=== PATIENT | male | born 1975 | race Caucasian/White ===

== ENCOUNTER 2020-11-07 18:52 | Emergency (ER) | payer OTHER, SELFPAY ==
--- NOTE | ~2020-11-07 | CT_ITS ---
EXAMINATION: CT HEAD WITHOUT CONTRAST CT FACIAL BONES WITHOUT CONTRAST CT CERVICAL SPINE WITHOUT CONTRAST CLINICAL INFORMATION: Fall COMPARISON: None. TECHNIQUE: Multidetector CT imaging of the head, face and cervical spine was performed without the use of intravenous contrast. Multiplanar reformats are reviewed. This CT examination was performed using dose optimization techniques as appropriate, variously including the following: *Automated exposure control *Adjustment of mA and/or kV according to patient size (this includes techniques or standardized protocols for targeted exams where dose is matched to indication/reason for exam; i.e. extremities or head) *Use of iterative reconstruction technique DLP: 1603 mGy-cm. FINDINGS: There is no evidence of acute intracranial hemorrhage or territorial infarction. No abnormal mass-effect or midline shift is seen. Suero to white matter differentiation is well preserved. There is no abnormal attenuation within the brain parenchyma.. No extra-axial fluid collections are identified. The ventricles are normal in size. There is no abnormal attenuation within the brain parenchyma. No acute facial bone fractures. Orbits and globes unremarkable. There is complete opacification of the left maxillary sinus with hyperdense secretions. Partial opacification of the left ethmoid air cells. Complete opacification left frontal sinus. Remainder of the paranasal sinuses are clear. Rightward projecting osseous nasal septal spur. Mandible and temporomandibular joints are intact. Atlantooccipital alignment is maintained. The vertebral bodies and posterior elements align normally. No acute fracture or subluxation. Vertebral body heights are maintained. Small endplate osteophytes present from C4 through C7.. The paraspinal soft tissues are otherwise unremarkable. The imaged lung apices are clear CT/CT cervical spine wo con IMPRESSION: No acute intracranial pathology. Normal CT imaging appearance of the brain. No facial bone fracture. Chronic left maxillary and frontal sinusitis. No cervical spine fracture or subluxation.
--- NOTE | 2020-11-07 19:09 | ECG_ITS ---
Test Reason : SUBSTANCE ABUSE Blood Pressure : / mmHG Vent. Rate : 067 BPM Atrial Rate : 067 BPM P-R Int : 132 ms QRS Dur : 090 ms QT Int : 424 ms P-R-T Axes : 081 060 050 degrees QTc Int : 448 ms Normal sinus rhythm Possible Left atrial enlargement Borderline ECG When compared with ECG of 06-MAR-2020 04:15, No significant change was found Referred By: Oscar Tirado Electronically Signed By:Kurt De Leon
--- NOTE | 2020-11-07 19:09 | ED.PSYCH ---
HPI - Psych General Chief Complaint: Psychiatric Symptoms Stated Complaint: crisis Time Seen by Provider: 11/07/20 19:08 Source: EMS Mode of arrival: EMS Limitations: no limitations History of Present Illness HPI Narrative: Presents via EMS after he walks and police station requesting help with substance abuse states he has been using heroin on cocaine which he snorts last used couple hours prior to arrival states he has never used IV drugs always snores occasionally uses marijuana but no other illicit drugs. States he has also had visual and auditory hallucinations with history of depression and anxiety as well as PTSD he is supposed to be on multiple psych medications but he has not been taking it for several weeks. He reports he does feel suicidal but denies homicidal ideation. Offers no medical complaints at this time. States he is looking for help with his illicit substance and wants to get back on his medications. No specific plan expressed. MD complaint: suicidal ideation and feels depressed Onset (ago): day(s) Duration: constant History of same: Yes Relieving factors: none Exacerbating factors: alcohol Context: recent drug abuse Associated psychiatric symptoms: depression and suicidal ideation Associated symptoms: denies other symptoms Treatments prior to arrival: none If self harm: admits thoughts of self harm Related Data Allergies Allergy/AdvReac Type Severity Reaction Status Date / Time No Known Allergies Allergy Unverified 04/22/20 16:31 [No Known Allergies*] Review of Systems Review of Systems: Constitutional: No Weight loss, No Fever, No Chills, No Night Sweats, No Fatigue, No Malaise ENT/Mouth: No Hearing loss, No Ear Pain, No Nasal Congestion, No Sinus Pain, No Hoarseness, No sore throat, No Rhinorrhea, No Swallowing Difficulty Eyes: No Eye Pain, No Swelling, No Redness, No Foreign Body, No Discharge, No Vision Changes Cardiovascular: No Chest Pain, No SOB, No Dyspnea on Exertion, No Orthopnea, No Edema, No Palpitations Respiratory: No Cough, No Sputum, No Wheezing, No Dyspnea Gastrointestinal: No Nausea, No Vomiting, No Diarrhea, No Constipation, No abdominal Pain, No Hematochezia, No Melena Genitourinary: no irregular bleeding, No Dysuria, No Urinary Frequency, No Hematuria, No Urinary Incontinence, No Urgency, No Flank Pain, No Urinary Flow Changes, No Hesitancy Musculoskeletal: No joint pain, No Myalgias, No Joint Swelling Skin: No Skin Lesions, No rash Neuro: No Weakness, No Numbness, No Paresthesias, No Loss of Consciousness, No Dizziness, No Headache Psych: , as noted per HPI Heme/Lymph: No Bruising, No Bleeding,No Lymphadenopathy Endocrine: No Polyuria, No Polydipsia, No Temperature Intolerance Yes all other systems are reviewed and are negative [facility] Past Medical History Medical History Anxiety Depression Mental health problem Substance abuse Social History Social History Advance Directives: No Physical Exam Vital Signs: Vital Signs: Last Vital Signs Pulse 74 11/07/20 19:22 Resp 16 11/07/20 19:22 BP 144/91 H 11/07/20 19:22 Pulse Ox 97 11/07/20 19:22 Body Mass Index 26.6 Reviewed Const: General: cooperative, healthy appearing and anxious; No acute distress or intoxicated appearing Nutritional Appearance: average body habitus Orientation/consciousness: patient oriented x3 HENMT: Head: Yes normal to inspection Ears: hearing grossly normal bilaterally Eyes: General: appearance normal, both eyes and all related structures Visual Vences: normal visual vences by confrontation Neck: Neck: Yes normal visual inspection, No positive Brudzinski's sign, No positive Kernig's sign and No tender Thyroid: Thyroid normal Chest: Chest palpation & inspection: normal inspection of the chest Resp: Effort & Inspection: normal respiratory effort Auscultation: clear to auscultation bilaterally Cardio: Jugular venous distension: no JVD Rhythm: regular rhythm Heart sounds: S1 normal heart sound present and S2 normal heart sound present GI: Inspection: Yes normal to inspection Percussion: Yes normal to percussion Auscultation: normal bowel sounds : General: Yes no CVA tenderness Back/Spine/Pelvis: Back: no CVA tenderness Skin: General skin exam: no rashes or lesions noted Neuro: General: patient oriented x3 Extrem: General: Yes normal to inspection Course Reevaluation(s) Reevaluation #1: 1944 Admits to snorting heroin and cocaine last used heroin couple hours prior to arrival. He is anxious but denies any pain or discomfort. States he is looking for help no recent SI attempt. No specific plan expressed. Will get medical screening labs and obtain crisis evaluation. Plan reviewed and agreeable. Reevaluation #2: 2049 At this time patient has been calm cooperative resting comfortably in no acute distress. He has been medically cleared for psychiatric evaluation At this time patient has been placed on physician observation as he requires more time to be evaluated by the crisis team. Denies any medical complaints, PWD, lungs CTA. MDM - Psych Lab Data Result diagrams: 11/07/20 19:48 11/07/20 19:48 Labs: Lab Results 11/07/20 11/07/20 11/07/20 Range/Units 19:48 19:48 19:48 WBC 6.9 (4.8-10.8) X10*3/uL RBC 3.94 L (4.60-5.80) X10*6/uL Hgb 12.1 L (14.0-18.0) g/dl Hct 36.8 L (42-52) % MCV 93.4 (80-98) fL MCH 30.7 (27.0-33.0) pg MCHC 32.9 (31.0-36.0) g/dl RDW 13.4 (11.0-16.0) % Plt Count 279 (160-400) X10*3/uL MPV 8.9 L (9.4-12.4) fL Immature Gran % (Auto) 0.1 (0.0-0.4) % Neut % (Auto) 68.8 (45-73) % Lymph % (Auto) 21.8 (20-40) % [place] % (Auto) 8.9 (2-11) % Eos % (Auto) 0.3 (0-4) % Baso % (Auto) 0.1 (0-2) % Lymph # (Auto) 1.5 (1.2-4.9) X10*3/uL [place] # (Auto) 0.6 (0.1-1.2) X10*3/uL Eos # (Auto) 0.0 (0.0-0.4) X10*3/uL Baso # (Auto) 0.0 (0.0-0.2) X10*3/uL Abs Immat Gran (auto) 0.01 (0.00-0.03) X10*3/uL Absolute Neuts (auto) 4.8 (2.0-8.3) X10*3/uL Absolute Nucleated RBC 0.000 (0.0-0.012) X10*3/uL Nucleated RBC % (auto) 0.0 (0.0-0.2) /100WBC Sodium 142 (135-145) mmol/L Potassium 3.6 (3.3-5.1) mmol/L Chloride 100 (96-108) mmol/L Carbon Dioxide 33 H (22-29) mmol/L Anion Gap 13 (12-20) BUN 15 (9-16) mg/dL Creatinine 1.20 (0.5-1.4) mg/dL Estim Creat Clear Calc 74.2 Estimated GFR > 60 Random Glucose 104 (60-115) mg/dL Calcium 9.2 (8.4-10.2) mg/dL Total Bilirubin 0.3 (0.0-1.0) mg/dL AST 43 H (5-37) U/L ALT 21 (0-40) U/L Alkaline Phosphatase 93 (39-117) U/L Total Protein 7.7 (6.5-8.0) g/dL Albumin 4.4 (3.5-5.0) g/dL Urine Opiates Screen (Not Detect) Ur Barbiturates Screen (Not Detect) Ur Phencyclidine Scrn (Not Detect) Ur Amphetamines Screen (Not Detect) U Benzodiazepines Scrn (Not Detect) Urine Cocaine Screen (Not Detect) U Marijuana (THC) Screen (Not Detect) Ethyl Alcohol mg/dL COVID-19 (ROHIT) Negative (Negative) COVID-19 Clin Com See Note 11/07/20 11/07/20 Range/Units 19:48 19:48 WBC (4.8-10.8) X10*3/uL RBC (4.60-5.80) X10*6/uL Hgb (14.0-18.0) g/dl Hct (42-52) % MCV (80-98) fL MCH (27.0-33.0) pg MCHC (31.0-36.0) g/dl RDW (11.0-16.0) % Plt Count (160-400) X10*3/uL MPV (9.4-12.4) fL Immature Gran % (Auto) (0.0-0.4) % Neut % (Auto) (45-73) % Lymph % (Auto) (20-40) % [place] % (Auto) (2-11) % Eos % (Auto) (0-4) % Baso % (Auto) (0-2) % Lymph # (Auto) (1.2-4.9) X10*3/uL [place] # (Auto) (0.1-1.2) X10*3/uL Eos # (Auto) (0.0-0.4) X10*3/uL Baso # (Auto) (0.0-0.2) X10*3/uL Abs Immat Gran (auto) (0.00-0.03) X10*3/uL Absolute Neuts (auto) (2.0-8.3) X10*3/uL Absolute Nucleated RBC (0.0-0.012) X10*3/uL Nucleated RBC % (auto) (0.0-0.2) /100WBC Sodium (135-145) mmol/L Potassium (3.3-5.1) mmol/L Chloride (96-108) mmol/L Carbon Dioxide (22-29) mmol/L Anion Gap (12-20) BUN (9-16) mg/dL Creatinine (0.5-1.4) mg/dL Estim Creat Clear Calc Estimated GFR Random Glucose (60-115) mg/dL Calcium (8.4-10.2) mg/dL Total Bilirubin (0.0-1.0) mg/dL AST (5-37) U/L ALT (0-40) U/L Alkaline Phosphatase (39-117) U/L Total Protein (6.5-8.0) g/dL Albumin (3.5-5.0) g/dL Urine Opiates Screen POSITIVE H (Not Detect) Ur Barbiturates Screen Not Detected (Not Detect) Ur Phencyclidine Scrn Not Detected (Not Detect) Ur Amphetamines Screen Not Detected (Not Detect) U Benzodiazepines Scrn Not Detected (Not Detect) Urine Cocaine Screen POSITIVE H (Not Detect) U Marijuana (THC) Screen Not Detected (Not Detect) Ethyl Alcohol < 10 mg/dL COVID-19 (ROHIT) (Negative) COVID-19 Clin Com Discharge Plan Discharge Clinical Impression: Depression, Polysubstance abuse
[2020-11-07 19:22] VITALS: BP 132/84; BP 144/91; PULSE 74; PULSE 80; RESP 16; O2SAT 97; BMI 26.6
--- NOTE | 2020-11-07 19:26 | PC.NURSE ---
Security at bedside for changeover. UA obtained.
--- NOTE | 2020-11-07 19:46 | PC.NURSE ---
scale technician at bedside for EKG, UA, Covid and labs.
[2020-11-07 19:58] LABS: MANUAL DIFF FLAG NO
[2020-11-07 19:59] LABS: Basophils Percent Auto 0.1 % (0-2); Eosinophils Percent Auto 0.3 % (0-4); Hematocrit 36.8 % (42-52); Hemoglobin 12.1 g/dl (14.0-18.0); Imm Gran Abs Auto 0.01 X10*3/uL (0.00-0.03); Imm Gran Pct Auto 0.1 % (0.0-0.4); Lymphocytes Absolute Auto 1.5 X10*3/uL (1.2-4.9); Lymphocytes Percent Auto 21.8 % (20-40); Mean Corpuscular HGB Conc 32.9 g/dl (31.0-36.0); Mean Corpuscular Hemoglobin 30.7 pg (27.0-33.0); Mean Corpuscular Volume 93.4 fL (80-98); Mean Platelet Volume 8.9 fL (9.4-12.4); Monocytes Absolute Auto 0.6 X10*3/uL (0.1-1.2); Monocytes Percent Auto 8.9 % (2-11); Neutrophils Absolute Auto 4.8 X10*3/uL (2.0-8.3); Neutrophils Percent Auto 68.8 % (45-73); Platelet Count 279 X10*3/uL (160-400); Red Blood Count 3.94 X10*6/uL (4.60-5.80); Red Cell Distribution Width 13.4 % (11.0-16.0); White Blood Count 6.9 X10*3/uL (4.8-10.8)
[2020-11-07 20:15] LABS: COVID-19 Test Negative (Negative)
[2020-11-07 20:26] LABS: Ethanol < 10 mg/dL
[2020-11-07 20:30] LABS: Alanine Aminotransferase 21 U/L (0-40); Albumin Level 4.4 g/dL (3.5-5.0); Alkaline Phosphatase 93 U/L (39-117); Anion Gap 13 (12-20); Aspartate Amino Transferase 43 U/L (5-37); Bilirubin Total 0.3 mg/dL (0.0-1.0); Blood Urea Nitrogen 15 mg/dL (9-16); Calcium 9.2 mg/dL (8.4-10.2); Carbon Dioxide 33 mmol/L (22-29); Chloride 100 mmol/L (96-108); Creatinine Clr Calc Pharmacy 74.2; Estimated Glomerular Filt Rate > 60; Glucose Random 104 mg/dL (60-115); Potassium 3.6 mmol/L (3.3-5.1); Sodium 142 mmol/L (135-145); Total Protein 7.7 g/dL (6.5-8.0)
[2020-11-07 20:40] LABS: Amphetamine Screen Urine Not Detected (Not Detect); Barbiturates, Urine Not Detected (Not Detect); Benzodiazepines Screen Urine Not Detected (Not Detect); Cannabinoid Screen Urine Not Detected (Not Detect); Cocaine Screen Urine POSITIVE (Not Detect); Opiate Screen Urine POSITIVE (Not Detect); Phencyclidine Screen Urine Not Detected (Not Detect)
[2020-11-08 06:00] VITALS: BP 104/61; PULSE 55; RESP 18; O2SAT 100
--- NOTE | 2020-11-08 06:27 | PC.NURSE ---
Pt becoming agitated that he remains in a chair. Pt states I need to lay down so I can get some rest!! This RN offering to recline chair, pt refusing, states I've been here 12 hours, I want a bed!! Pt assisted into bed, into POC. VSS. Awaiting breakfast, continue to monitor.
--- NOTE | 2020-11-08 09:20 | PC.NURSE ---
Suboxone dose verified,faxed to pharmacy
[2020-11-08 10:13] VITALS: BP 126/70; PULSE 59; RESP 16; TEMP 37.1; O2SAT 99
[2020-11-08] MEDS: Buprenorphine/Naloxone 8/2 mg FILM 1 FILM SUBLINGUAL ×2 (10:20→21:09)
[2020-11-08 13:53] VITALS: BP 124/63; PULSE 78; RESP 16; O2SAT 98
[2020-11-08] MEDS: buPROPion HCl XL 300 MG TAB.ER.24H PO (15:37)
[2020-11-08] MEDS: QUEtiapine Fumarate 100 MG TABLET PO (15:37)
--- NOTE | 2020-11-08 16:05 | PC.NURSE ---
[facility] at bedside
--- NOTE | 2020-11-08 18:43 | PC.NURSE ---
Plan for detox, if no bed pt to be discharged
--- NOTE | 2020-11-08 19:10 | PC.NURSE ---
PT SLEEPING AT THIS TIME.
--- NOTE | 2020-11-08 20:54 | MHC.CARE ---
CARE team followed up with [facility] re: plan of care for detox placement. No placement found, pt is cleared for discharge on their end. Pt will be moved to pod for the night and discharged in the morning with resources for detox placement.
--- NOTE | 2020-11-08 21:04 | MHC.RECOVSUP ---
Reason for consult Psychiatric and LISA o Current location: [facility] o Identified substance use concern: Opioid <del>-</del> <del>Overdose</del> - Withdrawal - Seeking ATS (detox) - Support ? Intervention: <del>o</del> <del>ATS</del> <del>bed</del> <del>search</del> <del>started/completed/in</del> <del>process</del> o MAT started or to be started o Community resources provided o Harm reduction discussion ? Plan: <del>o</del> <del>Referral</del> <del>to</del> <del>[facility]</del> <del>o</del> <del>Bed</del> <del>search</del> <del>in</del> <del>progress</del> <del>to</del> o Follow up tomorrow <del>o</del> <del>Patient</del> <del>awaiting</del> <del>crisis</del> <del>evaluation</del> o Patient to follow up with [facility] after discharge ? Additional information: pt was placed in the pods. pt was also started on MAT in the ED. I tried more than once to engage with pt and tried waking him but pt state that he was already provided with resources
[2020-11-08 21:09] VITALS: BP 101/64; PULSE 57
[2020-11-08] MEDS: Prazosin HCL 1 MG CAPSULE 2 MG PO (21:09)
[2020-11-08] MEDS: QUEtiapine Fumarate 300 MG TABLET 600 MG PO (21:10)
[2020-11-08] MEDS: Mirtazapine 15 MG TABLET 45 MG PO (21:10)
[2020-11-08] MEDS: OXcarbazepine 150 MG TABLET PO (21:10)
[2020-11-08 21:14] VITALS: BP 101/64; PULSE 57
--- NOTE | 2020-11-08 21:19 | PC.NURSE ---
Patient just got transferred from main ED, calm and quiet, compliant with HS PO medication, Held prazosin 5mg for BP 101/64, HR 57, patient disposition is detox bed search, will continue to monitor.
--- NOTE | 2020-11-09 00:02 | PC.NURSE ---
Patient at 2315 had a questionable fall, per staffing report patient lowered himself to the floor right in front of the staff, patient reported feeling dizzy, neurological assessment done no deficit noted, patient was alert and oriented x 4. No distress noted. No injury noted except nose bleed. provider saw the patient and ordered CT head/face/cervical, patient was quickly sent out for CT.
[2020-11-09] MEDS: Buprenorphine/Naloxone 8/2 mg FILM 1 FILM SUBLINGUAL (07:58)
[2020-11-09 07:59] VITALS: BP 114/72; PULSE 93
[2020-11-09] MEDS: OXcarbazepine 150 MG TABLET PO (07:59)
[2020-11-09] MEDS: Prazosin HCL 1 MG CAPSULE 2 MG PO (07:59)
[2020-11-09] MEDS: buPROPion HCl XL 300 MG TAB.ER.24H PO (07:59)
== END 2020-11-09 08:18 | disposition home or self-care (01) ==
PROVIDERS: Nurse Practitioner Primary Care; Emergency Provider Internal Medicine
DX: R42 Dizziness and giddiness (principal); F11.23 Opioid dependence with withdrawal; R44.1 Visual hallucinations; R44.0 Auditory hallucinations; F14.10 Cocaine abuse, uncomplicated; Z20.822 Contact with and (suspected) exposure to COVID-19; Z79.899 Other long term (current) drug therapy
CPT/HCPCS: 36415; 70450; 70486; 72125; 80053; 80307; 80320; 85025; 87635; 93005; 99284

== ENCOUNTER 2021-07-16 18:41 | Emergency (ER) | payer OTHER, SELFPAY ==
[2021-07-16 18:44] VITALS: BP 138/75; PULSE 100; RESP 16; TEMP 36.5; BMI 26.6
--- NOTE | 2021-07-16 19:04 | ED_ITS ---
HPI - Psych General Chief Complaint: Psychiatric Symptoms Stated Complaint: crisis Time Seen by Provider: 07/16/21 19:04 Source: patient Mode of arrival: EMS Limitations: no limitations History of Present Illness HPI Narrative: Patient's history of substance abuse use heroin and cocaine history of depression anxiety comes here for increased depression with vague suicidal ideation with no plan no medication for last 3 days endorses suicidal or auditory hallucinations Related Data Home Medications Medication Instructions Recorded Confirmed bupropion HCl 300 mg 24 hr tablet, 300 mg PO DAILY 11/08/20 07/16/21 extended release mirtazapine 45 mg tablet 45 mg PO BEDTIME 11/08/20 07/16/21 prazosin 2 mg capsule 2 mg PO BID 11/08/20 07/16/21 prazosin 5 mg capsule 5 mg PO BEDTIME 11/08/20 07/16/21 quetiapine 100 mg tablet (Seroquel) 100 mg PO TID PRN 11/08/20 07/16/21 oxcarbazepine 600 mg tablet 1 tab PO BID 07/16/21 07/16/21 quetiapine 400 mg tablet 1 tab PO BEDTIME 07/16/21 07/16/21 Allergies Allergy/AdvReac Type Severity Reaction Status Date / Time No Known Allergies Allergy Verified 07/16/21 23:01 [No Known Allergies*] Review of Systems Review of Systems: Constitutional : No Fever, No Chills ENT/Mouth : No Ear Pain, No Nasal Congestion, No sore throat Eyes: No Eye Pain, No Swelling, No Redness Cardiovascular : No Chest Pain, No SOB Respiratory : No Cough, No Sputum, No Dyspnea Gastrointestinal : No Nausea, No Vomiting, No Diarrhea, No Hematochezia, No Melena Genitourinary : No Dysuria, No Urinary Frequency, No Hematuria Musculoskeletal : No Myalgias Skin : No Skin Lesions, No rash Neuro : No Weakness, No Numbness, No Paresthesias, No Dizziness, No Headache Psych : positive Anxiety, positive Depression, positive SI/HI Heme/Lymph: No Lymphadenopathy Endocrine : No Polyuria, No Polydipsia PMFSH Past Medical History Medical History Anxiety Depression Mental health problem Substance abuse Social History Social History Alcohol intake: current Advance Directives: No Physical Exam Vital Signs: Vital Signs: Last Vital Signs Temp 97.7 F 07/16/21 18:44 Pulse 70 07/16/21 23:44 Resp 16 07/16/21 23:19 BP 125/76 07/16/21 23:44 Pulse Ox 97 07/16/21 23:19 BMI result Body Mass Index 26.6 Appearance: Alert. Oriented X3. No acute distress. Eyes: PERRLA, No Nystagmus ENT: Pharynx normal. Oral Mucosa moist Neck: Normal inspection. Neck supple. CVS: Normal heart rate and rhythm. Pulses normal. Respiratory: No respiratory distress. Equal air entry bilateral, no wheezing/rales/rhonchi Abdomen: Soft and nontender. Bowel sounds are present, no mass palpable, no CVA tenderness Skin: Skin warm and dry. Normal skin color. Normal skin turgor. Extremities: No lower extremity edema. No calf tenderness psych: Depressed mood auditory hallucinations+ no current suicidal ideation Neuro: Oriented X 3. No motor deficit. No sensory deficit.No cerebellar signs , cranial nerves II-XII intact MDM - Psych MDM Narrative Medical decision making narrative: Patient seen by therapist denies any suicidal ideation symptoms from bipolar disorder substance abuse for discharge patient home Lab Data Attestation: I reviewed the patient's lab results. Result diagrams: 07/16/21 20:46 07/16/21 20:46 Labs: Lab Results 07/16/21 07/16/21 07/16/21 Range/Units 19:16 19:16 19:16 WBC (4.8-10.8) X10*3/uL RBC (4.60-5.80) X10*6/uL Hgb (14.0-18.0) g/dl Hct (42.0-52.0) % MCV (80.0-98.0) fL MCH (27.0-33.0) pg MCHC (31.0-36.0) g/dl RDW (11.0-16.0) % Plt Count (160-400) X10*3/uL MPV (9.4-12.4) fL Immature Gran % (Auto) (0.0-0.4) % Neut % (Auto) (45-73) % Lymph % (Auto) (20-40) % [place] % (Auto) (2-11) % Eos % (Auto) (0-4) % Baso % (Auto) (0-2) % Lymph # (Auto) (1.2-4.9) X10*3/uL [place] # (Auto) (0.1-1.2) X10*3/uL Eos # (Auto) (0.0-0.4) X10*3/uL Baso # (Auto) (0.0-0.2) X10*3/uL Abs Immat Gran (auto) (0.00-0.03) X10*3/uL Absolute Neuts (auto) (2.0-8.3) x10*3/uL Absolute Nucleated RBC (0.0-0.012) X10*3/uL Nucleated RBC % (auto) (0.0-0.2) /100WBC Sodium (135-145) mmol/L Potassium (3.3-5.1) mmol/L Chloride (96-108) mmol/L Carbon Dioxide (22-29) mmol/L Anion Gap (12-20) BUN (9-16) mg/dL Creatinine (0.5-1.4) mg/dL Estim Creat Clear Calc Estimated GFR Random Glucose (60-115) mg/dL Calcium (8.4-10.2) mg/dL Total Bilirubin (0.0-1.0) mg/dL Direct Bilirubin (0.0-0.5) mg/dL AST (5-37) U/L ALT (0-40) U/L Alkaline Phosphatase (39-117) U/L Total Protein (6.5-8.0) g/dL Albumin (3.5-5.0) g/dL Urine Color YELLOW Urine Appearance HAZY Urine pH 6.0 (5.0-8.0) Ur Specific [place] >= 1.030 H (1.005-1.025) Urine Protein 1+ H (NEG-TRACE) MG/DL Urine Glucose (UA) NEG (NEG) MG/DL Urine Ketones 40 (NEG) MG/DL Urine Blood NEG (NEG) Urine Nitrite NEG (NEG) Ur Leukocyte Esterase NEG (NEG) Urine RBC 0-2 (0) /HPF Urine WBC 0 (0-4) /HPF Ur Squamous Epith Cells TRACE /LPF Urine Bacteria NONE /LPF Granular Casts 1-4 /LPF Urine Mucus 1+ /LPF Urine Opiates Screen POSITIVE H (Not Detect) Urine Fentanyl Screen POSITIVE H (Not Detect) Ur Barbiturates Screen Not Detected (Not Detect) Ur Phencyclidine Scrn Not Detected (Not Detect) Ur Amphetamines Screen Not Detected (Not Detect) U Benzodiazepines Scrn Not Detected (Not Detect) Urine Cocaine Screen POSITIVE H (Not Detect) U Marijuana (THC) Screen Not Detected (Not Detect) Ethyl Alcohol mg/dL COVID-19 (ROHIT) Negative (Negative) COVID-19 Clin Com See Note 07/16/21 07/16/21 07/16/21 Range/Units 20:46 20:46 20:46 WBC 13.3 H (4.8-10.8) X10*3/uL RBC 4.52 L (4.60-5.80) X10*6/uL Hgb 13.9 L (14.0-18.0) g/dl Hct 42.0 (42.0-52.0) % MCV 92.9 (80.0-98.0) fL MCH 30.8 (27.0-33.0) pg MCHC 33.1 (31.0-36.0) g/dl RDW 13.2 (11.0-16.0) % Plt Count 308 (160-400) X10*3/uL MPV 9.0 L (9.4-12.4) fL Immature Gran % (Auto) 0.3 (0.0-0.4) % Neut % (Auto) 67.3 (45-73) % Lymph % (Auto) 21.6 (20-40) % [place] % (Auto) 10.3 (2-11) % Eos % (Auto) 0.3 (0-4) % Baso % (Auto) 0.2 (0-2) % Lymph # (Auto) 2.9 (1.2-4.9) X10*3/uL [place] # (Auto) 1.4 H (0.1-1.2) X10*3/uL Eos # (Auto) 0.0 (0.0-0.4) X10*3/uL Baso # (Auto) 0.0 (0.0-0.2) X10*3/uL Abs Immat Gran (auto) 0.04 H (0.00-0.03) X10*3/uL Absolute Neuts (auto) 8.9 H (2.0-8.3) x10*3/uL Absolute Nucleated RBC 0.000 (0.0-0.012) X10*3/uL Nucleated RBC % (auto) 0.0 (0.0-0.2) /100WBC Sodium 142 (135-145) mmol/L Potassium 3.9 (3.3-5.1) mmol/L Chloride 99 (96-108) mmol/L Carbon Dioxide 31 H (22-29) mmol/L Anion Gap 16 (12-20) BUN 27 H (9-16) mg/dL Creatinine 1.33 (0.5-1.4) mg/dL Estim Creat Clear Calc 62.2 Estimated GFR 59 Random Glucose 88 (60-115) mg/dL Calcium 10.3 H D (8.4-10.2) mg/dL Total Bilirubin 0.7 (0.0-1.0) mg/dL Direct Bilirubin 0.3 (0.0-0.5) mg/dL AST 155 H (5-37) U/L ALT 62 H (0-40) U/L Alkaline Phosphatase 119 H D (39-117) U/L Total Protein 9.2 H (6.5-8.0) g/dL Albumin 5.1 H (3.5-5.0) g/dL Urine Color Urine Appearance Urine pH (5.0-8.0) Ur Specific [place] (1.005-1.025) Urine Protein (NEG-TRACE) MG/DL Urine Glucose (UA) (NEG) MG/DL Urine Ketones (NEG) MG/DL Urine Blood (NEG) Urine Nitrite (NEG) Ur Leukocyte Esterase (NEG) Urine RBC (0) /HPF Urine WBC (0-4) /HPF Ur Squamous Epith Cells /LPF Urine Bacteria /LPF Granular Casts /LPF Urine Mucus /LPF Urine Opiates Screen (Not Detect) Urine Fentanyl Screen (Not Detect) Ur Barbiturates Screen (Not Detect) Ur Phencyclidine Scrn (Not Detect) Ur Amphetamines Screen (Not Detect) U Benzodiazepines Scrn (Not Detect) Urine Cocaine Screen (Not Detect) U Marijuana (THC) Screen (Not Detect) Ethyl Alcohol < 10 mg/dL COVID-19 (ROHIT) (Negative) COVID-19 Clin Com Discharge Plan Discharge Clinical Impression: Active substance abuse Bipolar disorder Qualifiers: Active/Remission status: currently active Current bipolar episode type: mixed Current episode severity: moderate Qualified Code(s): F31.62 - Bipolar disorder, current episode mixed, moderate Patient Disposition: Home, Self-Care Instructions: Bipolar Disorder (ED), Polysubstance Abuse (ED) Additional Instructions: Take your medications follow with your therapist Stop taking cocaine and other drugs Prescriptions: No Action quetiapine [Seroquel] 100 mg Tablet 100 mg PO TID PRN (Reason: Anxiety) RF: 0 prazosin 5 mg Capsule 5 mg PO BEDTIME RF: 0 prazosin 2 mg Capsule 2 mg PO BID RF: 0 mirtazapine 45 mg Tablet 45 mg PO BEDTIME RF: 0 bupropion HCl 300 mg Tablet Extended Release 24 Hr 300 mg PO DAILY RF: 0 oxcarbazepine 600 mg tablet 1 tab PO BID RF: 0 quetiapine 400 mg tablet 1 tab PO BEDTIME RF: 0
[2021-07-16 19:26] LABS: Appearance Urine HAZY; Color Urine YELLOW; Glucose Urine UA NEG (NEG); Leukocyte Esterase Urine NEG (NEG); Nitrite Urine NEG (NEG); Specific Gravity - Urine >= 1.030 (1.005-1.025); UACC Culture Trigger NO; Urine Blood NEG (NEG); Urine Ketones 40 MG/DL (NEG); Urine Protein 1+ MG/DL (NEG-TRACE)
[2021-07-16 19:34] LABS: Mucus Urine 1+ /LPF; RBC Urine 0-2 /HPF (0); Squamous Epithelial Cell Urine TRACE /LPF; WBC Urine 0 /HPF (0-4)
[2021-07-16 19:48] LABS: COVID-19 Test Negative (Negative)
--- NOTE | 2021-07-16 20:48 | PC.NURSE ---
PT is calm and cooperative, requesting supplies to take a shower. Labs drawn, PT needs referral and crisis consult.
[2021-07-16 20:51] LABS: MANUAL DIFF FLAG NO
[2021-07-16 20:53] LABS: Basophils Percent Auto 0.2 % (0-2); Eosinophils Percent Auto 0.3 % (0-4); Hemoglobin 13.9 g/dl (14.0-18.0); Imm Gran Abs Auto 0.04 X10*3/uL (0.00-0.03); Imm Gran Pct Auto 0.3 % (0.0-0.4); Lymphocytes Absolute Auto 2.9 X10*3/uL (1.2-4.9); Lymphocytes Percent Auto 21.6 % (20-40); Mean Corpuscular HGB Conc 33.1 g/dl (31.0-36.0); Mean Corpuscular Hemoglobin 30.8 pg (27.0-33.0); Mean Corpuscular Volume 92.9 fL (80.0-98.0); Monocytes Absolute Auto 1.4 X10*3/uL (0.1-1.2); Monocytes Percent Auto 10.3 % (2-11); Neutrophils Absolute Auto 8.9 x10*3/uL (2.0-8.3); Neutrophils Percent Auto 67.3 % (45-73); Platelet Count 308 X10*3/uL (160-400); Red Blood Count 4.52 X10*6/uL (4.60-5.80); Red Cell Distribution Width 13.2 % (11.0-16.0); White Blood Count 13.3 X10*3/uL (4.8-10.8)
[2021-07-16 21:11] LABS: Ethanol < 10 mg/dL
[2021-07-16 21:17] LABS: Alanine Aminotransferase 62 U/L (0-40); Albumin Level 5.1 g/dL (3.5-5.0); Alkaline Phosphatase 119 U/L (39-117); Anion Gap 16 (12-20); Aspartate Amino Transferase 155 U/L (5-37); Bilirubin Direct 0.3 mg/dL (0.0-0.5); Bilirubin Total 0.7 mg/dL (0.0-1.0); Blood Urea Nitrogen 27 mg/dL (9-16); Calcium 10.3 mg/dL (8.4-10.2); Carbon Dioxide 31 mmol/L (22-29); Chloride 99 mmol/L (96-108); Creatinine Clr Calc Pharmacy 62.2; Estimated Glomerular Filt Rate 59; Glucose Random 88 mg/dL (60-115); Potassium 3.9 mmol/L (3.3-5.1); Sodium 142 mmol/L (135-145); Total Protein 9.2 g/dL (6.5-8.0)
[2021-07-16 22:34] LABS: Amphetamine Screen Urine Not Detected (Not Detect); Barbiturates, Urine Not Detected (Not Detect); Benzodiazepines Screen Urine Not Detected (Not Detect); Cannabinoid Screen Urine Not Detected (Not Detect); Cocaine Screen Urine POSITIVE (Not Detect); Fentanyl, urine POSITIVE (Not Detect); Opiate Screen Urine POSITIVE (Not Detect); Phencyclidine Screen Urine Not Detected (Not Detect)
--- NOTE | 2021-07-16 22:59 | PC.NURSE ---
Med rec completed using PT medical record, with PT confirming meds and dosages.
[2021-07-16 23:19] VITALS: BP 125/76; PULSE 70; RESP 16; O2SAT 97
[2021-07-16 23:43] VITALS: BP 125/76; PULSE 70
[2021-07-16] MEDS: Prazosin HCL 1 MG CAPSULE 2 MG PO (23:43)
[2021-07-16] MEDS: QUEtiapine Fumarate 400 MG TABLET PO (23:43)
[2021-07-16 23:44] VITALS: BP 125/76; PULSE 70
[2021-07-16] MEDS: Prazosin HCL 5 MG CAPSULE PO (23:44)
[2021-07-16] MEDS: Mirtazapine 15 MG TABLET 45 MG PO (23:45)
[2021-07-16] MEDS: OXcarbazepine 300 MG TABLET 600 MG PO (23:45)
[2021-07-17] VITALS (8 sets, daily range): BP systolic 114–129; BP diastolic 65–81; PULSE 79–94; RESP 16–20; TEMP 36.9–37.6; O2SAT 96–98
--- NOTE | 2021-07-17 06:35 | PC.NURSE ---
This RN and Dr. Garnica discussed concerns for PT discharge at this time. PT cleared for crisis by Julia earlier in the shift. PT received medications around midnight which heavily sedated him. PT is still difficult to arouse and unable to provide appropriate responses to questions. Plan is to hold PT until he wakes up and is able to advocate for himself.
--- NOTE | 2021-07-17 09:39 | PC.NURSE ---
MD Garnica made aware that pt still sleeping. Upon awakening, states he would like to be made aware so pt can be reassessed and possibly D/C. RN will continue to monitor.
--- NOTE | 2021-07-17 10:58 | PC.NURSE ---
Pt woken up from sleep. Pt remains very sleepy and unsteady on his feet. MD Garnica made aware and received MD orders of holding pt's wellbutrin, trileptal. MD also made aware of pt's morning vitals with BP within 115's systolic and received MD orders to hold pt's minipress as well. RN will continue to monitor.
--- NOTE | 2021-07-17 11:01 | PC.NURSE ---
Pt given breakfast tray, and pt redirected that he should sit up and eat. However pt remains too tired and sleepy to eat. RN will continue to monitor.
--- NOTE | 2021-07-17 12:32 | PC.NURSE ---
Update given to [facility] regarding pt status. Pt remains sleeping and unable to maintain a stead conversation or ambulation. RN will continue to monitor
--- NOTE | 2021-07-17 15:13 | PC.NURSE ---
Upon reevaluation by MD Garnica, pt noted to have state SI statements via drug use and overdose similar to a prior visit in March. As per , pt to be reevaluated by [facility]. RN will continue to monitor.
--- NOTE | 2021-07-17 15:38 | PC.NURSE ---
Pt up to nursing station requesting for certain medications by name. MD Garnica made aware and stated that pt must be evaluated by crisis again until he can have his medications, especially due to pt's morning sleepy affect and stating SI statements. Rn will continue to monitor.
--- NOTE | 2021-07-17 17:07 | PC.NURSE ---
Addendum entered by Soo Reeder RN 07/17/21 17:08: Screener Marquis Original Note: FAITHN screener at bedside for crisis revaluation at this time
--- NOTE | 2021-07-17 17:20 | PC.NURSE ---
Pt evaluated by [facility] rebel Cho whom stated pt is showcasing behavioral SI by using his fingernails to scratch his arms. Pt is also homeless. As per screener pt is okay to be D/C. Marquis will continue to discuss case with MD Garnica. KRISTIN will continue to monitor.
--- NOTE | 2021-07-17 17:31 | PC.NURSE ---
Pt case further discussed with MD Vick. aware as per [facility] rebel [facility] that pt is not to be D/C and will be reevaluated some time tomorrow. MD also made aware that pt is requesting medications for his anxiety. MD states to have pt eat his dinner first and then pt will be reassessed afterwards. No new orders received at this time. RN will continue to monitor.
--- NOTE | 2021-07-17 18:47 | PC.NURSE ---
Pt received dinner tray at this time
[2021-07-17] MEDS: Prazosin HCL 5 MG CAPSULE PO (20:59)
[2021-07-17] MEDS: Mirtazapine 15 MG TABLET 45 MG PO (21:00)
[2021-07-17] MEDS: OXcarbazepine 300 MG TABLET 600 MG PO (21:01)
[2021-07-17] MEDS: Prazosin HCL 1 MG CAPSULE 2 MG PO (21:01)
--- NOTE | 2021-07-17 21:05 | PC.NURSE ---
pharmacy called for seroquil 400mg dose. out in [facility]
[2021-07-17] MEDS: QUEtiapine Fumarate 400 MG TABLET PO (21:15)
--- NOTE | 2021-07-17 22:36 | PC.NURSE ---
pt states he has all over body pain from withdrawls of drugs. pt states he is on methadone.
[2021-07-17] MEDS: methADONE HCl 20 MG/2 ML ORAL.CONC 55 MG PO (22:58)
[2021-07-18 02:11] VITALS: BP 119/83; PULSE 98; RESP 16; TEMP 36.5; O2SAT 95
--- NOTE | 2021-07-18 06:34 | SUR.OPER ---
Patient slept through the night, no distress observed/reported, out of room x 3 for refreshment, behavior calm, quiet, and appropriate, medication compliant, Methadone dose verified/pharmacy faxed/med rec updated/pending providers approval, patient was assessed by [facility] cleared, after patient made suicidal statement, disposition was changed to Gianna follow up by [facility] in the morning, will continue to monitor.
[2021-07-18] MEDS: Prazosin HCL 1 MG CAPSULE 2 MG PO (09:39)
[2021-07-18] MEDS: OXcarbazepine 300 MG TABLET 600 MG PO (09:39)
[2021-07-18] MEDS: buPROPion HCl XL 300 MG TAB.ER.24H PO (09:40)
[2021-07-18] MEDS: methADONE HCl 20 MG/2 ML ORAL.CONC 55 MG PO (09:50)
[2021-07-18 09:58] VITALS: BP 135/90; PULSE 80; RESP 16; TEMP 37.2; O2SAT 98
== END 2021-07-18 11:49 | disposition home or self-care (01) ==
PROVIDERS: Emergency Provider Internal Medicine
DX: F31.62 Bipolar disorder, current episode mixed, moderate (principal); R44.0 Auditory hallucinations; R45.851 Suicidal ideations; F41.9 Anxiety disorder, unspecified; F14.10 Cocaine abuse, uncomplicated; F19.10 Other psychoactive substance abuse, uncomplicated; Z20.822 Contact with and (suspected) exposure to COVID-19
CPT/HCPCS: 36415; 80053; 80307; 81001; 82077; 82248; 85025; 87635; 99285

== ENCOUNTER 2023-02-25 10:03 | Emergency (ER) | payer OTHER, SELFPAY ==
[2023-02-25 10:07] VITALS: BP 129/88; BP 160/94; PULSE 111; PULSE 115; RESP 16; TEMP 36.6; O2SAT 95; O2SAT 96; BMI 31.8
--- NOTE | 2023-02-25 10:19 | PC.NURSE ---
pt reports taking seroquel this AM
--- NOTE | 2023-02-25 12:17 | ED.GENADULT ---
HPI - General Adult General Chief complaint: ETOH/Substance Use Stated complaint: Abd pain x 2 days per EMS Time Seen by Provider: 02/25/23 10:15 History of Present Illness HPI narrative: Patient is 47 years old positive EtOH. Presented today with possible abdominal pain. At the current time patient denies. He admits to drinking alcohol. He has no complaints. He is not suicidal and not homicidal Related Data Home Medications Medication Instructions Recorded Confirmed bupropion HCl 300 mg 24 hr tablet, 300 mg PO DAILY 11/08/20 07/16/21 extended release mirtazapine 45 mg tablet 45 mg PO BEDTIME 11/08/20 07/16/21 prazosin 2 mg capsule 2 mg PO BID 11/08/20 07/16/21 prazosin 5 mg capsule 5 mg PO BEDTIME 11/08/20 07/16/21 quetiapine 100 mg tablet (Seroquel) 100 mg PO TID PRN Anxiety 11/08/20 07/16/21 oxcarbazepine 600 mg tablet 1 tab PO BID 07/16/21 07/16/21 quetiapine 400 mg tablet 1 tab PO BEDTIME 07/16/21 07/16/21 methadone 5 mg tablet 55 mg PO DAILY 07/18/21 07/18/21 Allergies Allergy/AdvReac Type Severity Reaction Status Date / Time No Known Allergies Allergy Verified 07/16/21 23:01 [No Known Allergies*] Review of Systems Review of Systems: Unable to answer review system. Patient appears grossly intoxicated [facility] Past Medical History Attestation statement: The following information was validated with the patient. Medical History Anxiety Depression Mental health problem Substance abuse Social History Social History Alcohol intake: never Smoked in Last 30 Days: Yes Use of substances other than those prescribed or required for medical reasons: Yes Substance Use Type: Crack/Cocaine and Heroin Advance Directives: No Advance Directives Information Provided: Yes Physical Exam ED Vital Signs: Vital Signs - 24 hr 02/25/23 10:07 02/25/23 14:40 Temperature 97.8 F 97.9 F Pulse Rate 111 H 89 Respiratory Rate 16 16 Blood Pressure 129/88 117/68 Pulse Oximetry 95 98 Oxygen Delivery Method Room Air Room Air BMI result Body Mass Index 31.8 Appearance: Alert. Oriented X3. No acute distress. Eyes: Pupils equal, round and reactive to light. ENT: Pharynx normal. Neck: Normal inspection. Neck supple. No lymph nodes noted. No crepitus CVS: Normal heart rate and rhythm. Pulses normal. Normal S1 and S2 Respiratory: No respiratory distress. Breath sounds normal. No Wheezing. No rales Abdomen: Soft and nontender. No rigidity. No distention. good BS x4 Skin: Skin warm and dry. Normal skin color. Normal skin turgor. Extremities: No lower extremity edema. Neurovascular intact to all extremities. No Lacerations. No Rash Neuro: Oriented X 3. No motor deficit. No sensory deficit. Moving all extermities. No slurred speech Medical Decision Making Medical Decision Making MDM Narrative: Interestingly patient's alcohol came back negative. However patient's fentanyl and cocaine came back positive. On further questioning patient was using fentanyl and cocaine repetitively last night and this morning. After monitoring for a few hours patient is now awake alert. Wants to go home. 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 Patient did not want any additional detox at this time. Is awake alert oriented ambulatory will discharge home. Differential Diagnosis Differential Diagnoses: The differential diagnosis associated with the presentation includes Polysubstance abuse, electrolyte disturbance, hypoglycemia Lab Data [facility] Lab Attestation statement: I reviewed the patient's lab results. 02/25/23 12:58 02/25/23 12:58 Labs: Lab Results 02/25/23 02/25/23 02/25/23 Range/Units 12:58 12:58 14:48 WBC 12.2 H (4.8-10.8) X10*3/uL RBC 3.91 L (4.60-5.80) X10*6/uL Hgb 11.8 L (14.0-18.0) g/dl Hct 35.9 L (42.0-52.0) % MCV 91.8 (80.0-98.0) fL MCH 30.2 (27.0-33.0) pg MCHC 32.9 (31.0-36.0) g/dl RDW 13.6 (11.0-16.0) % Plt Count 245 (160-400) X10*3/uL MPV 9.4 (9.4-12.4) fL Immature Gran % (Auto) 0.3 (0.0-0.4) % Neut % (Auto) 78.2 H (45-73) % Lymph % (Auto) 12.3 L (20-40) % [place] % (Auto) 8.9 (2-11) % Eos % (Auto) 0.1 (0-4) % Baso % (Auto) 0.2 (0-2) % Lymph # (Auto) 1.5 (1.2-4.9) X10*3/uL [place] # (Auto) 1.1 (0.1-1.2) X10*3/uL Eos # (Auto) 0.0 (0.0-0.4) X10*3/uL Baso # (Auto) 0.0 (0.0-0.2) X10*3/uL Abs Immat Gran (auto) 0.04 H (0.00-0.03) X10*3/uL Absolute Neuts (auto) 9.5 H (2.0-8.3) x10*3/uL Absolute Nucleated RBC 0.000 (0.0-0.012) X10*3/uL Nucleated RBC % (auto) 0.0 (0.0-0.2) /100WBC Sodium 140 (135-145) mmol/L Potassium 4.3 (3.3-5.1) mmol/L Chloride 103 (96-108) mmol/L Carbon Dioxide 28 (22-29) mmol/L Anion Gap 13 (12-20) BUN 18 H (9-16) mg/dL Creatinine 0.91 (0.5-1.4) mg/dL Estim Creat Clear Calc 114.6 Estimated GFR > 60 Random Glucose 94 (60-115) mg/dL Calcium 9.5 D (8.4-10.2) mg/dL Total Bilirubin 0.4 (0.0-1.0) mg/dL Direct Bilirubin 0.1 (0.0-0.5) mg/dL AST 49 H (5-37) U/L ALT 38 (0-40) U/L Alkaline Phosphatase 132 H (39-117) U/L Total Protein 8.2 H (6.5-8.0) g/dL Albumin 4.3 (3.5-5.0) g/dL Lipase 15 (8-78) U/L Urine Color Urine Appearance Urine pH (5.0-9.0) Ur Specific [place] (1.005-1.025) Urine Protein (Neg-Trace) mg/dL Urine Glucose (UA) (Negative) mg/dL Urine Ketones (Negative) mg/dL Urine Blood (Negative) Urine Nitrite (Negative) Ur Leukocyte Esterase (Negative) Urine Opiates Screen Not Detected (Not Detect) Urine Fentanyl Screen POSITIVE H (Not Detect) Ur Barbiturates Screen Not Detected (Not Detect) Ur Phencyclidine Scrn Not Detected (Not Detect) Ur Amphetamines Screen Not Detected (Not Detect) U Benzodiazepines Scrn Not Detected (Not Detect) Urine Cocaine Screen POSITIVE H (Not Detect) U Marijuana (THC) Screen Not Detected (Not Detect) Ethyl Alcohol < 10 mg/dL 02/25/23 Range/Units 14:48 WBC (4.8-10.8) X10*3/uL RBC (4.60-5.80) X10*6/uL Hgb (14.0-18.0) g/dl Hct (42.0-52.0) % MCV (80.0-98.0) fL MCH (27.0-33.0) pg MCHC (31.0-36.0) g/dl RDW (11.0-16.0) % Plt Count (160-400) X10*3/uL MPV (9.4-12.4) fL Immature Gran % (Auto) (0.0-0.4) % Neut % (Auto) (45-73) % Lymph % (Auto) (20-40) % [place] % (Auto) (2-11) % Eos % (Auto) (0-4) % Baso % (Auto) (0-2) % Lymph # (Auto) (1.2-4.9) X10*3/uL [place] # (Auto) (0.1-1.2) X10*3/uL Eos # (Auto) (0.0-0.4) X10*3/uL Baso # (Auto) (0.0-0.2) X10*3/uL Abs Immat Gran (auto) (0.00-0.03) X10*3/uL Absolute Neuts (auto) (2.0-8.3) x10*3/uL Absolute Nucleated RBC (0.0-0.012) X10*3/uL Nucleated RBC % (auto) (0.0-0.2) /100WBC Sodium (135-145) mmol/L Potassium (3.3-5.1) mmol/L Chloride (96-108) mmol/L Carbon Dioxide (22-29) mmol/L Anion Gap (12-20) BUN (9-16) mg/dL Creatinine (0.5-1.4) mg/dL Estim Creat Clear Calc Estimated GFR Random Glucose (60-115) mg/dL Calcium (8.4-10.2) mg/dL Total Bilirubin (0.0-1.0) mg/dL Direct Bilirubin (0.0-0.5) mg/dL AST (5-37) U/L ALT (0-40) U/L Alkaline Phosphatase (39-117) U/L Total Protein (6.5-8.0) g/dL Albumin (3.5-5.0) g/dL Lipase (8-78) U/L Urine Color Yellow Urine Appearance Clear Urine pH 5.5 (5.0-9.0) Ur Specific [place] 1.020 (1.005-1.025) Urine Protein Negative (Neg-Trace) mg/dL Urine Glucose (UA) Negative (Negative) mg/dL Urine Ketones Negative (Negative) mg/dL Urine Blood Negative (Negative) Urine Nitrite Negative (Negative) Ur Leukocyte Esterase Negative (Negative) Urine Opiates Screen (Not Detect) Urine Fentanyl Screen (Not Detect) Ur Barbiturates Screen (Not Detect) Ur Phencyclidine Scrn (Not Detect) Ur Amphetamines Screen (Not Detect) U Benzodiazepines Scrn (Not Detect) Urine Cocaine Screen (Not Detect) U Marijuana (THC) Screen (Not Detect) Ethyl Alcohol mg/dL Independent Historian Clinical information obtained from an independent historian. History obtained from or confirmed by: EMS Discharge Plan Discharge Clinical Impression: Cocaine abuse, Heroin abuse Patient Disposition: Home, Self-Care Instructions: Narcotic Use Disorder (ED), Cocaine Abuse (ED) Prescriptions: No Action quetiapine [Seroquel] 100 mg Tablet 100 mg PO TID PRN (Reason: Anxiety) prazosin 5 mg Capsule 5 mg PO BEDTIME prazosin 2 mg Capsule 2 mg PO BID mirtazapine 45 mg Tablet 45 mg PO BEDTIME bupropion HCl 300 mg Tablet Extended Release 24 Hr 300 mg PO DAILY oxcarbazepine 600 mg tablet 1 tab PO BID quetiapine 400 mg tablet 1 tab PO BEDTIME methadone 5 mg Tablet 55 mg PO DAILY Referrals: Physician,Unknown J [Primary Care Provider] - (Please stop using recreational drugs and go to detox.)
[2023-02-25 13:02] LABS: MANUAL DIFF FLAG NO
[2023-02-25 13:03] LABS: Basophils Percent Auto 0.2 % (0-2); Eosinophils Percent Auto 0.1 % (0-4); Hematocrit 35.9 % (42.0-52.0); Hemoglobin 11.8 g/dl (14.0-18.0); Imm Gran Abs Auto 0.04 X10*3/uL (0.00-0.03); Imm Gran Pct Auto 0.3 % (0.0-0.4); Lymphocytes Absolute Auto 1.5 X10*3/uL (1.2-4.9); Lymphocytes Percent Auto 12.3 % (20-40); Mean Corpuscular HGB Conc 32.9 g/dl (31.0-36.0); Mean Corpuscular Hemoglobin 30.2 pg (27.0-33.0); Mean Corpuscular Volume 91.8 fL (80.0-98.0); Mean Platelet Volume 9.4 fL (9.4-12.4); Monocytes Absolute Auto 1.1 X10*3/uL (0.1-1.2); Monocytes Percent Auto 8.9 % (2-11); Neutrophils Absolute Auto 9.5 x10*3/uL (2.0-8.3); Neutrophils Percent Auto 78.2 % (45-73); Platelet Count 245 X10*3/uL (160-400); Red Blood Count 3.91 X10*6/uL (4.60-5.80); Red Cell Distribution Width 13.6 % (11.0-16.0); White Blood Count 12.2 X10*3/uL (4.8-10.8)
[2023-02-25 13:41] LABS: Alanine Aminotransferase 38 U/L (0-40); Albumin Level 4.3 g/dL (3.5-5.0); Alkaline Phosphatase 132 U/L (39-117); Anion Gap 13 (12-20); Aspartate Amino Transferase 49 U/L (5-37); Bilirubin Direct 0.1 mg/dL (0.0-0.5); Bilirubin Total 0.4 mg/dL (0.0-1.0); Blood Urea Nitrogen 18 mg/dL (9-16); Calcium 9.5 mg/dL (8.4-10.2); Carbon Dioxide 28 mmol/L (22-29); Chloride 103 mmol/L (96-108); Creatinine Clr Calc Pharmacy 114.6; Estimated Glomerular Filt Rate > 60; Ethanol < 10 mg/dL; Glucose Random 94 mg/dL (60-115); Lipase 15 U/L (8-78); Potassium 4.3 mmol/L (3.3-5.1); Sodium 140 mmol/L (135-145); Total Protein 8.2 g/dL (6.5-8.0)
--- NOTE | 2023-02-25 14:35 | MHC.RECOVRN ---
Pt somnolent, unable to engage in conversation at this time with t/w.
[2023-02-25 14:40] VITALS: BP 117/68; PULSE 89; RESP 16; TEMP 36.6; O2SAT 98
[2023-02-25 14:55] LABS: Appearance Urine Clear; Color Urine Yellow; Glucose Urine UA Negative (Negative); Leukocyte Esterase Urine Negative (Negative); Nitrite Urine Negative (Negative); PH 5.5 (5.0-9.0); Urine Blood Negative (Negative); Urine Ketones Negative (Negative); Urine Protein Negative (Neg-Trace)
[2023-02-25 15:10] LABS: Amphetamine Screen Urine Not Detected (Not Detect); Barbiturates, Urine Not Detected (Not Detect); Benzodiazepines Screen Urine Not Detected (Not Detect); Cannabinoid Screen Urine Not Detected (Not Detect); Cocaine Screen Urine POSITIVE (Not Detect); Fentanyl, urine POSITIVE (Not Detect); Opiate Screen Urine Not Detected (Not Detect); Phencyclidine Screen Urine Not Detected (Not Detect)
[2023-02-25 16:19] VITALS: BP 106/63; PULSE 89; RESP 16; TEMP 36.3; O2SAT 100
== END 2023-02-25 16:37 | disposition home or self-care (01) ==
PROVIDERS: Emergency Provider Emergency Medicine Emergency Medical Services
DX: F14.10 Cocaine abuse, uncomplicated (principal); F11.10 Opioid abuse, uncomplicated; F41.8 Other specified anxiety disorders; Z79.899 Other long term (current) drug therapy
CPT/HCPCS: 36415; 80048; 80076; 80307; 81003; 83690; 85025; 99285

== ENCOUNTER 2023-06-03 07:02 | Inpatient (IN) | payer OTHER, SELFPAY ==
--- NOTE | ~2023-06-03 | XR_ITS ---
EXAMINATION: XR CHEST CLINICAL INFORMATION: Cough. COMPARISON: Chest radiograph dated 09/15/2019. TECHNIQUE: Frontal view of the chest was obtained. FINDINGS: The lungs are clear. The cardiomediastinal silhouette is normal in size. There is no pleural effusion or pneumothorax. No acute osseous abnormality. XR/XR chest 1V IMPRESSION: No acute cardiopulmonary findings.
[2023-06-03 07:14] VITALS: BP 131/88; BP 160/100; PULSE 104; PULSE 88; RESP 18; O2SAT 97; BMI 30.4
[2023-06-03 07:40] LABS: Appearance Urine Clear; Color Urine Yellow; Glucose Urine UA Negative (Negative); Leukocyte Esterase Urine Negative (Negative); Nitrite Urine Negative (Negative); PH 5.5 (5.0-9.0); Specific Gravity - Urine 1.015 (1.005-1.025); UMIC TRIGGER UACC YES; Urine Blood Moderate (2+) (Negative); Urine Ketones Negative (Negative); Urine Protein 30 (1+) mg/dL (Neg-Trace)
[2023-06-03 07:49] LABS: Amphetamine Screen Urine Not Detected (Not Detect); Barbiturates, Urine Not Detected (Not Detect); Benzodiazepines Screen Urine Not Detected (Not Detect); Cannabinoid Screen Urine Not Detected (Not Detect); Cocaine Screen Urine POSITIVE (Not Detect); Fentanyl, urine POSITIVE (Not Detect); Opiate Screen Urine POSITIVE (Not Detect); Phencyclidine Screen Urine Not Detected (Not Detect)
[2023-06-03 07:55] LABS: Bacteria Urine None Seen (None Seen); Epith (RTE) Cast Present; RBC Urine 0-2 /HPF (0-2); Squamous Epithelial Cell Urine 0-2 /HPF (0-2); WBC Urine 0-5 /HPF (0-5)
--- NOTE | 2023-06-03 07:57 | HE.PHANOTE ---
RE METHADONE VERIFICATION LAST DOSE 05/30/23 80 MG @[facility] [phone]
--- NOTE | 2023-06-03 08:52 | ED_ITS ---
HPI - Psych General Chief Complaint: Psychiatric Symptoms Stated Complaint: SI FROM POLICE STATION PER EMS Time Seen by Provider: 06/03/23 07:10 Source: patient Mode of arrival: EMS History of Present Illness HPI Narrative: 47-year-old male who left a methadone program on Sunday and states that he did not have enough money to return and is feeling sad and depressed because he is homeless and woke up cold this morning. Patient endorse suicidal ideation for police who then called EMS and brought him in. Related Data Home Medications Medication Instructions Recorded Confirmed bupropion HCl 300 mg 24 hr tablet, 300 mg PO DAILY 11/08/20 06/03/23 extended release mirtazapine 45 mg tablet 45 mg PO BEDTIME 11/08/20 06/03/23 quetiapine 100 mg tablet (Seroquel) 100 mg PO TID PRN Anxiety 11/08/20 06/03/23 hydroxyzine HCl 50 mg tablet 50 mg PO BID PRN anxiety 06/03/23 06/03/23 ibuprofen 800 mg tablet 800 mg PO BID PRN Pain, Mild 06/03/23 06/03/23 methadone 10 mg/5 mL oral solution 80 mg PO DAILY 06/03/23 06/03/23 prazosin 1 mg capsule 1 mg PO TID PRN Anxiety 06/03/23 06/03/23 quetiapine 300 mg tablet 600 mg PO BEDTIME 06/03/23 06/03/23 Allergies Allergy/AdvReac Type Severity Reaction Status Date / Time No Known Allergies Allergy Verified 07/16/21 23:01 [No Known Allergies*] Review of Systems 2 Review of Systems: Pertinent positives and negatives as stated in HPI PMFSH Past Medical History Source: nursing notes reviewed Medical History Depression Anxiety Mental health problem Substance abuse Social History Social History Alcohol intake: never Smoked in Last 30 Days: Yes Substance Use Type: Crack/Cocaine and Opiates Advance Directives: No Advance Directives Information Provided: No Physical Exam 2 Vital Signs: Vital Signs: Last Vital Signs Temp 97.8 F 06/03/23 12:53 Pulse 76 06/03/23 14:27 Resp 13 06/03/23 14:27 BP 134/77 06/03/23 14:27 Pulse Ox 94 06/03/23 14:27 O2 Del Method Room Air 06/03/23 14:27 BMI result Body Mass Index 30.4 VITAL SIGNS: Reviewed. GENERAL: Well developed, well nourished, in no acute distress. HEAD: Normocephalic/atraumatic EYES: PERRLA, EOMI EARS: Ext canals without abnormality NOSE: Nares patent bilateral OROPHARYNX: no oral lesions noted, posterior pharynx clear NECK: Supple, no adenopathy LUNGS: Normal breath sounds. No adventitious sounds or accessory muscle use. SpO2<97> CARDIOVASCULAR: Regular rate and rhythm without noted murmurs ABDOMEN: Soft, non-tender, non-distended with bowel sounds. MUSCULOSKELETAL: No tenderness, deformities, or effusions noted on gross inspection. EXTREMITIES: No cyanosis, clubbing or edema. SKIN: Inspection of the skin reveals no rashes NEUROLOGIC: Alert and oriented x 4. Strength and sensation to light touch were grossly intact x 4, cranial nerves 2-12 are grossly intact. Medications Administered Generic Name Dose Route Start Last Admin Trade Name Freq PRN Reason Stop Dose Admin Bupropion HCl 300 mg 06/03/23 09:00 06/03/23 10:21 Bupropion Hcl Xl 300 Mg Tab.Er.24h PO 300 mg DAILY ZARIA Administration Discontinued Medications Generic Name Dose Route Start Last Admin Trade Name Freq PRN Reason Stop Dose Admin Diphenhydramine HCl 50 mg 06/03/23 08:59 06/03/23 10:21 Diphenhydramine Hcl 25 Mg Capsule PO 06/03/23 09:00 50 mg ONCE ONE Administration Sodium Chloride 1,000 mls @ 999 mls/hr 06/03/23 09:45 06/03/23 12:41 Ns IV 06/03/23 10:45 Infused .Q1H1M ZARIA Infusion Methadone HCl 50 mg 06/03/23 09:04 06/03/23 10:21 Methadone Hcl 20 Mg/2 Ml Oral.Conc PO 06/03/23 09:05 50 mg ONCE ONE Administration Medical Decision Making Medical Decision Making [facility] Narrative: 47-year-old male with history and clinical presentation of leaving his methadone program on Sunday and reporting that he did not have enough money to return and appears to have been off of his methadone since that time frame. He has recently used illicit drugs. Will obtain basic medical workup and get patient evaluated by the care team, but I do feel that patient is likely stable to return to the methadone program. 0914: I do not suspect infection extra and the stated feel that patient is likely hemoconcentrated secondary to acute PARI and possible dehydration. Patient given 1 L of IV fluids and transferred into the main emergency room. I reviewed all investigations and as mentioned above there is a leukocytosis with a left shift but suspect this may be secondary to hemoconcentration as opposed to infectious etiology as patient is otherwise afebrile and does not report any sore throat/cough or abdominal symptoms. Chemistry indices are significant for a new PARI with hot electrolyte derangements and patient's liver enzymes are consistent with his known use of heroin. Chest x-ray negative for infiltrate and otherwise my interpretation is in agreement with radiology's impression. Urinalysis negative for UTI. Patient brought into the main emergency room and hydrated with 1 L of IV fluids after placement of peripheral line. On repeat lab work there has been improvement of leukocytosis and patient remains afebrile. Although the PARI has somewhat improved decision was made to check for alternate etiologies of persistent PARI and so CPK was obtained. An additional 1 L of lactated Ringer's has been administered. 1433: CPK demonstrates rhabdo my lysis and is likely the cause of patient's PARI. 1429: I discussed case with inpatient hospitalist who accepts admission. Differential Diagnosis Differential Diagnoses: The differential diagnosis associated with the presentation includes Please see the discussion above Admission/Observation Consideration of admission/observation: Escalation of care including admission/observation considered Please see the discussion above Consult Healthcare Provider Management of the patient was discussed with: Hospitalist Please see the discussion above Lab Data MDM Lab Attestation statement: I reviewed the patient's lab results. Please see the discussion above 06/03/23 12:58 06/03/23 12:58 Labs: Lab Results 06/03/23 06/03/23 06/03/23 Range/Units 07:30 09:14 10:31 WBC 16.8 H (4.8-10.8) X10*3/uL RBC 4.83 D (4.60-5.80) X10*6/uL Hgb 14.7 D (14.0-18.0) g/dl Hct 42.2 (42.0-52.0) % MCV 87.4 (80.0-98.0) fL MCH 30.4 (27.0-33.0) pg MCHC 34.8 (31.0-36.0) g/dl RDW 12.4 (11.0-16.0) % Plt Count 339 D (160-400) X10*3/uL MPV 9.7 (9.4-12.4) fL Immature Gran % (Auto) 0.2 (0.0-0.4) % Neut % (Auto) 82.7 H (45-73) % Lymph % (Auto) 8.7 L (20-40) % [place] % (Auto) 7.7 (2-11) % Eos % (Auto) 0.5 (0-4) % Baso % (Auto) 0.2 (0-2) % Lymph # (Auto) 1.5 (1.2-4.9) X10*3/uL [place] # (Auto) 1.3 H (0.1-1.2) X10*3/uL Eos # (Auto) 0.1 (0.0-0.4) X10*3/uL Baso # (Auto) 0.0 (0.0-0.2) X10*3/uL Abs Immat Gran (auto) 0.04 H (0.00-0.03) X10*3/uL Absolute Neuts (auto) 13.9 H (2.0-8.3) x10*3/uL Absolute Nucleated RBC 0.000 (0.0-0.012) X10*3/uL Nucleated RBC % (auto) 0.0 (0.0-0.2) /100WBC Smear Tech's Comments Sodium 135 (135-145) mmol/L Potassium 3.5 (3.3-5.1) mmol/L Chloride 95 L (96-108) mmol/L Carbon Dioxide 24 (22-29) mmol/L Anion Gap 20 (12-20) BUN 66 H (9-16) mg/dL Creatinine 3.96 H (0.5-1.4) mg/dL Estim Creat Clear Calc 25.7 Estimated GFR 17 Random Glucose 119 H (60-115) mg/dL Lactic Acid 0.9 (0.5-2.0) mmol/L Calcium 11.3 H D (8.4-10.2) mg/dL Total Bilirubin 0.4 (0.0-1.0) mg/dL AST 134 H (5-37) U/L ALT 54 H (0-40) U/L Alkaline Phosphatase 140 H (39-117) U/L Total Creatine Kinase (38-174) U/L Total Protein 10.0 H (6.5-8.0) g/dL Albumin 5.2 H (3.5-5.0) g/dL Urine Color Yellow Urine Appearance Clear Urine pH 5.5 (5.0-9.0) Ur Specific [place] 1.015 (1.005-1.025) Urine Protein 30 (1+) H (Neg-Trace) mg/dL Urine Glucose (UA) Negative (Negative) mg/dL Urine Ketones Negative (Negative) mg/dL Urine Blood Moderate (2+) H (Negative) Urine Nitrite Negative (Negative) Ur Leukocyte Esterase Negative (Negative) Urine RBC 0-2 (0-2) /HPF Urine WBC 0-5 (0-5) /HPF Ur Squamous Epith Cells 0-2 (0-2) /HPF Urine Bacteria None Seen (None Seen) Epithelial Casts Present Hyaline Casts 3-5 (0-2) /LPF Salicylates < 5.0 L (15-30) mg/dL Urine Opiates Screen POSITIVE H (Not Detect) Urine Fentanyl Screen POSITIVE H (Not Detect) Acetaminophen < 17 (<30) mcg/mL Ur Barbiturates Screen Not Detected (Not Detect) Ur Phencyclidine Scrn Not Detected (Not Detect) Ur Amphetamines Screen Not Detected (Not Detect) U Benzodiazepines Scrn Not Detected (Not Detect) Urine Cocaine Screen POSITIVE H (Not Detect) U Marijuana (THC) Screen Not Detected (Not Detect) Ethyl Alcohol < 10 mg/dL 06/03/23 Range/Units 12:58 WBC 12.9 H (4.8-10.8) X10*3/uL RBC 4.23 L (4.60-5.80) X10*6/uL Hgb 13.0 L (14.0-18.0) g/dl Hct 37.2 L (42.0-52.0) % MCV 87.9 (80.0-98.0) fL MCH 30.7 (27.0-33.0) pg MCHC 34.9 (31.0-36.0) g/dl RDW 12.5 (11.0-16.0) % Plt Count 289 (160-400) X10*3/uL MPV 9.7 (9.4-12.4) fL Immature Gran % (Auto) 0.2 (0.0-0.4) % Neut % (Auto) 71.4 (45-73) % Lymph % (Auto) 15.3 L (20-40) % [place] % (Auto) 12.1 H (2-11) % Eos % (Auto) 0.8 (0-4) % Baso % (Auto) 0.2 (0-2) % Lymph # (Auto) 2.0 (1.2-4.9) X10*3/uL [place] # (Auto) 1.6 H (0.1-1.2) X10*3/uL Eos # (Auto) 0.1 (0.0-0.4) X10*3/uL Baso # (Auto) 0.0 (0.0-0.2) X10*3/uL Abs Immat Gran (auto) 0.03 (0.00-0.03) X10*3/uL Absolute Neuts (auto) 9.2 H (2.0-8.3) x10*3/uL Absolute Nucleated RBC 0.000 (0.0-0.012) X10*3/uL Nucleated RBC % (auto) 0.0 (0.0-0.2) /100WBC Smear Tech's Comments VERIFIED Sodium 136 (135-145) mmol/L Potassium 3.4 (3.3-5.1) mmol/L Chloride 101 (96-108) mmol/L Carbon Dioxide 21 L (22-29) mmol/L Anion Gap 17 (12-20) BUN 61 H (9-16) mg/dL Creatinine 3.05 H (0.5-1.4) mg/dL Estim Creat Clear Calc 33.4 Estimated GFR 22 Random Glucose 131 H (60-115) mg/dL Lactic Acid (0.5-2.0) mmol/L Calcium 9.8 D (8.4-10.2) mg/dL Total Bilirubin 0.2 (0.0-1.0) mg/dL AST 104 H (5-37) U/L ALT 43 H (0-40) U/L Alkaline Phosphatase 112 (39-117) U/L Total Creatine Kinase 2175 H (38-174) U/L Total Protein 8.2 H (6.5-8.0) g/dL Albumin 4.3 (3.5-5.0) g/dL Urine Color Urine Appearance Urine pH (5.0-9.0) Ur Specific [place] (1.005-1.025) Urine Protein (Neg-Trace) mg/dL Urine Glucose (UA) (Negative) mg/dL Urine Ketones (Negative) mg/dL Urine Blood (Negative) Urine Nitrite (Negative) Ur Leukocyte Esterase (Negative) Urine RBC (0-2) /HPF Urine WBC (0-5) /HPF Ur Squamous Epith Cells (0-2) /HPF Urine Bacteria (None Seen) Epithelial Casts Hyaline Casts (0-2) /LPF Salicylates (15-30) mg/dL Urine Opiates Screen (Not Detect) Urine Fentanyl Screen (Not Detect) Acetaminophen (<30) mcg/mL Ur Barbiturates Screen (Not Detect) Ur Phencyclidine Scrn (Not Detect) Ur Amphetamines Screen (Not Detect) U Benzodiazepines Scrn (Not Detect) Urine Cocaine Screen (Not Detect) U Marijuana (THC) Screen (Not Detect) Ethyl Alcohol mg/dL Independent Interpretation I performed an independent interpretation of an: EKG Interpretation: Normal sinus rhythm, HR-78, no STEMI, AK/QRS/QTc is wnl Radiology Impression Discussion of test interpretation with radiology: I have reviewed the radiologist's reading. Radiologist Impression: Please see the discussion above External Record Review External record reviewed: Outpatient record, Prior outpatient labs and Prior outpatient radiology Chronic Conditions Patient?s care impacted by: Other Polysubstance use, depression Critical Care Time Critical Care Time Critical Care Time: Yes Total Critical Care Time: 60 Attestation: I personally attest to this time spent taking care of the patient. Discharge Plan Discharge Clinical Impression: Suicidal ideation, Polysubstance use disorder, PARI (acute kidney injury), Rhabdomyolysis Patient Disposition: Admitted As Inpatient Interventions: [place]-Suicide Risk Severity Scale Last Done: 06/03/23 09:53
--- NOTE | 2023-06-03 09:05 | ECG_ITS ---
Test Reason : MEDICATIONS Blood Pressure : / mmHG Vent. Rate : 078 BPM Atrial Rate : 078 BPM P-R Int : 154 ms QRS Dur : 084 ms QT Int : 400 ms P-R-T Axes : 065 029 035 degrees QTc Int : 456 ms Poor data quality Normal sinus rhythm Nonspecific ST abnormality Abnormal ECG When compared with ECG of 07-NOV-2020 19:40, No significant change was found Referred By: Heavenly Melgar Electronically Signed By:LUANN YAN MD
[2023-06-03 09:19] LABS: MANUAL DIFF FLAG NO
[2023-06-03 09:20] LABS: Basophils Percent Auto 0.2 % (0-2); Eosinophils Absolute Auto 0.1 X10*3/uL (0.0-0.4); Eosinophils Percent Auto 0.5 % (0-4); Hematocrit 42.2 % (42.0-52.0); Hemoglobin 14.7 g/dl (14.0-18.0); Imm Gran Abs Auto 0.04 X10*3/uL (0.00-0.03); Imm Gran Pct Auto 0.2 % (0.0-0.4); Lymphocytes Absolute Auto 1.5 X10*3/uL (1.2-4.9); Lymphocytes Percent Auto 8.7 % (20-40); Mean Corpuscular HGB Conc 34.8 g/dl (31.0-36.0); Mean Corpuscular Hemoglobin 30.4 pg (27.0-33.0); Mean Corpuscular Volume 87.4 fL (80.0-98.0); Mean Platelet Volume 9.7 fL (9.4-12.4); Monocytes Absolute Auto 1.3 X10*3/uL (0.1-1.2); Monocytes Percent Auto 7.7 % (2-11); Neutrophils Absolute Auto 13.9 x10*3/uL (2.0-8.3); Neutrophils Percent Auto 82.7 % (45-73); Platelet Count 339 X10*3/uL (160-400); Red Blood Count 4.83 X10*6/uL (4.60-5.80); Red Cell Distribution Width 12.4 % (11.0-16.0); White Blood Count 16.8 X10*3/uL (4.8-10.8)
--- NOTE | 2023-06-03 09:22 | PHA.MEDREC ---
Pharmacy Consult ? Medication Reconciliation Pharmacy has completed the medication reconciliation. pharmacy has reviewed med rec done by nursing
[2023-06-03 09:34] LABS: Acetaminophen LAB < 17 mcg/mL (<30); Alanine Aminotransferase 54 U/L (0-40); Albumin Level 5.2 g/dL (3.5-5.0); Alkaline Phosphatase 140 U/L (39-117); Anion Gap 20 (12-20); Aspartate Amino Transferase 134 U/L (5-37); Bilirubin Total 0.4 mg/dL (0.0-1.0); Blood Urea Nitrogen 66 mg/dL (9-16); Calcium 11.3 mg/dL (8.4-10.2); Carbon Dioxide 24 mmol/L (22-29); Chloride 95 mmol/L (96-108); Creatinine Clr Calc Pharmacy 25.7; Estimated Glomerular Filt Rate 17; Ethanol < 10 mg/dL; Glucose Random 119 mg/dL (60-115); Potassium 3.5 mmol/L (3.3-5.1); Salicylate < 5.0 mg/dL (15-30); Sodium 135 mmol/L (135-145)
[2023-06-03 09:53] VITALS: BP 131/88; PULSE 88; RESP 18; O2SAT 97
--- NOTE | 2023-06-03 09:57 | PC.NURSE ---
Ignacio was BIBA after presenting at the police dept reporting SI x 48hours. On arrival Ignacio verbalized being homeless and feeling at the end . He is frustrated and would like help with another program. Methadone dose verified at 80mg but he has not been in the clinic to receive his dose since 05/30/23. Labs drawn and Ignacio changed over without incident.
[2023-06-03] MEDS: buPROPion HCl XL 300 MG TAB.ER.24H PO (10:21)
[2023-06-03] MEDS: methADONE HCl 20 MG/2 ML ORAL.CONC 50 MG PO (10:21)
[2023-06-03] MEDS: diphenhydrAMINE HCL 25 MG CAPSULE 50 MG PO (10:21)
--- NOTE | 2023-06-03 10:34 | PC.NURSE ---
patient brought to bed 11, medicated per the MAR. IV established, labs drawn and sent.
[2023-06-03] MEDS: 0.9 % Sodium Chloride 1,000 ML 999 ML IV (10:38)
[2023-06-03 10:46] LABS: Lactic Acid 0.9 mmol/L (0.5-2.0)
[2023-06-03 12:53] VITALS: BP 129/73; PULSE 74; RESP 16; TEMP 36.6; O2SAT 98
[2023-06-03 13:03] LABS: Basophils Percent Auto 0.2 % (0-2); Eosinophils Absolute Auto 0.1 X10*3/uL (0.0-0.4); Eosinophils Percent Auto 0.8 % (0-4); Hematocrit 37.2 % (42.0-52.0); Imm Gran Abs Auto 0.03 X10*3/uL (0.00-0.03); Imm Gran Pct Auto 0.2 % (0.0-0.4); Lymphocytes Percent Auto 15.3 % (20-40); MANUAL DIFF FLAG SCAN; Mean Corpuscular HGB Conc 34.9 g/dl (31.0-36.0); Mean Corpuscular Hemoglobin 30.7 pg (27.0-33.0); Mean Corpuscular Volume 87.9 fL (80.0-98.0); Mean Platelet Volume 9.7 fL (9.4-12.4); Monocytes Absolute Auto 1.6 X10*3/uL (0.1-1.2); Monocytes Percent Auto 12.1 % (2-11); Neutrophils Absolute Auto 9.2 x10*3/uL (2.0-8.3); Neutrophils Percent Auto 71.4 % (45-73); Platelet Count 289 X10*3/uL (160-400); Red Blood Count 4.23 X10*6/uL (4.60-5.80); Red Cell Distribution Width 12.5 % (11.0-16.0); SCAN SMEAR FLAG 1; White Blood Count 12.9 X10*3/uL (4.8-10.8)
[2023-06-03 13:18] LABS: Alanine Aminotransferase 43 U/L (0-40); Albumin Level 4.3 g/dL (3.5-5.0); Alkaline Phosphatase 112 U/L (39-117); Anion Gap 17 (12-20); Aspartate Amino Transferase 104 U/L (5-37); Bilirubin Total 0.2 mg/dL (0.0-1.0); Blood Urea Nitrogen 61 mg/dL (9-16); Calcium 9.8 mg/dL (8.4-10.2); Carbon Dioxide 21 mmol/L (22-29); Chloride 101 mmol/L (96-108); Creatinine Clr Calc Pharmacy 33.4; Estimated Glomerular Filt Rate 22; Glucose Random 131 mg/dL (60-115); Potassium 3.4 mmol/L (3.3-5.1); Sodium 136 mmol/L (135-145); Total Protein 8.2 g/dL (6.5-8.0)
[2023-06-03 13:23] LABS: SLIDE REVIEW VERIFIED
[2023-06-03 14:27] VITALS: BP 134/77; PULSE 76; RESP 13; O2SAT 94
[2023-06-03] MEDS: Lactated Ringers 1,000 ML 999 ML IV (14:51)
--- NOTE | 2023-06-03 14:58 | PC.NURSE ---
patient alert and oriented, resting quietly in room. patient observer remains at bedside, call valdez within reach.
--- NOTE | 2023-06-03 15:05 | P.HPHOSP_ITS ---
History of Present Illness Date of Service: 06/03/23 <VARUN Goyal - Last Filed: 06/03/23 15:21> Attending physician on admission: Ethan Negro <VARUN Goyal - Last Filed: 06/03/23 15:21> Chief Complaint: si <VARUN Goyal - Last Filed: 06/03/23 15:21> 47-year-old male with history of polysubstance abuse, opioid dependence on methadone, and unspecified mood disorder presented to the ED early this morning for evaluation of sadness, hopelessness, and SI. The patient is homeless and woke up this morning cold with suicidal ideation and called police/EMS who brought him to the hospital. Apparently, the patient was part of the methadone clinic through [facility] on [facility] which not have enough money to return. He has not had any methadone in 4 days. He has been using inhaled heroin and cocaine, denies IV drug abuse. He denies any alcohol use but does endorse smoking about 5-6 cigarettes on a daily basis. On arrival, vital stable. On admission, leukocytosis 12.9 mild normocytic anemia with H/H 13.0, 37.2%. Initially creatinine 3.96, improved to 3.05 with IVF. BUN 61. Electrolyte levels normal on admission. AST 104, ALT 43. Total CK 2175. Urinalysis unremarkable. Urine tox screen positive for opiates, fentanyl, cocaine. Chest x-ray negative for any acute cardiopulmonary abnormality. EKG shows NSR, rate 78, no ST/T-wave abnormality. In the ED, as receive 1 L IV NS, 1 L IV LR, 50 mg Benadryl, 50 mg methadone, and 300 mg Wellbutrin. <VARUN Goyal - Last Filed: 06/03/23 15:21> Review of Systems 2 Review of Systems: General: No fevers, malaise, unintentional weight loss HEENT: No blurred vision, diplopia. No sore throat, nasal congestion, rhinorrhea, sinus pain, ear pain Cardiovascular: No chest pain, palpitations, or leg edema Respiratory: No shortness of breath, wheezing, cough GI: No abdominal pain, nausea, vomiting, diarrhea, constipation, melena, hematochezia : No dysuria, hematuria, increased urinary frequency, decreased urinary output MSK: +myalgia. no back pain Neuro: No headaches, weakness, paresthesias. +tremors Skin: No rashes or lesions <VARUN Goyal - Last Filed: 06/03/23 15:21> [facility] Medical History: Medical History Depression Anxiety Mental health problem Substance abuse <VARUN Goyal - Last Filed: 06/03/23 15:21> Social History: Social History Household Members: None Housing: Homeless Do you presently have visiting nurse or other home services: No Alcohol intake: never Patient Tobacco Use Status: Current everyday Tobacco user Tobacco use type: Smokeless Tobacco Smoked in Last 30 Days: Yes Use of substances other than those prescribed or required for medical reasons: Yes Substance Use Type: Crack/Cocaine and Heroin Substance Use Frequency: Occasionally Last Used Substance: Days (ago) Currently Displaying Signs/Symptoms of Drug Intoxication Withdrawal: No Advance Directives: No Advance Directives Information Provided: No Do you have thoughts of harming others: None Do you have a plan to hurt others: No Plan Recently lost weight without trying: Yes How much weight loss: 14-23 pounds Eating poorly because of decreased appetite: No Nutrition screen score: 4 Nutrition Risks: No Nutritional Risk Poor oral hygiene: No <VARUN Goyal - Last Filed: 06/03/23 15:21> Meds Allergies/Adverse reactions: Allergies Allergy/AdvReac Type Severity Reaction Status Date / Time No Known Allergies Allergy Verified 07/16/21 23:01 [No Known Allergies*] <VARUN Goyal - Last Filed: 06/03/23 15:21> Active Medications: Current Medications Acetaminophen (Acetaminophen 325 Mg Tablet) 650 mg PO Q6H PRN PRN Reason: Pain, Mild (Pain Scale 1-3) Bupropion HCl (Bupropion Hcl Xl 300 Mg Tab.Er.24h) 300 mg PO DAILY ZARIA Last Admin: 06/03/23 10:21 Dose: 300 mg Docusate Sodium (Docusate Sodium 100 Mg Capsule) 100 mg PO DAILY PRN PRN Reason: Constipation Heparin Sodium (Porcine) (Heparin Sodium,Porcine 5,000 Unit/Ml Vial) 5,000 unit SUBCUT Q12H ZARIA Hydroxyzine HCl (Hydroxyzine Hcl 50 Mg Tablet) 50 mg PO BID PRN PRN Reason: anxiety Lactated Ringer's (Lr) 1,000 mls @ 999 mls/hr IV .Q1H1M ZARIA Stop: 06/03/23 15:30 Last Admin: 06/03/23 14:51 Dose: 999 mls/hr Sodium Chloride (Ns) 1,000 mls @ 100 mls/hr IVCONT .Q10H [facility] Ibuprofen (Ibuprofen 800 Mg Tablet) 800 mg PO BID PRN PRN Reason: Pain, Mild Mirtazapine (Mirtazapine 15 Mg Tablet) 45 mg PO BEDTIME ZARIA Ondansetron HCl (Ondansetron Hcl 4 Mg/2 Ml Vial) 4 mg IVPUSH Q8H PRN PRN Reason: Nausea and Vomiting Prazosin HCl (Prazosin Hcl 1 Mg Capsule) 1 mg PO TID PRN; Protocol PRN Reason: Anxiety Quetiapine Fumarate (Quetiapine Fumarate 300 Mg Tablet) 600 mg PO BEDTIME ZARIA Quetiapine Fumarate (Quetiapine Fumarate 100 Mg Tablet) 100 mg PO TID PRN PRN Reason: Anxiety Sodium Chloride (0.9 % Sodium Chloride Flush 3 Ml Syringe) 3 ml IVFLUSH QSHIFT [facility] <VARUN Goyal - Last Filed: 06/03/23 15:21> Home medications: Home Medications Medication Instructions Recorded Confirmed Last Taken Type bupropion HCl 300 mg 24 hr tablet, 300 mg PO DAILY 11/08/20 06/03/23 07/12/21 09:00 History extended release mirtazapine 45 mg tablet 45 mg PO BEDTIME 11/08/20 06/03/23 07/12/21 21:00 History quetiapine 100 mg tablet (Seroquel) 100 mg PO TID PRN Anxiety 11/08/20 06/03/23 07/12/21 12:00 History hydroxyzine HCl 50 mg tablet 50 mg PO BID PRN anxiety 06/03/23 06/03/23 Unknown History ibuprofen 800 mg tablet 800 mg PO BID PRN Pain, Mild 06/03/23 06/03/23 Unknown History methadone 10 mg/5 mL oral solution 80 mg PO DAILY 10/29/23 10/29/23 10/25/23 History 80mg's prazosin 1 mg capsule 1 mg PO TID PRN Anxiety 06/03/23 06/03/23 Unknown History quetiapine 300 mg tablet 600 mg PO BEDTIME 06/03/23 06/03/23 Unknown History <VARUN Goyal - Last Filed: 06/03/23 15:21> Physical Exam 2 Vital Signs and Narrative: Vital Signs: Last Vital Signs Temp 97.8 F 06/03/23 12:53 Pulse 76 06/03/23 14:27 Resp 13 06/03/23 14:27 BP 134/77 06/03/23 14:27 Pulse Ox 94 06/03/23 14:27 O2 Del Method Room Air 06/03/23 14:27 BMI result Body Mass Index 30.4 <VARUN Goyal - Last Filed: 06/03/23 15:21> Constitutional - Awake and Alert, No apparent distress Eyes - PERRLA, EOMI Cardiovascular - S1S2, RRR, No edema Respiratory - Normal lung expansion, Normal respiratory effort, No respiratory distress, CTA bilaterally Gastrointestinal - NT / ND; +BS; No rebound or guarding Extremities - no calf tenderness bilaterally, no swelling Musculoskeletal - Normal inspection, normal ROM. ttp BLE and BUE Skin - Warm/Dry Neurological - Alert & oriented x3, CN II-XII in tact, 4/5 strength BUE and BLE Psychological - Appropriate affect <VARUN Goyal - Last Filed: 06/03/23 15:21> Results Labs CBC and Chem 7: 06/03/23 12:58 06/03/23 12:58 <VARUN Goyal - Last Filed: 06/03/23 15:21> Labs: Laboratory Results - last 24 hr 06/03/23 06/03/23 06/03/23 07:30 09:14 10:31 MCV 87.4 MCH 30.4 MCHC 34.8 RDW 12.4 Plt Count 339 D MPV 9.7 Immature Gran % (Auto) 0.2 Neut % (Auto) 82.7 H Lymph % (Auto) 8.7 L [place] % (Auto) 7.7 Eos % (Auto) 0.5 Baso % (Auto) 0.2 Lymph # (Auto) 1.5 [place] # (Auto) 1.3 H Eos # (Auto) 0.1 Baso # (Auto) 0.0 Abs Immat Gran (auto) 0.04 H Absolute Neuts (auto) 13.9 H Absolute Nucleated RBC 0.000 Nucleated RBC % (auto) 0.0 Smear Tech's Comments Anion Gap 20 Estim Creat Clear Calc 25.7 Estimated GFR 17 Random Glucose 119 H Lactic Acid 0.9 Calcium 11.3 H D Total Bilirubin 0.4 AST 134 H ALT 54 H Alkaline Phosphatase 140 H Total Creatine Kinase Total Protein 10.0 H Albumin 5.2 H Urine Color Yellow Urine Appearance Clear Urine pH 5.5 Ur Specific [place] 1.015 Urine Protein 30 (1+) H Urine Glucose (UA) Negative Urine Ketones Negative Urine Blood Moderate (2+) H Urine Nitrite Negative Ur Leukocyte Esterase Negative Urine RBC 0-2 Urine WBC 0-5 Ur Squamous Epith Cells 0-2 Urine Bacteria None Seen Epithelial Casts Present Hyaline Casts 3-5 Salicylates < 5.0 L Urine Opiates Screen POSITIVE H Urine Fentanyl Screen POSITIVE H Acetaminophen < 17 Ur Barbiturates Screen Not Detected Ur Phencyclidine Scrn Not Detected Ur Amphetamines Screen Not Detected U Benzodiazepines Scrn Not Detected Urine Cocaine Screen POSITIVE H U Marijuana (THC) Screen Not Detected Ethyl Alcohol < 10 06/03/23 12:58 MCV 87.9 MCH 30.7 MCHC 34.9 RDW 12.5 Plt Count 289 MPV 9.7 Immature Gran % (Auto) 0.2 Neut % (Auto) 71.4 Lymph % (Auto) 15.3 L [place] % (Auto) 12.1 H Eos % (Auto) 0.8 Baso % (Auto) 0.2 Lymph # (Auto) 2.0 [place] # (Auto) 1.6 H Eos # (Auto) 0.1 Baso # (Auto) 0.0 Abs Immat Gran (auto) 0.03 Absolute Neuts (auto) 9.2 H Absolute Nucleated RBC 0.000 Nucleated RBC % (auto) 0.0 Smear Tech's Comments VERIFIED Anion Gap 17 Estim Creat Clear Calc 33.4 Estimated GFR 22 Random Glucose 131 H Lactic Acid Calcium 9.8 D Total Bilirubin 0.2 AST 104 H ALT 43 H Alkaline Phosphatase 112 Total Creatine Kinase 2175 H Total Protein 8.2 H Albumin 4.3 Urine Color Urine Appearance Urine pH Ur Specific [place] Urine Protein Urine Glucose (UA) Urine Ketones Urine Blood Urine Nitrite Ur Leukocyte Esterase Urine RBC Urine WBC Ur Squamous Epith Cells Urine Bacteria Epithelial Casts Hyaline Casts Salicylates Urine Opiates Screen Urine Fentanyl Screen Acetaminophen Ur Barbiturates Screen Ur Phencyclidine Scrn Ur Amphetamines Screen U Benzodiazepines Scrn Urine Cocaine Screen U Marijuana (THC) Screen Ethyl Alcohol <VARUN Goyal - Last Filed: 06/03/23 15:21> Imaging Radiologist's Impressions: Impressions Chest X-Ray 06/03/23 10:37 IMPRESSION: No acute cardiopulmonary findings. <VARUN Goyal - Last Filed: 06/03/23 15:21> Assessment and Plan (1) Rhabdomyolysis: Status: Acute <VARUN Goyal - Last Filed: 06/03/23 15:21> (2) PARI (acute kidney injury): Status: Acute <VARUN Goyal - Last Filed: 06/03/23 15:21> (3) Suicidal ideation: Status: Acute <VARUN Goyal - Last Filed: 06/03/23 15:21> (4) Polysubstance use disorder: Status: Acute <VARUN Goyal - Last Filed: 06/03/23 15:21> 47-year-old male with history of polysubstance abuse, opioid dependence on methadone, and unspecified mood disorder admitted for PARI and rhabdomyolysis. #Acute rhabdomyolysis - r/t drug use -Aggressive IVF -Total CK 2100 -Follow renal function, CK #Acute kidney injury -due to above -initial creat 3.96 --> 3.0. Baseline 0.91 -Aggressive IVF -avoid nephrotoxins -I&O -follow BMP # mood disorder with SI -sitter consult -will require care team consult prior to discharge for probable psych placement # polysubstance abuse with opioid dependence -addiction med consult -positive for opiates, fentanyl, cocaine -resume methadone # transaminitis -in patient with history of drug abuse -check hepatitis B, C antibody, HIV DVT prophylaxis heparin Full code Patient requires inpatient stay at least 2 midnights for management of acute rhabdomyolysis with PARI requiring aggressive IV fluid resuscitation and close monitoring of renal function and electrolyte levels as well as close monitoring due to SI with probable placement to Psychiatry <VARUN Goyal - Last Filed: 06/03/23 15:21> #Acute rhabdomyolysis - r/t drug use -Aggressive IVF -Total CK 2100 -Follow renal function, CK #Acute kidney injury -due to above -initial creat 3.96 --> 3.0. Baseline 0.91 -Aggressive IVF -avoid nephrotoxins -I&O -follow BMP # mood disorder with SI -sitter consult -will require care team consult prior to discharge for probable psych placement # polysubstance abuse with opioid dependence -addiction med consult -positive for opiates, fentanyl, cocaine -resume methadone # transaminitis -in patient with history of drug abuse -check hepatitis B, C antibody, HIV DVT prophylaxis heparin Full code Patient requires inpatient stay at least 2 midnights for management of acute rhabdomyolysis with PARI requiring aggressive IV fluid resuscitation and close monitoring of renal function and electrolyte levels as well as close monitoring due to SI with probable placement to Psychiatry Addendum to history and physical by the advanced practice provider, VARUN Streeter I interviewed and examined the patient. I discussed their presentation and management with the HERMAN. I reviewed the history and physical and agree with the documentation, with the following additions and corrections: 47yo M with polysubstance abuse + mood disorder presenting with SI and found to have PARI + acute rhabdomyolysis Will admit for IV fluid hydration + creatinine monitoring. Place sitter and will need psych admission once medically cleared Addiction Medicine consult for opioid + cocaine abuse, and will screen for HBV/HCV/HIV <Ethan Negro MD - Last Filed: 06/03/23 18:33> Time Spent With Patient Time: Total time managing care of this patient today ____ minutes. <VARUN Goyal - Last Filed: 06/03/23 15:21> Quality Stroke Does the patient have a stroke diagnosis?: No <VARUN Goyal - Last Filed: 06/03/23 15:21> VTE Prior VTE?: No <VARUN Goyal - Last Filed: 06/03/23 15:21> VTE Risk Level:: Medical - moderate - high <VARUN Goyal - Last Filed: 06/03/23 15:21> VTE Device Contraindication: Treatment Not Indicated <VARUN Goyal - Last Filed: 06/03/23 15:21> VTE Drug Contraindication: N/A - Med Ordered <VARUN Goyal - Last Filed: 06/03/23 15:21>
[2023-06-03] MEDS: 0.9 % Sodium Chloride 1,000 ML 125 ML IVCONT (15:46)
[2023-06-03] MEDS: Heparin Sodium,Porcine 5,000 UNIT/ML VIAL 5000 UNIT SUBCUT (15:47)
[2023-06-03 16:00] VITALS: BP 134/82; PULSE 74; RESP 15; TEMP 36.7; O2SAT 98
[2023-06-03] MEDS: Acetaminophen 325 MG TABLET 650 MG PO (16:47)
[2023-06-03 20:00] VITALS: BP 132/71; PULSE 83; RESP 14; TEMP 36.4; O2SAT 94
[2023-06-03] MEDS: QUEtiapine Fumarate 300 MG TABLET 600 MG PO (20:27)
[2023-06-03] MEDS: Mirtazapine 15 MG TABLET 45 MG PO (20:27)
[2023-06-03] MEDS: Ibuprofen 800 MG TABLET PO (20:27)
[2023-06-03 22:56] VITALS: BMI 31.5
[2023-06-04] MEDS: 0.9 % Sodium Chloride 1,000 ML 125 ML IVCONT ×2 (00:07→08:32)
[2023-06-04 03:00] VITALS: BP 134/84; PULSE 73; RESP 14; TEMP 36.4; O2SAT 98
[2023-06-04] MEDS: Heparin Sodium,Porcine 5,000 UNIT/ML VIAL 5000 UNIT SUBCUT ×2 (03:58→16:01)
[2023-06-04 05:44] LABS: MANUAL DIFF FLAG NO
[2023-06-04 05:59] LABS: Basophils Percent Auto 0.4 % (0-2); Eosinophils Absolute Auto 0.1 X10*3/uL (0.0-0.4); Eosinophils Percent Auto 1.3 % (0-4); Hematocrit 34.5 % (42.0-52.0); Hemoglobin 11.5 g/dl (14.0-18.0); Imm Gran Abs Auto 0.02 X10*3/uL (0.00-0.03); Imm Gran Pct Auto 0.3 % (0.0-0.4); Lymphocytes Absolute Auto 2.3 X10*3/uL (1.2-4.9); Lymphocytes Percent Auto 28.5 % (20-40); Mean Corpuscular HGB Conc 33.3 g/dl (31.0-36.0); Mean Corpuscular Hemoglobin 30.1 pg (27.0-33.0); Mean Corpuscular Volume 90.3 fL (80.0-98.0); Mean Platelet Volume 10.4 fL (9.4-12.4); Monocytes Absolute Auto 0.8 X10*3/uL (0.1-1.2); Monocytes Percent Auto 9.8 % (2-11); Neutrophils Absolute Auto 4.8 x10*3/uL (2.0-8.3); Neutrophils Percent Auto 59.7 % (45-73); Platelet Count 263 X10*3/uL (160-400); Red Blood Count 3.82 X10*6/uL (4.60-5.80); Red Cell Distribution Width 12.8 % (11.0-16.0)
[2023-06-04 06:15] LABS: Anion Gap 14 (12-20); Blood Urea Nitrogen 38 mg/dL (9-16); Calcium 8.9 mg/dL (8.4-10.2); Carbon Dioxide 23 mmol/L (22-29); Chloride 107 mmol/L (96-108); Creatinine Clr Calc Pharmacy 81.1; Estimated Glomerular Filt Rate > 60; Glucose Random 113 mg/dL (60-115); Potassium 3.4 mmol/L (3.3-5.1); Sodium 141 mmol/L (135-145)
[2023-06-04 07:02] VITALS: BP 108/52; PULSE 54; RESP 16; TEMP 36.8; O2SAT 94
[2023-06-04 07:37] VITALS: BP 120/72; PULSE 87; RESP 16; TEMP 37; O2SAT 98
[2023-06-04] MEDS: buPROPion HCl XL 300 MG TAB.ER.24H PO (09:40)
[2023-06-04] MEDS: methADONE HCl 20 MG/2 ML ORAL.CONC 80 MG PO (09:56)
[2023-06-04 11:52] LABS: HBS Num1 7.83 mIU/mL (0-7.99); HBc Num1 0.11 S/CO (0.00-0.79); HBsAGNum1 0.31 S/CO (0.00-0.99); HIV AB/AG Nonreactive (Nonreactive); HIV Num 1 0.05 S/CO (0.00-0.99); Hepatitis B Core Antibody Nonreactive (Nonreactive); Hepatitis B Surface Antigen Negative (Negative); ~HepC Num1 0.12 S/CO (0.00-0.79); ~Hepatitis B Surface Antibody NONREACTIVE (Nonreactive); ~Hepatitis C Antibody Nonreactive (Nonreactive)
--- NOTE | 2023-06-04 11:59 | P.PNIM_ITS ---
Subjective Subjective Date of Service: 06/04/23 Interval History: Feels tired and sleepy, denies nausea vomiting, no abdominal pain no diarrhea, slept well last night, no complaint of pain, no lightheadedness or dizziness no other acute issues overnight. Review of Systems All other system reviewed and negative. Physical Exam 2 Vital Signs: Vital Signs: Last Vital Signs Temp 98.6 F 06/04/23 07:37 Pulse 87 06/04/23 07:37 Resp 16 06/04/23 07:37 BP 120/72 06/04/23 07:37 Pulse Ox 98 06/04/23 07:37 O2 Del Method Room Air 06/04/23 07:37 BMI result Body Mass Index 31.5 Const: Other: General awake,alert x3, resting comfortably in no acute distress. Neck supple no JVD. CVS regular rate rhythm, Respiratory lungs clear to auscultation, no respiratory distress, no wheeze, no rhonchi. Gastrointestinal abdomen soft, non tender, bowel sounds audible, no guarding , no rigidity. Extremities no edema. Neuro nonfocal Skin no rash Psych appropriate affect Objective Data Active Medications Acetaminophen (Acetaminophen 325 Mg Tablet) 650 mg PO Q6H PRN PRN Reason: Pain, Mild (Pain Scale 1-3) Last Admin: 06/03/23 16:47 Dose: 650 mg Documented By: ZAIDA Bupropion HCl (Bupropion Hcl Xl 300 Mg Tab.Er.24h) 300 mg PO DAILY [facility] Last Admin: 06/04/23 09:40 Dose: 300 mg Documented By: MAHSA Docusate Sodium (Docusate Sodium 100 Mg Capsule) 100 mg PO DAILY PRN PRN Reason: Constipation Heparin Sodium (Porcine) (Heparin Sodium,Porcine 5,000 Unit/Ml Vial) 5,000 unit SUBCUT Q12H [facility] Last Admin: 06/04/23 03:58 Dose: 5,000 unit Documented By: STERLING Hydroxyzine HCl (Hydroxyzine Hcl 50 Mg Tablet) 50 mg PO BID PRN PRN Reason: anxiety Sodium Chloride (Ns) 1,000 mls @ 125 mls/hr IVCONT .Q8H [facility] Last Admin: 06/04/23 08:32 Dose: 125 mls/hr Documented By: MAHSA Ibuprofen (Ibuprofen 800 Mg Tablet) 800 mg PO BID PRN PRN Reason: Pain, Mild Last Admin: 06/03/23 20:27 Dose: 800 mg Documented By: STERLING Methadone HCl (Methadone Hcl 20 Mg/2 Ml Oral.Conc) 80 mg PO DAILY [facility] Last Admin: 06/04/23 09:56 Dose: 80 mg Documented By: MAHSA Mirtazapine (Mirtazapine 15 Mg Tablet) 45 mg PO BEDTIME [facility] Last Admin: 06/03/23 20:27 Dose: 45 mg Documented By: STERLING Nicotine Polacrilex (Nicotine Polacrilex 2 Mg Gum) 2 mg BUCCAL Q2H PRN PRN Reason: Nicotine Cravings Ondansetron HCl (Ondansetron Hcl 4 Mg/2 Ml Vial) 4 mg IVPUSH Q8H PRN PRN Reason: Nausea and Vomiting Prazosin HCl (Prazosin Hcl 1 Mg Capsule) 1 mg PO TID PRN; Protocol PRN Reason: Anxiety Quetiapine Fumarate (Quetiapine Fumarate 300 Mg Tablet) 600 mg PO BEDTIME [facility] Last Admin: 06/03/23 20:27 Dose: 600 mg Documented By: STERLING Quetiapine Fumarate (Quetiapine Fumarate 100 Mg Tablet) 100 mg PO TID PRN PRN Reason: Anxiety Sodium Chloride (0.9 % Sodium Chloride Flush 3 Ml Syringe) 3 ml IVFLUSH QSHIFT [facility] Last Admin: 06/04/23 08:33 Dose: Not Given Documented By: MAHSA Non-Admin Reason: IV Running Labs 06/04/23 05:26 06/04/23 05:26 Labs: Laboratory Results - last 24 hr 06/03/23 06/04/23 12:58 05:26 MCV 87.9 90.3 MCH 30.7 30.1 MCHC 34.9 33.3 RDW 12.5 12.8 Plt Count 289 263 MPV 9.7 10.4 Immature Gran % (Auto) 0.2 0.3 Neut % (Auto) 71.4 59.7 Lymph % (Auto) 15.3 L 28.5 [place] % (Auto) 12.1 H 9.8 Eos % (Auto) 0.8 1.3 Baso % (Auto) 0.2 0.4 Lymph # (Auto) 2.0 2.3 [place] # (Auto) 1.6 H 0.8 Eos # (Auto) 0.1 0.1 Baso # (Auto) 0.0 0.0 Abs Immat Gran (auto) 0.03 0.02 Absolute Neuts (auto) 9.2 H 4.8 Absolute Nucleated RBC 0.000 0.000 Nucleated RBC % (auto) 0.0 0.0 Smear Tech's Comments VERIFIED Anion Gap 17 14 Estim Creat Clear Calc 33.4 81.1 Estimated GFR 22 > 60 Random Glucose 131 H 113 Calcium 9.8 D 8.9 D Total Bilirubin 0.2 AST 104 H ALT 43 H Alkaline Phosphatase 112 Total Creatine Kinase 2175 H 860 H Total Protein 8.2 H Albumin 4.3 Assessment and Plan (1) Rhabdomyolysis: Status: Acute (2) PARI (acute kidney injury): Status: Acute (3) Polysubstance use disorder: Status: Acute (4) Suicidal ideation: Status: Acute Plan 47-year-old male with history of polysubstance abuse, opioid dependence on methadone, and unspecified mood disorder admitted for PARI and rhabdomyolysis. #Acute rhabdomyolysis - r/t drug use , on IV fluid ,cpk improved to 860, Pari resolved, follow BMP and CK closely #Acute kidney injury -due to above, creatinine normalized, continue IV fluids BUN remains elevated , missed breakfast -avoid nephrotoxins # acute leukocytosis likely reactive resolved # mood disorder with SI -sitter consult -care team consult for probable psych placement, continue home medications Remeron, Seroquel and Wellbutrin # polysubstance abuse with opioid dependence -addiction med consult -drug toxicology positive for opiates, fentanyl, cocaine -continue methadone # transaminitis -in patient with history of drug abuse, LFTs trending down normal total bili -hepatitis B, C antibody, HIV report pending DVT prophylaxis heparin Full code Patient requires continued inpatient stay for management of acute rhabdomyolysis with PARI requiring IV fluid resuscitation and close monitoring of renal function and electrolyte levels as well as close monitoring due to SI with probable placement to Psychiatry. Time Spent With Patient Time: Total time managing care of this patient today ____ minutes. Quality Stroke Does the patient have a stroke diagnosis?: No VTE Prior VTE?: No VTE Risk Level:: Medical - moderate - high VTE Device Contraindication: Treatment Not Indicated VTE Drug Contraindication: N/A - Med Ordered
--- NOTE | 2023-06-04 14:37 | MHC.RECOVRN ---
Met with pt in 386 after consult placed to Addiction Medicine for substance use. Pt had presented to the ED with SI. Upon evaluation, pt admitted medically for rhabdomyolysis: (2) PARI (acute kidney injury): Status: Acute (3) Polysubstance use disorder: Status: Acute (4) Suicidal ideation: Status: Acute
--- NOTE | 2023-06-04 14:40 | MHC.RECOVRN ---
Met with pt in 386 after consult placed to Addiction Medicine for substance use. Pt had presented to the ED with SI. Upon evaluation, pt medically admitted for rhabdomyolysis and PARI. Pt sitting in bed, awake, alert, withdrawn, difficult to engage in conversation. When asked about substance use, pt states not much. Pt reports heroin/fentanyl, IN, 4-5 bags daily as well as cocaine, IN, $20-$30 daily. Pt reports amount used depends on funds and recently has not had money to purchase substances. Pt is currently on 80 mg methadone through [facility], reports it is going well and has been on and off methadone for 2 years. Pt does have a health and wellness coach through [facility]. Discussed other recovery supports, pt declines at this time. Pt reports he is interested in assistance with housing or a program after inpatient psychiatric admission. Pt denies questions or concerns for t/w. Discussed with Chantal Doty APRN.
[2023-06-04 15:19] VITALS: BP 134/71; PULSE 93; RESP 18; TEMP 36.7; O2SAT 96
[2023-06-04] MEDS: 0.9 % Sodium Chloride 1,000 ML 100 ML IVCONT (16:01)
--- NOTE | 2023-06-04 16:22 | MHC.CM.PN ---
PT REPORTS HE IS HOMELESS HE SAYS HE WOULD BE WILLING TO GO TO A MOTEL CARE HOME BUT NOT A REGULAR CARE HOME CM PROVIDED THE [employer] [facility] HANDOUT AND INFO ON HOW TO CONNECT WITH HOUSING ASSISTANCE PT DENIES BEING CONNECTED TO ANY COMMUNITY SERVICES OR USING DME HE HAS NO PCP OR HCP DCP TBD PT SAYS HE WILL LIKELY RETURN TO [place] BUS PASSES WILL BE PROVIDED
[2023-06-04 19:38] VITALS: BP 130/66; PULSE 87; RESP 16; TEMP 36.6; O2SAT 96
[2023-06-04] MEDS: 0.9 % Sodium Chloride Flush 3 ML SYRINGE IVFLUSH (20:43)
[2023-06-04] MEDS: QUEtiapine Fumarate 300 MG TABLET 600 MG PO (20:43)
[2023-06-04] MEDS: Mirtazapine 15 MG TABLET 45 MG PO (20:43)
[2023-06-04] MEDS: Ibuprofen 800 MG TABLET PO (20:48)
[2023-06-04] MEDS: hydrOXYzine HCL 50 MG TABLET PO (22:38)
[2023-06-04] MEDS: QUEtiapine Fumarate 100 MG TABLET PO (22:38)
[2023-06-04] MEDS: Acetaminophen 325 MG TABLET 650 MG PO (22:38)
--- NOTE | 2023-06-05 01:02 | PC.NURSE ---
1:1 sitter rang the [facility] looking for help. pt states that he wants to instead of all these pain and no where to go. pt was crying for the pain and anxious about his situation. provided emotional support, PRN medications and snacks. pt fall asleep after meds and ate some snacks. CONT 1:1 sitter and monitor.
[2023-06-05] MEDS: 0.9 % Sodium Chloride 1,000 ML 100 ML IVCONT ×2 (01:37→11:15)
[2023-06-05] MEDS: Heparin Sodium,Porcine 5,000 UNIT/ML VIAL 5000 UNIT SUBCUT (01:37)
[2023-06-05 02:38] VITALS: BP 122/60; PULSE 99; RESP 16; TEMP 36.4; O2SAT 94
[2023-06-05 06:09] LABS: Anion Gap 10 (12-20); Blood Urea Nitrogen 14 mg/dL (9-16); Calcium 8.5 mg/dL (8.4-10.2); Carbon Dioxide 25 mmol/L (22-29); Chloride 113 mmol/L (96-108); Estimated Glomerular Filt Rate > 60; Glucose Random 99 mg/dL (60-115); Potassium 3.6 mmol/L (3.3-5.1); Sodium 144 mmol/L (135-145)
[2023-06-05 07:58] VITALS: BP 130/85; PULSE 78; RESP 18; TEMP 36.4; O2SAT 95
[2023-06-05] MEDS: buPROPion HCl XL 300 MG TAB.ER.24H PO (09:11)
[2023-06-05] MEDS: methADONE HCl 20 MG/2 ML ORAL.CONC 80 MG PO (09:11)
[2023-06-05 11:50] LABS: COVID-19 Test Negative (Negative); IDNOW Serial# BCCEAD1C
--- NOTE | 2023-06-05 12:31 | MHC.CM.PN ---
PATIENT IS MEDICALLY CLEARED. PLAN IS FOR EVALUATION AND INPATIENT PSYCHIATRIC ADMISSION.
--- NOTE | 2023-06-05 12:37 | P.DS_ITS ---
DS: Providers Provider Date of Service: 06/05/23 Date of admission: 06/03/23 14:53 Primary care physician: None Physician Consults: 06/03/23 07:18 Consult to Care Team Routine Comment: Reason for consultation: SI 06/03/23 14:52 Addiction Medicine Routine Consulting Provider: Addiction Covering Reason for consultation: polysubstance abuse 06/03/23 14:58 Consult for Sitter Routine Reason for consultation: active si with plan 06/05/23 08:38 Consult to Care Team Routine Comment: Reason for consultation: medically clear for SI DS: Diagnosis Discharge Diagnosis (1) Rhabdomyolysis: Status: Acute (2) PARI (acute kidney injury): Status: Acute (3) Polysubstance use disorder: Status: Acute (4) Suicidal ideation: Status: Acute DS: Summary Hospital Course Hospital Course: Date of Service: 06/03/23 Attending physician on admission: Ethan Negro Chief Complaint: si 47-year-old male with history of polysubstance abuse, opioid dependence on methadone, and unspecified mood disorder presented to the ED early this morning for evaluation of sadness, hopelessness, and SI. The patient is homeless and woke up this morning cold with suicidal ideation and called police/EMS who brought him to the hospital. Apparently, the patient was part of the methadone clinic through [facility] on [facility] which not have enough money to return. He has not had any methadone in 4 days. He has been using inhaled heroin and cocaine, denies IV drug abuse. He denies any alcohol use but does endorse smoking about 5-6 cigarettes on a daily basis. On arrival, vital stable. On admission, leukocytosis 12.9 mild normocytic anemia with H/H 13.0, 37.2%. Initially creatinine 3.96, improved to 3.05 with IVF. BUN 61. Electrolyte levels normal on admission. AST 104, ALT 43. Total CK 2175. Urinalysis unremarkable. Urine tox screen positive for opiates, fentanyl, cocaine. Chest x-ray negative for any acute cardiopulmonary abnormality. EKG shows NSR, rate 78, no ST/T-wave abnormality. In the ED, as receive 1 L IV NS, 1 L IV LR, 50 mg Benadryl, 50 mg methadone, and 300 mg Wellbutrin. Hospital course: 47-year-old male with history of polysubstance abuse, opioid dependence on methadone, and unspecified mood disorder admitted for PARI and rhabdomyolysis. #Acute rhabdomyolysis and acute kidney injury likely due to cocaine use, poor by mouth intake, patient treated with IV fluid renal function normalized, CPK trended down to 646 IV fluid discontinued patient encouraged to take by mouth fluids and strongly recommend to abstain from illicit drug use. # acute leukocytosis likely reactive resolved # mood disorder with SI, patient was continued on all home medications including Seroquel, Wellbutrin and Remeron patient noted to be sedated morning, patient seen by care team and now being transferred to Adult Psychiatric Care recommend to adjust home medications as per Psychiatry. # polysubstance abuse with opioid dependence, drug toxicology positive for opiates, fentanyl, cocaine, continue methadone patient seen by recovery team, patient declined supported this time. # transaminitis likely due to drug use LFTs trending down patient with no nausea no vomiting no abdominal pain,hepatitis B, C antibody, HIV nonreactive. # chronic normocytic anemia mild drop in hematocrit likely dilutional .no active bleeding noted, recommend out patient follow-up. Time Spent with Patient Time attestation: Total time managing care of this patient today ____ minutes. Discharge coordination time: Greater than 30 minutes Quality: Safe Use of Opioids Does Pt have an Active Cancer Diagnosis on the Problem List?: No Quality: Stroke Does the patient have a stroke diagnosis?: No Physical Exam Vital Signs: Vital Signs: Last Vital Signs Temp 97.5 F 06/05/23 07:58 Pulse 78 06/05/23 07:58 Resp 18 06/05/23 07:58 BP 130/85 06/05/23 07:58 Pulse Ox 95 06/05/23 07:58 O2 Del Method Room Air 06/05/23 07:58 BMI result Body Mass Index 31.5 Const: Other: General awake,alert x3, resting comfortably in no acute distress. Neck supple no JVD. CVS regular rate rhythm, Respiratory lungs clear to auscultation, no respiratory distress, no wheeze, no rhonchi. Gastrointestinal abdomen soft, non tender, bowel sounds audible, no guarding , no rigidity. Extremities no edema. Neuro nonfocal Skin no rash Psych appropriate affect, DS: Data Data Completed and Pending Labs on day of discharge: Laboratory Results - last 24 hr 06/03/23 06/03/23 06/03/23 09:14 09:14 09:14 Hold Purple Top Sodium Potassium Chloride Carbon Dioxide Anion Gap BUN Creatinine Estim Creat Clear Calc Estimated GFR Random Glucose Calcium Total Creatine Kinase COVID-19 (ROHIT) COVID-19 Clin Com Hep Bs Antigen Negative Cancelled Hep Bs Antibody NONREACTIVE Cancelled Hep B Core Total Ab Nonreactive Hepatitis C Ab (EIA) HIV 1&2 Ab/P24 Ag 4thGn 06/03/23 06/03/23 06/05/23 09:14 09:14 05:35 Hold Purple Top SEE NOTE Sodium 144 Potassium 3.6 Chloride 113 H Carbon Dioxide 25 Anion Gap 10 L BUN 14 Creatinine 0.83 Estim Creat Clear Calc 125.0 Estimated GFR > 60 Random Glucose 99 Calcium 8.5 Total Creatine Kinase 646 H COVID-19 (ROHIT) COVID-19 Clin Com Hep Bs Antigen Hep Bs Antibody Hep B Core Total Ab Cancelled Hepatitis C Ab (EIA) Nonreactive Cancelled HIV 1&2 Ab/P24 Ag 4thGn Nonreactive 06/05/23 11:15 Hold Purple Top Sodium Potassium Chloride Carbon Dioxide Anion Gap BUN Creatinine Estim Creat Clear Calc Estimated GFR Random Glucose Calcium Total Creatine Kinase COVID-19 (ROHIT) Negative COVID-19 Clin Com See Note Hep Bs Antigen Hep Bs Antibody Hep B Core Total Ab Hepatitis C Ab (EIA) HIV 1&2 Ab/P24 Ag 4thGn Preliminary micro results at discharge 06/03/23 10:31 Blood Culture - Preliminary Blood - Venous No growth after 48 hours. 06/03/23 11:06 Blood Culture - Preliminary Blood - Venous No growth after 24 hours. Discharge Plan Discharge Anticipated Discharge Date/Time: 06/05/23 12:28 Patient Disposition: Xfer Psychiatric Hosp Discharge Diagnosis: Acute kidney injury Acute rhabdomyolysis Suicidal ideation Referrals: Physician,None [Primary Care Provider] - 1 Week Discharge Medications: New acetaminophen 325 mg Tablet 650 mg PO Q6H PRN (Reason: Pain, Mild (Pain Scale 1-3)) Qty: 30 0RF nicotine (polacrilex) 2 mg Gum 2 mg buccal Q2H PRN (Reason: Nicotine Cravings) Qty: 30 0RF polyethylene glycol 3350 [Miralax] 17 gram powder in packet 17 g PO DAILY Qty: 30 0RF docusate sodium [Colace] 100 mg capsule 100 mg PO DAILY Qty: 30 0RF Continued quetiapine [Seroquel] 100 mg Tablet 100 mg PO TID PRN (Reason: Anxiety) mirtazapine 45 mg Tablet 45 mg PO BEDTIME bupropion HCl 300 mg Tablet Extended Release 24 Hr 300 mg PO DAILY quetiapine 300 mg tablet 600 mg PO BEDTIME prazosin 1 mg capsule 1 mg PO TID PRN (Reason: Anxiety) hydroxyzine HCl 50 mg tablet 50 mg PO BID PRN (Reason: anxiety) methadone 10 mg/5 mL Solution 80 mg PO DAILY Rx Instructions: Last Dosed on 05/30/23 at 80mg's per [facility] JERSON Saxena Discontinued ibuprofen 800 mg tablet 800 mg PO BID PRN (Reason: Pain, Mild) Discharge Orders: Discharge Order (Routine); Ordered 06/05/23 Ordered By: Pham Castro Diet: Advance to usual diet Activity on Discharge: As tolerated Stand Alone Forms: Patient Portal Discharge page Care Plan Goals: Acute kidney injury resolved with IV fluid CPK trended down recommend to drink plenty of fluid Transferred to address psych due to suicidal ideation and underlying mood disorder Psychiatry to adjust home medication Health Concerns: Opiate dependence/polysubstance abuse/mood disorder unspecified Plan of Treatment: Outpatient continued follow-up with psychiatry and primary care physician. Assessment: As above
--- NOTE | 2023-06-05 13:10 | MHC.CM.PN ---
PATIENT IS DC. IMM 06/04 PREVIOUSLY COMPLETED AND IN CHART
== END 2023-06-05 14:10 | DRG 918 ==
LOC: HO.ED 14:30 → HO.EDOVER 15:04 → HO.S3 15:18
PROVIDERS: Admitting Provider Physician Assistant; Emergency Provider Student in an Organized Health Care Education/Training Program; Visit Provider Hospitalist
DX: T40.5X1A Poisoning by cocaine, accidental (unintentional), initial encounter (principal); M62.82 Rhabdomyolysis; N17.9 Acute kidney failure, unspecified; F11.20 Opioid dependence, uncomplicated; R45.851 Suicidal ideations; D64.9 Anemia, unspecified; F39 Unspecified mood [affective] disorder; F19.10 Other psychoactive substance abuse, uncomplicated; Z20.822 Contact with and (suspected) exposure to COVID-19; Z79.899 Other long term (current) drug therapy
CPT/HCPCS: 36415; 71045; 80048; 80053; 80143; 80179; 80307; 81001; 82550; 83605; 85025; 86704; 86706; 86803; 87040; 87340; 87389; 87635; 93005; 99285; J1643; S9485

== ENCOUNTER → 2023-06-03 14:53 | Outpatient (BNV) | payer OTHER, SELFPAY | PROVIDERS: Admitting Provider Physician Assistant; Emergency Provider Student in an Organized Health Care Education/Training Program; Visit Provider Physician Assistant | DX: M62.82 Rhabdomyolysis (principal); N17.9 Acute kidney failure, unspecified; F19.90 Other psychoactive substance use, unspecified, uncomplicated; R45.851 Suicidal ideations | CPT/HCPCS: 99223; 99233; 99239 ==

== ENCOUNTER 2023-06-05 14:14 | Inpatient (IN) | payer OTHER, SELFPAY ==
--- NOTE | 2023-06-05 14:40 | PC.ADMIT ---
Ignacio is a 47-year-old male admitted from S3 to M3 on a CV for treatment of unspecified mood disorder, opioid use unspecified. Tox screen positive for opiates, fentanyl, cocaine. Pt is taking Methadone 80mg daily. Pt was medically treated for rhabdomyolosis and acute kidney injury related to dehydration. Upon admission assessment, pt was alert and oriented. Pt was flat, guarded and irritable at times. Pt refused to participate in admission assessment and asked to sleep. Per crisis eval, pt reported SI with plan to jump off a bridge and overdose. Pt is experiencing homelessness which is a recent stressor. Pt reports seeing a psychiatrist weekly at [facility] but does not have a therapist.
--- NOTE | 2023-06-05 15:24 | PC.NURSE ---
Pt refused flu vaccine, pt also refused all assessment questions and declined to participate in admission process.Pt refused to answer questions related to smoking/nicotine replacement.
[2023-06-05 17:13] VITALS: BP 133/72; PULSE 80; TEMP 36.6
[2023-06-05] MEDS: Mirtazapine 15 MG TABLET 45 MG PO (21:45)
[2023-06-05] MEDS: QUEtiapine Fumarate 300 MG TABLET PO (21:46)
[2023-06-06 06:00] VITALS: BP 125/76; PULSE 73; TEMP 36.7; O2SAT 97
[2023-06-06 08:39] VITALS: BP 125/76; PULSE 73; TEMP 36.7; O2SAT 97
[2023-06-06 08:58] LABS: Estimated Average Glucose 103 mg/dL; Hemoglobin A1c % 5.2 % (<6.0)
[2023-06-06 09:08] LABS: Alanine Aminotransferase 28 U/L (0-40); Albumin Level 3.2 g/dL (3.5-5.0); Alkaline Phosphatase 81 U/L (39-117); Anion Gap 10 (12-20); Aspartate Amino Transferase 39 U/L (5-37); Bilirubin Total 0.1 mg/dL (0.0-1.0); Blood Urea Nitrogen 5 mg/dL (9-16); Calcium 8.9 mg/dL (8.4-10.2); Carbon Dioxide 30 mmol/L (22-29); Chloride 108 mmol/L (96-108); Cholesterol 151 mg/dL (<200); Estimated Glomerular Filt Rate > 60; Glucose Fasting 93 mg/dL (60-99); HDL Cholesterol 24 mg/dL (>40); LDL Cholesterol Calculated 63 mg/dL (<100); Potassium 3.6 mmol/L (3.3-5.1); Sodium 144 mmol/L (135-145); Total Protein 6.3 g/dL (6.5-8.0); Triglycerides 321 mg/dL (<150)
[2023-06-06] MEDS: hydrOXYzine HCL 25 MG TABLET PO (09:30)
--- NOTE | 2023-06-06 09:54 | PHA.MEDREC ---
Pharmacy Consult ? Medication Reconciliation Pharmacy has reviewed the medication reconciliation.
[2023-06-06] MEDS: methADONE HCl 20 MG/2 ML ORAL.CONC 80 MG PO (10:19)
[2023-06-06] MEDS: buPROPion HCl XL 300 MG TAB.ER.24H PO (11:53)
--- NOTE | 2023-06-06 17:01 | PM.EVENT ---
Event Note Date of Service: 06/06/23 Event Note: Patient is a 47-year-old male with a PMH of polysubstance use, opioid dependence on methadone, and unspecified mood disorder who is admitted to Psychiatry after increased depression and hopelessness with SI. Pt was initially seen and evaluated in our ED and admitted to the hospital floor for treatment of acute rhabdomyolysis and PARI likely due to cocaine use. Creatinine was 3.96 and CPK 2175 at time of presentation. Pt was treated with 2L IVF in the ED and placed on maintenance fluids while on the hospital floor. Creatinine normalized and CPK came down to 646 while on the floor; pt was then transferred to psychiatry yesterday. Medical consult for upper extremity swelling and pain. Patient complains of swelling in his hands bilaterally which limits the range of motion of both his fingers and his wrists. Patient did not complain of any urinary symptoms, but was worried about his inability to fully close his hands. Patient was told that he recently received a lot of IVF in both upper extremities and it will likely take few days up to a week for his body to fully absorb all the fluid he had administered. There is no specific treatment or further testing indicated at this time. Swelling in the patient's upper extremities should reduce slowly over the next 3-5 days. Thank you for allowing us to participate in the care of this patient. Signing off at this time. Please res-consult if any acute questions or issues arise. Time Spent With Patient Time: Total time managing care of this patient today ____ minutes.
[2023-06-06 20:10] VITALS: BP 151/74; PULSE 73; TEMP 36.9; O2SAT 98
[2023-06-06] MEDS: Mirtazapine 30 MG TABLET PO (20:29)
[2023-06-06] MEDS: QUEtiapine Fumarate 300 MG TABLET PO (20:29)
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
[2023-06-06] MEDS: Ibuprofen 800 MG TABLET PO (21:16)
[2023-06-06] MEDS: Acetaminophen 325 MG TABLET 650 MG PO (21:16)
[2023-06-07 07:00] VITALS: BMI 33.8
[2023-06-07 08:05] VITALS: BP 131/70; PULSE 61; RESP 16; TEMP 36.2; O2SAT 98
[2023-06-07] MEDS: buPROPion HCl XL 300 MG TAB.ER.24H PO (08:41)
[2023-06-07] MEDS: methADONE HCl 20 MG/2 ML ORAL.CONC 80 MG PO (08:42)
[2023-06-07] MEDS: Ibuprofen 800 MG TABLET PO (09:20)
--- NOTE | 2023-06-07 10:46 | P.PNPSI_ITS ---
Subjective Subjective Date of Service: 06/07/23 Reason For Visit: Starr YAÑEZ SI with plan Interim History: Pt reports he was able to sleep. He continues to be concern about fluid retention of hands and feet. He reports to this freelance writer urinary hesitancy and nocturia, but apparently denied it to hospitalist yesterday. Bladder scan ordered--> PVR. Pt reports feeling depressed. He reports lack of housing is main stressor, feels others get housing faster than he has. Passive SI, no plan or intent to harm self or others. Mental Status Exam Mental Status Exam Narrative: Appearance:wearing hospital gown, fair hygiene, nodding on and off with some difficulty keeping eyes open Behavior:cooperative Psychomotor:no agitation or retardation noted Speech:clear, normal rate/rhythm/volume, spontaneous TP:linear TC:no s/s of psychosis, wanting treatment Mood: depressed Affect:somnolent SI: passive HI: denies VH/AH: none delusions: none Insight/judgment: fair x 2. Memory/cog: alert, oriented x 3. grossly intact to conversational testing. Diagnostics Vital Signs (24Hr): Vital Signs - 24 hr 06/06/23 20:10 06/07/23 08:05 Temperature 98.4 F 97.2 F Pulse Rate 73 61 Respiratory Rate 16 Blood Pressure 151/74 H 131/70 Pulse Oximetry 98 98 Oxygen Delivery Method Room Air Room Air Labs 06/06/23 08:25 Labs: Laboratory Results - last 48 hr 06/06/23 08:25 Sodium 144 Potassium 3.6 Chloride 108 Carbon Dioxide 30 H Anion Gap 10 L BUN 5 L Creatinine 0.78 Estim Creat Clear Calc TNP Estimated GFR > 60 Fasting Glucose 93 Estimat Average Glucose 103 Hemoglobin A1c % 5.2 Calcium 8.9 Total Bilirubin 0.1 AST 39 H ALT 28 Alkaline Phosphatase 81 Total Protein 6.3 L Albumin 3.2 L Triglycerides 321 H Cholesterol 151 LDL Cholesterol, Calc 63 HDL Cholesterol 24 L Medications Medications Current Medications Acetaminophen (Acetaminophen 325 Mg Tablet) 650 mg PO Q6H PRN PRN Reason: Pain, Mild (Pain Scale 1-3) Last Admin: 06/06/23 21:16 Dose: 650 mg Al Hydroxide/Mg Hydroxide (Magnesium Hydrox/Alum Hydrox 30 Ml Oral.Susp) 30 ml PO Q6H PRN PRN Reason: Heartburn/Nausea Bupropion HCl (Bupropion Hcl Xl 300 Mg Tab.Er.24h) 300 mg PO DAILY [facility] Last Admin: 06/07/23 08:41 Dose: 300 mg Docusate Sodium (Docusate Sodium 100 Mg Capsule) 100 mg PO DAILY PRN PRN Reason: Constipation Hydroxyzine HCl (Hydroxyzine Hcl 25 Mg Tablet) 25 mg PO Q6H PRN PRN Reason: Anxiety Last Admin: 06/06/23 09:30 Dose: 25 mg Ibuprofen (Ibuprofen 800 Mg Tablet) 800 mg PO BID PRN PRN Reason: Pain, Mild Last Admin: 06/07/23 09:20 Dose: 800 mg Magnesium Hydroxide (Milk Of Magnesia 30 Ml Oral.Susp) 30 ml PO DAILY PRN PRN Reason: Constipation Methadone HCl (Methadone Hcl 20 Mg/2 Ml Oral.Conc) 80 mg PO DAILY [facility] Last Admin: 06/07/23 08:42 Dose: 80 mg Mirtazapine (Mirtazapine 30 Mg Tablet) 30 mg PO BEDTIME [facility] Last Admin: 06/06/23 20:29 Dose: 30 mg Nicotine Polacrilex (Nicotine Polacrilex 2 Mg Gum) 2 mg BUCCAL Q2H PRN PRN Reason: Nicotine Cravings Prazosin HCl (Prazosin Hcl 1 Mg Capsule) 1 mg PO TID PRN; Protocol PRN Reason: Anxiety Quetiapine Fumarate (Quetiapine Fumarate 300 Mg Tablet) 300 mg PO BEDTIME [facility] Last Admin: 06/06/23 20:29 Dose: 300 mg Allergies Allergies Allergy/AdvReac Type Severity Reaction Status Date / Time No Known Allergies Allergy Verified 07/16/21 23:01 [No Known Allergies*] Assessment & Plan Assessment & Plan (1) MDD (major depressive disorder), recurrent episode, moderate: Status: Acute Code(s): F33.1 - Major depressive disorder, recurrent, moderate (2) Opioid use disorder, severe, on maintenance therapy, dependence: Status: Acute Code(s): F11.20 - Opioid dependence, uncomplicated (3) Cocaine use disorder, moderate, dependence: Status: Acute Code(s): F14.20 - Cocaine dependence, uncomplicated Plan Mr. Tovar is a 47 year-old male with hx of MDD, opioid and cocaine use disorder. He self [place] [facility] [place]. He was medically admitted for rhabdomyolosis and PARI. He received 2L IV. We discussed risks, benefits and alternative treatment options, pt agreed to continue seroquel- lower dose due to day time sedation in combination with methadone. continue remeron for depression. PLAN 1. Admit to M3, CV, 15 minutes checks for safety. 2. Obtain collateral information 3. Aftercare planning 4. engage in milieu 06/07 seroquel was decreased due to excessive sedation during the day in combination with methadone. fluid retention, ordered bladder scan PVR, may need straight cath if >300cc. he does report to this freelance writer urinary hesitancy and nocturia. Reason for continued inpatient stay Substantial Risk for: harm to self Time Spent With Patient Time: Total time managing care of this patient today ____ minutes.
[2023-06-07] MEDS: hydrOXYzine HCL 25 MG TABLET PO ×2 (15:09→20:35)
[2023-06-07] MEDS: Prazosin HCL 1 MG CAPSULE PO ×2 (15:09→20:34)
[2023-06-07] MEDS: Sennosides/Docusate Sodium TABLET 1 TAB PO ×2 (15:56→20:35)
[2023-06-07] MEDS: Magnesium Hydrox/Alum Hydrox 30 ML ORAL.SUSP PO (16:45)
[2023-06-07 17:13] LABS: Alanine Aminotransferase 35 U/L (0-40); Albumin Level 3.6 g/dL (3.5-5.0); Alkaline Phosphatase 89 U/L (39-117); Anion Gap 13 (12-20); Aspartate Amino Transferase 44 U/L (5-37); Bilirubin Total 0.1 mg/dL (0.0-1.0); Blood Urea Nitrogen 7 mg/dL (9-16); Calcium 9.1 mg/dL (8.4-10.2); Carbon Dioxide 34 mmol/L (22-29); Chloride 103 mmol/L (96-108); Creatinine Clr Calc Pharmacy 124.8; Estimated Glomerular Filt Rate > 60; Glucose Random 109 mg/dL (60-115); Potassium 4.4 mmol/L (3.3-5.1); Sodium 146 mmol/L (135-145); Total Protein 6.9 g/dL (6.5-8.0)
[2023-06-07] MEDS: Acetaminophen 325 MG TABLET 650 MG PO (20:33)
[2023-06-07] MEDS: Ibuprofen 600 MG TABLET PO (20:33)
[2023-06-07] MEDS: QUEtiapine Fumarate 50 MG TABLET 150 MG PO (20:34)
[2023-06-07] MEDS: Mirtazapine 30 MG TABLET PO (20:35)
[2023-06-07 21:00] VITALS: BP 155/85; PULSE 64; TEMP 36.2; O2SAT 98
[2023-06-08 06:00] VITALS: BP 148/94; PULSE 56; TEMP 36.1; O2SAT 97
[2023-06-08] MEDS: methADONE HCl 20 MG/2 ML ORAL.CONC 80 MG PO (09:21)
[2023-06-08] MEDS: Sennosides/Docusate Sodium TABLET 1 TAB PO ×2 (09:22→20:31)
[2023-06-08] MEDS: buPROPion HCl XL 300 MG TAB.ER.24H PO (09:22)
[2023-06-08] MEDS: Acetaminophen 325 MG TABLET 650 MG PO (11:25)
[2023-06-08] MEDS: Ibuprofen 600 MG TABLET PO ×2 (11:25→19:12)
[2023-06-08] MEDS: QUEtiapine Fumarate 50 MG TABLET PO ×2 (11:26→20:30)
--- NOTE | 2023-06-08 14:41 | HO.PSYCHPN ---
Subjective Subjective Date of Service: 06/08/23 Reason For Visit: Rhabdo PARI SI with plan Interim History: calm, cooperative. writing down all meds ordered or available PRN. c/o generalized pain throguhout his body as well as diffuse swelling. demonstrates he cannot close his fist. reports extreme urinary hesitancy. agrees to HOLD hydroxyzine for now. reprots he is thinking a lot, with SI, but i'm here, and you guys are doing what you can to help me. asking for omeprazole. per staff, dep/anx. c/o AH. isolative. withdrawn. slept 8+ hours. Mental Status Exam Mental Status Exam Narrative: Appearance:wearing street clothes, fair hygiene Behavior:cooperative, no PMA/PMR. awake and alert. Psychomotor:no agitation or retardation noted Speech:clear, normal rate/rhythm/volume, spontaneous TP:linear TC:no s/s of psychosis, wanting treatment Mood: thinking a lot Affect:constricted, normo-intense, non-labile SI: passive HI: denies VH/AH: none delusions: none Insight/judgment: fair x 2. Memory/cog: alert, oriented x 3. grossly intact to conversational testing. Diagnostics Vital Signs (24Hr): Vital Signs - 24 hr 06/07/23 21:00 06/08/23 06:00 Temperature 97.2 F 97 F Pulse Rate 64 56 Blood Pressure 155/85 H 148/94 H Pulse Oximetry 98 97 Oxygen Delivery Method Room Air Room Air BMI result Body Mass Index 33.8 Labs 06/07/23 16:51 Labs: Laboratory Results - last 48 hr 06/07/23 16:51 Sodium 146 H Potassium 4.4 D Chloride 103 Carbon Dioxide 34 H Anion Gap 13 BUN 7 L Creatinine 0.86 Estim Creat Clear Calc 124.8 Estimated GFR > 60 Random Glucose 109 Calcium 9.1 Total Bilirubin 0.1 AST 44 H ALT 35 Alkaline Phosphatase 89 Total Protein 6.9 Albumin 3.6 Medications Medications Current Medications Acetaminophen (Acetaminophen 325 Mg Tablet) 975 mg PO Q6H PRN PRN Reason: Pain, Mild (Pain Scale 1-3) Al Hydroxide/Mg Hydroxide (Magnesium Hydrox/Alum Hydrox 30 Ml Oral.Susp) 30 ml PO Q6H PRN PRN Reason: Heartburn/Nausea Last Admin: 06/07/23 16:45 Dose: 30 ml Bupropion HCl (Bupropion Hcl Xl 300 Mg Tab.Er.24h) 300 mg PO DAILY [facility] Last Admin: 06/08/23 09:22 Dose: 300 mg Hydroxyzine HCl (Hydroxyzine Hcl 25 Mg Tablet) 25 mg PO Q6H PRN PRN Reason: Anxiety Last Admin: 06/07/23 20:35 Dose: 25 mg Ibuprofen (Ibuprofen 600 Mg Tablet) 600 mg PO Q6H PRN PRN Reason: Pain, Mild Last Admin: 06/08/23 11:25 Dose: 600 mg Magnesium Hydroxide (Milk Of Magnesia 30 Ml Oral.Susp) 30 ml PO DAILY PRN PRN Reason: Constipation Methadone HCl (Methadone Hcl 20 Mg/2 Ml Oral.Conc) 80 mg PO DAILY [facility] Last Admin: 06/08/23 09:21 Dose: 80 mg Mirtazapine (Mirtazapine 30 Mg Tablet) 30 mg PO BEDTIME [facility] Last Admin: 06/07/23 20:35 Dose: 30 mg Nicotine Polacrilex (Nicotine Polacrilex 2 Mg Gum) 2 mg BUCCAL Q2H PRN PRN Reason: Nicotine Cravings Omeprazole (Omeprazole 20 Mg Capsule.Dr) 20 mg PO BID@0630,1630 [facility] Prazosin HCl (Prazosin Hcl 1 Mg Capsule) 1 mg PO TID PRN; Protocol PRN Reason: Anxiety Last Admin: 06/07/23 20:34 Dose: 1 mg Quetiapine Fumarate (Quetiapine Fumarate 50 Mg Tablet) 150 mg PO BEDTIME [facility] Last Admin: 06/07/23 20:34 Dose: 150 mg Quetiapine Fumarate (Quetiapine Fumarate 50 Mg Tablet) 50 mg PO Q6H PRN PRN Reason: anxiety/agitation Last Admin: 06/08/23 11:26 Dose: 50 mg Senna/Docusate Sodium (Sennosides/Docusate Sodium Tablet) 1 tab PO BID [facility] Last Admin: 06/08/23 09:22 Dose: 1 tab Allergies Allergies Allergy/AdvReac Type Severity Reaction Status Date / Time No Known Allergies Allergy Verified 07/16/21 23:01 [No Known Allergies*] Assessment & Plan Assessment & Plan (1) MDD (major depressive disorder), recurrent episode, moderate: Status: Acute Code(s): F33.1 - Major depressive disorder, recurrent, moderate (2) Opioid use disorder, severe, on maintenance therapy, dependence: Status: Acute Code(s): F11.20 - Opioid dependence, uncomplicated (3) Cocaine use disorder, moderate, dependence: Status: Acute Code(s): F14.20 - Cocaine dependence, uncomplicated Plan Mr. Tovar is a 47 year-old male with hx of MDD, opioid and cocaine use disorder. He self presented to [facility] reporting SI. He was medically admitted for rhabdomyolosis and PARI. He received 2L IV. We discussed risks, benefits and alternative treatment options, pt agreed to continue seroquel- lower dose due to day time sedation in combination with methadone. continue remeron for depression. PLAN 1. Admit to M3, CV, 15 minutes checks for safety. 2. Obtain collateral information 3. Aftercare planning 4. engage in milieu 06/07 seroquel was decreased due to excessive sedation during the day in combination with methadone. fluid retention, ordered bladder scan PVR, may need straight cath if >300cc. he does report to this marketing underwriter urinary hesitancy and nocturia. 06/08: requested deisy revist pt for swelling/pain/urinary retention. restart omeprazole per pt request. hold hydroxyzine due to urinary retention/hesitancy. otherwise continue current mgmt. Reason for continued inpatient stay Substantial Risk for: harm to self, inability to function and rapid decompensation Time Spent With Patient Time: Total time managing care of this patient today __35__ minutes.
[2023-06-08] MEDS: Omeprazole 20 MG CAPSULE.DR PO (16:06)
[2023-06-08 20:15] VITALS: BP 134/77; PULSE 71; TEMP 36.2; O2SAT 97
[2023-06-08] MEDS: QUEtiapine Fumarate 50 MG TABLET 150 MG PO (20:30)
[2023-06-08] MEDS: Nicotine Polacrilex 2 MG GUM BUCCAL (20:31)
[2023-06-08] MEDS: Prazosin HCL 1 MG CAPSULE PO (20:31)
[2023-06-08] MEDS: Mirtazapine 30 MG TABLET PO (20:31)
[2023-06-09] MEDS: Omeprazole 20 MG CAPSULE.DR PO ×2 (08:26→16:24)
[2023-06-09] MEDS: Sennosides/Docusate Sodium TABLET 1 TAB PO ×2 (08:26→20:35)
[2023-06-09] MEDS: methADONE HCl 20 MG/2 ML ORAL.CONC 80 MG PO (08:26)
[2023-06-09] MEDS: buPROPion HCl XL 300 MG TAB.ER.24H PO (08:26)
[2023-06-09 08:30] VITALS: BP 151/82; PULSE 75; RESP 18; TEMP 35.4; O2SAT 95
[2023-06-09 11:42] LABS: Appearance Urine Clear; Color Urine Yellow; Glucose Urine UA Negative (Negative); Leukocyte Esterase Urine Negative (Negative); Nitrite Urine Negative (Negative); PH 7.5 (5.0-9.0); Urine Blood Negative (Negative); Urine Ketones Negative (Negative); Urine Protein Negative (Neg-Trace)
[2023-06-09] MEDS: Nicotine Polacrilex 2 MG GUM BUCCAL (12:16)
[2023-06-09] MEDS: Acetaminophen 325 MG TABLET 975 MG PO (12:17)
[2023-06-09] MEDS: Magnesium Hydrox/Alum Hydrox 30 ML ORAL.SUSP PO (12:18)
--- NOTE | 2023-06-09 14:21 | P.PNPSI_ITS ---
Subjective Subjective Date of Service: 06/09/23 Reason For Visit: Rhabdo PARI SI with plan Subjective Notes: Conditional Voluntary Guardianship: No Medical Problems Affecting Mental Status: No Interim History: Some sleep disturbance. Appetite fair. Hands are swollen, legs are painful related to rhabdo. Reports hypervigilence and nightmares related to prior traumas. Medication Compliance: Yes Attending Groups: No Review of Systems Acute medical concerns: No Medical Review of Systems: unchanged Mental Status Exam Mental Status Exam Patient Appearance: Well Grooomed Patient Orientation: Person, Place and Time Level of Consciousness: Alert Patient Behavior: Appropriate Mood Description: Calm Affect Description: Depressed Patient Cognition Impaired: No Speech Pattern: Clear Memory Description: Intact Hallucinations: Auditory Delusions: Paranoid Ideation Thought Process: Goal Oriented Thought Content: positive for Goal Oriented Depressive Symptoms: Increased Anxiety, Insomnia and Muscle Pain Judgement: Good Diagnostics Vital Signs (24Hr): Vital Signs - 24 hr 06/08/23 20:15 06/09/23 08:30 Temperature 97.1 F 95.7 F L Pulse Rate 71 75 Respiratory Rate 18 Blood Pressure 134/77 151/82 H Pulse Oximetry 97 95 Oxygen Delivery Method Room Air Room Air BMI result Body Mass Index 33.8 Labs 06/07/23 16:51 Labs: Laboratory Results - last 48 hr 06/07/23 06/09/23 16:51 11:25 Sodium 146 H Potassium 4.4 D Chloride 103 Carbon Dioxide 34 H Anion Gap 13 BUN 7 L Creatinine 0.86 Estim Creat Clear Calc 124.8 Estimated GFR > 60 Random Glucose 109 Calcium 9.1 Total Bilirubin 0.1 AST 44 H ALT 35 Alkaline Phosphatase 89 Total Protein 6.9 Albumin 3.6 Urine Color Yellow Urine Appearance Clear Urine pH 7.5 Ur Specific [place] 1.010 Urine Protein Negative Urine Glucose (UA) Negative Urine Ketones Negative Urine Blood Negative Urine Nitrite Negative Ur Leukocyte Esterase Negative Medications Medications Current Medications Acetaminophen (Acetaminophen 325 Mg Tablet) 975 mg PO Q6H PRN PRN Reason: Pain, Mild (Pain Scale 1-3) Last Admin: 06/09/23 12:17 Dose: 975 mg Al Hydroxide/Mg Hydroxide (Magnesium Hydrox/Alum Hydrox 30 Ml Oral.Susp) 30 ml PO Q6H PRN PRN Reason: Heartburn/Nausea Last Admin: 06/09/23 12:18 Dose: 30 ml Bupropion HCl (Bupropion Hcl Xl 300 Mg Tab.Er.24h) 300 mg PO DAILY [facility] Last Admin: 06/09/23 08:26 Dose: 300 mg Hydroxyzine HCl (Hydroxyzine Hcl 25 Mg Tablet) 25 mg PO Q6H PRN PRN Reason: Anxiety Last Admin: 06/07/23 20:35 Dose: 25 mg Ibuprofen (Ibuprofen 600 Mg Tablet) 600 mg PO Q6H PRN PRN Reason: Pain, Mild Last Admin: 06/08/23 19:12 Dose: 600 mg Magnesium Hydroxide (Milk Of Magnesia 30 Ml Oral.Susp) 30 ml PO DAILY PRN PRN Reason: Constipation Methadone HCl (Methadone Hcl 20 Mg/2 Ml Oral.Conc) 80 mg PO DAILY [facility] Last Admin: 06/09/23 08:26 Dose: 80 mg Mirtazapine (Mirtazapine 30 Mg Tablet) 30 mg PO BEDTIME [facility] Last Admin: 06/08/23 20:31 Dose: 30 mg Nicotine Polacrilex (Nicotine Polacrilex 2 Mg Gum) 2 mg BUCCAL Q2H PRN PRN Reason: Nicotine Cravings Last Admin: 06/09/23 12:16 Dose: 2 mg Omeprazole (Omeprazole 20 Mg Capsule.Dr) 20 mg PO BID@0630,1630 [facility] Last Admin: 06/09/23 08:26 Dose: 20 mg Prazosin HCl (Prazosin Hcl 1 Mg Capsule) 1 mg PO TID PRN; Protocol PRN Reason: Anxiety Last Admin: 06/08/23 20:31 Dose: 1 mg Quetiapine Fumarate (Quetiapine Fumarate 50 Mg Tablet) 150 mg PO BEDTIME [facility] Last Admin: 06/08/23 20:30 Dose: 150 mg Quetiapine Fumarate (Quetiapine Fumarate 50 Mg Tablet) 50 mg PO Q6H PRN PRN Reason: anxiety/agitation Last Admin: 06/08/23 20:30 Dose: 50 mg Senna/Docusate Sodium (Sennosides/Docusate Sodium Tablet) 1 tab PO BID [facility] Last Admin: 06/09/23 08:26 Dose: 1 tab Allergies Allergies Allergy/AdvReac Type Severity Reaction Status Date / Time No Known Allergies Allergy Verified 07/16/21 23:01 [No Known Allergies*] Assessment & Plan Assessment & Plan (1) MDD (major depressive disorder), recurrent episode, moderate: Status: Acute Code(s): F33.1 - Major depressive disorder, recurrent, moderate (2) Opioid use disorder, severe, on maintenance therapy, dependence: Status: Acute Code(s): F11.20 - Opioid dependence, uncomplicated (3) Cocaine use disorder, moderate, dependence: Status: Acute Code(s): F14.20 - Cocaine dependence, uncomplicated Plan Mr. Tovar is a 47 year-old male with hx of MDD, opioid and cocaine use disorder. He self presented to [facility] reporting SI. He was medically admitted for rhabdomyolosis and PARI. He received 2L IV. We discussed risks, benefits and alternative treatment options, pt agreed to continue seroquel- lower dose due to day time sedation in combination with methadone. continue remeron for depression. PLAN 1. Admit to M3, CV, 15 minutes checks for safety. 2. Obtain collateral information 3. Aftercare planning 4. engage in milieu 06/07 seroquel was decreased due to excessive sedation during the day in combination with methadone. fluid retention, ordered bladder scan PVR, may need straight cath if >300cc. he does report to this telegraphic typewriter operator urinary hesitancy and nocturia. 06/08: requested deisy revist pt for swelling/pain/urinary retention. restart omeprazole per pt request. hold hydroxyzine due to urinary retention/hesitancy. otherwise continue current mgmt. 06/09:add standing prazosin for PTSD symptoms. Reason for continued inpatient stay Substantial Risk for: harm to self Time Spent With Patient Time: Total time managing care of this patient today ____ minutes.
[2023-06-09] MEDS: Nicotine Polacrilex 2 MG GUM 4 MG BUCCAL ×2 (17:21→20:34)
[2023-06-09 20:15] VITALS: BP 157/91; PULSE 69; TEMP 36.7; O2SAT 97
[2023-06-09] MEDS: QUEtiapine Fumarate 50 MG TABLET 150 MG PO (20:32)
[2023-06-09] MEDS: QUEtiapine Fumarate 50 MG TABLET PO (20:33)
[2023-06-09] MEDS: Ibuprofen 600 MG TABLET PO (20:33)
[2023-06-09] MEDS: Prazosin HCL 1 MG CAPSULE PO ×2 (20:34→20:35)
[2023-06-09] MEDS: Mirtazapine 30 MG TABLET PO (20:35)
[2023-06-10 06:00] VITALS: BP 114/85; PULSE 66; TEMP 36.8; O2SAT 99
[2023-06-10] MEDS: methADONE HCl 20 MG/2 ML ORAL.CONC 80 MG PO (08:58)
[2023-06-10] MEDS: Omeprazole 20 MG CAPSULE.DR PO ×2 (08:58→16:52)
[2023-06-10] MEDS: Sennosides/Docusate Sodium TABLET 1 TAB PO ×2 (08:58→21:09)
[2023-06-10] MEDS: buPROPion HCl XL 300 MG TAB.ER.24H PO (08:58)
[2023-06-10] MEDS: QUEtiapine Fumarate 50 MG TABLET PO (12:38)
[2023-06-10] MEDS: Ibuprofen 600 MG TABLET PO (12:38)
[2023-06-10] MEDS: Nicotine Polacrilex 2 MG GUM 4 MG BUCCAL (12:39)
--- NOTE | 2023-06-10 14:09 | HO.PSYCHPN ---
Subjective Subjective Date of Service: 06/10/23 Reason For Visit: Carolao PARI SI with plan Subjective Notes: Conditional Voluntary Guardianship: No Medical Problems Affecting Mental Status: No Interim History: Complaining of generalized muscle aches consistent with rhabdo but states that this pain was there before this problem. Asking to have steroids and muscle relaxants which helped in past. Still having sleep disturbance and whispering voices. Fearful of others related to prior traumas. Appetite fair. Medication Compliance: Yes Side effects from medications: No Attending Groups: Intermittent Review of Systems Acute medical concerns: No Medical Review of Systems: unchanged Mental Status Exam Mental Status Exam Patient Appearance: Unkempt Patient Orientation: Person, Place, Time and Situation Level of Consciousness: Alert Patient Behavior: Appropriate Mood Description: Depressed Affect Description: Depressed Patient Cognition Impaired: No Ability to Follow Directions: Good Speech Pattern: Clear Memory Description: Intact Hallucinations: Auditory Delusions: Paranoid Ideation Thought Process: Goal Oriented Depressive Symptoms: Insomnia and Thoughts of /Suicide Judgement: Fair Diagnostics Vital Signs (24Hr): Vital Signs - 24 hr 06/09/23 20:15 06/10/23 06:00 Temperature 98.0 F 98.2 F Pulse Rate 69 66 Blood Pressure 157/91 H 114/85 Pulse Oximetry 97 99 Oxygen Delivery Method Room Air Room Air BMI result Body Mass Index 33.8 Labs 06/07/23 16:51 Labs: Laboratory Results - last 48 hr 06/09/23 11:25 Urine Color Yellow Urine Appearance Clear Urine pH 7.5 Ur Specific [place] 1.010 Urine Protein Negative Urine Glucose (UA) Negative Urine Ketones Negative Urine Blood Negative Urine Nitrite Negative Ur Leukocyte Esterase Negative Medications Medications Current Medications Acetaminophen (Acetaminophen 325 Mg Tablet) 975 mg PO Q6H PRN PRN Reason: Pain, Mild (Pain Scale 1-3) Last Admin: 06/09/23 12:17 Dose: 975 mg Al Hydroxide/Mg Hydroxide (Magnesium Hydrox/Alum Hydrox 30 Ml Oral.Susp) 30 ml PO Q6H PRN PRN Reason: Heartburn/Nausea Last Admin: 06/09/23 12:18 Dose: 30 ml Bupropion HCl (Bupropion Hcl Xl 300 Mg Tab.Er.24h) 300 mg PO DAILY [facility] Last Admin: 06/10/23 08:58 Dose: 300 mg Hydroxyzine HCl (Hydroxyzine Hcl 25 Mg Tablet) 25 mg PO Q6H PRN PRN Reason: Anxiety Last Admin: 06/07/23 20:35 Dose: 25 mg Ibuprofen (Ibuprofen 600 Mg Tablet) 600 mg PO Q6H PRN PRN Reason: Pain, Mild Last Admin: 06/10/23 12:38 Dose: 600 mg Magnesium Hydroxide (Milk Of Magnesia 30 Ml Oral.Susp) 30 ml PO DAILY PRN PRN Reason: Constipation Methadone HCl (Methadone Hcl 20 Mg/2 Ml Oral.Conc) 80 mg PO DAILY [facility] Last Admin: 06/10/23 08:58 Dose: 80 mg Mirtazapine (Mirtazapine 30 Mg Tablet) 30 mg PO BEDTIME [facility] Last Admin: 06/09/23 20:35 Dose: 30 mg Nicotine Polacrilex (Nicotine Polacrilex 2 Mg Gum) 4 mg BUCCAL Q2H PRN PRN Reason: Nicotine Cravings Last Admin: 06/10/23 12:39 Dose: 4 mg Omeprazole (Omeprazole 20 Mg Capsule.Dr) 20 mg PO BID@0630,1630 [facility] Last Admin: 06/10/23 08:58 Dose: 20 mg Prazosin HCl (Prazosin Hcl 1 Mg Capsule) 1 mg PO TID PRN; Protocol PRN Reason: Anxiety Last Admin: 06/09/23 20:35 Dose: 1 mg Prazosin HCl (Prazosin Hcl 1 Mg Capsule) 1 mg PO BEDTIME [facility]; Protocol Last Admin: 06/09/23 20:34 Dose: 1 mg Quetiapine Fumarate (Quetiapine Fumarate 50 Mg Tablet) 150 mg PO BEDTIME [facility] Last Admin: 06/09/23 20:32 Dose: 150 mg Quetiapine Fumarate (Quetiapine Fumarate 50 Mg Tablet) 50 mg PO Q6H PRN PRN Reason: anxiety/agitation Last Admin: 06/10/23 12:38 Dose: 50 mg Senna/Docusate Sodium (Sennosides/Docusate Sodium Tablet) 1 tab PO BID [facility] Last Admin: 06/10/23 08:58 Dose: 1 tab Allergies Allergies Allergy/AdvReac Type Severity Reaction Status Date / Time No Known Allergies Allergy Verified 07/16/21 23:01 [No Known Allergies*] Assessment & Plan Assessment & Plan (1) MDD (major depressive disorder), recurrent episode, moderate: Status: Acute Code(s): F33.1 - Major depressive disorder, recurrent, moderate (2) Opioid use disorder, severe, on maintenance therapy, dependence: Status: Acute Code(s): F11.20 - Opioid dependence, uncomplicated (3) Cocaine use disorder, moderate, dependence: Status: Acute Code(s): F14.20 - Cocaine dependence, uncomplicated Plan Mr. Tovar is a 47 year-old male with hx of MDD, opioid and cocaine use disorder. He self presented to [facility] ED reporting SI. He was medically admitted for rhabdomyolosis and PARI. He received 2L IV. We discussed risks, benefits and alternative treatment options, pt agreed to continue seroquel- lower dose due to day time sedation in combination with methadone. continue remeron for depression. PLAN 1. Admit to M3, CV, 15 minutes checks for safety. 2. Obtain collateral information 3. Aftercare planning 4. engage in milieu 06/07 seroquel was decreased due to excessive sedation during the day in combination with methadone. fluid retention, ordered bladder scan PVR, may need straight cath if >300cc. he does report to this curriculum writer urinary hesitancy and nocturia. 06/08: requested deisy revist pt for swelling/pain/urinary retention. restart omeprazole per pt request. hold hydroxyzine due to urinary retention/hesitancy. otherwise continue current mgmt. 06/09:add standing prazosin for PTSD symptoms. 06/10: no changes Reason for continued inpatient stay Substantial Risk for: harm to self Time Spent With Patient Time: Total time managing care of this patient today ____ minutes.
[2023-06-10] MEDS: Acetaminophen 325 MG TABLET 975 MG PO (16:52)
[2023-06-10 21:07] VITALS: BP 126/76; PULSE 78; TEMP 36.6; O2SAT 96
[2023-06-10] MEDS: QUEtiapine Fumarate 50 MG TABLET 150 MG PO (21:08)
[2023-06-10] MEDS: Mirtazapine 30 MG TABLET PO (21:09)
[2023-06-10] MEDS: Prazosin HCL 1 MG CAPSULE PO (21:09)
[2023-06-11] MEDS: Omeprazole 20 MG CAPSULE.DR PO ×2 (07:07→16:40)
[2023-06-11 08:27] VITALS: BP 121/82; PULSE 70; RESP 16; TEMP 36.2; O2SAT 94
[2023-06-11] MEDS: Sennosides/Docusate Sodium TABLET 1 TAB PO ×2 (09:03→20:19)
[2023-06-11] MEDS: buPROPion HCl XL 300 MG TAB.ER.24H PO (09:03)
[2023-06-11] MEDS: methADONE HCl 20 MG/2 ML ORAL.CONC 80 MG PO (09:04)
[2023-06-11] MEDS: Ibuprofen 600 MG TABLET PO (11:27)
--- NOTE | 2023-06-11 15:55 | P.PNPSI_ITS ---
Subjective Subjective Date of Service: 06/11/23 Reason For Visit: Rhabdo PARI SI with plan Interim History: feeling mood is up and down. intermittent SI. c/o sciatica pain, asking for muscle relaxants and steroids. c/o nightmares and insomnia, agrees to increase prazosin to 2 mg QHS and remeron to 45 mg. per staff, feeling better but intermittent SI with AH and not feeling ready to go. Mental Status Exam Mental Status Exam Narrative: Appearance:wearing street clothes, fair hygiene Behavior:cooperative, no PMA/PMR. awake and alert. Psychomotor:no agitation or retardation noted Speech:clear, normal rate/rhythm/volume, spontaneous TP:linear TC:no s/s of psychosis, wanting treatment Mood: up and down anxiety and depression Affect:constricted, normo-intense, non-labile SI: passive, intermittent HI: none expressed VH/AH: none expressed delusions: none expressed Insight/judgment: fair x 2. Memory/cog: alert, oriented x 3. grossly intact to conversational testing. Diagnostics Vital Signs (24Hr): Vital Signs - 24 hr 06/10/23 21:07 06/11/23 08:27 Temperature 98 F 97.1 F Pulse Rate 78 70 Respiratory Rate 16 Blood Pressure 126/76 121/82 Pulse Oximetry 96 94 Oxygen Delivery Method Room Air Room Air BMI result Body Mass Index 33.8 Labs 06/07/23 16:51 Medications Medications Current Medications Acetaminophen (Acetaminophen 325 Mg Tablet) 975 mg PO Q6H PRN PRN Reason: Pain, Mild (Pain Scale 1-3) Last Admin: 06/10/23 16:52 Dose: 975 mg Al Hydroxide/Mg Hydroxide (Magnesium Hydrox/Alum Hydrox 30 Ml Oral.Susp) 30 ml PO Q6H PRN PRN Reason: Heartburn/Nausea Last Admin: 06/09/23 12:18 Dose: 30 ml Bupropion HCl (Bupropion Hcl Xl 300 Mg Tab.Er.24h) 300 mg PO DAILY [facility] Last Admin: 06/11/23 09:03 Dose: 300 mg Hydroxyzine HCl (Hydroxyzine Hcl 25 Mg Tablet) 25 mg PO Q6H PRN PRN Reason: Anxiety Last Admin: 06/07/23 20:35 Dose: 25 mg Ibuprofen (Ibuprofen 600 Mg Tablet) 600 mg PO Q6H PRN PRN Reason: Pain, Mild Last Admin: 06/11/23 11:27 Dose: 600 mg Magnesium Hydroxide (Milk Of Magnesia 30 Ml Oral.Susp) 30 ml PO DAILY PRN PRN Reason: Constipation Methadone HCl (Methadone Hcl 20 Mg/2 Ml Oral.Conc) 80 mg PO DAILY [facility] Last Admin: 06/11/23 09:04 Dose: 80 mg Mirtazapine (Mirtazapine 15 Mg Tablet) 45 mg PO BEDTIME [facility] Nicotine Polacrilex (Nicotine Polacrilex 2 Mg Gum) 4 mg BUCCAL Q2H PRN PRN Reason: Nicotine Cravings Last Admin: 06/10/23 12:39 Dose: 4 mg Omeprazole (Omeprazole 20 Mg Capsule.Dr) 20 mg PO BID@0630,1630 [facility] Last Admin: 06/11/23 07:07 Dose: 20 mg Prazosin HCl (Prazosin Hcl 1 Mg Capsule) 1 mg PO TID PRN; Protocol PRN Reason: Anxiety Last Admin: 06/09/23 20:35 Dose: 1 mg Prazosin HCl (Prazosin Hcl 1 Mg Capsule) 2 mg PO BEDTIME [facility]; Protocol Quetiapine Fumarate (Quetiapine Fumarate 50 Mg Tablet) 150 mg PO BEDTIME [facility] Last Admin: 06/10/23 21:08 Dose: 150 mg Quetiapine Fumarate (Quetiapine Fumarate 50 Mg Tablet) 50 mg PO Q6H PRN PRN Reason: anxiety/agitation Last Admin: 06/10/23 12:38 Dose: 50 mg Senna/Docusate Sodium (Sennosides/Docusate Sodium Tablet) 1 tab PO BID [facility] Last Admin: 06/11/23 09:03 Dose: 1 tab Allergies Allergies Allergy/AdvReac Type Severity Reaction Status Date / Time No Known Allergies Allergy Verified 07/16/21 23:01 [No Known Allergies*] Assessment & Plan Assessment & Plan (1) MDD (major depressive disorder), recurrent episode, moderate: Status: Acute Code(s): F33.1 - Major depressive disorder, recurrent, moderate (2) Opioid use disorder, severe, on maintenance therapy, dependence: Status: Acute Code(s): F11.20 - Opioid dependence, uncomplicated (3) Cocaine use disorder, moderate, dependence: Status: Acute Code(s): F14.20 - Cocaine dependence, uncomplicated Plan Mr. Tovar is a 47 year-old male with hx of MDD, opioid and cocaine use disorder. He self presented to [facility] ED reporting SI. He was medically admitted for rhabdomyolosis and PARI. He received 2L IV. We discussed risks, benefits and alternative treatment options, pt agreed to continue seroquel- lower dose due to day time sedation in combination with methadone. continue remeron for depression. PLAN 1. Admit to M3, CV, 15 minutes checks for safety. 2. Obtain collateral information 3. Aftercare planning 4. engage in milieu 06/07 seroquel was decreased due to excessive sedation during the day in combination with methadone. fluid retention, ordered bladder scan PVR, may need straight cath if >300cc. he does report to this instructional writer urinary hesitancy and nocturia. 06/08: requested deisy revist pt for swelling/pain/urinary retention. restart omeprazole per pt request. hold hydroxyzine due to urinary retention/hesitancy. otherwise continue current mgmt. 06/09:add standing prazosin for PTSD symptoms. 06/10: no changes 06/11: increase prazosin to 2 and remeron to 45 for nightmares/insomnia. c/o sciatica and asking for muscle relaxants and steroids, saying he has been given this regimen in the past and it has been helpful. will consult medicine for w/u and mgmt of back pain as etiology is unclear to me. Reason for continued inpatient stay Substantial Risk for: harm to self, inability to function and rapid decompensation Time Spent With Patient Time: Total time managing care of this patient today __35__ minutes.
[2023-06-11] MEDS: Nicotine Polacrilex 2 MG GUM 4 MG BUCCAL ×2 (16:41→20:21)
[2023-06-11 20:10] VITALS: BP 115/63; PULSE 72; RESP 17; TEMP 36.2; O2SAT 95
[2023-06-11] MEDS: Prazosin HCL 1 MG CAPSULE 2 MG PO (20:18)
[2023-06-11] MEDS: QUEtiapine Fumarate 50 MG TABLET 150 MG PO (20:19)
[2023-06-11] MEDS: Mirtazapine 15 MG TABLET 45 MG PO (20:19)
[2023-06-12 06:00] VITALS: BP 110/66; PULSE 75; TEMP 36.3; O2SAT 96
[2023-06-12] MEDS: Omeprazole 20 MG CAPSULE.DR PO ×2 (06:12→17:05)
[2023-06-12] MEDS: buPROPion HCl XL 300 MG TAB.ER.24H PO (08:33)
[2023-06-12] MEDS: methADONE HCl 20 MG/2 ML ORAL.CONC 80 MG PO (08:34)
[2023-06-12] MEDS: Sennosides/Docusate Sodium TABLET 1 TAB PO ×2 (08:34→20:11)
--- NOTE | 2023-06-12 09:24 | P.PNPSI_ITS ---
Subjective Subjective Date of Service: 06/12/23 Reason For Visit: Starr YAÑEZ SI with plan Interim History: Patient depressed anxious ruminating intermittent self-harming thoughts complains of sciatic back pain Mental Status Exam Mental Status Exam Narrative: Appearance:wearing street clothes, Psychomotor:no agitation or retardation noted Speech:clear, normal rate/rhythm/volume, spontaneous TP:linear TC:no s/s of psychosis, wanting treatment mostly focused on somatic pain Mood: up and down anxiety and depression Affect:constricted, somewhat intense SI: passive, intermittent HI: none expressed VH/AH: none expressed delusions: none expressed Insight/judgment: fair x 2. Memory/cog: alert, oriented x 3. Diagnostics Vital Signs (24Hr): Vital Signs - 24 hr 06/11/23 20:10 06/12/23 06:00 Temperature 97.1 F 97.3 F Pulse Rate 72 75 Respiratory Rate 17 Blood Pressure 115/63 110/66 Pulse Oximetry 95 96 Oxygen Delivery Method Room Air Room Air BMI result Body Mass Index 33.8 Labs 06/07/23 16:51 Medications Medications Current Medications Acetaminophen (Acetaminophen 325 Mg Tablet) 975 mg PO Q6H PRN PRN Reason: Pain, Mild (Pain Scale 1-3) Last Admin: 06/10/23 16:52 Dose: 975 mg Al Hydroxide/Mg Hydroxide (Magnesium Hydrox/Alum Hydrox 30 Ml Oral.Susp) 30 ml PO Q6H PRN PRN Reason: Heartburn/Nausea Last Admin: 06/09/23 12:18 Dose: 30 ml Bupropion HCl (Bupropion Hcl Xl 300 Mg Tab.Er.24h) 300 mg PO DAILY ZARIA Last Admin: 06/12/23 08:33 Dose: 300 mg Hydroxyzine HCl (Hydroxyzine Hcl 25 Mg Tablet) 25 mg PO Q6H PRN PRN Reason: Anxiety Last Admin: 06/07/23 20:35 Dose: 25 mg Ibuprofen (Ibuprofen 600 Mg Tablet) 600 mg PO Q6H PRN PRN Reason: Pain, Mild Last Admin: 06/11/23 11:27 Dose: 600 mg Magnesium Hydroxide (Milk Of Magnesia 30 Ml Oral.Susp) 30 ml PO DAILY PRN PRN Reason: Constipation Methadone HCl (Methadone Hcl 20 Mg/2 Ml Oral.Conc) 80 mg PO DAILY ZARIA Last Admin: 06/12/23 08:34 Dose: 80 mg Mirtazapine (Mirtazapine 15 Mg Tablet) 45 mg PO BEDTIME ZARIA Last Admin: 06/11/23 20:19 Dose: 45 mg Nicotine Polacrilex (Nicotine Polacrilex 2 Mg Gum) 4 mg BUCCAL Q2H PRN PRN Reason: Nicotine Cravings Last Admin: 06/11/23 20:21 Dose: 4 mg Omeprazole (Omeprazole 20 Mg Capsule.Dr) 20 mg PO BID@0630,1630 [facility] Last Admin: 06/12/23 06:12 Dose: 20 mg Prazosin HCl (Prazosin Hcl 1 Mg Capsule) 1 mg PO TID PRN; Protocol PRN Reason: Anxiety Last Admin: 06/09/23 20:35 Dose: 1 mg Prazosin HCl (Prazosin Hcl 1 Mg Capsule) 2 mg PO BEDTIME ZARIA; Protocol Last Admin: 06/11/23 20:18 Dose: 2 mg Quetiapine Fumarate (Quetiapine Fumarate 50 Mg Tablet) 150 mg PO BEDTIME ZARIA Last Admin: 06/11/23 20:19 Dose: 150 mg Quetiapine Fumarate (Quetiapine Fumarate 50 Mg Tablet) 50 mg PO Q6H PRN PRN Reason: anxiety/agitation Last Admin: 06/10/23 12:38 Dose: 50 mg Senna/Docusate Sodium (Sennosides/Docusate Sodium Tablet) 1 tab PO BID ZARIA Last Admin: 06/12/23 08:34 Dose: 1 tab Allergies Allergies Allergy/AdvReac Type Severity Reaction Status Date / Time No Known Allergies Allergy Verified 07/16/21 23:01 [No Known Allergies*] Assessment & Plan Assessment & Plan (1) MDD (major depressive disorder), recurrent episode, moderate: Status: Acute Code(s): F33.1 - Major depressive disorder, recurrent, moderate (2) Opioid use disorder, severe, on maintenance therapy, dependence: Status: Acute Code(s): F11.20 - Opioid dependence, uncomplicated (3) Cocaine use disorder, moderate, dependence: Status: Acute Code(s): F14.20 - Cocaine dependence, uncomplicated Plan Mr. Tovar is a 47 year-old male with hx of MDD, opioid and cocaine use disorder. He self presented to [facility] ED reporting SI. He was medically admitted for rhabdomyolosis and PARI. He received 2L IV. We discussed risks, benefits and alternative treatment options, pt agreed to continue seroquel- lower dose due to day time sedation in combination with methadone. continue remeron for depression. PLAN 1. Admit to M3, CV, 15 minutes checks for safety. 2. Obtain collateral information 3. Aftercare planning 4. engage in milieu 06/07 seroquel was decreased due to excessive sedation during the day in combination with methadone. fluid retention, ordered bladder scan PVR, may need straight cath if >300cc. 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 06/08: requested deisy revist pt for swelling/pain/urinary retention. restart omeprazole per pt request. hold hydroxyzine due to urinary retention/hesitancy. otherwise continue current mgmt. 06/09:add standing prazosin for PTSD symptoms. 06/10: no changes 06/11: increase prazosin to 2 and remeron to 45 for nightmares/insomnia. c/o sciatica and asking for muscle relaxants and steroids, saying he has been given this regimen in the past and it has been helpful. will consult medicine for w/u and mgmt of back pain as etiology is unclear to me. 06/12 Patient remains depressed ruminating again asking for treatment for sciatica asking for muscle relaxants. Would benefit from follow-up at the [facility] lidocaine patch started denies active self-harm internal medicine consult was placed Reason for continued inpatient stay Substantial Risk for: harm to self and rapid decompensation Time Spent With Patient Time: Total time managing care of this patient today ____ minutes.
[2023-06-12] MEDS: Prazosin HCL 1 MG CAPSULE PO (13:56)
[2023-06-12] MEDS: Nicotine Polacrilex 2 MG GUM 4 MG BUCCAL ×2 (13:56→18:25)
[2023-06-12] MEDS: QUEtiapine Fumarate 50 MG TABLET PO (13:56)
[2023-06-12] MEDS: Lidocaine 4 % Patch ADH..PATCH 1 PATCH TRANSDERMA (17:05)
--- NOTE | 2023-06-12 18:11 | PM.EVENT ---
Event Note Date of Service: 06/12/23 Event Note: Patient seen and evaluated Sciatica pain with no nerve injury Start muscle relaxant and pain killer Consider PT eval will follow up as needed Time Spent With Patient Time: Total time managing care of this patient today ____ minutes.
[2023-06-12] MEDS: Cyclobenzaprine HCl 10 MG TABLET PO (18:24)
[2023-06-12] MEDS: Ibuprofen 400 MG TABLET PO (18:25)
[2023-06-12 20:00] VITALS: BP 126/72; PULSE 88; RESP 16; TEMP 36.6; O2SAT 97
[2023-06-12] MEDS: Cyclobenzaprine HCl 5 MG TABLET PO (20:11)
[2023-06-12] MEDS: Mirtazapine 15 MG TABLET 45 MG PO (20:11)
[2023-06-12] MEDS: QUEtiapine Fumarate 50 MG TABLET 150 MG PO (20:11)
[2023-06-12] MEDS: Prazosin HCL 1 MG CAPSULE 2 MG PO (20:12)
[2023-06-13 06:00] VITALS: BP 135/76; PULSE 83; TEMP 36.6; O2SAT 93
[2023-06-13] MEDS: Omeprazole 20 MG CAPSULE.DR PO ×2 (08:39→17:22)
[2023-06-13] MEDS: buPROPion HCl XL 300 MG TAB.ER.24H PO (08:39)
[2023-06-13] MEDS: Sennosides/Docusate Sodium TABLET 1 TAB PO (08:39)
[2023-06-13] MEDS: Ibuprofen 400 MG TABLET PO ×3 (08:39→17:22)
[2023-06-13] MEDS: Cyclobenzaprine HCl 5 MG TABLET PO ×3 (08:39→20:53)
[2023-06-13] MEDS: methADONE HCl 20 MG/2 ML ORAL.CONC 80 MG PO (08:42)
[2023-06-13] MEDS: Nicotine Polacrilex 2 MG GUM 4 MG BUCCAL ×2 (11:46→14:39)
--- NOTE | 2023-06-13 15:20 | HO.PSYCHPN ---
Subjective Subjective Date of Service: 06/13/23 Reason For Visit: Starr YAÑEZ SI with plan Interim History: calm, cooperative. reports mood improving. sleep remains a problem, agrees to increase prazosin to 3 mg at HS. also, constipation continues, agrees to double dosing of senna/docusate. feels lidocaine ineffective, agrees to have it DCed. aware of potential to go to [facility] week. Mental Status Exam Mental Status Exam Narrative: Appearance:wearing street clothes, fair hygiene Behavior:cooperative, no PMA/PMR. awake and alert. Psychomotor:no agitation or retardation noted Speech:clear, normal rate/rhythm/volume, spontaneous TP:linear TC:no s/s of psychosis, wanting treatment Mood: improved Affect:constricted, normo-intense, non-labile SI: none expressed HI: none expressed VH/AH: none expressed delusions: none expressed Insight/judgment: fair x 2. Memory/cog: alert, oriented x 3. grossly intact to conversational testing. Diagnostics Vital Signs (24Hr): Vital Signs - 24 hr 06/12/23 20:00 06/13/23 06:00 Temperature 97.9 F 97.8 F Pulse Rate 88 83 Respiratory Rate 16 Blood Pressure 126/72 135/76 Pulse Oximetry 97 93 Oxygen Delivery Method Room Air Room Air BMI result Body Mass Index 33.8 Labs 06/07/23 16:51 Medications Medications Current Medications Acetaminophen (Acetaminophen 325 Mg Tablet) 975 mg PO Q6H PRN PRN Reason: Pain, Mild (Pain Scale 1-3) Last Admin: 06/10/23 16:52 Dose: 975 mg Al Hydroxide/Mg Hydroxide (Magnesium Hydrox/Alum Hydrox 30 Ml Oral.Susp) 30 ml PO Q6H PRN PRN Reason: Heartburn/Nausea Last Admin: 06/09/23 12:18 Dose: 30 ml Bupropion HCl (Bupropion Hcl Xl 300 Mg Tab.Er.24h) 300 mg PO DAILY [facility] Last Admin: 06/13/23 08:39 Dose: 300 mg Cyclobenzaprine HCl (Cyclobenzaprine Hcl 5 Mg Tablet) 5 mg PO TID [facility] Last Admin: 06/13/23 14:35 Dose: 5 mg Hydroxyzine HCl (Hydroxyzine Hcl 25 Mg Tablet) 25 mg PO Q6H PRN PRN Reason: Anxiety Last Admin: 11/02/23 20:35 Dose: 25 mg Ibuprofen (Ibuprofen 400 Mg Tablet) 400 mg PO TIDWM [facility] Last Admin: 06/13/23 11:39 Dose: 400 mg Magnesium Hydroxide (Milk Of Magnesia 30 Ml Oral.Susp) 30 ml PO DAILY PRN PRN Reason: Constipation Methadone HCl (Methadone Hcl 20 Mg/2 Ml Oral.Conc) 80 mg PO DAILY [facility] Last Admin: 06/13/23 08:42 Dose: 80 mg Mirtazapine (Mirtazapine 15 Mg Tablet) 45 mg PO BEDTIME ZARIA Last Admin: 06/12/23 20:11 Dose: 45 mg Nicotine Polacrilex (Nicotine Polacrilex 2 Mg Gum) 4 mg BUCCAL Q2H PRN PRN Reason: Nicotine Cravings Last Admin: 06/13/23 14:39 Dose: 4 mg Omeprazole (Omeprazole 20 Mg Capsule.Dr) 20 mg PO BID@0630,1630 [facility] Last Admin: 06/13/23 08:39 Dose: 20 mg Prazosin HCl (Prazosin Hcl 1 Mg Capsule) 1 mg PO TID PRN; Protocol PRN Reason: Anxiety Last Admin: 06/12/23 13:56 Dose: 1 mg Prazosin HCl (Prazosin Hcl 1 Mg Capsule) 3 mg PO BEDTIME ZARIA; Protocol Quetiapine Fumarate (Quetiapine Fumarate 50 Mg Tablet) 150 mg PO BEDTIME [facility] Last Admin: 06/12/23 20:11 Dose: 150 mg Quetiapine Fumarate (Quetiapine Fumarate 50 Mg Tablet) 50 mg PO Q6H PRN PRN Reason: anxiety/agitation Last Admin: 06/12/23 13:56 Dose: 50 mg Senna/Docusate Sodium (Sennosides/Docusate Sodium Tablet) 2 tab PO BID [facility] Allergies Allergies Allergy/AdvReac Type Severity Reaction Status Date / Time No Known Allergies Allergy Verified 07/16/21 23:01 [No Known Allergies*] Assessment & Plan Assessment & Plan (1) MDD (major depressive disorder), recurrent episode, moderate: Status: Acute Code(s): F33.1 - Major depressive disorder, recurrent, moderate (2) Opioid use disorder, severe, on maintenance therapy, dependence: Status: Acute Code(s): F11.20 - Opioid dependence, uncomplicated (3) Cocaine use disorder, moderate, dependence: Status: Acute Code(s): F14.20 - Cocaine dependence, uncomplicated Plan Mr. Tovar is a 47 year-old male with hx of MDD, opioid and cocaine use disorder. He self presented to [facility] ED reporting SI. He was medically admitted for rhabdomyolosis and PARI. He received 2L IV. We discussed risks, benefits and alternative treatment options, pt agreed to continue seroquel- lower dose due to day time sedation in combination with methadone. continue remeron for depression. PLAN 1. Admit to M3, CV, 15 minutes checks for safety. 2. Obtain collateral information 3. Aftercare planning 4. engage in milieu 06/07 seroquel was decreased due to excessive sedation during the day in combination with methadone. fluid retention, ordered bladder scan PVR, may need straight cath if >300cc. 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 06/08: requested deisy revist pt for swelling/pain/urinary retention. restart omeprazole per pt request. hold hydroxyzine due to urinary retention/hesitancy. otherwise continue current mgmt. 06/09:add standing prazosin for PTSD symptoms. 06/10: no changes 06/11: increase prazosin to 2 and remeron to 45 for nightmares/insomnia. c/o sciatica and asking for muscle relaxants and steroids, saying he has been given this regimen in the past and it has been helpful. will consult medicine for w/u and mgmt of back pain as etiology is unclear to me. 06/12 Patient remains depressed ruminating again asking for treatment for sciatica asking for muscle relaxants. Would benefit from follow-up at the [facility] lidocaine patch started denies active self-harm internal medicine consult was placed. 06/13: seen by hospitalist, muscle relaxants and ibuprofen scheduled. mood somewhat improved. poor sleep, prazosin increased to 3 QHS. bowel regimen advanced, lidocaine patch DCed as ineffective. may be able to discharge to [facility] next week. Reason for continued inpatient stay Substantial Risk for: inability to function and rapid decompensation Time Spent With Patient Time: Total time managing care of this patient today __25__ minutes.
[2023-06-13 20:50] VITALS: BP 130/77; PULSE 80; RESP 16; TEMP 36.3; O2SAT 96
[2023-06-13] MEDS: Prazosin HCL 1 MG CAPSULE 3 MG PO (20:52)
[2023-06-13] MEDS: QUEtiapine Fumarate 50 MG TABLET 150 MG PO (20:53)
[2023-06-13] MEDS: Sennosides/Docusate Sodium TABLET 2 TAB PO (20:53)
[2023-06-14 07:00] VITALS: BMI 32.9
[2023-06-14 08:05] VITALS: BP 132/73; PULSE 71; RESP 20; TEMP 36.1; O2SAT 96
[2023-06-14] MEDS: Omeprazole 20 MG CAPSULE.DR PO ×2 (09:12→17:11)
[2023-06-14] MEDS: Ibuprofen 400 MG TABLET PO ×3 (09:12→17:11)
[2023-06-14] MEDS: Sennosides/Docusate Sodium TABLET 2 TAB PO ×2 (09:12→20:04)
[2023-06-14] MEDS: buPROPion HCl XL 300 MG TAB.ER.24H PO (09:12)
[2023-06-14] MEDS: Cyclobenzaprine HCl 5 MG TABLET PO ×3 (09:13→20:30)
[2023-06-14] MEDS: methADONE HCl 20 MG/2 ML ORAL.CONC 80 MG PO (09:14)
--- NOTE | 2023-06-14 14:18 | P.PNPSI_ITS ---
Subjective Subjective Date of Service: 06/14/23 Reason For Visit: Starr YAÑEZ SI with plan Interim History: calm, cooperative. focused on his pain and numbness. appreciative of muscle relaxer Rx. discuss use of gabapentin, pt agrees to give it a try. reports he did not take remeron last night bcse when he takes it with his other HS meds he can sleep until 1100 in the morning. so when he wants to be up in the morning, like today, to make some phone calls, he sometimes takes half or none at all. per staff, easily engaged. depressed and anxious. feeling a little better mood-gibson. refused remeron eves. reports having slept poorly. Mental Status Exam Mental Status Exam Narrative: Appearance:wearing street clothes, fair hygiene Behavior:cooperative, no PMA/PMR. awake and alert. Psychomotor:no agitation or retardation noted Speech:clear, normal rate/rhythm/volume, spontaneous TP:linear TC:no s/s of psychosis, wanting treatment Mood: improved Affect:constricted, normo-intense, non-labile SI: none expressed HI: none expressed VH/AH: none expressed delusions: none expressed Insight/judgment: fair x 2. Memory/cog: alert, oriented x 3. grossly intact to conversational testing. Diagnostics Vital Signs (24Hr): Vital Signs - 24 hr 06/13/23 20:50 06/14/23 08:05 Temperature 97.3 F 97.0 F Pulse Rate 80 71 Respiratory Rate 16 20 Blood Pressure 130/77 132/73 Pulse Oximetry 96 96 Oxygen Delivery Method Room Air Room Air BMI result Body Mass Index 32.9 Labs 06/07/23 16:51 Medications Medications Current Medications Acetaminophen (Acetaminophen 325 Mg Tablet) 975 mg PO Q6H PRN PRN Reason: Pain, Mild (Pain Scale 1-3) Last Admin: 06/10/23 16:52 Dose: 975 mg Al Hydroxide/Mg Hydroxide (Magnesium Hydrox/Alum Hydrox 30 Ml Oral.Susp) 30 ml PO Q6H PRN PRN Reason: Heartburn/Nausea Last Admin: 06/09/23 12:18 Dose: 30 ml Bupropion HCl (Bupropion Hcl Xl 300 Mg Tab.Er.24h) 300 mg PO DAILY ZARIA Last Admin: 06/14/23 09:12 Dose: 300 mg Cyclobenzaprine HCl (Cyclobenzaprine Hcl 5 Mg Tablet) 5 mg PO TID ZARIA Last Admin: 06/14/23 09:13 Dose: 5 mg Gabapentin (Gabapentin 300 Mg Capsule) 300 mg PO TID ZARIA Hydroxyzine HCl (Hydroxyzine Hcl 25 Mg Tablet) 25 mg PO Q6H PRN PRN Reason: Anxiety Last Admin: 06/07/23 20:35 Dose: 25 mg Ibuprofen (Ibuprofen 400 Mg Tablet) 400 mg PO TIDWM ZARIA Last Admin: 06/14/23 13:02 Dose: 400 mg Magnesium Hydroxide (Milk Of Magnesia 30 Ml Oral.Susp) 30 ml PO DAILY PRN PRN Reason: Constipation Methadone HCl (Methadone Hcl 20 Mg/2 Ml Oral.Conc) 80 mg PO DAILY [facility] Last Admin: 06/14/23 09:14 Dose: 80 mg Mirtazapine (Mirtazapine 15 Mg Tablet) 45 mg PO BEDTIME ZARIA Last Admin: 06/13/23 20:56 Dose: Not Given Nicotine Polacrilex (Nicotine Polacrilex 2 Mg Gum) 4 mg BUCCAL Q2H PRN PRN Reason: Nicotine Cravings Last Admin: 06/13/23 14:39 Dose: 4 mg Omeprazole (Omeprazole 20 Mg Capsule.Dr) 20 mg PO BID@0630,1630 [facility] Last Admin: 06/14/23 09:12 Dose: 20 mg Prazosin HCl (Prazosin Hcl 1 Mg Capsule) 1 mg PO TID PRN; Protocol PRN Reason: Anxiety Last Admin: 06/12/23 13:56 Dose: 1 mg Prazosin HCl (Prazosin Hcl 1 Mg Capsule) 3 mg PO BEDTIME ZARIA; Protocol Last Admin: 06/13/23 20:52 Dose: 3 mg Quetiapine Fumarate (Quetiapine Fumarate 50 Mg Tablet) 150 mg PO BEDTIME ZARIA Last Admin: 06/13/23 20:53 Dose: 150 mg Quetiapine Fumarate (Quetiapine Fumarate 50 Mg Tablet) 50 mg PO Q6H PRN PRN Reason: anxiety/agitation Last Admin: 06/12/23 13:56 Dose: 50 mg Senna/Docusate Sodium (Sennosides/Docusate Sodium Tablet) 2 tab PO BID ZARIA Last Admin: 06/14/23 09:12 Dose: 2 tab Allergies Allergies Allergy/AdvReac Type Severity Reaction Status Date / Time No Known Allergies Allergy Verified 07/16/21 23:01 [No Known Allergies*] Assessment & Plan Assessment & Plan (1) MDD (major depressive disorder), recurrent episode, moderate: Status: Acute Code(s): F33.1 - Major depressive disorder, recurrent, moderate (2) Opioid use disorder, severe, on maintenance therapy, dependence: Status: Acute Code(s): F11.20 - Opioid dependence, uncomplicated (3) Cocaine use disorder, moderate, dependence: Status: Acute Code(s): F14.20 - Cocaine dependence, uncomplicated Plan Mr. Tovar is a 47 year-old male with hx of MDD, opioid and cocaine use disorder. He self presented to [facility] reporting SI. He was medically admitted for rhabdomyolosis and PARI. He received 2L IV. We discussed risks, benefits and alternative treatment options, pt agreed to continue seroquel- lower dose due to day time sedation in combination with methadone. continue remeron for depression. PLAN 1. Admit to M3, CV, 15 minutes checks for safety. 2. Obtain collateral information 3. Aftercare planning 4. engage in milieu 06/07 seroquel was decreased due to excessive sedation during the day in combination with methadone. fluid retention, ordered bladder scan PVR, may need straight cath if >300cc. he does report to this magazine writer urinary hesitancy and nocturia. 06/08: requested deisy revist pt for swelling/pain/urinary retention. restart omeprazole per pt request. hold hydroxyzine due to urinary retention/hesitancy. otherwise continue current mgmt. 06/09:add standing prazosin for PTSD symptoms. 06/10: no changes 06/11: increase prazosin to 2 and remeron to 45 for nightmares/insomnia. c/o sciatica and asking for muscle relaxants and steroids, saying he has been given this regimen in the past and it has been helpful. will consult medicine for w/u and mgmt of back pain as etiology is unclear to me. 06/12 Patient remains depressed ruminating again asking for treatment for sciatica asking for muscle relaxants. Would benefit from follow-up at the [facility] lidocaine patch started denies active self-harm internal medicine consult was placed. 06/13: seen by hospitalist, muscle relaxants and ibuprofen scheduled. mood somewhat improved. poor sleep, prazosin increased to 3 QHS. bowel regimen advanced, lidocaine patch DCed as ineffective. [facility] be able to [facility] next week. 06/14: c/o sciatic pain, agrees to trial of gabapentin. 300 TID started today. otherwise continue current mgmt. Reason for continued inpatient stay Substantial Risk for: inability to function and rapid decompensation Time Spent With Patient Time: Total time managing care of this patient today __25__ minutes.
[2023-06-14] MEDS: Gabapentin 300 MG CAPSULE PO ×2 (14:46→20:05)
[2023-06-14] MEDS: Nicotine Polacrilex 2 MG GUM 4 MG BUCCAL ×2 (14:46→19:06)
[2023-06-14 19:49] VITALS: BP 132/86; PULSE 78; TEMP 36.5; O2SAT 97
[2023-06-14] MEDS: Mirtazapine 15 MG TABLET 45 MG PO (20:04)
[2023-06-14] MEDS: Prazosin HCL 1 MG CAPSULE 3 MG PO (20:05)
[2023-06-14] MEDS: QUEtiapine Fumarate 50 MG TABLET 150 MG PO (20:05)
[2023-06-15] MEDS: Omeprazole 20 MG CAPSULE.DR PO ×2 (06:51→17:56)
[2023-06-15] MEDS: Sennosides/Docusate Sodium TABLET 2 TAB PO ×2 (09:29→21:38)
[2023-06-15] MEDS: Gabapentin 300 MG CAPSULE PO ×3 (09:29→21:36)
[2023-06-15] MEDS: Cyclobenzaprine HCl 5 MG TABLET PO ×3 (09:30→21:36)
[2023-06-15] MEDS: buPROPion HCl XL 300 MG TAB.ER.24H PO (09:30)
[2023-06-15] MEDS: methADONE HCl 20 MG/2 ML ORAL.CONC 80 MG PO (09:30)
[2023-06-15] MEDS: Ibuprofen 400 MG TABLET PO ×3 (09:38→17:56)
--- NOTE | 2023-06-15 09:57 | HO.PSYCHPN ---
Subjective Subjective Date of Service: 06/15/23 Reason For Visit: Starr YAÑEZ SI with plan Subjective Notes: Conditional Voluntary Interim History: Reviewed with . Patient presents calm, pleasant, guarded. Pt stated, I don't know how I'm feeling today. I'll let you know if I need something . He reports always having auditory and visual hallucinations . denies SI/HI. Medication Compliance: Yes Side effects from medications: No Review of Systems Constitutional: Reports as per HPI Eyes: Reports as per HPI Reports as per HPI Cardiovascular: Reports as per HPI Respiratory: Reports as per HPI Gastrointestinal: Reports as per HPI Genitourinary: Reports as per HPI Musculoskeletal: Reports as per HPI Skin/Breast: Reports as per HPI Reports as per HPI Psychiatric: Reports as per HPI Endocrine: Reports as per HPI Hematologic/Lymphatic: Reports as per HPI Allergic/Immunologic: Reports as per HPI Mental Status Exam Mental Status Exam Narrative: Pt is alert and oriented; behavior is guarded and calm; dressed in casual attire; eye contact appropriate; Speech is normal rate, volume and prosody and not pressured; no psychomotor agitation/retardation present; thought process is organized; Thought content is on tx; otherwise pertinent to relevant topics and without any delusional content, paranoid ideations or grandiosity; denies SI/HI. Pt reports auditory and visual hallucinations. Diagnostics Vital Signs (24Hr): Vital Signs - 24 hr 06/14/23 19:49 Temperature 97.7 F Pulse Rate 78 Blood Pressure 132/86 Pulse Oximetry 97 Oxygen Delivery Method Room Air BMI result Body Mass Index 32.9 Labs 06/07/23 16:51 Medications Medications Current Medications Acetaminophen (Acetaminophen 325 Mg Tablet) 975 mg PO Q6H PRN PRN Reason: Pain, Mild (Pain Scale 1-3) Last Admin: 06/10/23 16:52 Dose: 975 mg Al Hydroxide/Mg Hydroxide (Magnesium Hydrox/Alum Hydrox 30 Ml Oral.Susp) 30 ml PO Q6H PRN PRN Reason: Heartburn/Nausea Last Admin: 06/09/23 12:18 Dose: 30 ml Bupropion HCl (Bupropion Hcl Xl 300 Mg Tab.Er.24h) 300 mg PO DAILY [facility] Last Admin: 06/15/23 09:30 Dose: 300 mg Cyclobenzaprine HCl (Cyclobenzaprine Hcl 5 Mg Tablet) 5 mg PO TID [facility] Last Admin: 06/15/23 09:30 Dose: 5 mg Gabapentin (Gabapentin 300 Mg Capsule) 300 mg PO TID [facility] Last Admin: 06/15/23 09:29 Dose: 300 mg Hydroxyzine HCl (Hydroxyzine Hcl 25 Mg Tablet) 25 mg PO Q6H PRN PRN Reason: Anxiety Last Admin: 06/07/23 20:35 Dose: 25 mg Ibuprofen (Ibuprofen 400 Mg Tablet) 400 mg PO TIDWM [facility] Last Admin: 06/15/23 09:38 Dose: 400 mg Magnesium Hydroxide (Milk Of Magnesia 30 Ml Oral.Susp) 30 ml PO DAILY PRN PRN Reason: Constipation Methadone HCl (Methadone Hcl 20 Mg/2 Ml Oral.Conc) 80 mg PO DAILY [facility] Last Admin: 06/15/23 09:30 Dose: 80 mg Mirtazapine (Mirtazapine 15 Mg Tablet) 45 mg PO BEDTIME [facility] Last Admin: 06/14/23 20:04 Dose: 45 mg Nicotine Polacrilex (Nicotine Polacrilex 2 Mg Gum) 4 mg BUCCAL Q2H PRN PRN Reason: Nicotine Cravings Last Admin: 06/14/23 19:06 Dose: 4 mg Omeprazole (Omeprazole 20 Mg Capsule.Dr) 20 mg PO BID@0630,1630 [facility] Last Admin: 06/15/23 06:51 Dose: 20 mg Prazosin HCl (Prazosin Hcl 1 Mg Capsule) 1 mg PO TID PRN; Protocol PRN Reason: Anxiety Last Admin: 06/12/23 13:56 Dose: 1 mg Prazosin HCl (Prazosin Hcl 1 Mg Capsule) 3 mg PO BEDTIME [facility]; Protocol Last Admin: 06/14/23 20:05 Dose: 3 mg Quetiapine Fumarate (Quetiapine Fumarate 50 Mg Tablet) 150 mg PO BEDTIME [facility] Last Admin: 06/14/23 20:05 Dose: 150 mg Quetiapine Fumarate (Quetiapine Fumarate 50 Mg Tablet) 50 mg PO Q6H PRN PRN Reason: anxiety/agitation Last Admin: 06/12/23 13:56 Dose: 50 mg Senna/Docusate Sodium (Sennosides/Docusate Sodium Tablet) 2 tab PO BID [facility] Last Admin: 06/15/23 09:29 Dose: 2 tab Allergies Allergies Allergy/AdvReac Type Severity Reaction Status Date / Time No Known Allergies Allergy Verified 07/16/21 23:01 [No Known Allergies*] Assessment & Plan Assessment & Plan (1) MDD (major depressive disorder), recurrent episode, moderate: Status: Acute Code(s): F33.1 - Major depressive disorder, recurrent, moderate (2) Opioid use disorder, severe, on maintenance therapy, dependence: Status: Acute Code(s): F11.20 - Opioid dependence, uncomplicated (3) Cocaine use disorder, moderate, dependence: Status: Acute Code(s): F14.20 - Cocaine dependence, uncomplicated Plan Mr. Tovar is a 47 year-old male with hx of MDD, opioid and cocaine use disorder. He self presented to [facility] [place] [facility] ED reporting SI. He was medically admitted for rhabdomyolosis and PARI. He received 2L IV. We discussed risks, benefits and alternative treatment options, pt agreed to continue seroquel- lower dose due to day time sedation in combination with methadone. continue remeron for depression. PLAN 1. Admit to M3, CV, 15 minutes checks for safety. 2. Obtain collateral information 3. Aftercare planning 4. engage in milieu 06/07 seroquel was decreased due to excessive sedation during the day in combination with methadone. fluid retention, ordered bladder scan PVR, may need straight cath if >300cc. he does report to this procedure writer urinary hesitancy and nocturia. 06/08: requested deisy revist pt for swelling/pain/urinary retention. restart omeprazole per pt request. hold hydroxyzine due to urinary retention/hesitancy. otherwise continue current mgmt. 06/09:add standing prazosin for PTSD symptoms. 06/10: no changes 06/11: increase prazosin to 2 and remeron to 45 for nightmares/insomnia. c/o sciatica and asking for muscle relaxants and steroids, saying he has been given this regimen in the past and it has been helpful. will consult medicine for w/u and mgmt of back pain as etiology is unclear to me. 06/12 Patient remains depressed ruminating again asking for treatment for sciatica asking for muscle relaxants. Would benefit from follow-up at the [facility] lidocaine patch started denies active self-harm internal medicine consult was placed. 06/13: seen by hospitalist, muscle relaxants and ibuprofen scheduled. mood somewhat improved. poor sleep, prazosin increased to 3 QHS. bowel regimen advanced, lidocaine patch DCed as ineffective. may be able to discharge to [facility] early next week. 06/14: c/o sciatic pain, agrees to trial of gabapentin. 300 TID started today. otherwise continue current mgmt. 06/15: Patient presents calm, pleasant, guarded. Pt stated, I don't know how I'm feeling today. I'll let you know if I need something . He reports always having auditory and visual hallucinations . denies SI/HI. Continue current tx plan. Patient educated on: diagnosis and medication risk/benefits Informed Consent: understands Reason for continued inpatient stay Substantial Risk for: med/psych decompensation Time Spent With Patient Time: Total time managing care of this patient today _30___ minutes.
[2023-06-15 10:19] VITALS: BP 128/71; PULSE 113; RESP 18; TEMP 36.2; O2SAT 95
[2023-06-15 21:30] VITALS: BP 119/69; PULSE 81; RESP 18; TEMP 36.2; O2SAT 95
[2023-06-15] MEDS: Mirtazapine 15 MG TABLET 45 MG PO (21:35)
[2023-06-15] MEDS: Prazosin HCL 1 MG CAPSULE 3 MG PO (21:35)
[2023-06-15] MEDS: QUEtiapine Fumarate 50 MG TABLET 150 MG PO (21:35)
[2023-06-15] MEDS: Milk of Magnesia 30 ML ORAL.SUSP PO (21:42)
[2023-06-16] MEDS: Omeprazole 20 MG CAPSULE.DR PO ×2 (06:41→17:06)
[2023-06-16 08:22] VITALS: BP 118/61; PULSE 86; RESP 16; TEMP 36.6; O2SAT 98
[2023-06-16] MEDS: buPROPion HCl XL 300 MG TAB.ER.24H PO (08:24)
[2023-06-16] MEDS: Sennosides/Docusate Sodium TABLET 2 TAB PO ×2 (08:24→20:00)
[2023-06-16] MEDS: Gabapentin 300 MG CAPSULE PO ×2 (08:24→14:48)
[2023-06-16] MEDS: methADONE HCl 20 MG/2 ML ORAL.CONC 80 MG PO (08:25)
[2023-06-16] MEDS: Cyclobenzaprine HCl 5 MG TABLET PO ×3 (08:25→20:00)
[2023-06-16] MEDS: Ibuprofen 400 MG TABLET PO ×3 (08:26→17:06)
[2023-06-16] MEDS: Nicotine Polacrilex 2 MG GUM 4 MG BUCCAL (13:33)
--- NOTE | 2023-06-16 19:36 | HO.PSYCHPN ---
Subjective Subjective Date of Service: 06/16/23 Reason For Visit: Starr YAÑEZ SI with plan Interim History: discuss his SI, which is revealed as chronic and passive, not acute and active. feels the gabapentin has been somewhat helpful for his sciatic pain, but is somewhat sedating. agrees to increase HS dose to 600 mg. concerned re conversation he had with THEA Crenshaw yesterday in which he believes he was told that if [facility] does not take him sunday he will be discharged to a [facility]. he is quite anxious and upset at the prospect and feels it is unfair. per staff, isolative, pleasant. no AH today. sleeping better. worried bout D/C... having a place to go. Mental Status Exam Mental Status Exam Narrative: Appearance:wearing street clothes, fair hygiene Behavior:cooperative, no PMA/PMR. awake and alert. Psychomotor:no agitation or retardation noted Speech:clear, normal rate/rhythm/volume, spontaneous TP:linear TC:no s/s of psychosis, wanting treatment Mood: improved Affect:constricted, normo-intense, non-labile SI: chronic, passive HI: none expressed VH/AH: none expressed delusions: none expressed Insight/judgment: fair x 2. Memory/cog: alert, oriented x 3. grossly intact to conversational testing. Diagnostics Vital Signs (24Hr): Vital Signs - 24 hr 06/15/23 21:30 06/16/23 08:22 Temperature 97.2 F 97.8 F Pulse Rate 81 86 Respiratory Rate 18 16 Blood Pressure 119/69 118/61 Pulse Oximetry 95 98 Oxygen Delivery Method Room Air Room Air BMI result Body Mass Index 32.9 Labs 06/07/23 16:51 Medications Medications Current Medications Acetaminophen (Acetaminophen 325 Mg Tablet) 975 mg PO Q6H PRN PRN Reason: Pain, Mild (Pain Scale 1-3) Last Admin: 06/10/23 16:52 Dose: 975 mg Al Hydroxide/Mg Hydroxide (Magnesium Hydrox/Alum Hydrox 30 Ml Oral.Susp) 30 ml PO Q6H PRN PRN Reason: Heartburn/Nausea Last Admin: 06/09/23 12:18 Dose: 30 ml Bupropion HCl (Bupropion Hcl Xl 300 Mg Tab.Er.24h) 300 mg PO DAILY [facility] Last Admin: 06/16/23 08:24 Dose: 300 mg Cyclobenzaprine HCl (Cyclobenzaprine Hcl 5 Mg Tablet) 5 mg PO TID [facility] Last Admin: 06/16/23 14:47 Dose: 5 mg Gabapentin (Gabapentin 300 Mg Capsule) 300 mg PO BID@0900,1500 [facility] Last Admin: 06/16/23 14:48 Dose: 300 mg Gabapentin (Gabapentin 600 Mg Tablet) 600 mg PO BEDTIME [facility] Hydroxyzine HCl (Hydroxyzine Hcl 25 Mg Tablet) 25 mg PO Q6H PRN PRN Reason: Anxiety Last Admin: 06/07/23 20:35 Dose: 25 mg Ibuprofen (Ibuprofen 400 Mg Tablet) 400 mg PO TIDWM [facility] Last Admin: 06/16/23 17:06 Dose: 400 mg Magnesium Hydroxide (Milk Of Magnesia 30 Ml Oral.Susp) 30 ml PO DAILY PRN PRN Reason: Constipation Last Admin: 06/15/23 21:42 Dose: 30 ml Methadone HCl (Methadone Hcl 20 Mg/2 Ml Oral.Conc) 80 mg PO DAILY [facility] Last Admin: 06/16/23 08:25 Dose: 80 mg Mirtazapine (Mirtazapine 15 Mg Tablet) 45 mg PO BEDTIME [facility] Last Admin: 06/15/23 21:35 Dose: 45 mg Nicotine Polacrilex (Nicotine Polacrilex 2 Mg Gum) 4 mg BUCCAL Q2H PRN PRN Reason: Nicotine Cravings Last Admin: 06/16/23 13:33 Dose: 4 mg Omeprazole (Omeprazole 20 Mg Capsule.Dr) 20 mg PO BID@0630,1630 [facility] Last Admin: 06/16/23 17:06 Dose: 20 mg Prazosin HCl (Prazosin Hcl 1 Mg Capsule) 1 mg PO TID PRN; Protocol PRN Reason: Anxiety Last Admin: 06/12/23 13:56 Dose: 1 mg Prazosin HCl (Prazosin Hcl 1 Mg Capsule) 3 mg PO BEDTIME [facility]; Protocol Last Admin: 06/15/23 21:35 Dose: 3 mg Quetiapine Fumarate (Quetiapine Fumarate 50 Mg Tablet) 150 mg PO BEDTIME [facility] Last Admin: 06/15/23 21:35 Dose: 150 mg Quetiapine Fumarate (Quetiapine Fumarate 50 Mg Tablet) 50 mg PO Q6H PRN PRN Reason: anxiety/agitation Last Admin: 06/12/23 13:56 Dose: 50 mg Senna/Docusate Sodium (Sennosides/Docusate Sodium Tablet) 2 tab PO BID [facility] Last Admin: 06/16/23 08:24 Dose: 2 tab Allergies Allergies Allergy/AdvReac Type Severity Reaction Status Date / Time No Known Allergies Allergy Verified 07/16/21 23:01 [No Known Allergies*] Assessment & Plan Assessment & Plan (1) MDD (major depressive disorder), recurrent episode, moderate: Status: Acute Code(s): F33.1 - Major depressive disorder, recurrent, moderate (2) Opioid use disorder, severe, on maintenance therapy, dependence: Status: Acute Code(s): F11.20 - Opioid dependence, uncomplicated (3) Cocaine use disorder, moderate, dependence: Status: Acute Code(s): F14.20 - Cocaine dependence, uncomplicated Plan Mr. Tovar is a 47 year-old male with hx of MDD, opioid and cocaine use disorder. He self presented to [facility] [place] SI. He was medically admitted for rhabdomyolosis and PARI. He received 2L IV. We discussed risks, benefits and alternative treatment options, pt agreed to continue seroquel- lower dose due to day time sedation in combination with methadone. continue remeron for depression. PLAN 1. Admit to M3, CV, 15 minutes checks for safety. 2. Obtain collateral information 3. Aftercare planning 4. engage in milieu 06/07 seroquel was decreased due to excessive sedation during the day in combination with methadone. fluid retention, ordered bladder scan PVR, may need straight cath if >300cc. he does report to this justowriter operator urinary hesitancy and nocturia. 06/08: requested deisy revist pt for swelling/pain/urinary retention. restart omeprazole per pt request. hold hydroxyzine due to urinary retention/hesitancy. otherwise continue current mgmt. 06/09:add standing prazosin for PTSD symptoms. 06/10: no changes 06/11: increase prazosin to 2 and remeron to 45 for nightmares/insomnia. c/o sciatica and asking for muscle relaxants and steroids, saying he has been given this regimen in the past and it has been helpful. will consult medicine for w/u and mgmt of back pain as etiology is unclear to me. 06/12 Patient remains depressed ruminating again asking for treatment for sciatica asking for muscle relaxants. Would benefit from follow-up at the [facility] lidocaine patch started denies active self-harm internal medicine consult was placed. 06/13: seen by hospitalist, muscle relaxants and ibuprofen scheduled. mood somewhat improved. poor sleep, prazosin increased to 3 QHS. bowel regimen advanced, lidocaine patch DCed as ineffective. may be able to discharge to [facility] early next week. 06/14: c/o sciatic pain, agrees to trial of gabapentin. 300 TID started today. otherwise continue current mgmt. 06/15: Patient presents calm, pleasant, guarded. Pt stated, I don't know how I'm feeling today. I'll let you know if I need something . He reports always having auditory and visual hallucinations . denies SI/HI. Continue current tx plan. 06/16: describes chronic passive SI, no concern he will hurt himself while in the hospital and not on the street/in a [facility]. some relief from low-dose gabapentin, which has thus far been sedating. agreeable to increase HS gabapentin to 600 mg. Reason for continued inpatient stay Substantial Risk for: harm to self, inability to function and rapid decompensation Time Spent With Patient Time: Total time managing care of this patient today __25__ minutes.
[2023-06-16 19:45] VITALS: BP 120/77; PULSE 89; RESP 18; TEMP 36.1; O2SAT 95
[2023-06-16] MEDS: Milk of Magnesia 30 ML ORAL.SUSP PO (19:59)
[2023-06-16] MEDS: Mirtazapine 15 MG TABLET 45 MG PO (20:00)
[2023-06-16] MEDS: QUEtiapine Fumarate 50 MG TABLET 150 MG PO (20:00)
[2023-06-16] MEDS: Prazosin HCL 1 MG CAPSULE 3 MG PO (20:01)
[2023-06-16] MEDS: Gabapentin 600 MG TABLET PO (20:01)
[2023-06-17] MEDS: Omeprazole 20 MG CAPSULE.DR PO ×2 (06:56→16:45)
[2023-06-17 07:35] VITALS: BP 138/75; PULSE 77; RESP 20; TEMP 36.6; O2SAT 92
[2023-06-17] MEDS: Sennosides/Docusate Sodium TABLET 2 TAB PO ×2 (08:51→20:07)
[2023-06-17] MEDS: Ibuprofen 400 MG TABLET PO ×3 (08:51→16:45)
[2023-06-17] MEDS: Cyclobenzaprine HCl 5 MG TABLET PO ×3 (08:51→20:06)
[2023-06-17] MEDS: methADONE HCl 20 MG/2 ML ORAL.CONC 80 MG PO (08:52)
[2023-06-17] MEDS: Gabapentin 300 MG CAPSULE PO ×2 (08:52→14:23)
[2023-06-17] MEDS: buPROPion HCl XL 300 MG TAB.ER.24H PO (08:52)
[2023-06-17] MEDS: Nicotine Polacrilex 2 MG GUM 4 MG BUCCAL ×2 (11:55→14:24)
[2023-06-17 19:50] VITALS: BP 121/81; PULSE 77; RESP 16; TEMP 36.7; O2SAT 97
[2023-06-17] MEDS: QUEtiapine Fumarate 50 MG TABLET 150 MG PO (20:04)
[2023-06-17] MEDS: Mirtazapine 15 MG TABLET 45 MG PO (20:06)
[2023-06-17] MEDS: Prazosin HCL 1 MG CAPSULE 3 MG PO (20:07)
[2023-06-17] MEDS: Gabapentin 600 MG TABLET PO (20:07)
[2023-06-17] MEDS: Milk of Magnesia 30 ML ORAL.SUSP PO (20:17)
--- NOTE | 2023-06-17 20:46 | HO.PSYCHPN ---
Subjective Subjective Date of Service: 06/17/23 Reason For Visit: Rhabdo PARI SI with plan Interim History: fell asleep well last night. some pain in the morning but gabapentin helps. passive SI on waking, baseline. no intent or plan. per staff, c/o generalized pain. AH @ baseline. worried about having to be discharged. Mental Status Exam Mental Status Exam Narrative: Appearance:wearing street clothes, fair hygiene Behavior:cooperative, no PMA/PMR. awake and alert. Psychomotor:no agitation or retardation noted Speech:clear, normal rate/rhythm/volume, spontaneous TP:linear TC:no s/s of psychosis, wanting treatment Mood: anxious Affect:constricted, normo-intense, non-labile SI: chronic, passive HI: none expressed VH/AH: none expressed delusions: none expressed Insight/judgment: fair x 2. Memory/cog: alert, oriented x 3. grossly intact to conversational testing. Diagnostics Vital Signs (24Hr): Vital Signs - 24 hr 06/17/23 07:35 Temperature 97.8 F Pulse Rate 77 Respiratory Rate 20 Blood Pressure 138/75 Pulse Oximetry 92 Oxygen Delivery Method Room Air BMI result Body Mass Index 32.9 Labs 06/07/23 16:51 Medications Medications Current Medications Acetaminophen (Acetaminophen 325 Mg Tablet) 975 mg PO Q6H PRN PRN Reason: Pain, Mild (Pain Scale 1-3) Last Admin: 06/10/23 16:52 Dose: 975 mg Al Hydroxide/Mg Hydroxide (Magnesium Hydrox/Alum Hydrox 30 Ml Oral.Susp) 30 ml PO Q6H PRN PRN Reason: Heartburn/Nausea Last Admin: 06/09/23 12:18 Dose: 30 ml Bupropion HCl (Bupropion Hcl Xl 300 Mg Tab.Er.24h) 300 mg PO DAILY [facility] Last Admin: 06/17/23 08:52 Dose: 300 mg Cyclobenzaprine HCl (Cyclobenzaprine Hcl 5 Mg Tablet) 5 mg PO TID [facility] Last Admin: 06/17/23 20:06 Dose: 5 mg Gabapentin (Gabapentin 300 Mg Capsule) 300 mg PO BID@0900,1500 [facility] Last Admin: 06/17/23 14:23 Dose: 300 mg Gabapentin (Gabapentin 600 Mg Tablet) 600 mg PO BEDTIME [facility] Last Admin: 06/17/23 20:07 Dose: 600 mg Hydroxyzine HCl (Hydroxyzine Hcl 25 Mg Tablet) 25 mg PO Q6H PRN PRN Reason: Anxiety Last Admin: 06/07/23 20:35 Dose: 25 mg Ibuprofen (Ibuprofen 400 Mg Tablet) 400 mg PO TIDWM [facility] Last Admin: 06/17/23 16:45 Dose: 400 mg Magnesium Hydroxide (Milk Of Magnesia 30 Ml Oral.Susp) 30 ml PO DAILY PRN PRN Reason: Constipation Last Admin: 06/17/23 20:17 Dose: 30 ml Methadone HCl (Methadone Hcl 20 Mg/2 Ml Oral.Conc) 80 mg PO DAILY [facility] Last Admin: 06/17/23 08:52 Dose: 80 mg Mirtazapine (Mirtazapine 15 Mg Tablet) 45 mg PO BEDTIME [facility] Last Admin: 06/17/23 20:06 Dose: 45 mg Nicotine Polacrilex (Nicotine Polacrilex 2 Mg Gum) 4 mg BUCCAL Q2H PRN PRN Reason: Nicotine Cravings Last Admin: 06/17/23 14:24 Dose: 4 mg Omeprazole (Omeprazole 20 Mg Capsule.Dr) 20 mg PO BID@0630,1630 [facility] Last Admin: 06/17/23 16:45 Dose: 20 mg Prazosin HCl (Prazosin Hcl 1 Mg Capsule) 1 mg PO TID PRN; Protocol PRN Reason: Anxiety Last Admin: 06/12/23 13:56 Dose: 1 mg Prazosin HCl (Prazosin Hcl 1 Mg Capsule) 3 mg PO BEDTIME [facility]; Protocol Last Admin: 06/17/23 20:07 Dose: 3 mg Quetiapine Fumarate (Quetiapine Fumarate 50 Mg Tablet) 150 mg PO BEDTIME [facility] Last Admin: 06/17/23 20:04 Dose: 150 mg Quetiapine Fumarate (Quetiapine Fumarate 50 Mg Tablet) 50 mg PO Q6H PRN PRN Reason: anxiety/agitation Last Admin: 06/12/23 13:56 Dose: 50 mg Senna/Docusate Sodium (Sennosides/Docusate Sodium Tablet) 2 tab PO BID [facility] Last Admin: 06/17/23 20:07 Dose: 2 tab Allergies Allergies Allergy/AdvReac Type Severity Reaction Status Date / Time No Known Allergies Allergy Verified 07/16/21 23:01 [No Known Allergies*] Assessment & Plan Assessment & Plan (1) MDD (major depressive disorder), recurrent episode, moderate: Status: Acute Code(s): F33.1 - Major depressive disorder, recurrent, moderate (2) Opioid use disorder, severe, on maintenance therapy, dependence: Status: Acute Code(s): F11.20 - Opioid dependence, uncomplicated (3) Cocaine use disorder, moderate, dependence: Status: Acute Code(s): F14.20 - Cocaine dependence, uncomplicated Plan Mr. Tovar is a 47 year-old male with hx of MDD, opioid and cocaine use disorder. He self presented to [facility] [place] reporting SI. He was medically admitted for rhabdomyolosis and PARI. He received 2L IV. We discussed risks, benefits and alternative treatment options, pt agreed to continue seroquel- lower dose due to day time sedation in combination with methadone. continue remeron for depression. PLAN 1. Admit to M3, CV, 15 minutes checks for safety. 2. Obtain collateral information 3. Aftercare planning 4. engage in milieu 06/07 seroquel was decreased due to excessive sedation during the day in combination with methadone. fluid retention, ordered bladder scan PVR, may need straight cath if >300cc. he does report to this global technical writer urinary hesitancy and nocturia. 06/08: requested deisy revist pt for swelling/pain/urinary retention. restart omeprazole per pt request. hold hydroxyzine due to urinary retention/hesitancy. otherwise continue current mgmt. 06/09:add standing prazosin for PTSD symptoms. 06/10: no changes 06/11: increase prazosin to 2 and remeron to 45 for nightmares/insomnia. c/o sciatica and asking for muscle relaxants and steroids, saying he has been given this regimen in the past and it has been helpful. will consult medicine for w/u and mgmt of back pain as etiology is unclear to me. 06/12 Patient remains depressed ruminating again asking for treatment for sciatica asking for muscle relaxants. Would benefit from follow-up at the [facility] lidocaine patch started denies active self-harm internal medicine consult was placed. 06/13: seen by hospitalist, muscle relaxants and ibuprofen scheduled. mood somewhat improved. poor sleep, prazosin increased to 3 QHS. bowel regimen advanced, lidocaine patch DCed as ineffective. may be able to discharge to [facility] early next week. 06/14: c/o sciatic pain, agrees to trial of gabapentin. 300 TID started today. otherwise continue current mgmt. 06/15: Patient presents calm, pleasant, guarded. Pt stated, I don't know how I'm feeling today. I'll let you know if I need something . He reports always having auditory and visual hallucinations . denies SI/HI. Continue current tx plan. 06/16: describes chronic passive SI, no concern he will hurt himself while in the hospital and not on the street/in a [facility]. some relief from low-dose gabapentin, which has thus far been sedating. agreeable to increase HS gabapentin to 600 mg. 06/17: slept well last night, leg still painful in the morning. chronic passive SI, at baseline. some relief throughout the day from gabapentin. continue current mgmt, pursue bed at [facility]. Reason for continued inpatient stay Substantial Risk for: harm to self, inability to function and rapid decompensation Time Spent With Patient Time: Total time managing care of this patient today ____ minutes.
[2023-06-18 07:46] VITALS: BP 139/70; PULSE 86; RESP 16; TEMP 36.3; O2SAT 95
[2023-06-18] MEDS: Gabapentin 300 MG CAPSULE PO (09:26)
[2023-06-18] MEDS: Sennosides/Docusate Sodium TABLET 2 TAB PO ×2 (09:26→20:01)
[2023-06-18] MEDS: buPROPion HCl XL 300 MG TAB.ER.24H PO (09:26)
[2023-06-18] MEDS: Omeprazole 20 MG CAPSULE.DR PO ×2 (09:26→17:19)
[2023-06-18] MEDS: Cyclobenzaprine HCl 5 MG TABLET PO ×3 (09:26→20:02)
[2023-06-18] MEDS: Ibuprofen 400 MG TABLET PO ×3 (09:26→17:19)
[2023-06-18] MEDS: methADONE HCl 20 MG/2 ML ORAL.CONC 80 MG PO (09:27)
--- NOTE | 2023-06-18 14:47 | P.PNPSI_ITS ---
Subjective Subjective Date of Service: 06/18/23 Reason For Visit: Rhabdo PARI SI with plan Interim History: calm, cooperative. disrupted sleep, agreeable to increase prazosin to 4 mg. pain moderately improved, increase gabapentin to 600 TID. per staff, c/o 8/10 pain. depressed, flat, withdrawn, isolative. safe. +AH. worried about discharge. Mental Status Exam Mental Status Exam Narrative: Appearance:wearing street clothes, fair hygiene Behavior:cooperative, no PMA/PMR. awake and alert. Psychomotor:no agitation or retardation noted Speech:clear, normal rate/rhythm/volume, spontaneous TP:linear TC:no s/s of psychosis, wanting treatment Mood: anxious, depressed Affect:constricted, normo-intense, non-labile SI: chronic, passive HI: none expressed VH/AH: none expressed delusions: none expressed Insight/judgment: fair x 2. Memory/cog: alert, oriented x 3. grossly intact to conversational testing. Diagnostics Vital Signs (24Hr): Vital Signs - 24 hr 06/17/23 19:50 06/18/23 07:46 Temperature 98.1 F 97.3 F Pulse Rate 77 86 Respiratory Rate 16 16 Blood Pressure 121/81 139/70 Pulse Oximetry 97 95 Oxygen Delivery Method Room Air Room Air BMI result Body Mass Index 32.9 Labs 06/07/23 16:51 Medications Medications Current Medications Acetaminophen (Acetaminophen 325 Mg Tablet) 975 mg PO Q6H PRN PRN Reason: Pain, Mild (Pain Scale 1-3) Last Admin: 06/10/23 16:52 Dose: 975 mg Al Hydroxide/Mg Hydroxide (Magnesium Hydrox/Alum Hydrox 30 Ml Oral.Susp) 30 ml PO Q6H PRN PRN Reason: Heartburn/Nausea Last Admin: 06/09/23 12:18 Dose: 30 ml Bupropion HCl (Bupropion Hcl Xl 300 Mg Tab.Er.24h) 300 mg PO DAILY [facility] Last Admin: 06/18/23 09:26 Dose: 300 mg Cyclobenzaprine HCl (Cyclobenzaprine Hcl 5 Mg Tablet) 5 mg PO TID [facility] Last Admin: 06/18/23 09:26 Dose: 5 mg Gabapentin (Gabapentin 600 Mg Tablet) 600 mg PO BEDTIME [facility] Last Admin: 06/17/23 20:07 Dose: 600 mg Gabapentin (Gabapentin 300 Mg Capsule) 600 mg PO BID@0900,1500 [facility] Hydroxyzine HCl (Hydroxyzine Hcl 25 Mg Tablet) 25 mg PO Q6H PRN PRN Reason: Anxiety Last Admin: 06/07/23 20:35 Dose: 25 mg Ibuprofen (Ibuprofen 400 Mg Tablet) 400 mg PO TIDWM [facility] Last Admin: 06/18/23 12:17 Dose: 400 mg Magnesium Hydroxide (Milk Of Magnesia 30 Ml Oral.Susp) 30 ml PO DAILY PRN PRN Reason: Constipation Last Admin: 06/17/23 20:17 Dose: 30 ml Methadone HCl (Methadone Hcl 20 Mg/2 Ml Oral.Conc) 80 mg PO DAILY [facility] Last Admin: 06/18/23 09:27 Dose: 80 mg Mirtazapine (Mirtazapine 15 Mg Tablet) 45 mg PO BEDTIME [facility] Last Admin: 06/17/23 20:06 Dose: 45 mg Nicotine Polacrilex (Nicotine Polacrilex 2 Mg Gum) 4 mg BUCCAL Q2H PRN PRN Reason: Nicotine Cravings Last Admin: 06/17/23 14:24 Dose: 4 mg Omeprazole (Omeprazole 20 Mg Capsule.Dr) 20 mg PO BID@0630,1630 [facility] Last Admin: 06/18/23 09:26 Dose: 20 mg Prazosin HCl (Prazosin Hcl 1 Mg Capsule) 1 mg PO TID PRN; Protocol PRN Reason: Anxiety Last Admin: 06/12/23 13:56 Dose: 1 mg Prazosin HCl (Prazosin Hcl 1 Mg Capsule) 4 mg PO BEDTIME [facility]; Protocol Quetiapine Fumarate (Quetiapine Fumarate 50 Mg Tablet) 150 mg PO BEDTIME [facility] Last Admin: 06/17/23 20:04 Dose: 150 mg Quetiapine Fumarate (Quetiapine Fumarate 50 Mg Tablet) 50 mg PO Q6H PRN PRN Reason: anxiety/agitation Last Admin: 06/12/23 13:56 Dose: 50 mg Senna/Docusate Sodium (Sennosides/Docusate Sodium Tablet) 2 tab PO BID [facility] Last Admin: 06/18/23 09:26 Dose: 2 tab Allergies Allergies Allergy/AdvReac Type Severity Reaction Status Date / Time No Known Allergies Allergy Verified 07/16/21 23:01 [No Known Allergies*] Assessment & Plan Assessment & Plan (1) MDD (major depressive disorder), recurrent episode, moderate: Status: Acute Code(s): F33.1 - Major depressive disorder, recurrent, moderate (2) Opioid use disorder, severe, on maintenance therapy, dependence: Status: Acute Code(s): F11.20 - Opioid dependence, uncomplicated (3) Cocaine use disorder, moderate, dependence: Status: Acute Code(s): F14.20 - Cocaine dependence, uncomplicated Plan Mr. Tovar is a 47 year-old male with hx of MDD, opioid and cocaine use disorder. He self presented to [facility] ED reporting SI. He was medically admitted for rhabdomyolosis and PARI. He received 2L IV. We discussed risks, benefits and alternative treatment options, pt agreed to continue seroquel- lower dose due to day time sedation in combination with methadone. continue remeron for depression. PLAN 1. Admit to M3, CV, 15 minutes checks for safety. 2. Obtain collateral information 3. Aftercare planning 4. engage in milieu 06/07 seroquel was decreased due to excessive sedation during the day in combination with methadone. fluid retention, ordered bladder scan PVR, may need straight cath if >300cc. he does report to this check writer salesperson urinary hesitancy and nocturia. 06/08: requested deisy revist pt for swelling/pain/urinary retention. restart omeprazole per pt request. hold hydroxyzine due to urinary retention/hesitancy. otherwise continue current mgmt. 06/09:add standing prazosin for PTSD symptoms. 06/10: no changes 06/11: increase prazosin to 2 and remeron to 45 for nightmares/insomnia. c/o sciatica and asking for muscle relaxants and steroids, saying he has been given this regimen in the past and it has been helpful. will consult medicine for w/u and mgmt of back pain as etiology is unclear to me. 06/12 Patient remains depressed ruminating again asking for treatment for sciatica asking for muscle relaxants. Would benefit from follow-up at the [facility] lidocaine patch started denies active self-harm internal medicine consult was placed. 06/13: seen by hospitalist, muscle relaxants and ibuprofen scheduled. mood somewhat improved. poor sleep, prazosin increased to 3 QHS. bowel regimen advanced, lidocaine patch DCed as ineffective. may be able to discharge to [facility] early next week. 06/14: c/o sciatic pain, agrees to trial of gabapentin. 300 TID started today. otherwise continue current mgmt. 06/15: Patient presents calm, pleasant, guarded. Pt stated, I don't know how I'm feeling today. I'll let you know if I need something . He reports always having auditory and visual hallucinations . denies SI/HI. Continue current tx plan. 06/16: describes chronic passive SI, no concern he will hurt himself while in the hospital and not on the street/in a chcf. some relief from low-dose gabapentin, which has thus far been sedating. agreeable to increase HS gabapentin to 600 mg. 06/17: slept well last night, leg still painful in the morning. chronic passive SI, at baseline. some relief throughout the day from gabapentin. continue current mgmt, pursue bed at [facility]. 06/18: increase prazosin to 4 mg QHS. increase gabapentin to 600 TID. awaiting word from [facility]. continue current mgmt otherwise. Reason for continued inpatient stay Substantial Risk for: harm to self, inability to function and rapid decompensation Time Spent With Patient Time: Total time managing care of this patient today __25__ minutes.
[2023-06-18] MEDS: Gabapentin 300 MG CAPSULE 600 MG PO (15:51)
[2023-06-18 19:45] VITALS: BP 138/73; PULSE 84; RESP 16; TEMP 36.5; O2SAT 96
[2023-06-18] MEDS: QUEtiapine Fumarate 50 MG TABLET 150 MG PO (20:02)
[2023-06-18] MEDS: Gabapentin 600 MG TABLET PO (20:02)
[2023-06-18] MEDS: Prazosin HCL 1 MG CAPSULE 4 MG PO (20:03)
[2023-06-18] MEDS: Mirtazapine 15 MG TABLET 45 MG PO (20:03)
[2023-06-18] MEDS: Nicotine Polacrilex 2 MG GUM 4 MG BUCCAL (20:04)
[2023-06-19 08:29] VITALS: BP 115/71; PULSE 88; RESP 14; TEMP 36.7; O2SAT 93
[2023-06-19] MEDS: buPROPion HCl XL 300 MG TAB.ER.24H PO (08:31)
[2023-06-19] MEDS: Sennosides/Docusate Sodium TABLET 2 TAB PO ×2 (08:31→20:35)
[2023-06-19] MEDS: Ibuprofen 400 MG TABLET PO ×3 (08:31→17:18)
[2023-06-19] MEDS: Omeprazole 20 MG CAPSULE.DR PO ×2 (08:31→16:07)
[2023-06-19] MEDS: Cyclobenzaprine HCl 5 MG TABLET PO (08:31)
[2023-06-19] MEDS: Gabapentin 300 MG CAPSULE 600 MG PO ×2 (08:32→15:02)
[2023-06-19] MEDS: methADONE HCl 20 MG/2 ML ORAL.CONC 80 MG PO (08:34)
--- NOTE | 2023-06-19 14:29 | P.PNPSI_ITS ---
Subjective Subjective Date of Service: 06/19/23 Reason For Visit: Starr YAÑEZ SI with plan Interim History: tired, slept late. agreeable to decrease flexeril now that he is on substantial dose of gabapentin, which appears to be sedating for him. met with THEA and MD. pt was informed of delay in response from [facility] and discharge sunday or before regardless of acceptance to [facility]. per staff, slept late. generalized pain. not attending groups. anx/dep. passive SI. +AH of whispers. Mental Status Exam Mental Status Exam Narrative: Appearance:wearing street clothes, fair hygiene Behavior:cooperative, no PMA/PMR. awake and alert. Psychomotor:no agitation or retardation noted Speech:clear, normal rate/rhythm/volume, spontaneous TP:linear TC:no s/s of psychosis, wanting treatment Mood: anxious, depressed Affect:constricted, normo-intense, non-labile SI: chronic, passive HI: none expressed VH/AH: none expressed delusions: none expressed Insight/judgment: fair x 2. Memory/cog: alert, oriented x 3. grossly intact to conversational testing. Diagnostics Vital Signs (24Hr): Vital Signs - 24 hr 06/18/23 19:45 06/19/23 08:29 Temperature 97.7 F 98.0 F Pulse Rate 84 88 Respiratory Rate 16 14 Blood Pressure 138/73 115/71 Pulse Oximetry 96 93 Oxygen Delivery Method Room Air Room Air BMI result Body Mass Index 32.9 Labs 06/07/23 16:51 Medications Medications Current Medications Acetaminophen (Acetaminophen 325 Mg Tablet) 975 mg PO Q6H PRN PRN Reason: Pain, Mild (Pain Scale 1-3) Last Admin: 06/10/23 16:52 Dose: 975 mg Al Hydroxide/Mg Hydroxide (Magnesium Hydrox/Alum Hydrox 30 Ml Oral.Susp) 30 ml PO Q6H PRN PRN Reason: Heartburn/Nausea Last Admin: 06/09/23 12:18 Dose: 30 ml Bupropion HCl (Bupropion Hcl Xl 300 Mg Tab.Er.24h) 300 mg PO DAILY [facility] Last Admin: 06/19/23 08:31 Dose: 300 mg Gabapentin (Gabapentin 600 Mg Tablet) 600 mg PO BEDTIME [facility] Last Admin: 06/18/23 20:02 Dose: 600 mg Gabapentin (Gabapentin 300 Mg Capsule) 600 mg PO BID@0900,1500 [facility] Last Admin: 06/19/23 08:32 Dose: 600 mg Hydroxyzine HCl (Hydroxyzine Hcl 25 Mg Tablet) 25 mg PO Q6H PRN PRN Reason: Anxiety Last Admin: 06/07/23 20:35 Dose: 25 mg Ibuprofen (Ibuprofen 400 Mg Tablet) 400 mg PO TIDWM [facility] Last Admin: 06/19/23 12:15 Dose: 400 mg Magnesium Hydroxide (Milk Of Magnesia 30 Ml Oral.Susp) 30 ml PO DAILY PRN PRN Reason: Constipation Last Admin: 06/17/23 20:17 Dose: 30 ml Methadone HCl (Methadone Hcl 20 Mg/2 Ml Oral.Conc) 80 mg PO DAILY [facility] Last Admin: 06/19/23 08:34 Dose: 80 mg Mirtazapine (Mirtazapine 15 Mg Tablet) 45 mg PO BEDTIME [facility] Last Admin: 06/18/23 20:03 Dose: 45 mg Nicotine Polacrilex (Nicotine Polacrilex 2 Mg Gum) 4 mg BUCCAL Q2H PRN PRN Reason: Nicotine Cravings Last Admin: 06/18/23 20:04 Dose: 4 mg Omeprazole (Omeprazole 20 Mg Capsule.Dr) 20 mg PO BID@0630,1630 [facility] Last Admin: 06/19/23 08:31 Dose: 20 mg Prazosin HCl (Prazosin Hcl 1 Mg Capsule) 1 mg PO TID PRN; Protocol PRN Reason: Anxiety Last Admin: 06/12/23 13:56 Dose: 1 mg Prazosin HCl (Prazosin Hcl 1 Mg Capsule) 4 mg PO BEDTIME [facility]; Protocol Last Admin: 06/18/23 20:03 Dose: 4 mg Quetiapine Fumarate (Quetiapine Fumarate 50 Mg Tablet) 150 mg PO BEDTIME [facility] Last Admin: 06/18/23 20:02 Dose: 150 mg Quetiapine Fumarate (Quetiapine Fumarate 50 Mg Tablet) 50 mg PO Q6H PRN PRN Reason: anxiety/agitation Last Admin: 06/12/23 13:56 Dose: 50 mg Senna/Docusate Sodium (Sennosides/Docusate Sodium Tablet) 2 tab PO BID [facility] Last Admin: 06/19/23 08:31 Dose: 2 tab Allergies Allergies Allergy/AdvReac Type Severity Reaction Status Date / Time No Known Allergies Allergy Verified 07/16/21 23:01 [No Known Allergies*] Assessment & Plan Assessment & Plan (1) MDD (major depressive disorder), recurrent episode, moderate: Status: Acute Code(s): F33.1 - Major depressive disorder, recurrent, moderate (2) Opioid use disorder, severe, on maintenance therapy, dependence: Status: Acute Code(s): F11.20 - Opioid dependence, uncomplicated (3) Cocaine use disorder, moderate, dependence: Status: Acute Code(s): F14.20 - Cocaine dependence, uncomplicated Plan Mr. Tovar is a 47 year-old male with hx of MDD, opioid and cocaine use disorder. He self presented to [facility] reporting SI. He was medically admitted for rhabdomyolosis and PARI. He received 2L IV. We discussed risks, benefits and alternative treatment options, pt agreed to continue seroquel- lower dose due to day time sedation in combination with methadone. continue remeron for depression. PLAN 1. Admit to M3, CV, 15 minutes checks for safety. 2. Obtain collateral information 3. Aftercare planning 4. engage in milieu 06/07 seroquel was decreased due to excessive sedation during the day in combination with methadone. fluid retention, ordered bladder scan PVR, may need straight cath if >300cc. he does report to this greeting card writer urinary hesitancy and nocturia. 06/08: requested deisy revist pt for swelling/pain/urinary retention. restart omeprazole per pt request. hold hydroxyzine due to urinary retention/hesitancy. otherwise continue current mgmt. 06/09:add standing prazosin for PTSD symptoms. 06/10: no changes 06/11: increase prazosin to 2 and remeron to 45 for nightmares/insomnia. c/o sciatica and asking for muscle relaxants and steroids, saying he has been given this regimen in the past and it has been helpful. will consult medicine for w/u and mgmt of back pain as etiology is unclear to me. 06/12 Patient remains depressed ruminating again asking for treatment for sciatica asking for muscle relaxants. Would benefit from follow-up at the [facility] lidocaine patch started denies active self-harm internal medicine consult was placed. 06/13: seen by hospitalist, muscle relaxants and ibuprofen scheduled. mood somewhat improved. poor sleep, prazosin increased to 3 QHS. bowel regimen advanced, lidocaine patch DCed as ineffective. may be able to discharge to [facility] early next week. 06/14: c/o sciatic pain, agrees to trial of gabapentin. 300 TID started today. otherwise continue current mgmt. 06/15: Patient presents calm, pleasant, guarded. Pt stated, I don't know how I'm feeling today. I'll let you know if I need something . He reports always having auditory and visual hallucinations . denies SI/HI. Continue current tx plan. 06/16: describes chronic passive SI, no concern he will hurt himself while in the hospital and not on the street/in a correction. some relief from low-dose gabapentin, which has thus far been sedating. agreeable to increase HS gabapentin to 600 mg. 06/17: slept well last night, leg still painful in the morning. chronic passive SI, at baseline. some relief throughout the day from gabapentin. continue current mgmt, pursue bed at [facility]. 06/18: increase prazosin to 4 mg QHS. increase gabapentin to 600 TID. awaiting word from [facility]. continue current mgmt otherwise. 06/19: some sedation, likely from gabapentin increases. DC flexeril and observe for sedation. [facility] application pending. planning for sunday discharge regardless; pt informed. Reason for continued inpatient stay Substantial Risk for: inability to function and rapid decompensation Time Spent With Patient Time: Total time managing care of this patient today __35__ minutes.
[2023-06-19] MEDS: Nicotine Polacrilex 2 MG GUM 4 MG BUCCAL (16:07)
[2023-06-19 18:00] VITALS: BP 128/80; PULSE 79; RESP 16; TEMP 36.8; O2SAT 97
[2023-06-19] MEDS: QUEtiapine Fumarate 50 MG TABLET 150 MG PO (20:34)
[2023-06-19] MEDS: Prazosin HCL 1 MG CAPSULE 4 MG PO (20:35)
[2023-06-19] MEDS: Gabapentin 600 MG TABLET PO (20:36)
[2023-06-19] MEDS: Mirtazapine 15 MG TABLET 45 MG PO (20:36)
[2023-06-20] MEDS: Omeprazole 20 MG CAPSULE.DR PO (06:50)
[2023-06-20] MEDS: Ibuprofen 400 MG TABLET PO ×2 (08:24→11:18)
[2023-06-20] MEDS: buPROPion HCl XL 300 MG TAB.ER.24H PO (08:24)
[2023-06-20] MEDS: Sennosides/Docusate Sodium TABLET 2 TAB PO (08:25)
[2023-06-20] MEDS: Gabapentin 300 MG CAPSULE 600 MG PO (08:25)
[2023-06-20] MEDS: methADONE HCl 20 MG/2 ML ORAL.CONC 80 MG PO (08:27)
[2023-06-20 10:02] VITALS: BP 129/69; PULSE 82; RESP 18; TEMP 37; O2SAT 96
--- NOTE | 2023-06-20 12:12 | PM.EVENT ---
Event Note Date of Service: 06/20/23 Event Note: Patient seen for left foot swelling, pain, and redness to r/o cellulitis. Patient states he has been experiencing left foot swelling and pain for the past few days. Redness began a day or 2 ago. Today reports 10 10 pain, worse with ambulation. Patient denies any trauma to the area. No history of falls or twisting of the ankle. Upon examination patient reports tenderness to palpation of midfoot and lateral side left foot. No significant erythema, signs of cellulitis, patient afebrile. Mild swelling, though seem symmetric with right foot. Please see picture below. Will treat with naproxen 500 mg q.12 p.r.n. x7 days. Time Spent With Patient Time: Total time managing care of this patient today ____ minutes.
--- NOTE | 2023-06-20 13:45 | PC.NURSE ---
Patient easily engaged. Reports feeling ready for discharge, planning to go to [facility] for continued treatment. Reports mood is stable, denies SI/HI plan or intent at this time. Reports AH persist although manageable. Reports he will always experience voices. Discharge paperwork reviewed with patient, reports understanding. Medications reviewed with patient states understanding. Methadone last letter given on discharge. All belongings including medications returned to patient. Information provided for [facility] in [facility].
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
== END 2023-06-20 13:30 | DRG 885 ==
PROVIDERS: Admitting Provider Social Worker; Visit Provider Psychiatry & Neurology Psychiatry
DX: F33.1 Major depressive disorder, recurrent, moderate (principal); R45.851 Suicidal ideations; F11.20 Opioid dependence, uncomplicated; F14.20 Cocaine dependence, uncomplicated; Z59.02 Unsheltered homelessness; M54.30 Sciatica, unspecified side; K59.00 Constipation, unspecified; Z79.899 Other long term (current) drug therapy
CPT/HCPCS: 36415; 80053; 80061; 81003; 83036; 97161

== ENCOUNTER → 2023-06-05 14:14 | Outpatient (BNV) | payer OTHER, SELFPAY | PROVIDERS: Admitting Provider Social Worker; Visit Provider Psychiatry & Neurology Psychiatry | DX: F33.1 Major depressive disorder, recurrent, moderate (principal); F11.20 Opioid dependence, uncomplicated; F14.20 Cocaine dependence, uncomplicated | CPT/HCPCS: 99231 ==

== ENCOUNTER → 2023-06-05 14:14 | Outpatient (BNV) | payer OTHER, SELFPAY | PROVIDERS: Admitting Provider Social Worker; Visit Provider Social Worker | DX: F33.1 Major depressive disorder, recurrent, moderate (principal); F11.20 Opioid dependence, uncomplicated; F14.20 Cocaine dependence, uncomplicated | CPT/HCPCS: 90792; 99231; 99232; 99239 ==

== ENCOUNTER 2023-12-17 05:58 | Emergency (ER) | payer OTHER, SELFPAY ==
--- NOTE | ~2023-12-17 | XR_ITS ---
EXAMINATION: XR CHEST CLINICAL INFORMATION: Fever. COMPARISON: 06/03/2023 TECHNIQUE: 2 views of the chest were obtained. FINDINGS: The lungs are well expanded. No focal consolidation. No pleural effusion. Cardiac silhouette is unchanged. XR/XR chest 2V IMPRESSION: No acute abnormality.
[2023-12-17 06:07] VITALS: BMI 35.0
[2023-12-17 06:25] LABS: MANUAL DIFF FLAG NO
[2023-12-17 06:27] VITALS: BP 122/69; PULSE 69; RESP 18; TEMP 36.6; O2SAT 98
[2023-12-17 06:29] LABS: Basophils Absolute Auto 0.1 X10*3/uL (0.0-0.2); Basophils Percent Auto 0.3 % (0-2); Eosinophils Percent Auto 0.3 % (0-4); Hematocrit 38.3 % (42.0-52.0); Hemoglobin 12.7 g/dl (14.0-18.0); Imm Gran Abs Auto 0.04 X10*3/uL (0.00-0.03); Imm Gran Pct Auto 0.3 % (0.0-0.4); Lymphocytes Absolute Auto 2.3 X10*3/uL (1.2-4.9); Lymphocytes Percent Auto 15.7 % (20-40); Mean Corpuscular HGB Conc 33.2 g/dl (31.0-36.0); Mean Corpuscular Hemoglobin 29.5 pg (27.0-33.0); Mean Corpuscular Volume 88.9 fL (80.0-98.0); Mean Platelet Volume 9.3 fL (9.4-12.4); Monocytes Absolute Auto 1.1 X10*3/uL (0.1-1.2); Monocytes Percent Auto 7.3 % (2-11); Neutrophils Absolute Auto 11.2 x10*3/uL (2.0-8.3); Neutrophils Percent Auto 76.1 % (45-73); Platelet Count 338 X10*3/uL (160-400); Red Blood Count 4.31 X10*6/uL (4.60-5.80); Red Cell Distribution Width 13.9 % (11.0-16.0); White Blood Count 14.7 X10*3/uL (4.8-10.8)
--- NOTE | 2023-12-17 06:29 | ED.PSYCH ---
HPI - Psych General Chief Complaint: Psychiatric Symptoms Stated Complaint: SI Time Seen by Provider: 12/17/23 06:28 Source: patient, EMS and RN notes reviewed Mode of arrival: EMS Limitations: no limitations History of Present Illness HPI Narrative: Patient is a 48-year-old male with history of anxiety, depression, polysubstance use disorder presenting to the emergency department with complaint of suicidal ideation. Reports that he was clean from heroin for some time and yesterday used for bundles as a suicide attempt. Reports increased recent stressors. Denies any homicidal ideation. Reports auditory hallucinations but states this is baseline, denies visual hallucinations. Denies any alcohol use. States he has been off his psychiatric medications for the past 2 weeks. States he does have a psychiatrist in the community. MD complaint: suicidal ideation Onset (ago): week(s) Duration: getting worse History of same: Yes Exacerbating factors: drug use Context: recent drug abuse and not taking psychiatric medications Associated psychiatric symptoms: depression and suicidal ideation Associated symptoms: denies other symptoms Treatments prior to arrival: none If self harm: admits thoughts of self harm, has plan, has acted on plan and intentional overdose Related Data Home Medications ?Medication ?Instructions ?Recorded ?Confirmed albuterol sulfate 90 mcg/actuation 2 puff inhalation Q4H PRN 12/17/23 12/17/23 aerosol inhaler (Ventolin HFA) Shortness Of Breath Or Wheezing bupropion HCl 300 mg 24 hr tablet, 300 mg PO DAILY 12/17/23 12/17/23 extended release gabapentin 300 mg capsule 300 mg PO BID 12/17/23 12/17/23 hydroxyzine HCl 50 mg tablet 50 mg PO BID 12/17/23 12/17/23 methadone 10 mg/5 mL oral solution 110 mg PO DAILY 12/17/23 12/17/23 nicotine 21 mg/24 hr daily 1 patch topical DAILY 12/17/23 12/17/23 transdermal patch oxcarbazepine 600 mg tablet 600 mg PO DAILY 12/17/23 12/17/23 prazosin 1 mg capsule 3 mg PO BEDTIME 12/17/23 12/17/23 quetiapine 100 mg tablet 100 mg PO TID 12/17/23 12/17/23 quetiapine 300 mg tablet 300 mg PO BEDTIME 12/17/23 12/17/23 sertraline 25 mg tablet 25 mg PO DAILY 12/17/23 12/17/23 sertraline 50 mg tablet 50 mg PO DAILY 12/17/23 12/17/23 Allergies Allergy/AdvReac Type Severity Reaction Status Date / Time No Known Allergies Allergy Verified 12/17/23 06:12 [No Known Allergies*] Review of Systems Review of Systems: As per HPI. Yes all other systems are reviewed and are negative Constitutional: Constitutional: Reports as per HPI [facility] Past Medical History Medical History Depression Anxiety Mental health problem Substance abuse Social History Social History Household Members: None Housing: Homeless Do you presently have visiting nurse or other home services: No Unable to assess alcohol history related to: Refusing to respond Alcohol intake: never Comment: 1:1 Patient Tobacco Use Status: Refuse Tobacco use screen Tobacco use type: Smokeless Tobacco Substance Use Type: Crack/Cocaine and Opiates Advance Directives: No Advance Directives Information Provided: No Do you have a plan to hurt others: No Plan service: No Sexual orientation: Straight/Heterosexual Physical Exam Vital Signs: Vital Signs: Last Vital Signs Temp 98.2 F 12/18/23 05:59 Pulse 79 12/18/23 05:59 Resp 17 12/18/23 05:59 BP 93/66 12/18/23 05:59 Pulse Ox 96 12/18/23 05:59 O2 Del Method Room Air 12/18/23 05:59 BMI result Body Mass Index 35.0 Vital signs have been reviewed and appear to be correct. Blood pressure normal. Heart rate normal. Respiratory rate normal. Temperature normal. Oxygen saturation normal. Const: General: cooperative, healthy appearing and no acute distress Orientation/consciousness: oriented to person, oriented to place, oriented to time and patient oriented x3 Limitations: no limitations HEENT: Head: Yes normocephalic and Yes atraumatic Ears: external ears normal General nose exam: Normal external nose present Face and sinus: Yes face symmetric Mouth: oropharynx normal and moist mucous membranes Throat: Yes uvula midline Eyes: Pupils: Equal, round and reactive pupils present Neck: Neck: Yes normal visual inspection and Yes supple Resp: Effort & Inspection: normal respiratory effort and able to speak in complete sentences Auscultation: clear to auscultation bilaterally Cardio: Rate: regular rate Rhythm: regular rhythm Heart sounds: S1 normal heart sound present and S2 normal heart sound present Skin: General skin exam: elasticity normal and turgor normal Neuro: General: oriented to person, oriented to place, oriented to time, patient oriented x3, moves all extremities, no focal motor deficits and CN's II-XI intact bilaterally Cranial nerves: Yes Equal, round and reactive pupils present Cognition (Neuro): normal cognition Extrem: General: Yes full ROM, Yes no pedal edema and Yes no calf tenderness Psych: Appearance: grossly normal Mental Status: mental status grossly normal Speech and movement: Normal speech and movement present Affect: Sad affect present Attitude: cooperative Thought process: Normal thought process present Thought content: Suicidality present, no homicidality, Hallucination(s) present auditory and Depressive thoughts present Insight: Fair insight present (Psych) Judgement: Fair judgement present (Psych) Course Course Course Narrative: Notified by RN that patient had low-grade fever, low oxygen sat. Viral swabs and CXR ordered. Covid, flu, RSV negative, cxr without evidence of pneumonia. Fever improved with Tylenol ibuprofen, feel likely due to viral illness. Reevaluation(s) Reevaluation #1: The patient is a 48-year-old who has been held in our psychiatric area. The patient has been accepted for inpatient psychiatric treatment at [facility] and will be transferred there by ambulance. The accepting doctor at the other facility is Dr. Sandoval. The patient will be transferred by ambulance. Medications Administered Generic Name Dose Route Start Last Admin Trade Name Freq PRN Reason Stop Dose Admin Bupropion HCl 300 mg 12/17/23 09:00 12/17/23 09:46 Bupropion Hcl Xl 300 Mg Tab.Er.24h PO 300 mg DAILY ZARIA Administration Gabapentin 300 mg 12/17/23 09:00 12/17/23 20:18 Gabapentin 300 Mg Capsule PO 300 mg BID ZARIA Administration Hydroxyzine HCl 50 mg 12/17/23 09:00 12/17/23 20:18 Hydroxyzine Hcl 50 Mg Tablet PO 50 mg BID ZARIA Administration Methadone HCl 82 mg 12/17/23 09:00 12/17/23 09:44 Methadone Hcl 20 Mg/2 Ml Oral.Conc PO 82 mg DAILY ZARIA Administration Nicotine 21 mg 12/17/23 09:00 12/17/23 10:31 Nicotine 21 Mg Patch.Td24 TRANSDERMA Not Given DAILY ZARIA Oxcarbazepine 600 mg 12/17/23 09:00 12/17/23 09:46 Oxcarbazepine 300 Mg Tablet PO 600 mg DAILY ZARIA Administration Prazosin HCl 3 mg 12/17/23 21:00 12/17/23 20:18 Prazosin Hcl 1 Mg Capsule PO 3 mg BEDTIME ZARIA Administration Protocol Quetiapine Fumarate 100 mg 12/17/23 09:00 12/17/23 20:18 Quetiapine Fumarate 100 Mg Tablet PO 100 mg TID ZARIA Administration Quetiapine Fumarate 300 mg 12/17/23 21:00 12/17/23 20:18 Quetiapine Fumarate 300 Mg Tablet PO 300 mg BEDTIME ZARIA Administration Sertraline HCl 25 mg 12/17/23 09:00 12/17/23 09:46 Sertraline Hcl 25 Mg Tablet PO 25 mg DAILY ZARIA Administration Sertraline HCl 50 mg 12/17/23 09:00 12/17/23 09:46 Sertraline Hcl 50 Mg Tablet PO 50 mg DAILY ZARIA Administration Discontinued Medications Generic Name Dose Route Start Last Admin Trade Name Stormq PRN Reason Stop Dose Admin Acetaminophen 975 mg 12/17/23 09:46 12/17/23 09:55 Acetaminophen 325 Mg Tablet PO 12/17/23 09:47 975 mg ONCE ONE Administration Ibuprofen 600 mg 12/17/23 09:14 12/17/23 09:46 Ibuprofen 600 Mg Tablet PO 12/17/23 09:15 600 mg ONCE ONE Administration Ibuprofen 600 mg 12/17/23 18:08 12/17/23 18:18 Ibuprofen 600 Mg Tablet PO 12/17/23 18:09 600 mg ONCE ONE Administration Potassium Chloride 40 meq 12/17/23 06:54 12/17/23 07:02 Potassium Chloride Packet 20 Meq Packet PO 12/17/23 06:55 40 meq ONCE ONE Administration Medical Decision Making Medical Decision Making MDM Narrative: Patient is a 48-year-old male with history of anxiety, depression, polysubstance use disorder presenting to the emergency department with complaint of suicidal ideation. On exam patient is awake, A+Ox3, VS WNL, afebrile, normal neurological exam without focal deficits, physical exam findings as above. Given reported symptoms and physical exam findings, initial differential includes anxiety, depression, suicidal ideation, substance use disorder. Labs notable for mild hypokalemia, p.o. potassium ordered. Urine drug screen positive for opiates, methadone, fentanyl, cocaine, marijuana. Ethanol negative. Will clear patient medically for care team evaluation and place on physician observation. Per CARE team, patient is dual bed search. Differential Diagnosis Differential Diagnoses: The differential diagnosis associated with the presentation includes As per MDM. Admission/Observation Consideration of admission/observation: Escalation of care including admission/observation considered Consult Healthcare Provider Management of the patient was discussed with: Behavioral Health Provider Lab Data [facility] Lab Attestation statement: I reviewed the patient's lab results. As per MDM. 12/17/23 06:19 12/17/23 06:19 Labs: Lab Results 12/17/23 12/17/23 12/17/23 Range/Units 06:09 06:19 09:02 WBC 14.7 H (4.8-10.8) X10*3/uL RBC 4.31 L (4.60-5.80) X10*6/uL Hgb 12.7 L (14.0-18.0) g/dl Hct 38.3 L (42.0-52.0) % MCV 88.9 (80.0-98.0) fL MCH 29.5 (27.0-33.0) pg MCHC 33.2 (31.0-36.0) g/dl RDW 13.9 (11.0-16.0) % Plt Count 338 D (160-400) X10*3/uL MPV 9.3 L (9.4-12.4) fL Immature Gran % (Auto) 0.3 (0.0-0.4) % Neut % (Auto) 76.1 H (45-73) % Lymph % (Auto) 15.7 L (20-40) % [place] % (Auto) 7.3 (2-11) % Eos % (Auto) 0.3 (0-4) % Baso % (Auto) 0.3 (0-2) % Lymph # (Auto) 2.3 (1.2-4.9) X10*3/uL [place] # (Auto) 1.1 (0.1-1.2) X10*3/uL Eos # (Auto) 0.0 (0.0-0.4) X10*3/uL Baso # (Auto) 0.1 (0.0-0.2) X10*3/uL Abs Immat Gran (auto) 0.04 H (0.00-0.03) X10*3/uL Absolute Neuts (auto) 11.2 H (2.0-8.3) x10*3/uL Absolute Nucleated RBC 0.000 (0.0-0.012) X10*3/uL Nucleated RBC % (auto) 0.0 (0.0-0.2) /100WBC Sodium 143 (135-145) mmol/L Potassium 3.2 L (3.3-5.1) mmol/L Chloride 98 (96-108) mmol/L Carbon Dioxide 29 (22-29) mmol/L Anion Gap 19 (12-20) BUN 15 (9-16) mg/dL Creatinine 0.82 (0.5-1.4) mg/dL Estim Creat Clear Calc 131.7 Estimated GFR > 60 Random Glucose 79 (60-115) mg/dL Calcium 9.7 D (8.4-10.2) mg/dL Total Bilirubin 0.5 (0.0-1.0) mg/dL AST 36 (5-37) U/L ALT 33 (0-40) U/L Alkaline Phosphatase 147 H (39-117) U/L Total Protein 8.7 H (6.5-8.0) g/dL Albumin 4.4 (3.5-5.0) g/dL Urine Color Dark Yellow Urine Appearance Clear Urine pH 6.0 (5.0-9.0) Ur Specific [place] >= 1.030 H (1.005-1.025) Urine Protein 30 (1+) H (Neg-Trace) mg/dL Urine Glucose (UA) Negative (Negative) mg/dL Urine Ketones 40 (Negative) mg/dL Urine Blood Negative (Negative) Urine Nitrite Negative (Negative) Ur Leukocyte Esterase Negative (Negative) Urine RBC 0-2 (0-2) /HPF Urine WBC 0-5 (0-5) /HPF Ur Squamous Epith Cells 0-2 (0-2) /HPF Urine Bacteria None Seen (None Seen) Hyaline Casts 3-5 (0-2) /LPF Urine Opiates Screen POSITIVE H (Not Detect) Ur Buprenorphine Scrn Not Detected (Not Detect) ng/mL Ur Oxycodone Screen Not Detected (Not Detect) ng/mL Urine Methadone Screen Positive H (Not Detect) ng/mL Urine Fentanyl Screen POSITIVE H (Not Detect) Ur Barbiturates Screen Not Detected (Not Detect) Ur Phencyclidine Scrn Not Detected (Not Detect) Ur Amphetamines Screen Not Detected (Not Detect) U Benzodiazepines Scrn Not Detected (Not Detect) Urine Cocaine Screen POSITIVE H (Not Detect) U Marijuana (THC) Screen POSITIVE H (Not Detect) Ethyl Alcohol < 10 mg/dL Influenza Type A (PCR) (Negative) Influenza Type B (PCR) (Negative) RSV RNA Qual (PCR) (Negative) SARS-CoV-2 RNA (RT-PCR) (Negative) 12/17/23 Range/Units 09:54 WBC (4.8-10.8) X10*3/uL RBC (4.60-5.80) X10*6/uL Hgb (14.0-18.0) g/dl Hct (42.0-52.0) % MCV (80.0-98.0) fL MCH (27.0-33.0) pg MCHC (31.0-36.0) g/dl RDW (11.0-16.0) % Plt Count (160-400) X10*3/uL MPV (9.4-12.4) fL Immature Gran % (Auto) (0.0-0.4) % Neut % (Auto) (45-73) % Lymph % (Auto) (20-40) % [place] % (Auto) (2-11) % Eos % (Auto) (0-4) % Baso % (Auto) (0-2) % Lymph # (Auto) (1.2-4.9) X10*3/uL [place] # (Auto) (0.1-1.2) X10*3/uL Eos # (Auto) (0.0-0.4) X10*3/uL Baso # (Auto) (0.0-0.2) X10*3/uL Abs Immat Gran (auto) (0.00-0.03) X10*3/uL Absolute Neuts (auto) (2.0-8.3) x10*3/uL Absolute Nucleated RBC (0.0-0.012) X10*3/uL Nucleated RBC % (auto) (0.0-0.2) /100WBC Sodium (135-145) mmol/L Potassium (3.3-5.1) mmol/L Chloride (96-108) mmol/L Carbon Dioxide (22-29) mmol/L Anion Gap (12-20) BUN (9-16) mg/dL Creatinine (0.5-1.4) mg/dL Estim Creat Clear Calc Estimated GFR Random Glucose (60-115) mg/dL Calcium (8.4-10.2) mg/dL Total Bilirubin (0.0-1.0) mg/dL AST (5-37) U/L ALT (0-40) U/L Alkaline Phosphatase (39-117) U/L Total Protein (6.5-8.0) g/dL Albumin (3.5-5.0) g/dL Urine Color Urine Appearance Urine pH (5.0-9.0) Ur Specific [place] (1.005-1.025) Urine Protein (Neg-Trace) mg/dL Urine Glucose (UA) (Negative) mg/dL Urine Ketones (Negative) mg/dL Urine Blood (Negative) Urine Nitrite (Negative) Ur Leukocyte Esterase (Negative) Urine RBC (0-2) /HPF Urine WBC (0-5) /HPF Ur Squamous Epith Cells (0-2) /HPF Urine Bacteria (None Seen) Hyaline Casts (0-2) /LPF Urine Opiates Screen (Not Detect) Ur Buprenorphine Scrn (Not Detect) ng/mL Ur Oxycodone Screen (Not Detect) ng/mL Urine Methadone Screen (Not Detect) ng/mL Urine Fentanyl Screen (Not Detect) Ur Barbiturates Screen (Not Detect) Ur Phencyclidine Scrn (Not Detect) Ur Amphetamines Screen (Not Detect) U Benzodiazepines Scrn (Not Detect) Urine Cocaine Screen (Not Detect) U Marijuana (THC) Screen (Not Detect) Ethyl Alcohol mg/dL Influenza Type A (PCR) NEGATIVE (Negative) Influenza Type B (PCR) NEGATIVE (Negative) RSV RNA Qual (PCR) NEGATIVE (Negative) SARS-CoV-2 RNA (RT-PCR) NEGATIVE (Negative) External Record Review External record reviewed: Inpatient record, Office record and Outpatient record Discharge Plan Discharge Clinical Impression: Suicidal ideation Patient Disposition: Xfer Psychiatric Hosp Transfer Details: TO [facility] Prescriptions: No Action prazosin 1 mg capsule 3 mg PO BEDTIME sertraline 25 mg tablet 25 mg PO DAILY gabapentin 300 mg capsule 300 mg PO BID oxcarbazepine 600 mg tablet 600 mg PO DAILY quetiapine 300 mg tablet 300 mg PO BEDTIME hydroxyzine HCl 50 mg tablet 50 mg PO BID bupropion HCl 300 mg tablet extended release 24 hr 300 mg PO DAILY albuterol sulfate [Ventolin HFA] 90 mcg/actuation HFA aerosol inhaler 2 puff inhalation Q4H PRN (Reason: Shortness Of Breath Or Wheezing) nicotine 21 mg/24 hr patch 24 hour 1 patch topical DAILY sertraline 50 mg tablet 50 mg PO DAILY quetiapine 100 mg tablet 100 mg PO TID methadone 10 mg/5 mL Solution 110 mg PO DAILY Rx Instructions: [facility] [place] [facility] Referrals: Kan Georges MD [Physician] - Interventions: [place]-Suicide Risk Severity Scale Last Done: 12/17/23 06:12 Print Language: Lithuanian
[2023-12-17 06:35] LABS: Amphetamine Screen Urine Not Detected (Not Detect); Barbiturates, Urine Not Detected (Not Detect); Benzodiazepines Screen Urine Not Detected (Not Detect); Buprenorphine Scr Not Detected (Not Detect); Cannabinoid Screen Urine POSITIVE (Not Detect); Cocaine Screen Urine POSITIVE (Not Detect); Fentanyl, urine POSITIVE (Not Detect); Methadone Screen, Urine Positive (Not Detect); Opiate Screen Urine POSITIVE (Not Detect); Oxycodone Screen Urine Not Detected (Not Detect); Phencyclidine Screen Urine Not Detected (Not Detect)
[2023-12-17 06:39] LABS: Alanine Aminotransferase 33 U/L (0-40); Albumin Level 4.4 g/dL (3.5-5.0); Alkaline Phosphatase 147 U/L (39-117); Anion Gap 19 (12-20); Aspartate Amino Transferase 36 U/L (5-37); Bilirubin Total 0.5 mg/dL (0.0-1.0); Blood Urea Nitrogen 15 mg/dL (9-16); Calcium 9.7 mg/dL (8.4-10.2); Carbon Dioxide 29 mmol/L (22-29); Chloride 98 mmol/L (96-108); Creatinine Clr Calc Pharmacy 131.7; Estimated Glomerular Filt Rate > 60; Glucose Random 79 mg/dL (60-115); Potassium 3.2 mmol/L (3.3-5.1); Sodium 143 mmol/L (135-145); Total Protein 8.7 g/dL (6.5-8.0)
[2023-12-17 06:42] LABS: Ethanol < 10 mg/dL
[2023-12-17] MEDS: Potassium Chloride Packet 20 MEQ PACKET 40 MEQ PO (07:02)
--- NOTE | 2023-12-17 07:11 | PC.NURSE ---
Assumed care of patient at 0645. Patient is observed resting quietly in their bed. No signs of distress observed. Breathing is even and unlabored. Will continue plan of care.
--- NOTE | 2023-12-17 07:42 | HE.PHANOTE ---
re methadone Patient receives methadone from [facility] [phone], 110 mg last given 12/13/23 @1010
[2023-12-17 09:15] LABS: Appearance Urine Clear; Color Urine Dark Yellow; Glucose Urine UA Negative (Negative); Leukocyte Esterase Urine Negative (Negative); Nitrite Urine Negative (Negative); Specific Gravity - Urine >= 1.030 (1.005-1.025); UMIC TRIGGER UACC YES; Urine Blood Negative (Negative); Urine Ketones 40 mg/dL (Negative); Urine Protein 30 (1+) mg/dL (Neg-Trace)
[2023-12-17 09:20] LABS: Bacteria Urine None Seen (None Seen); RBC Urine 0-2 /HPF (0-2); Squamous Epithelial Cell Urine 0-2 /HPF (0-2); WBC Urine 0-5 /HPF (0-5)
[2023-12-17 09:37] VITALS: BP 106/70; PULSE 83; RESP 20; TEMP 38.3; O2SAT 90
[2023-12-17] MEDS: methADONE HCl 20 MG/2 ML ORAL.CONC 82 MG PO (09:44)
[2023-12-17] MEDS: QUEtiapine Fumarate 100 MG TABLET PO ×2 (09:46→20:18)
[2023-12-17] MEDS: buPROPion HCl XL 300 MG TAB.ER.24H PO (09:46)
[2023-12-17] MEDS: Gabapentin 300 MG CAPSULE PO ×2 (09:46→20:18)
[2023-12-17] MEDS: OXcarbazepine 300 MG TABLET 600 MG PO (09:46)
[2023-12-17] MEDS: Ibuprofen 600 MG TABLET PO ×2 (09:46→18:18)
[2023-12-17] MEDS: Sertraline HCL 25 MG TABLET PO (09:46)
[2023-12-17] MEDS: hydrOXYzine HCL 50 MG TABLET PO ×2 (09:46→20:18)
[2023-12-17] MEDS: Sertraline HCL 50 MG TABLET PO (09:46)
[2023-12-17] MEDS: Acetaminophen 325 MG TABLET 975 MG PO (09:55)
[2023-12-17 10:36] LABS: Influenza A PCR NEGATIVE (Negative); Influenza B PCR NEGATIVE (Negative); Resp Syncy Virus RNA Qual PCR NEGATIVE (Negative); SARS COV2 PCR INHOUSE NEGATIVE (Negative)
[2023-12-17 11:07] VITALS: TEMP 36.3
[2023-12-17 11:54] VITALS: BP 122/86; PULSE 98; RESP 18; O2SAT 100
--- NOTE | 2023-12-17 19:24 | PC.NURSE ---
patient appears to remain at rest at present respirations are even and unlabored patient appears in no distress.
--- NOTE | 2023-12-17 19:50 | MHC.CARE ---
Pt has been accepted to [facility] for tomorrow 12/18/23. Accepting is Dr. Sandoval, ETA for 12:30p. No N2N required.
[2023-12-17 20:03] VITALS: BP 112/57; PULSE 67; RESP 16; TEMP 36.1; O2SAT 95
[2023-12-17] MEDS: QUEtiapine Fumarate 300 MG TABLET PO (20:18)
[2023-12-17] MEDS: Prazosin HCL 1 MG CAPSULE 3 MG PO (20:18)
[2023-12-18 05:59] VITALS: BP 93/66; PULSE 79; RESP 17; TEMP 36.8; O2SAT 96
--- NOTE | 2023-12-18 07:56 | PC.NURSE ---
assumed care of pt at 0700, pt resting quietly in bed w eyes closed, RR even and unlabored, plan to transport to [facility] in at ~ 1230 on [address], community development coordinator notified of need for transport via EMS. no N2N report needed per CARE team note.
[2023-12-18] MEDS: Sertraline HCL 50 MG TABLET PO (11:09)
[2023-12-18] MEDS: buPROPion HCl XL 300 MG TAB.ER.24H PO (11:09)
[2023-12-18] MEDS: Gabapentin 300 MG CAPSULE PO (11:09)
[2023-12-18] MEDS: Sertraline HCL 25 MG TABLET PO (11:10)
[2023-12-18] MEDS: hydrOXYzine HCL 50 MG TABLET PO (11:10)
[2023-12-18] MEDS: methADONE HCl 20 MG/2 ML ORAL.CONC 82 MG PO (11:10)
[2023-12-18] MEDS: OXcarbazepine 300 MG TABLET 600 MG PO (11:10)
[2023-12-18] MEDS: QUEtiapine Fumarate 100 MG TABLET PO (11:10)
[2023-12-18 11:27] VITALS: BP 93/66; PULSE 79; RESP 17; TEMP 36.8; O2SAT 96
== END 2023-12-18 11:29 ==
PROVIDERS: Emergency Medicine Emergency Medical Services; Registered Nurse Emergency; Emergency Provider Emergency Medicine; PCP Emergency Medicine
DX: R45.851 Suicidal ideations (principal); Z79.899 Other long term (current) drug therapy; Z03.818 Encounter for observation for suspected exposure to other biological agents ruled out
CPT/HCPCS: 0241U; 36415; 71046; 80053; 80307; 81001; 85025; 99284; 99285; S9485

== ENCOUNTER 2024-10-01 10:34 | Emergency (ER) | payer OTHER, SELFPAY ==
--- OUTSIDE RECORDS SUMMARY | 2024-10-01 13:22 | XMS_ITS ---
Author Organization [facility] Address [address] [place] [id number] Care Team Providers Care Theoretical Physics Teacher Name Role Phone [facility] Primary Care Provider Hanane Symone Gonzalez Unavailable [phone] REASON FOR VISIT BH appt Encounters Encounter Location Date Provider Diagnosis [address] [id number] 11/14/2023 Edshiraza Shanionan Plan Of Treatment No Information Progress Notes * KATIEDoni GDOB: 8 (48 yo M)Acc No.[id number]:11/14/2023 Patient:?Ignacio Tovar :1975???Age:48 Y???Sex:Male Address:[address] [place] [address], [id number] * true * Date:? Generated for Mikhail mancia/Triny/eTransmitting on:?10/01/2024 01:22 PM EST
--- OUTSIDE RECORDS SUMMARY | 2024-10-01 13:22 | XMS_ITS ---
Author Organization [facility] Address [address] [place] [id number] Care Team Providers Care Test Skein Winder Name Role Phone [facility] Primary Care Provider Hanane [place] Shansabinachris Symone Unavailable [phone] Anh Bell Unavailable [phone] REASON FOR VISIT [place]/Office: intake Encounters Encounter Location Date Provider Diagnosis [address] [id number] 12/17/2023 Anh Bell Plan Of Treatment No Information Progress Notes * Ignacio TOVAR GDOB: 8 (49 yo M)Acc No.[id number]:12/17/2023 Progress Notes Patient:?Ignacio TOVAR Provider:?Anh Bell :1975???Age:48 Y???Sex:Male Pierre e:12/17/2023 Address:[address] [place], [place] [id number] Pcp:[facility] Subjective: * Chief Complaints: * ???1. [place]/Office: intake. * Medical History:? Objective: * Vitals:? Assessment: Plan: * Treatment: * Images: Billing Information: * Visit Code:? * Procedure Codes:? Care Plan Details* * Electronic signature of David Bell on 10/01/2024 at 01:22 PM EST Sign off status: Pending * Provider:?Anh Bell Date:?12/17/19 24 Generated for Mikhail mancia/Triny/eTransmitting on:?10/01/2024 01:22 PM EST
--- OUTSIDE RECORDS SUMMARY | 2024-10-01 13:22 | XMS_ITS | Encounter Summary ---
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 [facility] Comment:Specimens from patie nts taking pantoprazole sodium (Protonix) have been shown to produce false positive results. Oxycodone Screen, Ur Negative Negative LAB CHEMISTRY METHOD 5 7:13 AM [facility] Fentanyl, Ur Positive(A ) Negative LAB CHEMISTRY METHOD 5 7:13 AM [facility] Urine Urine specimen obtained by clean catch procedure / Unknown Non-blood Collection / Unknown 09/10/2024 5:41 AM EST 09/10/2024 6:03 AM EST [facility] - 09/10/2024 7:13 AM EST Assay cutoffs: Amphetamines ? 1000 ng/mL Barbiturates ?200 ng/mL Benzodiazepines ?? 200 ng/mL Cocaine ? 300 ng/mL Fentanyl ?1 ng/mL Opiates ? 300 ng/mL Oxycodone ? 100 ng/mL THC ?50 ng/mL Semi-quantitative assay for screening purposes only. Unconfirmed screening result should not be used for non-medical purposes. *ALTERNATE METHOD CONFIRMATION DONE UPON REQUEST ONLY* us Mauricio Coleman MD LAB URINE ORDERABLES Nadine l Result Performing Organization Address [facility] de Phone Number [facility] [address] [place] [address], [place] [phone] * Lipase (09/09/2024 8:37 PM EST) [facility] Lipase 16 13 - 75 unit/L LAB CHEMISTRY METHOD 09/09/2024 9:30 PM EST [facility] Blood Venous blood specimen / Unknown Venipuncture / Unknown 09/09/2024 8:37 PM EST 09/09/2024 8:42 PM EST us Mauricio Coleman MD LAB BLOOD ORDERABLES Nadine l Result Performing Organization Address [facility] de Phone Number [facility] [address] [place] [address], [place] [phone] * Magnesium (09/09/2024 8:37 PM EST) [facility] Magnesium 2.0 1.9 - 2.6 mg/dL LAB CHEMISTRY METHOD 09/09/2024 9:30 PM EST [facility] Blood Venous blood specimen / Unknown Venipuncture / Unknown 09/09/2024 8:37 PM EST 09/09/2024 8:42 PM EST us Mauricio Coleman MD LAB BLOOD ORDERABLES Nadine l Result Performing Organization Address [facility] de Phone Number [facility] [address] [place] [address], [place] [phone] * (ABNORMAL) CBC auto differential (09/09/2024 8:37 PM EST) [facility] WBC 11.2(H) 4.8 - 10.8 K/mcL LAB HEMETOLOGY METHOD 09/09/2024 8:48 PM [facility] RBC 3.70(L) 4.50 - 5.50 M/mcL LAB HEMETOLOGY METHOD 09/09/2024 8:48 PM [facility] Hemoglobin 11.5(L) 13.5 - 17.5 g/dL LAB HEMETOLOGY METHOD 09/09/2024 8:48 PM [facility] Hematocrit 34.7(L) 42.0 - 54.0 % LAB HEMETOLOGY METHOD 09/09/2024 8:48 PM [facility] MCV 93.0 79.0 - 98.0 FL LAB HEMETOLOGY METHOD 09/09/2024 8:48 PM [facility] MCH 30.8 27.0 - 32.0 pcg LAB HEMETOLOGY METHOD 09/09/2024 8:48 PM [facility] MCHC 33.1 32.0 - 37.0 g/dL LAB HEMETOLOGY METHOD 09/09/2024 8:48 PM [facility] RDW 13.4 11.0 - 15.0 % LAB HEMETOLOGY METHOD 09/09/2024 8:48 PM [facility] Platelets 329 130 - 400 K/mcL LAB HEMETOLOGY METHOD 09/09/2024 8:48 PM [facility] MPV 9.8 7.0 - 11.0 FL LAB HEMETOLOGY METHOD 09/09/2024 8:48 PM [facility] NRBC 0.0 <1.0 % LAB HEMETOLOGY METHOD 09/09/2024 8:48 PM [facility] NRBC Absolute 0.00 <0.10 K/mcL LAB HEMETOLOGY METHOD 09/09/2024 8:48 PM [facility] Neutrophils Relative 80.1 % LAB HEMETOLOGY METHOD 09/09/2024 8:48 PM [facility] Lymphocytes Relative 12.0 % LAB HEMETOLOGY METHOD 09/09/2024 8:48 PM [facility] Monocytes Relative 7.1 % LAB HEMETOLOGY METHOD 09/09/2024 8:48 PM [facility] Eosinophils Relative 0.1 % LAB HEMETOLOGY METHOD 09/09/2024 8:48 PM [facility] Basophils Relative 0.3 % LAB HEMETOLOGY METHOD 09/09/2024 8:48 PM [facility] Immature Granulocytes Relative 0.4 % LAB HEMETOLOGY METHOD 09/09/2024 8:48 PM [facility] Neutrophils Absolute 9.01(H) 1.50 - 7.00 K/mcL LAB HEMETOLOGY METHOD 09/09/2024 8:48 PM [facility] Lymphocytes Absolute 1.35 1.00 - 5.00 K/mcL LAB HEMETOLOGY METHOD 09/09/2024 8:48 PM [facility] Monocytes Absolute 0.80 0.20 - 1.00 K/mcL LAB HEMETOLOGY METHOD 09/09/2024 8:48 PM [facility] Eosinophils Absolute 0.01 0.00 - 0.50 K/mcL LAB HEMETOLOGY METHOD 09/09/2024 8:48 PM [facility] Basophils Absolute 0.03 0.00 - 0.20 K/mcL LAB HEMETOLOGY METHOD 09/09/2024 8:48 PM [facility] Immature Granulocytes Absolute 0.04(H) 0.00 - 0.03 K/mcL LAB HEMETOLOGY METHOD 09/09/2024 8:48 PM [facility] Blood Venous blood specimen / Unknown Venipuncture / Unknown 09/09/2024 8:37 PM EST 09/09/2024 8:42 PM EST us Mauricio Coleman MD LAB BLOOD ORDERABLES Nadine l Result Performing Organization Address [facility]/ZIP Co de Phone Number [facility] [address] [place] [address], [place] [phone] * (ABNORMAL) Salicylate level (09/09/2024 8:37 PM EST) Salicylate Level <1.7(L) 2.0 - 29.0 mg/dL LAB CHEMISTRY METHOD 09/09/2024 9:30 PM EST [facility] Blood Venous blood specimen / Unknown Venipuncture / Unknown 09/09/2024 8:37 PM EST 09/09/2024 8:42 PM EST us Mauricio Coleman MD LAB BLOOD ORDERABLES Nadine l Result Performing Organization Address [facility]/ZIP Co de Phone Number [facility] [address] [place] [address], [place] [phone] * (ABNORMAL) Acetaminophen level (09/09/2024 8:37 PM EST) Acetaminophen Level <2.0(L) 10.0 - 30.0 mcg/mL LAB CHEMISTRY METHOD 09/09/2024 9:30 PM EST [facility] Blood Venous blood specimen / Unknown Venipuncture / Unknown 09/09/2024 8:37 PM EST 09/09/2024 8:42 PM EST us Mauricio Coleman MD LAB BLOOD ORDERABLES Naidne l Result Performing Organization Address City/[facility]/ZIP Co de Phone Number [facility] [address] [place] [address], [place] [phone] * Ethanol (09/09/2024 8:37 PM EST) Ethanol Level <3 0 - 10 mg/dL LAB CHEMISTRY METHOD 09/09/2024 9:30 PM [facility] Blood Venous blood specimen / Unknown Venipuncture / Unknown 09/09/2024 8:37 PM EST 09/09/2024 8:42 PM EST us Mauricio Coleman MD LAB BLOOD ORDERABLES Ndaine l Result [facility] [address] [place] [address], * (ABNORMAL) Comprehensive metabolic panel (09/09/2024 8:37 PM EST) Sodium 138 133 - 145 mmol/L LAB CHEMISTRY METHOD 09/09/2024 9:30 PM [facility] Potassium 3.4(L) 3.5 - 5.5 mmol/L LAB CHEMISTRY METHOD 09/09/2024 9:30 PM [facility] Chloride 104 96 - 110 mmol/L LAB CHEMISTRY METHOD 09/09/2024 9:30 PM [facility] CO2 27 21 - 32 mmol/L LAB CHEMISTRY METHOD 09/09/2024 9:30 PM [facility] Anion Gap 7 3 - 11 LAB CHEMISTRY METHOD 09/09/2024 9:30 PM [facility] Glucose 88 70 - 100 mg/dL LAB CHEMISTRY METHOD 09/09/2024 9:30 PM [facility] BUN 18 5 - 25 mg/dL LAB CHEMISTRY METHOD 09/09/2024 9:30 PM [facility] Creatinine 1.05 0.70 - 1.30 mg/dL LAB CHEMISTRY METHOD 09/09/2024 9:30 PM [facility] eGFR 88 >=60 mL/min/1. 73m2 LAB CHEMISTRY METHOD 09/09/2024 9:30 PM [facility] Comment:Calculation based on the??Chronic Kidney Disease Epidemiology Collaboration (CKD-EPI) equation refit??without adjustment for race. BUN/Creatinine Ratio 17.1 LAB CHEMISTRY METHOD 09/09/2024 9:30 PM [facility] Calcium 9.1 8.5 - 10.5 mg/dL LAB CHEMISTRY METHOD 09/09/2024 9:30 PM [facility] AST (SGOT) 37 10 - 42 unit/L LAB CHEMISTRY METHOD 09/09/2024 9:30 PM [facility] ALT (SGPT) 25 10 - 60 unit/L LAB CHEMISTRY METHOD 09/09/2024 9:30 PM [facility] Alkaline Phosphatase 156(H) 42 - 121 unit/L LAB CHEMISTRY METHOD 09/09/2024 9:30 PM [facility] Total Protein 8.1(H) 6.0 - 8.0 g/dL LAB CHEMISTRY METHOD 09/09/2024 9:30 PM [facility] Albumin 4.1 3.2 - 5.0 g/dL LAB CHEMISTRY METHOD 09/09/2024 9:30 PM [facility] Total Bilirubin 0.6 0.0 - 1.4 mg/dL LAB CHEMISTRY METHOD 09/09/2024 9:30 PM [facility] Blood Venous blood specimen / Unknown Venipuncture / Unknown 09/09/2024 8:37 PM EST 09/09/2024 8:42 PM EST us Mauricio Coleman MD LAB BLOOD ORDERABLES Nadine decker Result [facility] [address] [place] [address], documented in this encounter Visit Diagnoses Diagnosis Suicidal ideation- Primary Emotional crisis Unspecified mental or behavioral problem Bipolar I disorder, most recent episode manic, severe without psychotic features (CMS/HCC) documented in this encounter Administered Medications Inactive Administered Medications - up to 3 most recent administrations Medication Order MAR Action Action Date Dose Rate Site LORazepam (ATIVAN) tablet 1 mg 1 mg, oral, Once, On Sun09/09/24 at 2202, For 1 dose Given 09/09/2024 10:11 PM EST 1 mg methadone (DOLOPHINE) tablet 110 mg 110 mg, oral, Every 24 hours scheduled, First dose on Sun09/10/24 at 0900 Given 09/10/2024 8:44 AM EST 110 mg documented in this encounter Active and Recently Administered Medications Times are shown in EST. Scheduled Medication Order 09/08/2024 09/09/2024 09/10/2024 LORazepam (ATIVAN) tablet 1 mg (COMPLETED) 1 mg, oral, Once, On Sun09/09/24 at 2202, For 1 dose 2210 (Given - Provider: Mily Rodriguez RN) methadone (DOLOPHINE) tablet 110 mg 110 mg, oral, Every 24 hours scheduled, First dose on Sun09/10/24 at 0900 0844 (Given - Provid er: Irais Julio RN) documented in this encounter Orders Medications Ordered That Eriberto ht Not Have Been Administered Count Last Ordered Date First Ordered Date LORazepam (ATIVAN) tablet 1 mg 1 09/09/2024 Consult Count Last Ordered Date First Orde red Date IP CONSULT TO [employer]LE[employer] ASSOCIATE 1 09/09/2024 documented in this encounter Care Teams Pourer Crane Ladle Relationship Specialty Start Date End Date Physician, No Pcp PCP - General 09/09/24 documented as of this encounter
--- OUTSIDE RECORDS SUMMARY | 2024-10-01 13:23 | XMS_ITS | Encounter Summary ---
[facility] Organization [facility] Address [address] [place] [address] Care Team Providers Care Construction Tech Name Role Phone Physician, No Pcp Primary Care Provider Unavaila ble Reason for Visit * Auth/Cert (Routine) Specialty Diagnoses / Procedures Referred By Abdoulaye maravilla Referred To Contact Diagnoses Major depressive disorder, recurrent severe without psychotic features Psychiatric diagnosis Procedures Inpatient Behavioral Health Vernon Weathers DO [address] [place] [address] Phone: tel: fax: [place] [id number] [address] [place] [address] Phone: tel: Referral ID Status Reason Start Date Expiration Date Visits Re quested Visits Authorized [id number] 1 1 Encounter Details Date Type Department Care Team (Latest Contact Info) Description 09/10/2024 3:19 PM EST - 09/30/2024 4:40 PM EST Hospital Encounter [place] [id number] [address] [place] [address] Vernon eWathers DO [address] [place] [address] Discharge Disposition: Another Health Care Institution Not Defined Social History Tobacco Use Types Packs/Day Years Used Date Smoking Tobacco: Every Day Cigarettes 1 15.2 Started: 2009 Smokeless Tobacco: Never Tobacco Cessation:Ready to Q uit: No; Counseling Given: Yes Alcohol Use Standard Drinks/Week Comments Not Currently [...] Sign Reading Time Taken Comments Blood Pressure 116/77 09/30/2024 8:59 AM EST Pulse 73 09/30/2024 8:59 AM EST Temperature 36.2 ??C (97.2 ??F) 09/30/2024 8:59 AM ES T Respiratory Rate 18 09/29/2024 4:23 PM EST Oxygen Saturation 100% 09/30/2024 8:59 AM EST Inhaled Oxygen Concentration - - Weight 103 kg (227 lb 3.2 oz) 09/21/2024 8:42 AM EST Height 172.7 cm (5' 8 ) 09/10/2024 3:24 PM EST Body Mass Index 34.55 09/10/2024 3:24 PM EST documented in this encounter Functional [...] Entry Date Author No 09/10/2024 8:10 AM EST Ami Julio RN documented in this encounter Discharge Summaries * MCKAY Rivera - 09/30/2024 3:31 PM EST Ignacio Tovar 1975 [id number] PRIMARY THERAPIST DISCHARGE NOTE: Date of admission: 09/10/2024 Date of discharge: 09/30/2024 Presenting problem: Schizoaffective disorder, bipolar type ([facility]) Transportation mode: taxi Discharge Location: [facility] Course of treatment At the time of admission, patient was assessed by the attending psychiatrist. Patient was started on psychotropic medications. The medications were adjusted as deemed necessary. Patient completed detox without complication. During patient???s hospitalization, patient was cooperative with treatment. Patient participated in individual sessions. Patient attended unit groups and was compliant with medications. As treatment continued, patient???s symptoms improved Patient???s aftercare plan includes supports with [facility] Respite At the time of discharge, patient did not express thoughts or intent to harm self or others. Patient???s protective factors include help seeking and familiar with resources Patient???s affect is appropriate and mood stable. No thought form disturbance or perceptual disturbance noted. MCKAY Rivera 3:33 PM EST 09/30/2024 * Vernon Weathers DO - 09/30/2024 9:50 AM EST Psychiatry Discharge Summary Date of admission: 09/10/2024 Date of discharge: 09/30/2024 Medical problems, laboratory results and consultations: Past Medical History: Diagnosis Date Addiction to drug ([facility]) Anxiety Chronic pain disorder Depression No results found for: BUN , CREATININE , NA , K , CL , HGBA1C , MG , PHOS , CALCIUM , WBC , PLTCOUNT , PT , INR , ALT , AST , GGT , ALKPHOS @LABBRIEF(AMPHETAMINUR,BARBITURATES,BENZODIAZEUR,cannabinoiur,COCAINEURINE,OPIAT ESURINE,OXYCODONEUR, METHADONEUR,PCPURINE,SALICYLATE,ACETAMINOPHE,PHENYTOINSE,PHENOBARB,VALPROICACID, CARBAMA,lithium,digoxin)@ @LABBRIEF(Ammonia:3,vhbqgfgo06,TSH,TSHULTRASEN,LLLJMBEHKD3N,RPRRAPIDPL,FLJ4RCQ2D B,HEPCABSCR,ck:3)@ Discharge diagnoses: Problem List Items Addressed This Visit None Discharge category: With maximum benefit Condition on discharge: Not at imminent risk of harm to self or others Hospital Course: Patient admitted to unit. Continued on a majority of home psychotropics including Seroquel, Prazosin, Gabapentin. Wellbutrin tapered and discontinued due to concern for worsening psychosis and worsened anxiety/agitation. Remeron was discontinued due to excessive daytime sedation, polypharmacy, and fear of antidepressant induced flipping to mayra. Due to patient's reported nightmares Prazosin was increased from 2mg to 4mg over course of hospitalization. [place] was also started and titrated to therapeutic levels with total dose of 900mg at bed time. During the hospitalization there was concern by staff due to excessive sedation. It was thought this was due to the polypharmacy of his regimen, along with high methadone dose. In order to address patient was tapered off Seroquel and put on Abilify but patient continued to have excess sedation. Team implemented a 3 hour watching period after methadone was given during which time patient continued to have periods of somnolence. Methadone dose decreased from 110mg to 100mg as a result with improvement. Patient then reportedhe could not sleep and thus Abilify was discontinued and Seroquel restarted. Most notable over course of hospitalization patient had inconsistent reports of symptoms to members of his treatment team and secondary gain was suspected. Nicotine user: Yes, was offered NRT and accepted Substance abuse: Yes, was offered methadone for OUD and accepted Final MSE: General appearance and Manner: Appears stated age, well-groomed, no acute distress, Musculoskeletal: Has mild psychomotor agitation Speech: Increased quantity. Normal rhythm, volume, tone, rate Mood & Affect: Mood reported as good Affect is euthymic, mildly irritable, appropriate, congruent, full range, supple Thought Process: Linear, goal directed, logical, coherent Description of Associations: Intact Description of Abnormal or Psychotic Thoughts: No delusions elicited. Reports auditory hallucinations in the form of whispers Suicidal Ideations/Homicidal Ideations/Violent Ideations: Denies active/passive SI/HI orientation: Alert and oriented x 3 Attention/Concentration: Good Insight and Judgment: Fair Medications: Your medication list START taking these medications Instructions Last Dose Given Next Dose Due fluticasone propionate 50 mcg/actuation nasal spray Commonly known as: FLONASE Start taking on: September 30, 2024 Administer 2 sprays into each nostril 1 (one) time each day. Shake gently. Before first use, prime pump. After use, clean tip and replace cap. gabapentin 600 mg tablet Commonly known as: NEURONTIN Replaces: gabapentin 300 mg capsule Take 1 tablet (600 mg total) by mouth 2 (two) times a day. hydrOXYzine HCL 50 mg tablet Commonly known as: ATARAX Take 1 tablet (50 mg total) by mouth 2 (two) times a day if needed for anxiety. lithium 450 mg CR tablet Commonly known as: ESKALITH Take 2 tablets (900 mg total) by mouth at bedtime. Do not crush, chew, or split. naloxone 4 mg/0.1 mL nasal spray Commonly known as: NARCAN Administer 1 each (4 mg total) into affected nostril(s) if needed for opioid reversal. Give 4 mg (1spray) into one nostril. May repeat every 2-3 minutes if needed, alternating nostrils, until medical assistance becomes available. nicotine 21 mg/24 hr Commonly known as: NICODERM CQ Start taking on: September 30, 2024 Place 1 patch on the skin 1 (one) time each day. nicotine polacrilex 4 mg gum Commonly known as: NICORETTE Place 1 each (4 mg total) into mouth between cheek and gum every 1 (one) hour if needed for smokingcessation. propranoloL 20 mg tablet Commonly known as: INDERAL Take 1 tablet (20 mg total) by mouth 2 (two) times a day. CHANGE how you take these medications Instructions Last Dose Given Next Dose Due methadone 10 mg/mL concentrated solution Commonly known as: DOLOPHINE What changed: how much to take Take 10 mL (100 mg total) by mouth 1 (one) time each day. Max Daily Amount: 100 mg prazosin 2 mg capsule Commonly known as: MINIPRESS What changed: medication strength how much to take Take 2 capsules (4 mg total) by mouth at bedtime. QUEtiapine 400 mg tablet Commonly known as: SEROquel What changed: Another medication with the same name was removed. Continue taking this medication, and follow the directions you see here. Take 1 tablet (400 mg total) by mouth at bedtime. senna 8.6 mg tablet Commonly known as: SENOKOT What changed: how much to take when to take this Take 2 tablets (17.2 mg total) by mouth at bedtime. CONTINUE taking these medications Instructions Last Dose Given Next Dose Due atorvastatin 20 mg tablet Commonly known as: LIPITOR Take 1 tablet (20 mg total) by mouth at bedtime. methocarbamoL 750 mg tablet Commonly known as: ROBAXIN Take 1 tablet (750 mg total) by mouth 3 (three) times a day if needed for muscle spasms. omeprazole [address] capsule Commonly known as: PriLOSEC Take 1 capsule (40 mg total) by mouth 1 (one) time each day. Do not crush or chew. OXcarbazepine 600 mg tablet Commonly known as: TRILEPTAL Take 1 tablet (600 mg total) by mouth 1 (one) time each day. STOP taking these medications gabapentin 300 mg capsule Commonly known as: NEURONTIN Replaced by: gabapentin 600 mg tablet Where to Get Your Medications These medications were sent to [facility] [place] [id number] [place] [id number] [address] atorvastatin 20 mg tablet fluticasone propionate 50 mcg/actuation nasal spray gabapentin 600 mg tablet hydrOXYzine HCL 50 mg tablet lithium 450 mg CR tablet methocarbamoL 750 mg tablet naloxone 4 mg/0.1 mL nasal spray nicotine 21 mg/24 hr nicotine polacrilex 4 mg gum omeprazole [address] capsule OXcarbazepine 600 mg tablet prazosin 2 mg capsule propranoloL 20 mg tablet QUEtiapine 400 mg tablet senna 8.6 mg tablet Information about where to get these medications is not yet available Ask your nurse or doctor about these medications methadone 10 mg/mL concentrated solution Dispositions: Outpatient treatment Follow-up psychiatric and medical care: Contact information for follow-up methadone mainatenance thang Araya [place] Next Steps: Follow up Instructions: Last dose 09/30/2024 100 MG [facility]PITE [facility] PROGRAM RESIDENTIAL TREATMENT PROGRAM FOR MENTAL HEALTH AND SUBSTANCE USE ACCS - [address] [place] [phone] Next Steps: Go on 09/30/2024 Smoking Cessation Counseling QuitLine Next Steps: Call on 10/01/2024 Instructions: [phone] @ 8:30am Living arrangements: Respite documented in this encounter Discharge Instructions * Discharge Instructions* Vernon Weathers DO - 09/29/2024 8:39 PM EST Prioritize honesty and integrity in your interactions with healthcare professionals. Malingering not only undermines the effectiveness of treatment but also carries legal consequences, including potential commitment to a state facility or appointment of a conservator. Additionally, malingering may lead to receiving medications that could be potentially toxic or cause harmful side effects, as theymay not be appropriate for your actual condition. Embrace genuine engagement with mental health professionals and explore alternative avenues for accessing support. Remember, honesty is the foundation of effective treatment and fosters trust within the healthcare system, ensuring you receive the best possible care tailored to your needs. Why You???re Receiving Narcan: A Precautionary Measure As you prepare to leave the hospital, you might be surprised to receive a prescription for Narcan (naloxone), especially if you don't have a history of opioid use. Narcan is a life-saving medication designed to reverse opioid overdoses quickly. While you may not have a history of opioid abuse, this prescription is a proactive measure to ensure your safety. In certain medical situations, opioid medications may be prescribed for pain management, or you might encounter opioids in unexpected ways. Narcan provides an added layer of protection in case of accidental exposure or misuse. It???s a safeguard for you and those around you, ensuring that help is immediately available if needed. Please take the time to familiarize yourself with how to use Narcan and inform your loved ones about its purpose and location. Your well-being is our top priority, and we want to ensure you???re equipped with all necessary tools for a safe recovery. If you have any questions or concerns, don???t hesitate to reach out to your healthcare provider before you leave. OTHER INSTRUCTIONS: 1. Medication Management: Ensure you understand your medication regimen, including the names, dosages, and schedules. Take medications exactly as prescribed. Do not stop or change dosages without consulting your psychiatrist. If you experience any side effects or notice any changes in your symptoms, contact your psychiatrist immediately. Set up a system to remember to take your medications consistently, such as using pill organizers oralarms. 2. Follow-Up Appointments: Schedule and attend follow-up appointments with your psychiatrist or therapist as recommended. Prioritize your mental health appointments as essential to your ongoing well-being. 3. Therapy and Counseling: Engage actively in therapy or counseling sessions as recommended by your treatment team. Practice the coping skills and strategies learned during your inpatient stay in your daily life. 4. Support Network: Identify and utilize your support network, including family, friends, or support groups. Communicate openly with your loved ones about your needs and how they can support you in your recovery. 5. Crisis Plan: Develop a crisis plan with your treatment team outlining steps to take in case of a mental health crisis. Keep emergency contact numbers readily accessible, including your psychiatrist, therapist, and local crisis hotline. 6. Self-Care Practices: Prioritize self-care activities such as exercise, proper nutrition, adequate sleep, and relaxation techniques. Avoid alcohol and recreational drugs, as they can interfere with your medication and exacerbate mental health symptoms. 7. Stress Management: Identify potential stressors in your life and develop healthy coping mechanisms to manage them effectively. Practice stress-reduction techniques such as deep breathing exercises, mindfulness, or meditation. 8. Safety Precautions: Ensure your living environment is safe and supportive of your mental health needs. Remove any potential hazards or triggers from your surroundings. Make a plan for what to do if you experience suicidal thoughts or impulses, including accessing emergency services or contacting a trusted individual for support. 9. Engagement in Meaningful Activities: Participate in activities that bring you maria l and fulfillment, such as hobbies, social outings, or volunteer work. Stay connected with positive influences and avoid isolation. 10. Education and Resources: Continue educating yourself about your mental health condition and treatment options. Utilize reputable resources and support organizations for information and guidance. 11. Legal and Financial Matters: Address any legal or financial issues that may be impacting your mental health or recovery process. Seek assistance from legal or financial professionals if needed. 12. Emergency Situations: In case of an emergency, such as feeling overwhelmed or experiencing a mental health crisis, go to the nearest emergency room or contact emergency services immediately. * Attachments The following attachments cannot be sent through Care Everywhere. * Codependency (Lithuanian) * Schizoaffective Disorder: General Info (Lithuanian) * Substance Use Disorder (Lithuanian) * Insomnia (Lithuanian) * Stress: General Info (Lithuanian) * Giving Naloxone Nasal [place]: General Info (Lithuanian) * Migraine Headache: Recurring (Lithuanian) documented in this encounter Medications at Time of Discharge atorvastatin (LIPITOR) 20 mg tabletIndications: hypercholesterolem ia Take 1 tablet (20 mg total) by mouth at bedtime. 30 each 09/29/2024 5 fluticasone propionate (FLONASE) 50 mcg/actuation nasal sprayIndications:a llergic rhinitis Administer 2 sprays into each nostril 1 (one) time each day. Shake gently. Before first use, prime pump. After use, clean tip and replace cap. 16 g 09/30/2024 5 hydrOXYzine HCL (ATARAX) 50 mg tabletIndications: anxiety Take 1 tablet (50 mg total) by mouth 2 (two) times a day if needed for anxiety. 60 each 09/29/2024 5 lithium (ESKALITH) 450 mg CR tablet Take 2 tablets (900 mg total) by mouth at bedtime. Do not crush, chew, or split. 60 each 09/29/2024 5 methadone (DOLOPHINE) 10 mg/mL concentrated solutionIndication s:opioid use disorder,Verified- [facility] [phone] @ 1600, 08/10/2024 Take 10 mL (100 mg total) by mouth 1 (one) time each day. Max Daily Amount: 100 mg 09/29/2024 methocarbamoL (ROBAXIN) 750 mg tabletIndications: muscle spasm Take 1 tablet (750 mg total) by mouth 3 (three) times a day if needed for muscle spasms. 60 each 09/29/2024 5 nicotine (NICODERM CQ) 21 mg/[address] 1 patch on the skin 1 (one) time each day. 30 each 09/30/2024 5 nicotine polacrilex (NICORETTE) [address] [...] mouth at bedtime. 60 each 09/29/2024 5 gabapentin (NEURONTIN) 600 mg tabletIndications: neuropathic pain Take 1 tablet (600 mg total) by mouth 2 (two) times a day. 60 each 09/29/2024 5 naloxone (NARCAN) 4 mg/0.1 mL nasal sprayIndications:o pioid overdose Administer 1 each (4 mg total) into affected nostril(s) if needed for opioid reversal. Give 4 mg (1 spray) into one nostril. May repeat every 2-3 minutes if needed, alternating nostrils, until medical assistance becomes available. 2 each 09/29/2024 5 documented as of this encounter Ordered Prescriptions Prescription Sig Dispense Quantity Refills Last Filled Start Date End Date naloxone (NARCAN) 4 mg/0.1 mL nasal sprayIndications:o pioid overdose Administer 1 each (4 mg total) into affected nostril(s) if needed for opioid reversal. Give 4 mg (1 spray) into one nostril. May repeat every 2-3 minutes if needed, alternating nostrils, until medical assistance becomes available. 2 each 09/29/2024 5 propranoloL (INDERAL) 20 mg tabletIndications: migraine prevention Take 1 tablet (20 mg total) by mouth 2 (two) times a day. 60 each 09/29/2024 5 omeprazole (PriLOSEC) [address] capsuleIndications :gastroesophageal reflux disease Take 1 capsule (40 mg total) by mouth 1 (one) time each day. Do not crush or chew. 30 each 09/29/2024 5 nicotine polacrilex (NICORETTE) [address] 1 each (4 mg total) into mouth between cheek and gum every 1 (one) hour if needed for smoking cessation. 100 each 09/29/2024 5 nicotine (NICODERM CQ) 21 mg/[address] 1 patch on the skin 1 (one) time each day. 30 each 09/30/2024 5 lithium (ESKALITH) 450 mg CR tablet Take 2 tablets (900 mg total) by mouth at bedtime. Do not crush, chew, or split. 60 each 09/29/2024 5 hydrOXYzine HCL (ATARAX) 50 mg tabletIndications: anxiety Take 1 tablet (50 mg total) by mouth 2 (two) times a day if needed for anxiety. 60 each 09/29/2024 5 fluticasone propionate (FLONASE) 50 mcg/actuation nasal sprayIndications:a llergic rhinitis Administer 2 sprays into each nostril 1 (one) time each day. Shake gently. Before first use, prime pump. After use, clean tip and replace cap. 16 g 09/30/2024 5 senna (SENOKOT) 8.6 mg tabletIndications: constipation Take 2 tablets (17.2 mg total) by mouth at bedtime. 60 each 09/29/2024 QUEtiapine (SEROquel) 400 mg tabletIndications: bipolar disorder in remission Take 1 tablet (400 mg total) by mouth at bedtime. 30 each 09/29/2024 prazosin (MINIPRESS) 2 mg capsuleIndications :Chronic PTSD with Trauma Nightmares Take 2 capsules (4 mg total) by mouth at bedtime. 60 each 09/29/2024 OXcarbazepine (TRILEPTAL) 600 mg tabletIndications: focal epilepsy Take 1 tablet (600 mg total) by mouth 1 (one) time each day. 30 each 09/29/2024 methocarbamoL (ROBAXIN) 750 mg tabletIndications: muscle spasm Take 1 tablet (750 mg total) by mouth 3 (three) times a day if needed for muscle spasms. 60 each 09/29/2024 methadone (DOLOPHINE) 10 mg/mL concentrated solutionIndication s:opioid use disorder,Verified- N, [facility] [phone] @ 1600, 08/10/2024 Take 10 mL (100 mg total) by mouth 1 (one) time each day. Max Daily Amount: 100 mg 09/29/2024 gabapentin (NEURONTIN) 600 mg tabletIndications: neuropathic pain Take 1 tablet (600 mg total) by mouth 2 (two) times a day. 60 each 09/29/2024 atorvastatin (LIPITOR) 20 mg tabletIndications: hypercholesterolem ia Take 1 tablet (20 mg total) by mouth at bedtime. 30 each 09/29/2024 documented in this encounter Discharge Disposition Disposition Code Departure Means Destination Comment s Another Health Care Institution Not Defined Tax i documented in this encounter Progress Notes * Traci Rodriguez, RN - 09/30/2024 4:41 PM EST Patient was discharged to [facility]. Patient left the unit ambulatory and was transported by cab.Patient's current mental status is adequate for discharge and patient denies suicidal ideation. Discharge instructions and prescriptions were reviewed with patient who verbalized understanding. Patient was given a list of resource telephone numbers and how to access help for crisis intervention. Med ication administration will be managed by [facility]. All personal property was returned to the patient. Date: 09/30/24 Traci FOSTER * MCKAY Rivera - 09/30/2024 3:23 PM EST 09/30/24 1523 Completion of C-SSRS Assessment Can the C-SSRS Assessment be completed? Yes [place] Suicide Severity Rating Scale (Screener/Recent Self-Report) 1. Wish to be (Past 1 Month) Y 2. Non-Specific Active Suicidal Thoughts (Past 1 Month) Y 3. Active Suicidal Ideation with any Methods (Not Plan) Without Intent to Act (Past 1 Month) Y 4. Active Suicidal Ideation with Some Intent to Act, Without Specific Plan (Past 1 Month) Y 5. Active Suicidal Ideation with Specific Plan and Intent (Past 1 Month) Y 6. Suicidal Behavior (Lifetime) Y 6. Suicidal Behavior (3 Months) Y * Loren John RN - 09/30/2024 1:45 PM EST Problem: Sensory Perceptual Alteration AEB Goal: Participates in unit activities Note: Participates as tolerated Problem: Anxiety Goal: Attempts to manage anxiety with help Note: Able to make needs known Y Osuna - 09/30/2024 12:50 PM EST 09/30/24 1249 Completion of C-SSRS Assessment Can the C-SSRS Assessment be completed? Yes [place] Suicide Severity Rating Scale (Screener/Recent Self-Report) 1. Wish to be (Past 1 Month) Y 2. Non-Specific Active Suicidal Thoughts (Past 1 Month) Y 3. Active Suicidal Ideation with any Methods (Not Plan) Without Intent to Act (Past 1 Month) Y 4. Active Suicidal Ideation with Some Intent to Act, Without Specific Plan (Past 1 Month) Y 5. Active Suicidal Ideation with Specific Plan and Intent (Past 1 Month) Y 6. Suicidal Behavior (Lifetime) Y 6. Suicidal Behavior (3 Months) Y 6. Suicidal Behavior (Description) reecnt attempts * Callie Thompson OT - 09/30/2024 8:58 AM EST OT D/C Note: Patient was assessed and attended zero OT groups on the unit. He made improvements in self control.Patient made minimal progress towards OT goals. He is discharged to [facility] respite/CSS program for treatment to address his mental health and substance abuse. Pt will also resume methadone maintenance through [facility] * Yassine Cook RN - 09/30/2024 6:07 AM EST Problem: Sensory Perceptual Alteration AEB Goal: Participates in unit activities Outcome: Progressing Pt appeared in pt room asleep for about 7 hours. Pt was awoken by peer yelling, and spent time in common room and pt room. No behavioral concerns at this moment. Q 15 min checks remain in place * Rolanda Carlos RN - 09/29/2024 10:07 PM EST Pt refused lithium tonight,no reason given. * Rolanda Carlos RN - 09/29/2024 10:06 PM EST Problem: Sensory Perceptual Alteration AEB Goal: Participates in unit activities Outcome: Progressing Goal: Discusses signs/symptoms of illness/treatment options Outcome: Not Progressing Problem: Potential for Harm to Self or Others Goal: Identifies stressors that lead to harmful behaviors Outcome: Not Progressing Goal: Denies harm toward self or others Outcome: Progressing Problem: Anxiety Goal: Attempts to manage anxiety with help Outcome: Progressing Problem: Defensive Coping Goal: Demonstrates healthy coping skills Outcome: Progressing Goals: Identify possible barriers to meeting goals/advancing plan of care: Stability of the patient: Moderately Unstable - Medium risk of patient condition declining or worsening End of Shift Summary: Pt has been visible and cooperative on the unit. No behavioral or safety concerns. Pt states that he is doing okay. Given support,will continue to assess status. * Jackelin Reyes LCSW - 09/29/2024 5:24 PM EST Problem: SW Connection/Reconnection to Aftercare Services Goal: SW Objective: Patient will identify needs and preferences in regards to follow up care. Outcome: Adequate for Discharge SW reviewed pt's chart and discussed treatment goal progress during interdisciplinary team. Pt is observed in the milieu, well groomed and calm. SW received a phone call that pt has been accepted to [facility] for 09/30/2024. Pt is scheduled to discharge tomorrow. * Vernon Weathers DO - 09/29/2024 3:50 PM EST Psychiatry Progress Note LOS: 19 days Chief Complaint/Reason for Encounter: This is a 49-year-old male with history of anxiety and depression presenting to [facility] ED on 09/09/24 for evaluation of suicidal ideation with a plan to overdose or cut himself. HPI: Chart reviewed and patient seen. Patient intermittently compliant with medications. Patient reportsnot sleeping at all last night but this is contrary to nurse report. Reports eating well. Adherent with medication regiment and denies any adverse side effects. Denies SI/HI. Reports ongoing chronic AH. Continues to perseverate on getting Remeron prescribed again and having Seroquel dose increased. Review of Systems: Except as stated above all other systems are unremarkable Past, Family, Social History: No Change Psychiatric Speciality Examination: Visit Vitals BP 113/62 Pulse 63 Temp 36.5 ??C (97.7 ??F) (Temporal) Resp 16 1.727 m (68 ), 103 kg (227 lb 3.2 oz), Body mass index is 34.55 kg/m??. No results found for this or any previous visit (from the past 4464 hours). Mental Status Examination & Relevant Physical Exam: General appearance and Manner: Appears stated age, well-groomed, no acute distress, Musculoskeletal: Has mild psychomotor agitation Speech: Increased quantity. Normal rhythm, volume, tone, rate Mood & Affect: Mood reported as good Affect is euthymic, mildly irritable, appropriate, congruent, full range, supple Thought Process: Linear, goal directed, logical, coherent Description of Associations: Intact Description of Abnormal or Psychotic Thoughts: No delusions elicited. Reports auditory hallucinations in the form of whispers Suicidal Ideations/Homicidal Ideations/Violent Ideations: Denies active/passive SI/HI orientation: Alert and oriented x 3 Attention/Concentration: Good Insight and Judgment: Fair Medical Decision Making: Problem List/Diagnosis: Principal Problem: Schizoaffective disorder, bipolar type ([facility]) Active Problems: Psychiatric diagnosis Uncomplicated opioid dependence ([facility]) Stimulant use disorder Data/Medical records reviewed/Labs/Imaging and Other Diagnostic Studies reviewed: No results found for this or any previous visit (from the past 48 hours). PRN Psychotropics Administered Last 24 Hours: None Assessment/Status: Patient intermittently compliant with medications. Will increase Seroquel to 300mg PO QHS. We will continue to monitor patient on safe and therapeutic milieu. Social work team to continue with safe discharge planning. Treatment Plan/Recommendations: Intervention/Psychotherapy: active participant in therapy sessions Increase Seroquel to 300mg PO QHS Medications: Scheduled Meds:atorvastatin, 20 mg, oral, Nightly fluticasone propionate, 2 spray, Each Nostril, Daily gabapentin, 600 mg, oral, BID lithium, 900 mg, oral, Nightly methadone, 80 mg, oral, Daily And methadone, 20 mg, oral, q24h ZARIA multivitamin, 1 each, oral, Daily nicotine, 1 patch, transdermal, Daily OXcarbazepine, 600 mg, oral, Daily pantoprazole, 40 mg, oral, q AM AC prazosin, 4 mg, oral, Nightly propranoloL, 20 mg, oral, BID QUEtiapine, 200 mg, oral, Nightly senna, 2 tablet, oral, Nightly PRN Meds:.PRN medications: acetaminophen, albuterol, calcium carbonate, hydrOXYzine HCL, lidocaine,methocarbamoL, nicotine polacrilex Lab/Radiology/Tests/Consultation: As already prescribed - No additional warranted at this time. * Jhony Malloy RD - 09/29/2024 2:54 PM EST 09/29/2024 @ 2:54 PM EST Nutrition Follow Up Note Reason for RD Intervention: Assessment Type: Follow-up Reason for Assessment: Decreased Intake Anthropometrics: Height: 172.7 cm (68 ) Weight: 103 kg (227 lb 3.2 oz) BMI (Calculated): 34.6 BMI Class: Overweight Current Diet and Supplements: Dietary Orders (From admission, onward) Start Ordered 09/22/24 1529 Dietary nutrition supplements Three times daily (TID); [facility]; Standard Oral Supplement Continuous Comments: Ensure Plus High Protein, TID with meals, vanilla Question Answer Comment Frequency Three times daily (TID) Location [facility] Supplements Standard Oral Supplement 09/22/24 1528 09/10/24 1632 Adult diet [facility]; General; Regular Diet effective now Question Answer Comment Location [facility] Diet Type (req) General General Diet Regular 09/10/24 1632 History of presenting illness: Patient is a 49 y.o. male with a history of mild intermittent asthma, hyperlipidemia, chronic low back pain/sciatica, opioid use disorder in remission on methadone maintenance, major depressive disorder, generalized anxiety disorder, post-traumatic stress disorder admitted 09/10/2024 with Schizoaffective disorder, bipolar type ([facility]). Past Medical History: Diagnosis Date Addiction to drug ([facility]) Anxiety Chronic pain disorder Depression Food/Nutrition History: Appetite UROLOGY PHYSICIAN ASSISTANT: Poor Intake UROLOGY PHYSICIAN ASSISTANT: Decreased (Very little PO intake for 4-6 months.) Weight History: Wt Readings from Last 10 Encounters: 09/21/24 103 kg (227 lb 3.2 oz) 09/09/24 103 kg (226 lb) Subjective Assessment: Spoke with Ignacio. Per interview, pt stated that he is not eating well. He is focusing on smaller meals such as two servings of chicken noodle soup at lunch time. He has enjoyed the nutritional supplements provided during admission. Nutrition-Related Lab Values: Reviewed. Medications: atorvastatin, 20 mg, oral, Nightly fluticasone propionate, 2 spray, Each Nostril, Daily gabapentin, 600 mg, oral, BID lithium, 900 mg, oral, Nightly methadone, 80 mg, oral, Daily And methadone, 20 mg, oral, q24h ZARIA multivitamin, 1 each, oral, Daily nicotine, 1 patch, transdermal, Daily OXcarbazepine, 600 mg, oral, Daily pantoprazole, 40 mg, oral, q AM AC prazosin, 4 mg, oral, Nightly propranoloL, 20 mg, oral, BID QUEtiapine, 200 mg, oral, Nightly senna, 2 tablet, oral, Nightly CONTINUOUS: PRN medications: acetaminophen, albuterol, calcium carbonate, hydrOXYzine HCL, lidocaine, methocarbamoL, nicotine polacrilex Energy Needs: 1617-7282 kcal, 144 gm protein, 2050 mL fluid per day. Height: 172.7 cm (68 ) Temp: 36.5 ??C (97.7 ??F) Calculating Weight (lbs): 226 Calculating Weight (Kg calc): 102.51 Food/Nutrition-Current Status: Intake Type: P.O. Current Diet Status: Appropriate Appetite: Poor Intake Amount (%): Unable to Assess Intake Assessment: Inadequate Pain related to Intake: GERD Barriers: Physical (GERD) Nutrition Focused Physical Findings: Overall Appearance: Per visual assessment, pt is obese Nerves and Cognition: Alert, Oriented Nutrition Diagnosis: Code Type: None Identified Status: No improvement Diagnosis: Inadequate Oral Intake Etiology: Physiologic causes (GERD) Symptoms: Per interview, pt reported that he is not eating well during admission. Additional Nutrition Diagnosis?: Yes Status: No improvement Diagnosis: Unintentional Weight Loss Etiology: Physiologic causes, Other (Comment) (GERD; inadequate oral intake) Symptoms: Pt reported weight loss of 12 lb (5% body weight) in 1 week. Nutrition Interventions: Diet Order (Continue regular diet.) Medical Food Supplement(s): Other (Comment) (Ensure Plus High Protein TID with meals) Goals: Patient will consume greater than or equal to 75% meals., Electrolytes within normal range., and Maintain weight. Coordination of Patient Care: Care plan discussed with patient/family. Monitoring/Evaluation: Fluid/Beverage Intake, Food Intake, Medical Food Supp/Oral Nutrition Supp, Weight, Renal/Electrolyte Profile Follow Up: Nutrition Priority Level: High Follow up Date: 10/03/24 Please consult nutrition if needed sooner. RD remains available and will continue to follow. Signature: Jhony Malloy, , RD Available through [employer] * Peewee Sarkar RN - 09/29/2024 1:43 PM EST Pt denies suicidal ideations, denies homicidal ideations. Pt endorses auditory hallucinations, endorses visual hallucinations. Pt rates his anxiety level as 8 out of 10, rates his depression level as 7 out of 10. Pt describes his mood as so, so. Pt has been calm and cooperative. Pt takes his prescribed meds as scheduled. 15 minute safety checks maintained. * Peewee Sarkar RN - 09/29/2024 1:40 PM EST Problem: Potential for Harm to Self or Others Goal: Denies harm toward self or others Outcome: Progressing Pt denies suicidal ideations, denies homicidal ideations. Pt denies harm toward self or others. * Jh Santos RN - 09/29/2024 3:54 AM EST Problem: Sensory Perceptual Alteration AEB Goal: Participates in unit activities Outcome: Progressing Note: Patient looked asleep almost continually after 0030, sitting in the common room. * Lluvia Guillaume RN - 09/28/2024 9:37 PM EST Problem: Sensory Perceptual Alteration AEB Goal: Participates in unit activities Outcome: Progressing Problem: Potential for Harm to Self or Others Goal: Denies harm toward self or others Outcome: Progressing Goals: Identify possible barriers to meeting goals/advancing plan of care: Stability of the patient: Moderately Stable - Low risk of patient condition declining or worsening End of Shift Summary: Patient visible to staff in the common room. He took some of his schedule medication and refused others, see TIANNA for more information. Pt remains safe on unit and is on Q 15 checks. * Lluvia Guillaume RN - 09/28/2024 1:38 PM EST Problem: Potential for Harm to Self or Others Goal: Denies harm toward self or others Outcome: Progressing Goals: Identify possible barriers to meeting goals/advancing plan of care: Stability of the patient: Moderately Stable - Low risk of patient condition declining or worsening End of Shift Summary: Patient has been social in the common room. He has been taken some of his schedule medication but refused others, see MAR for more information. Pt complaint about tooth pain, hospitalist has been notified and lidocaine mouthwash has being order. Pt stated that he is hearing voices but they are very soft and whispering his name, also his depression/anxiety is 4/10. Pt remainssafe on unit and is on Q 15 checks. * Vernon Weathers DO - 09/28/2024 8:31 AM EST Psychiatry Progress Note LOS: 18 days Chief Complaint/Reason for Encounter: This is a 49-year-old male with history of anxiety and depression presenting to [facility] ED on 09/09/24 for evaluation of suicidal ideation with a plan to overdose or cut himself. HPI: Chart reviewed and patient seen. Patient intermittently compliant with medications. Patient reportsnot sleeping at all last night but this is contrary to nurse report. Reports eating well. Adherent with medication regiment and denies any adverse side effects. Denies SI/HI. Reports ongoing chronic AH. Continues to perseverate on getting Remeron prescribed again and having Seroquel dose increased. Review of Systems: Except as stated above all other systems are unremarkable Past, Family, Social History: No Change Psychiatric Speciality Examination: Visit Vitals BP 100/81 (BP Location: Left arm, Patient Position: Sitting) Pulse 65 Temp 36.1 ??C (97 ??F) (Temporal) Resp 18 1.727 m (68 ), 103 kg (227 lb 3.2 oz), Body mass index is 34.55 kg/m??. No results found for this or any previous visit (from the past 4464 hours). Mental Status Examination & Relevant Physical Exam: General appearance and Manner: Appears stated age, well-groomed, no acute distress, Musculoskeletal: Has mild psychomotor agitation Speech: Increased quantity. Normal rhythm, volume, tone, rate Mood & Affect: Mood reported as good Affect is euthymic, mildly irritable, appropriate, congruent, full range, supple Thought Process: Linear, goal directed, logical, coherent Description of Associations: Intact Description of Abnormal or Psychotic Thoughts: No delusions elicited. Reports auditory hallucinations in the form of whispers Suicidal Ideations/Homicidal Ideations/Violent Ideations: Denies active/passive SI/HI orientation: Alert and oriented x 3 Attention/Concentration: Good Insight and Judgment: Fair Medical Decision Making: Problem List/Diagnosis: Principal Problem: Schizoaffective disorder, bipolar type ([facility]) Active Problems: Psychiatric diagnosis Uncomplicated opioid dependence ([facility]) Stimulant use disorder Data/Medical records reviewed/Labs/Imaging and Other Diagnostic Studies reviewed: No results found for this or any previous visit (from the past 48 hours). PRN Psychotropics Administered Last 24 Hours: None Assessment/Status: Patient intermittently compliant with medications. Will increase Seroquel to 200mg PO QHS. We will continue to monitor patient on safe and therapeutic milieu. Social work team to continue with safe discharge planning. Treatment Plan/Recommendations: Intervention/Psychotherapy: active participant in therapy sessions Increase Seroquel to 200mg PO QHS Medications: Scheduled Meds:atorvastatin, 20 mg, oral, Nightly fluticasone propionate, 2 spray, Each Nostril, Daily gabapentin, 600 mg, oral, BID lithium, 900 mg, oral, Nightly methadone, 80 mg, oral, Daily And methadone, 20 mg, oral, q24h ZARIA multivitamin, 1 each, oral, Daily nicotine, 1 patch, transdermal, Daily OXcarbazepine, 600 mg, oral, Daily pantoprazole, 40 mg, oral, q AM AC prazosin, 4 mg, oral, Nightly propranoloL, 20 mg, oral, BID QUEtiapine, 200 mg, oral, Nightly senna, 2 tablet, oral, Nightly PRN Meds:.PRN medications: acetaminophen, albuterol, calcium carbonate, hydrOXYzine HCL, lidocaine,methocarbamoL, nicotine polacrilex Lab/Radiology/Tests/Consultation: As already prescribed - No additional warranted at this time. * Odalis Delgado LCSW - 09/28/2024 8:28 AM EST 09/28/2024 Chart reviewed and SW items are to date. Ritu Delgado LCSW, [facility] * Jh Santos RN - 09/28/2024 2:28 AM EST Problem: Sensory Perceptual Alteration AEB Goal: Participates in unit activities Outcome: Progressing Note: Patient looked asleep after 0030, sitting in the common room. * Hiram Noriega RN - 09/27/2024 11:08 PM EST Goals: Problem: Potential for Harm to Self or Others Goal: Identifies stressors that lead to harmful behaviors Outcome: Not Progressing Problem: Sensory Perceptual Alteration AEB Goal: Participates in unit activities Outcome: Progressing Note: Pt is participating in the program as tolerated. Problem: Potential for Harm to Self or Others Goal: Notifies staff when experiencing harmful thoughts toward self/others Outcome: Progressing Note: Pt is able to make needs known and approaches staff when necessary Goal: Denies harm toward self or others Outcome: Progressing Note: Pt has not harmed self or others, so far in the shift. And has not made any threats of harm Problem: Anxiety Goal: Attempts to manage anxiety with help Outcome: Progressing Note: Anxious but coping Problem: Defensive Coping Goal: Demonstrates healthy coping skills Outcome: Progressing Note: Pt remains safe on the unit and cooperated with q 15 min safety checks and cooperated with mouth checks as needed Identify possible barriers to meeting goals/advancing plan of care: Chronic Mental Health Issues Stability of the patient: Moderately Stable - Low risk of patient condition declining or worsening End of Shift Summary: Educated patient on hand hygiene. Pt currently denies SI/HI, and A/VH and hasbeen in good behavioral control thus far in the shift. * Peewee Sarkar RN - 09/27/2024 2:03 PM EST Pt endorses suicidal ideations but says he is safe from self harm. Pt denies homicidal ideations. Pt endorses auditory hallucinations, endorses visual hallucinations. Pt has been pleasant and cooperative. Pt has been visible on the unit, social with peers and staff.15 minute safety checks maintained. * Peewee Sarkar RN - 09/27/2024 2:01 PM EST Problem: Ineffective Coping Goal: Identifies healthy coping skills Outcome: Progressing Pt is visible on the unit, social with peers, attends groups. Pt identifies healthy coping skills. * Vernon Weathers DO - 09/27/2024 11:52 AM EST Psychiatry Progress Note LOS: 17 days Chief Complaint/Reason for Encounter: This is a 49-year-old male with history of anxiety and depression presenting to [facility] ED on 09/09/24 for evaluation of suicidal ideation with a plan to overdose or cut himself. HPI: Chart reviewed and patient seen. Patient refused Inderal. Patient reports not sleeping at all last night. Reports eating well. Adherent with medication regiment and denies any adverse side effects. Denies SI/HI. Reports ongoing chronic AH. States that he needs to have remeron and Seroquel added back to his regimen as he cannot sleep without them. Review of Systems: Except as stated above all other systems are unremarkable Past, Family, Social History: No Change Psychiatric Speciality Examination: Visit Vitals BP 138/89 Pulse 70 Temp 36.8 ??C (98.2 ??F) (Temporal) Resp 18 1.727 m (68 ), 103 kg (227 lb 3.2 oz), Body mass index is 34.55 kg/m??. No results found for this or any previous visit (from the past 4464 hours). Mental Status Examination & Relevant Physical Exam: General appearance and Manner: Appears stated age, well-groomed, no acute distress, Musculoskeletal: Has mild psychomotor agitation Speech: Increased quantity. Normal rhythm, volume, tone, rate Mood & Affect: Mood reported as good Affect is euthymic, mildly irritable, appropriate, congruent, full range, supple Thought Process: Linear, goal directed, logical, coherent Description of Associations: Intact Description of Abnormal or Psychotic Thoughts: No delusions elicited. Reports auditory hallucinations in the form of whispers Suicidal Ideations/Homicidal Ideations/Violent Ideations: Denies active/passive SI/HI orientation: Alert and oriented x 3 Attention/Concentration: Good Insight and Judgment: Fair Medical Decision Making: Problem List/Diagnosis: Principal Problem: Schizoaffective disorder, bipolar type ([facility]) Active Problems: Psychiatric diagnosis Uncomplicated opioid dependence ([facility]) Stimulant use disorder Data/Medical records reviewed/Labs/Imaging and Other Diagnostic Studies reviewed: Recent Results (from the past 48 hours) [place] level Collection Time: 09/26/24 8:17 AM Result Value Ref Range [place] Level 0.7 0.6 - 1.2 mEq/L PRN Psychotropics Administered Last 24 Hours: None Assessment/Status: Patient refused his main psychotropic medications. Will discontinue Abilify and restart Seroquel 100mg PO QHS We will continue to monitor patient on safe and therapeutic milieu. Social work team to continue with safe discharge planning. Treatment Plan/Recommendations: Intervention/Psychotherapy: active participant in therapy sessions Discontinue Abilify Restart Seroquel 100mg PO QHS Medications: Scheduled Meds:atorvastatin, 20 mg, oral, Nightly fluticasone propionate, 2 spray, Each Nostril, Daily gabapentin, 600 mg, oral, BID lithium, 900 mg, oral, Nightly methadone, 80 mg, oral, Daily And methadone, 20 mg, oral, q24h ZARIA multivitamin, 1 each, oral, Daily nicotine, 1 patch, transdermal, Daily OXcarbazepine, 600 mg, oral, Daily pantoprazole, 40 mg, oral, q AM AC prazosin, 4 mg, oral, Nightly propranoloL, 20 mg, oral, BID QUEtiapine, 100 mg, oral, Nightly senna, 2 tablet, oral, Nightly PRN Meds:.PRN medications: acetaminophen, albuterol, calcium carbonate, hydrOXYzine HCL, methocarbamoL, nicotine polacrilex Lab/Radiology/Tests/Consultation: As already prescribed - No additional warranted at this time. * Parris Mancilla RN - 09/27/2024 1:50 AM EST Pt remains safe on unit, maintained on q15 min safety checks. * Neeru Montgomery RN - 09/26/2024 9:13 PM EST Problem: Potential for Harm to Self or Others Goal: Notifies staff when experiencing harmful thoughts toward self/others Outcome: Progressing Note: Denies SI/HI in this shift. Problem: Anxiety Goal: Attempts to manage anxiety with help Outcome: Progressing Note: Pt rates anxiety level 6/10, received prn atarax with moderate effect. * MCKAY Rivera - 09/26/2024 4:07 PM EST Problem: Potential for Harm to Self or Others Goal: Denies harm toward self or others Outcome: Progressing Problem: Alteration in Sleep Goal: STG - Reports nightly sleep, duration, and quality Outcome: Progressing Patient signed a agreement for [facility] at [facility] and referral faxed. Updated notes to be sent Sunday for review Call back number * Vernon Weathers DO - 09/26/2024 3:33 PM EST Psychiatry Progress Note LOS: 16 days Chief Complaint/Reason for Encounter: This is a 49-year-old male with history of anxiety and depression presenting to [facility] ED on 09/09/24 for evaluation of suicidal ideation with a plan to overdose or cut himself. HPI: Chart reviewed and patient seen. Patient refused Abilify, lithium, Inderal. Patient reports sleeping well. Reports eating well. Adherent with medication regiment and denies any adverse side effects. When asked about SI he stated just a little bit. Denies HI. Reports ongoing chronic AH. Reports going to groups Review of Systems: Except as stated above all other systems are unremarkable Past, Family, Social History: No Change Psychiatric Speciality Examination: Visit Vitals BP 111/77 Pulse 75 Temp 37.3 ??C (99.1 ??F) (Temporal) Resp 18 1.727 m (68 ), 103 kg (227 lb 3.2 oz), Body mass index is 34.55 kg/m??. No results found for this or any previous visit (from the past 4464 hours). Mental Status Examination & Relevant Physical Exam: General appearance and Manner: Appears stated age, well-groomed, no acute distress, Musculoskeletal: Has mild psychomotor agitation Speech: Increased quantity. Normal rhythm, volume, tone, rate Mood & Affect: Mood reported as good Affect is euthymic, appropriate, congruent, full range, supple Thought Process: Linear, goal directed, logical, coherent Description of Associations: Intact Description of Abnormal or Psychotic Thoughts: No delusions elicited. Reports auditory hallucinations in the form of whispers Suicidal Ideations/Homicidal Ideations/Violent Ideations: Reports active SI without method, intent,or plan. Denies HI orientation: Alert and oriented x 3 Attention/Concentration: Good Insight and Judgment: Fair Medical Decision Making: Problem List/Diagnosis: Principal Problem: Schizoaffective disorder, bipolar type ([facility]) Active Problems: Psychiatric diagnosis Uncomplicated opioid dependence ([facility]) Stimulant use disorder Data/Medical records reviewed/Labs/Imaging and Other Diagnostic Studies reviewed: Recent Results (from the past 48 hours) [place] level Collection Time: 09/26/24 8:17 AM Result Value Ref Range [place] Level 0.7 0.6 - 1.2 mEq/L PRN Psychotropics Administered Last 24 Hours: None Assessment/Status: Patient refused his main psychotropic medications. Nursing suspects this may be due to patient not taking other medications in order to be less sedated as he is being monitored for 3 hours after getting his methadone. Today he was able to not fall asleep after his dose. We will shift his lithium dose to bedtime we will continue to encourage patient to participate in unit activities. We will continue to monitor patient on safe and therapeutic milieu. Social work team to continue with safe discharge planning. Treatment Plan/Recommendations: Intervention/Psychotherapy: active participant in therapy sessions Change [place] dosing to 900 mg p.o. nightly Medications: Scheduled Meds:ARIPiprazole, 15 mg, oral, Daily atorvastatin, 20 mg, oral, Nightly fluticasone propionate, 2 spray, Each Nostril, Daily gabapentin, 600 mg, oral, BID lithium, 450 mg, oral, BID methadone, 80 mg, oral, Daily And methadone, 20 mg, oral, q24h ZARIA multivitamin, 1 each, oral, Daily nicotine, 1 patch, transdermal, Daily OXcarbazepine, 600 mg, oral, Daily pantoprazole, 40 mg, oral, q AM AC prazosin, 4 mg, oral, Nightly propranoloL, 20 mg, oral, BID senna, 2 tablet, oral, Nightly PRN Meds:.PRN medications: acetaminophen, albuterol, calcium carbonate, hydrOXYzine HCL, methocarbamoL, nicotine polacrilex Lab/Radiology/Tests/Consultation: As already prescribed - No additional warranted at this time. * Peewee Sarkar RN - 09/26/2024 3:21 PM EST Problem: Potential for Harm to Self or Others Goal: Denies harm toward self or others Outcome: Progressing Pt denies suicidal ideations, denies homicidal ideations. Pt denies harm toward self or others. * Peewee Sarkar RN - 09/26/2024 3:00 PM EST Pt states he was having suicidal ideations this morning. Pt also endorses auditory and visual hallucinations. Pt denies homicidal ideations. Pt rates his anxiety level as 10 out of 10, rates his depression level as 10 out of 10. Pt describes his mood as ok. Pt has been calm, pleasant and cooperative. Pt has been visible, social with peers and staff. 15 minute safety checks maintained. * Jackelin Reyes LCSW - 09/26/2024 11:35 AM EST THEA faxed respite referral form along with clinical documentation to [facility], ph: . Per intake department, a decision will be made by this afternoon as to wether or not pt can be accepted to their program early next week. Awaiting reply. THEA received call back from [facility] who reports they cannot accommodate pt and that they recommend referring pt to [facility]. THEA faxed referral to [facility] ([place] and [facility]. Awaiting reply. * Yassine Cook RN - 09/26/2024 7:24 AM EST Pt slept in pt room for about 8 hours. No behavioral concerns at this moment. Q 15 min checks remain in place * Traci Rodriguez RN - 09/25/2024 7:33 PM EST Problem: Potential for Harm to Self or Others Goal: Denies harm toward self or others Outcome: Progressing Problem: Anxiety Goal: Attempts to manage anxiety with help Outcome: Progressing * Traci Rodriguez RN - 09/25/2024 5:57 PM EST Patient on unit, has been visible at times. Patient denies SI and HI, endorses auditory and visual hallucinations. Patient states I am hanging in there, taking it one day at a time. Patient reportsheadache and asked for PRNs. Q15 minute safety checks remains in place for patient safety. * Callie Thompson OT - 09/25/2024 4:13 PM EST Problem: Occupational therapy Goal: Attend and participate in unit activities, including therapeutic, recreational, and educational groups Outcome: Not Progressing Pt attended 0% of OT groups this week and he is not visible in the milieu. Goal: Demonstrates healthy coping skills Outcome: Not Progressing Pt appears sedated and he is not engaging in any activities. He would benefit from learning healthycoping skills to address his mental health and substance abuse. * Callie Thompson OT - 09/25/2024 4:11 PM EST Behavioral Health OT Weekly Progress Note Date of note: 09/25/24 Ignacio Tovar attended 0% of OT groups this week. Pt continues to be sedated and isolative to his room. He will continue to be encouraged to attend groups on the unit. The patient's updated functional assessment is as follows: Attention span: maximum assist ADL: modified independent IADL: independent per pt report Interpersonal: minimum assist Coping skills: moderate assist Leisure: maximum assist Time mgmt: moderate assist Self control: independent Problem solving: stand by assist Callie Thompson OT Early entry for 09/27 due to scheduled time off * Jackelin Reyes LCSW - 09/25/2024 4:05 PM EST THEA faxed referrals to [facility], and [facility]. Awaiting Reply. Phone numbers for follow up: [facility] [phone] [facility]: [phone] [facility]: [phone] [place]: [phone] option 1 * Vernon Weathers DO - 09/25/2024 3:19 PM EST Psychiatry Progress Note LOS: 15 days Chief Complaint/Reason for Encounter: This is a 49-year-old male with history of anxiety and depression presenting to [facility] ED on 09/09/24 for evaluation of suicidal ideation with a plan to overdose or cut himself. HPI: Chart reviewed and patient seen. Nursing reports the patient was observed after getting methadone and did have an episode of falling asleep within a 3-hour period. Patient today was seen as he was heard loudly moaning in the day room. He he reported to nursing staff that he was having an abrupt onset of migraine with 10 out of 10 pain. Imitrex was ordered. Patient was evaluated during this time however he could not communicate due to severe pain and was moaning in agony as this press writer attemptedto ask him questions. After Imitrex was administered and when this press writer reattempted to interview the patient he was sedated and unable to engage in interview. Review of Systems: Except as stated above all other systems are unremarkable Past, Family, Social History: No Change Psychiatric Speciality Examination: Visit Vitals BP 128/78 (BP Location: Right arm, Patient Position: Sitting) Pulse 88 Temp 36.7 ??C (98.1 ??F) (Oral) Resp 16 1.727 m (68 ), 103 kg (227 lb 3.2 oz), Body mass index is 34.55 kg/m??. No results found for this or any previous visit (from the past 4464 hours). Mental Status Examination & Relevant Physical Exam: General appearance and Manner: Appears stated age, well-groomed, appearing in acute distress Musculoskeletal: No significant abnormality Speech: Unable to assess due to clinical condition Mood & Affect: Unable to assess mood due to clinical condition. Affect is severely dysphoric, anxious, appropriate, congruent, full range, supple Thought Process:Unable to assess due to clinical condition Description of Associations: Unable to assess due to clinical condition Description of Abnormal or Psychotic Thoughts: Unable to assess due to clinical condition Suicidal Ideations/Homicidal Ideations/Violent Ideations: Unable to assess due to clinical condition Orientation: Unable to assess due to clinical condition Attention/Concentration: Unable to assess due to clinical condition Insight and Judgment: Unable to assess due to clinical condition Medical Decision Making: Problem List/Diagnosis: Principal Problem: Schizoaffective disorder, bipolar type ([facility]) Active Problems: Psychiatric diagnosis Uncomplicated opioid dependence ([facility]) Stimulant use disorder Data/Medical records reviewed/Labs/Imaging and Other Diagnostic Studies reviewed: No results found for this or any previous visit (from the past 48 hours). PRN Psychotropics Administered Last 24 Hours: None Assessment/Status: Patient tolerating current medication regiment with which they are adherent. Discontinue Seroquel and increase Abilify to 15 mg p.o. daily. Propranolol. Decrease methadone to 100 mg p.o. daily we will continue to encourage patient to participate in unit activities. We will continue to monitor patient on safe and therapeutic milieu. Social work team to continue with safe discharge planning. Treatment Plan/Recommendations: Intervention/Psychotherapy: active participant in therapy sessions Discontinue Seroquel Increase Abilify to 15mg PO daily Recheck lithium level Decrease Methadone to 100mg PO daily Medications: Scheduled Meds:ARIPiprazole, 10 mg, oral, Daily atorvastatin, 20 mg, oral, Nightly fluticasone propionate, 2 spray, Each Nostril, Daily gabapentin, 600 mg, oral, BID lithium, 450 mg, oral, BID [START ON 09/26/2024] methadone, 80 mg, oral, Daily And [START ON 09/26/2024] methadone, 20 mg, oral, q24h ZARIA multivitamin, 1 each, oral, Daily nicotine, 1 patch, transdermal, Daily OXcarbazepine, 600 mg, oral, Daily pantoprazole, 40 mg, oral, q AM AC prazosin, 4 mg, oral, Nightly propranoloL, 20 mg, oral, BID QUEtiapine fumarate ER, 100 mg, oral, Nightly senna, 2 tablet, oral, Nightly PRN Meds:.PRN medications: acetaminophen, albuterol, calcium carbonate, hydrOXYzine HCL, methocarbamoL, nicotine polacrilex Lab/Radiology/Tests/Consultation: As already prescribed - No additional warranted at this time. * MCKAY Rivera - 09/25/2024 2:21 PM EST Problem: Ineffective Coping Goal: Identifies healthy coping skills Outcome: Not Progressing Problem: Ineffective Coping Goal: Identifies ineffective coping skills Outcome: Progressing Clinician reviewed available resources ROMERO signed for [facility] * MCKAY Rivera - 09/25/2024 1:02 PM EST PCP PHYSICIAN, NO PCP Demographics Comment[address] [address] Phone Numbers Social Security Number [id number] Insurance Information [facility] MEDICARE Zoroastrian Zoroastrianism (None) Marital Status Single Documents Filed to Patient Power of Matrix Repairer Living Will Clinical Unknown Study Attachment Consent Form ABN Waiver After VisitSummary Lab Result Scan Code Status MyChart Status Advance Care Planning Not on File Not on File Not on File Not on File Not on File Not on File Not on File Not on File Default [Updated on 09/10/24 1632] Inactive Jump to the Activity Auth/Cert Information Open auth/cert linked to hospital account [id number] Bed Days Further reviews needed: Yes Open utilization review [facility] CARE Next review: 09/19/2024 (6d ago) Update bed days for this coverage Approved Nights: 9 Start End Nights Day Type 09/10/2024 09/15/2024 5 [facility] 09/15/2024 09/19/2024 4 [facility] Secondary [place]age[place] Next review: None No nights documented for this coverage. Update bed days for this coverage Gub-[id number]-[id number] Avoidable Nights: 0 No pog-drsgswov-[id number] nights are documented. Open auth/cert Admission Information Current Information Attending Provider Admitting Provider Admission Type Admission Status DO Vernon Lane DO Urgent Confirmed Admission Admission Date/Time Discharge Date Hospital Service Auth/Cert Status 09/10/24 1519 Psychiatry Incomplete Hospital [id number] Hospital Account Name Acct ID Class Status Primary Coverage Ignacio Tovar [id number] Inpatient Psych Open [facility] MEDICARE - [facility] ONE CARE Guarantor Account (for Hospital ) Name Relation to Pt Service Area Active? Acct Type Ignacio Tovar Self THSA Yes Personal/Family Address Phone [address] [place] [address] Coverage Information (for Hospital ) 1. [facility] MEDICARE/[facility] ONE CARE F/O Payor/Plan Precert # [facility] MEDICARE/[facility] ONE CARE Subscriber Subscriber # Ignacio Tovar [id number] Address Phone [address] [place] [id number] 2. [place] Precert # [place] Sub[place] Subscriber # Ignaico Tovar [id number] Address Phone [address] [place] [address] * Peewee Sarkar RN - 09/25/2024 11:40 AM EST Pt denies suicidal ideations, denies homicidal ideations. Pt endorses auditory hallucinations, endorses visual hallucinations. Pt states that he always hasauditory and visual hallucinations. Pt rates his anxiety level as 10 out of 10, rates his depression level as 10 out of 10. Pt describes his mood as not good. Pt has been visible on the unit, social with peers. Pt takes his prescribes meds as scheduled. Pt was given imitrex for a reported migraine headache. 15 minute safety checks maintained. * Peewee Sarkar RN - 09/25/2024 11:36 AM EST Problem: Potential for Harm to Self or Others Goal: Denies harm toward self or others Outcome: Progressing Pt denies suicidal ideations, denies homicidal ideations. Pt denies harm toward self or others. * Yassine Cook RN - 09/25/2024 6:04 AM EST Problem: Sensory Perceptual Alteration AEB Goal: Participates in unit activities Outcome: Progressing Pt appeared sleeping in pt room for about 8 hours. No behavioral concerns at this moment. Q 15 min checks remain in place * Hiram Noriega RN - 09/24/2024 7:51 PM EST Goals: Problem: Sensory Perceptual Alteration AEB Goal: Participates in unit activities Outcome: Not Progressing Note: Not involved in unit activities. Sleeps at the drop of a hat. Goal: Discusses signs/symptoms of illness/treatment options Outcome: Not Progressing Problem: Potential for Harm to Self or Others Goal: Identifies stressors that lead to harmful behaviors Outcome: Not Progressing Goal: Notifies staff when experiencing harmful thoughts toward self/others Outcome: Not Progressing Note: When asked about his safety he stated Yeah, I guess but he didn't volunteer the answer, TW had to ask. Problem: Ineffective Coping Goal: Identifies ineffective coping skills Outcome: Not Progressing Goal: Identifies healthy coping skills Outcome: Not Progressing Problem: Potential for Harm to Self or Others Goal: Denies harm toward self or others Outcome: Progressing Note: Pt has not harmed self or others, so far in the shift. And has not made any threats of harm Identify possible barriers to meeting goals/advancing plan of care: Chronic Mental Health Issues Stability of the patient: Moderately Stable - Low risk of patient condition declining or worsening End of Shift Summary: Pt is working toward baseline; thoughts and behavior improving ever so slightly. * Jackelin Reyes LCSW - 09/24/2024 4:33 PM EST Problem: SW Connection/Reconnection to Aftercare Services Goal: SW Objective: Patient will identify needs and preferences in regards to follow up care. Outcome: Progressing SW reviewed pt's chart and discussed treatment goal progress during interdisciplinary team. Pt appeared more visible in the milieu with increased level of alertness today, as compared to previous days. SW met with pt for individual session. Pt was calm and cooperative. He was pleasant with SW. Pt reports he circled 3 [facility] facilities he is interested in last evening, but has misplaced the paper. He requests a new print out in order to indicate which facilities he would like referrals sent to. SW provided new list. Pt reports he is in agreement with referrals to [facility] level of care. SW will continue to monitor and support pt in accordance with plan of care. * Jazmin Silverio RN - 09/24/2024 12:00 PM EST Problem: Sensory Perceptual Alteration AEB Goal: Participates in unit activities Outcome: Not Progressing Note: Pt has not been out of his room except for breakfast this shift Problem: Potential for Harm to Self or Others Goal: Notifies staff when experiencing harmful thoughts toward self/others Outcome: Not Progressing Note: Pt endorsed SI/HI this am, but only on questioning. He did not notify staff of such thoughts Problem: Ineffective Coping Goal: Identifies ineffective coping skills Outcome: Not Progressing Note: Pt has been sleeping all day Pt has been medication compliant today, but had to be woken three times before he'd sit up for his medications and assessment, albeit he was donning ear plugs as well. Poor eye contact, and endorsingSI/HI/AVH, although not responding to internal stimuli at this time. Pt facial expressions were rather bizarre this am, as he held his head in the down position, but looked up angrily with his eyes. When asked if he had HI thoughts, he stated, It they are asking for it. Pt finally came out of hisroom around 1:15p this afternoon, calm and cooperative, making + eye contact, and asking for nicotine gum. He has new orders to remain within eyes view for 3 hours after am methadone and to document if pt nods off or falls asleep and to notify provider. Q15 minute checks maintained for safety per unit protocol * Vernon Weathers DO - 09/24/2024 10:30 AM EST Psychiatry Progress Note LOS: 14 days Chief Complaint/Reason for Encounter: This is a 49-year-old male with history of anxiety and depression presenting to [facility] ED on 09/09/24 for evaluation of suicidal ideation with a plan to overdose or cut himself. HPI: Chart reviewed and patient seen. The patient was evaluated this morning, he reports the headache he had last night improved after the tylenol and robaxin. He did not sleep well because he had woken up multiple times to pace around his room, and sit on the bed because something is not right with him and he does not feel good or like himself . He did not go into detail beyond that when asked. He has been drowsy, but does not think its related to his medications. He is still feeling anxious and depressed. He is experiencing suicidal ideation without a plan or intention, he has auditory hallucinations which he described as hearing his name, but that the whispers are mostly unintelligible. He denies visual hallucinations and HI at this time. Review of Systems: Except as stated above all other systems are unremarkable Past, Family, Social History: No Change Psychiatric Speciality Examination: Visit Vitals BP 104/83 (BP Location: Right arm, Patient Position: Standing) Pulse 108 Temp 35.7 ??C (96.3 ??F) (Temporal) Resp 16 1.727 m (68 ), 103 kg (227 lb 3.2 oz), Body mass index is 34.55 kg/m??. No results found for this or any previous visit (from the past 4464 hours). Mental Status Examination & Relevant Physical Exam: General appearance and Manner: Appears stated age, adequate grooming, no acute distress, drowsy buteasy to arouse. Musculoskeletal: Mild psychomotor agitation Speech: Decreased quantity of speech, mumbling, and speaking in low volumes Mood & Affect: Mood is depressed . Affect is dysphoric, limited range. Thought Process: Linear Description of Associations:intact Description of Abnormal or Psychotic Thoughts: No delusions. Auditory hallucinations described as whispers. Suicidal Ideations/Homicidal Ideations/Violent Ideations: Active SI without method, intent, or plan. No HI at this time. Orientation: Alert and oriented x 3 Attention/Concentration:Fair, easily distracted Insight and Judgment: Questionable Medical Decision Making: Problem List/Diagnosis: Principal Problem: Schizoaffective disorder, bipolar type (CMS/HCC) Active Problems: Psychiatric diagnosis Uncomplicated opioid dependence ([facility]) Stimulant use disorder Data/Medical records reviewed/Labs/Imaging and Other Diagnostic Studies reviewed: Recent Results No results found for this or any previous visit (from the past 48 hours). PRN Psychotropics Administered Last 24 Hours: None Assessment/Status: Patient tolerating his medications, he is adherent with the regimen. Will cross continue cross taper from Seroquel to Abilify. Will also implement patient being in day room for 3 hours with line of sight by nursing. If patient falls asleep within 3 hours of taking methadone will decrease dose. Continue with individual and group therapies. Treatment Plan/Recommendations: Intervention/Psychotherapy: active participant in therapy sessions Decrease Seroquel to 100mg PO QHS Increase Abilify to 10mg PO daily Medications: Scheduled Meds: MEDSSCHEDULED [START ON 09/25/2024] ARIPiprazole, 10 mg, oral, Daily atorvastatin, 20 mg, oral, Nightly fluticasone propionate, 2 spray, Each Nostril, Daily gabapentin, 600 mg, oral, BID lithium, 450 mg, oral, BID methadone, 80 mg, oral, Daily And methadone, 30 mg, oral, q24h ZARIA multivitamin, 1 each, oral, Daily nicotine, 1 patch, transdermal, Daily OXcarbazepine, 600 mg, oral, Daily pantoprazole, 40 mg, oral, q AM AC prazosin, 4 mg, oral, Nightly [Held by provider] propranoloL, 20 mg, oral, BID QUEtiapine fumarate ER, 100 mg, oral, Nightly senna, 2 tablet, oral, Nightly PRN Meds:. MEDSPRN PRN medications: acetaminophen, albuterol, calcium carbonate, hydrOXYzine HCL, methocarbamoL, nicotine polacrilex Lab/Radiology/Tests/Consultation: As already prescribed - No additional warranted at this time. * Yassine Cook RN - 09/24/2024 6:06 AM EST Problem: Sensory Perceptual Alteration AEB Goal: Participates in unit activities Outcome: Progressing Pt appeared in pt room sleeping for about 7 hours. Pt spent the rest of the time in common room. Nobehavioral concerns at this moment. Q 15 min checks remain in place * Rolanda Carlos RN - 09/23/2024 9:35 PM EST Pt has been quiet,isolative at times, TV in the dayroom after others had gone to bed. He c/o a headache,prn medication with some relief. Hygiene and intake are good. Given support ,will continue to assess status. * Jackelin Reyes LCSW - 09/23/2024 4:40 PM EST Problem: SW Substance Use Goal: SW Objective: Patient will identify triggers for addicitve behavior. Outcome: Not Progressing SW reviewed pt's chart and discussed treatment goal progress during interdisciplinary team. THEA sent email to [facility] catalytic case operator Xi Liu, requesting information regarding referring pt to appropriate respites. Awaiting reply. SW attempted to meet with pt to discuss preferences for [facility] referrals, however pt was asleep in bedand declined to wake up and meet with THEA. Pt was left with printout of [place] [facility] facilities for review. SW to place referrals according to pt's preferences, once indicated. SW will continue to monitor and support pt in accordance with plan of care. * Vernon Weathers DO - 09/23/2024 3:04 PM EST Psychiatry Progress Note LOS: 13 days Chief Complaint/Reason for Encounter: This is a 49-year-old male with history of anxiety and depression presenting to [facility] ED on 09/09/24 for evaluation of suicidal ideation with a plan to overdose or cut himself. HPI: Chart reviewed and patient seen. Nursing continues to report patient is sedated. The patient continues to be sedated. He appeared anxious and stated that he does not feel well but could not elaborateon why he felt unwell. He continues to report active SI and HI but denies method or plan. Continuesto report AH in form of whispers. States he is sleeping poorly but nursing reports otherwise. States he is eating well. Review of Systems: Except as stated above all other systems are unremarkable Past, Family, Social History: No Change Psychiatric Speciality Examination: Visit Vitals BP 101/61 (BP Location: Left arm, Patient Position: Standing) Pulse 88 Temp 36.2 ??C (97.1 ??F) (Temporal) Resp 16 1.727 m (68 ), 103 kg (227 lb 3.2 oz), Body mass index is 34.55 kg/m??. No results found for this or any previous visit (from the past 4464 hours). Mental Status Examination & Relevant Physical Exam: General appearance and Manner: Appears stated age, well-groomed, no acute distress, Musculoskeletal: Has mild psychomotor agitation Speech: Increased quantity. Normal rhythm, volume, tone, rate Mood & Affect: Mood reported as depressed. Affect is slightly dysphoric, anxious, appropriate, congruent, full range, supple Thought Process: Linear, goal directed, logical, coherent Description of Associations: Intact Description of Abnormal or Psychotic Thoughts: No delusions elicited. Reports auditory hallucinations in the form of whispers Suicidal Ideations/Homicidal Ideations/Violent Ideations: Reports active SI without method, intent,or plan. Reports HI directed towards his aunts and uncles. orientation: Alert and oriented x 3 Attention/Concentration: Good Insight and Judgment: Fair Medical Decision Making: Problem List/Diagnosis: Principal Problem: Schizoaffective disorder, bipolar type ([facility]) Active Problems: Psychiatric diagnosis Uncomplicated opioid dependence ([facility]) Stimulant use disorder Data/Medical records reviewed/Labs/Imaging and Other Diagnostic Studies reviewed: Recent Results (from the past 48 hours) [place] level Collection Time: 09/22/24 12:38 PM Result Value Ref Range [place] Level 0.4 (L) 0.6 - 1.2 mEq/L PRN Psychotropics Administered Last 24 Hours: None Assessment/Status: Patient tolerating current medication regiment with which they are adherent. Continue Seroquel to Abilify cross titration, increase [place] to 450mg PO BID. Hold propranolol due to soft blood pressures. We will continue to encourage patient to participate in unit activities. We will continue to monitor patient on safe and therapeutic milieu. Social work team to continue with safe discharge planning. Treatment Plan/Recommendations: Intervention/Psychotherapy: active participant in therapy sessions Decrease Seroquel to 200mg PO QHS Increase Abilify to 5mg PO daily Increase [place] to 450mg PO BID Medications: Scheduled Meds:[START ON 09/24/2024] ARIPiprazole, 5 mg, oral, Daily atorvastatin, 20 mg, oral, Nightly fluticasone propionate, 2 spray, Each Nostril, Daily gabapentin, 600 mg, oral, BID lithium, 450 mg, oral, BID methadone, 80 mg, oral, Daily And methadone, 30 mg, oral, q24h ZARIA multivitamin, 1 each, oral, Daily nicotine, 1 patch, transdermal, Daily OXcarbazepine, 600 mg, oral, Daily pantoprazole, 40 mg, oral, q AM AC prazosin, 4 mg, oral, Nightly [Held by provider] propranoloL, 20 mg, oral, BID QUEtiapine fumarate ER, 200 mg, oral, Nightly senna, 2 tablet, oral, Nightly PRN Meds:.PRN medications: acetaminophen, albuterol, calcium carbonate, hydrOXYzine HCL, methocarbamoL, nicotine polacrilex Lab/Radiology/Tests/Consultation: As already prescribed - No additional warranted at this time. * Sandra Lester RN - 09/23/2024 11:44 AM EST Problem: Sensory Perceptual Alteration AEB Goal: Participates in unit activities Outcome: Progressing Problem: Potential for Harm to Self or Others Goal: Identifies stressors that lead to harmful behaviors Outcome: Progressing Problem: Ineffective Coping Goal: Identifies ineffective coping skills Outcome: Progressing * Yassine Cook RN - 09/23/2024 5:45 AM EST Problem: Sensory Perceptual Alteration AEB Goal: Participates in unit activities Outcome: Progressing Pt appeared in pt room sleeping for about 8 hours. No behavioral concerns at this moment. Q 15 min checks remain in place * Neeru Montgomery RN - 09/22/2024 6:39 PM EST 09/22/24 1814 09/22/24 1815 09/22/24 1818 Vital Signs Heart Rate 72 64 76 Heart Rate Source -- -- Monitor BP 132/86 133/88 106/78 MAP (Calculated) 101 mm Hg 103 mm Hg 87 mm Hg Patient Position Lying Sitting Standing Pt complaining of headache and dizziness. PRN 650mg tylenol given results pending. made aware of the ortho vitals. Pt will receive 1L bolus. Will check ortho after bolus. * Yuni Marques, - 09/22/2024 6:33 PM EST Contacted regarding this patient complaining of dizziness and headache stating I dont feel good and help me. Patient had been seen earlier ambulating freely in the primary rizo room and at times sitting on a side chair sleeping. He previously was reviewed/seen in a telemetry consult with With neurology Barfield after patient complaining of ongoing headache. Was diagnosed with chronic migraine with visual aura and concern for status migrainous. He was treated with IV Toradol, IV magnesium, IV Solu-Medrol, IV Benadryl, and p.o. Compazine along with a normal saline 500 mL bolus. Patient had a CT head 09/16/2024 which was unremarkable for acute intracranial pathology. Orthostatic vitals were done showing: Lyin/86, HR 72 Sittin/88, HR 64 Standin/78, HR 76. Chart review showed that patient has not had previously positive orthostatic vitals. No noted history of congestive heart failure in the system. -Discussed with nursing caddy/caddie supervisor. Will order 1 L LR bolus over 2 hours time and for when nighttime nursing caddy/caddie supervisor can be available to assist with monitoring -Repeat orthostatic vitals in the morning -Psychiatry can review medications that may provoke orthostatic symptoms -Advised RN for patient to be slow to stand, pause and wait before he starts walking. Yuni Marques DO 09/22/2024 JENNIFER Hospitalist, 7am-7pm Available thru Secure Chat After 7pm, please text AIMS cross coverage on Secure Chat * MCKAY Rivera - 09/22/2024 4:59 PM EST Problem: Potential for Harm to Self or Others Goal: Denies harm toward self or others Outcome: Not Progressing Problem: Defensive Coping Goal: Demonstrates healthy coping skills Outcome: Progressing Clinician encouraged patient to consider options for aftercare as this was sometimes a process thattook some time, patient initially asked about staying in [place] but clinician reminded patient that this would be difficult with his [place] insurance and agress to review referrals tomorrow. * Jhony Malloy RD - 09/22/2024 3:23 PM EST 09/22/2024 @ 3:23 PM EST Nutrition Follow Up Note Reason for RD Intervention: Assessment Type: Follow-up Reason for Assessment: Decreased Intake Anthropometrics: Height: 172.7 cm (68 ) Weight: 103 kg (227 lb 3.2 oz) BMI (Calculated): 34.6 BMI Class: Overweight Current Diet and Supplements: Dietary Orders (From admission, onward) Start Ordered 09/12/24 1519 Dietary nutrition supplements Three times daily (TID); [facility]; Diabetic Supplement Continuous Comments: Glucerna, TID with meals, vanilla Question Answer Comment Frequency Three times daily (TID) Location [facility] Supplements Diabetic Supplement 09/12/24 1518 09/10/24 1632 Adult diet [facility]; General; Regular Diet effective now Question Answer Comment Location [facility] Diet Type (req) General General Diet Regular 09/10/24 1632 History of presenting illness: Patient is a 49 y.o. male with a history of mild intermittent asthma, hyperlipidemia, chronic low back pain/sciatica, opioid use disorder in remission on methadone maintenance, major depressive disorder, generalized anxiety disorder, post-traumatic stress disorder admitted 09/10/2024 with Schizoaffective disorder, bipolar type ([facility]). Past Medical History: Diagnosis Date Addiction to drug ([facility]) Anxiety Chronic pain disorder Depression Food/Nutrition History: Appetite UROLOGY PHYSICIAN ASSISTANT: Poor Intake UROLOGY PHYSICIAN ASSISTANT: Decreased (Very little PO intake for 4-6 months.) Weight History: Wt Readings from Last 10 Encounters: 09/21/24 103 kg (227 lb 3.2 oz) 09/09/24 103 kg (226 lb) Subjective Assessment: Spoke with Ignacio. Per interview, pt stated that his appetite is no good. He mentioned that he is kind of eating 1 meal a day. He has been enjoying the Glucerna he has received during admission. Spoke with nurse. Per interview, pt is eating well but has a tendency to fall asleep. Due to this, he sometimes does not finish meals and nursing staff will save his meals for him to eat at a later time. Per medical documentation, nursing mentioned that patient has been extremely sedated over the past few days. Nutrition-Related Lab Values: Reviewed. Medications: ARIPiprazole, 2 mg, oral, Daily atorvastatin, 20 mg, oral, Nightly fluticasone propionate, 2 spray, Each Nostril, Daily gabapentin, 600 mg, oral, BID lithium, 300 mg, oral, BID methadone, 80 mg, oral, Daily And methadone, 30 mg, oral, q24h ZARIA multivitamin, 1 each, oral, Daily nicotine, 1 patch, transdermal, Daily OXcarbazepine, 600 mg, oral, Daily pantoprazole, 40 mg, oral, q AM AC prazosin, 4 mg, oral, Nightly propranoloL, 20 mg, oral, BID QUEtiapine fumarate ER, 300 mg, oral, Nightly senna, 2 tablet, oral, Nightly CONTINUOUS: PRN medications: acetaminophen, albuterol, calcium carbonate, hydrOXYzine HCL, methocarbamoL, nicotine polacrilex Energy Needs: [address] kcal, 144 gm protein, 2050 mL fluid per day. Height: 172.7 cm (68 ) Temp: 36.3 ??C (97.3 ??F) Calculating Weight (lbs): 226 Calculating Weight (Kg calc): 102.51 Food/Nutrition-Current Status: Intake Type: P.O. Current Diet Status: Appropriate Appetite: Fair Intake Amount (%): 25-50% Intake Assessment: Variable Pain related to Intake: GERD Nutrition Focused Physical Findings: Overall Appearance: Per visual assessment, pt is obese. Nerves and Cognition: Alert, Oriented Nutrition Diagnosis: Code Type: None Identified Status: No improvement Diagnosis: Inadequate Oral Intake Etiology: Physiologic causes (GERD) Symptoms: Per interview, pt stated that he is eating 1 meal a day but is drinking the Glucerna at meals. Additional Nutrition Diagnosis?: Yes Status: No improvement Diagnosis: Unintentional Weight Loss Etiology: Physiologic causes, Other (Comment) (GERD; inadequate oral intake) Symptoms: Pt reported weight loss of 12 lb (5% body weight) in 1 week. Nutrition Interventions: Diet Order (Continue regular diet.) Medical Food Supplement(s): Other (Comment) (Discontinue Glucerna TID with meals. Recommend Ensure Plus High Protein TID with meals, vanilla.) Glucerna Frequency: TID Goals: Patient will initially consume at least 50% of meals. , Patient will consume ONS., Electrolytes within normal range., and Maintain weight. Coordination of Patient Care: Verbal discussion with RN. and Care plan discussed with patient/family. Monitoring/Evaluation: Fluid/Beverage Intake, Food Intake, Medical Food Supp/Oral Nutrition Supp, Weight, Renal/Electrolyte Profile Follow Up: Nutrition Priority Level: Moderate Follow up Date: 09/29/24 Please consult nutrition if needed sooner. RD remains available and will continue to follow. Signature: Jhony Malloy MS, RD Available through [employer] * Vernon Weathers DO - 09/22/2024 12:31 PM EST Psychiatry Progress Note LOS: 12 days Chief Complaint/Reason for Encounter: This is a 49-year-old male with history of anxiety and depression presenting to [facility] ED on 09/09/24 for evaluation of suicidal ideation with a plan to overdose or cut himself. HPI: Chart reviewed and patient seen. Nursing they report patient has been extremely sedated over the past few days. This press writer went to interview the patient and he was seen sitting on the edge of his bed with his back hunched forward but was fast asleep. This press writer had to say his name loudly several times for him to have a response. He then appeared to be extremely sedated with slurring of his speech and interview could not be continued in a meaningful way thus it was discontinued. This press writer reattempted to interview the patient at a later time with similar results. Review of Systems: Except as stated above all other systems are unremarkable Past, Family, Social History: No Change Psychiatric Speciality Examination: Visit Vitals BP (!) 115/98 (BP Location: Left arm, Patient Position: Sitting) Comment: RN NOTIFIED Pulse 86 Temp 36.3 ??C (97.3 ??F) (Temporal) Resp 16 1.727 m (68 ), 103 kg (227 lb 3.2 oz), Body mass index is 34.55 kg/m??. No results found for this or any previous visit (from the past 4464 hours). Mental Status Examination & Relevant Physical Exam: General appearance and Manner: Appears stated age, well-groomed, no acute distress, Musculoskeletal: Has mild psychomotor agitation Speech: Slurred speech Mood & Affect: Unable to assess due to sedation Thought Process: Unable to assess due to sedation Description of Associations: Unable to assess due to sedation Description of Abnormal or Psychotic Thoughts: Unable to assess due to sedation Suicidal Ideations/Homicidal Ideations/Violent Ideations: Unable to assess due to sedation Orientation: Unable to assess due to sedation Attention/Concentration: Unable to assess due to sedation Insight and Judgment: Unable to assess due to sedation Medical Decision Making: Problem List/Diagnosis: Principal Problem: Schizoaffective disorder, bipolar type ([facility]) Active Problems: Psychiatric diagnosis Uncomplicated opioid dependence ([facility]) Stimulant use disorder Data/Medical records reviewed/Labs/Imaging and Other Diagnostic Studies reviewed: No results found for this or any previous visit (from the past 48 hours). PRN Psychotropics Administered Last 24 Hours: None Assessment/Status: Patient tolerating current medication regiment with which they are adherent. We will attempt to putpatient back on to Abilify and taper his Seroquel due to sedation. We will continue to encourage patient to participate in unit activities. We will continue to monitor patient on safe and therapeuticmilieu. Social work team to continue with safe discharge planning. Treatment Plan/Recommendations: Intervention/Psychotherapy: active participant in therapy sessions Decrease Seroquel to 300mg PO QHS Initiate Abilify 2mg PO daily Medications: Scheduled Meds:atorvastatin, 20 mg, oral, Nightly fluticasone propionate, 2 spray, Each Nostril, Daily gabapentin, 600 mg, oral, BID lithium, 300 mg, oral, BID methadone, 80 mg, oral, Daily And methadone, 30 mg, oral, q24h ZARIA multivitamin, 1 each, oral, Daily nicotine, 1 patch, transdermal, Daily OXcarbazepine, 600 mg, oral, Daily pantoprazole, 40 mg, oral, q AM AC prazosin, 4 mg, oral, Nightly propranoloL, 20 mg, oral, BID QUEtiapine fumarate ER, 400 mg, oral, Nightly senna, 2 tablet, oral, Nightly PRN Meds:.PRN medications: acetaminophen, albuterol, calcium carbonate, hydrOXYzine HCL, methocarbamoL, nicotine polacrilex Lab/Radiology/Tests/Consultation: As already prescribed - No additional warranted at this time. * Sandra Lesetr RN - 09/22/2024 11:49 AM EST Problem: Sensory Perceptual Alteration AEB Goal: Participates in unit activities Outcome: Progressing Problem: Potential for Harm to Self or Others Goal: Identifies stressors that lead to harmful behaviors Outcome: Progressing Problem: Ineffective Coping Goal: Identifies healthy coping skills Outcome: Progressing Problem: Anxiety Goal: Attempts to manage anxiety with help Outcome: Progressing * Candida Lopes RN - 09/22/2024 6:17 AM EST Assumed patient care 2300. Pt slept throughout the night. Patient with no complaints or issues noted. Patient remains on q15 min shift. * Candida Lopes RN - 09/22/2024 3:59 AM EST Problem: Potential for Harm to Self or Others Goal: Identifies stressors that lead to harmful behaviors Outcome: Not Progressing * Candida Lopes RN - 09/21/2024 8:55 PM EST Patient with multiple trips to the nursing station complaining of different medical issues I don'tfeel well patient stated when asked to explain patient kept saying I just don't feel well. Can I go outside for fresh air. I need fresh air. Pt said tearfully. Patient later came to the nursing station hold his head requesting something for pain. Patient reluctantly took his med stating he is fearful that he won't wake up. Later patient observed going into the quiet room I need to be closer to you so you can see me Patient stated. Pt continues to be monitored on safety checks. * Vladimir Van - 09/21/2024 3:39 PM EST Another Pt made statements that agitated this pt, and this pt made movement making it clear that they where ready to throw a punch at other pt. MHW stepped in and the pt was able to quickly deescalate and self-sooth. * Shawna Escobar MD - 09/21/2024 2:36 PM EST This is a Telehealth visit CC: med management follow up Subjective patient was seen chart reviewed discussed with the team. Patient reports he is more overall feeling the same still quite depressed and anxious hoping the medication will kick in. He physically looks a little better in comparison to yesterday. Still struggling with chronic suicidal ideations. Is more outgoing engaging today. Still talks about negative thoughts feeling of hopeless helplessness and wanted to give time to have the medication full effect. Patient was educated in regards to that. Denies any withdrawals or cravings from any substances. Denies any issues with sleep and appetite. Does go to some of the groups. Reports hallucinations as well but getting better. Denies any other concerns denies any physical concerns not getting any as needed medication for agitation review of systems remains unremarkable unless mentioned abive. Vitals: 09/21/24 0842 BP: 110/83 Pulse: 69 Resp: 16 Temp: SpO2: 97% No visits with results within 1 Week(s) from this visit. Latest known visit with results is: Admission on 09/09/2024, Discharged on 09/10/2024 Component Date Value Ref Range Status Sodium 09/09/2024 138 133 - 145 mmol/L Final Potassium 09/09/2024 3.4 (L) 3.5 - 5.5 mmol/L Final Chloride 09/09/2024 104 96 - 110 mmol/L Final CO2 09/09/2024 27 21 - 32 mmol/L Final Anion Gap 09/09/2024 7 3 - 11 Final Glucose 09/09/2024 88 70 - 100 mg/dL Final BUN 09/09/2024 18 5 - 25 mg/dL Final Creatinine 09/09/2024 1.05 0.70 - 1.30 mg/dL Final eGFR 09/09/2024 88 >=60 mL/min/1.73m2 Final Calculation based on the Chronic Kidney Disease Epidemiology Collaboration (CKD- EPI) equation refitwithout adjustment for race. BUN/Creatinine Ratio 09/09/2024 17.1 Final Calcium 09/09/2024 9.1 8.5 - 10.5 mg/dL Final AST (SGOT) 09/09/2024 37 10 - 42 unit/L Final ALT (SGPT) 09/09/2024 25 10 - 60 unit/L Final Alkaline Phosphatase 09/09/2024 156 (H) 42 - 121 unit/L Final Total Protein 09/09/2024 8.1 (H) 6.0 - 8.0 g/dL Final Albumin 09/09/2024 4.1 3.2 - 5.0 g/dL Final Total Bilirubin 09/09/2024 0.6 0.0 - 1.4 mg/dL Final Ethanol Level 09/09/2024 <3 0 - 10 mg/dL Final Acetaminophen Level 09/09/2024 <2.0 (L) 10.0 - 30.0 mcg/mL Final Salicylate Level 09/09/2024 <1.7 (L) 2.0 - 29.0 mg/dL Final Amphetamine Screen, Ur 09/10/2024 Negative Negative Final Certain OTC medications containing ephedrine, phenylephrine, pseudoephedrine and phenylpropanolamine can cause false positive results. Barbiturate Screen, Ur 09/10/2024 Positive (A) Negative Final Benzodiazepine Screen, Ur 09/10/2024 Negative Negative Final Cocaine Screen, Ur 09/10/2024 Positive (A) Negative Final Opiate Screen, Ur 09/10/2024 Positive (A) Negative Final Cannabinoid (THC) Screen, Ur 09/10/2024 Positive (A) Negative Final Specimens from patients taking pantoprazole sodium (Protonix) have been shown to produce false positive results. Oxycodone Screen, Ur 09/10/2024 Negative Negative Final Fentanyl, Ur 09/10/2024 Positive (A) Negative Final Buprenorphine Screen Urine 09/10/2024 Negative Negative Final PCP Scrn, Ur 09/10/2024 Negative Negative Final Assay cutoff 25 ng/mL Semi-quantitative assay for screening purposes only. Unconfirmed screening result should not be used for non-medical purposes. *ALTERNATE METHOD CONFIRMATION DONE UPON REQUEST ONLY* Methadone Screen, Urine 09/10/2024 Positive (A) Negative Final Assay cutoff 300 ng/mL Semi-quantitative assay for screening purposes only. Unconfirmed screening result should not be used for non-medical purposes. *ALTERNATE METHOD CONFIRMATION DONE UPON REQUEST ONLY* WBC 09/09/2024 11.2 (H) 4.8 - 10.8 K/mcL Final RBC 09/09/2024 3.70 (L) 4.50 - 5.50 M/mcL Final Hemoglobin 09/09/2024 11.5 (L) 13.5 - 17.5 g/dL Final Hematocrit 09/09/2024 34.7 (L) 42.0 - 54.0 % Final MCV 09/09/2024 93.0 79.0 - 98.0 FL Final MCH 09/09/2024 30.8 27.0 - 32.0 pcg Final MCHC 09/09/2024 33.1 32.0 - 37.0 g/dL Final RDW 09/09/2024 13.4 11.0 - 15.0 % Final Platelets 09/09/2024 329 130 - 400 K/mcL Final MPV 09/09/2024 9.8 7.0 - 11.0 FL Final NRBC 09/09/2024 0.0 <1.0 % Final NRBC Absolute 09/09/2024 0.00 <0.10 K/mcL Final Neutrophils Relative 09/09/2024 80.1 % Final Lymphocytes Relative 09/09/2024 12.0 % Final Monocytes Relative 09/09/2024 7.1 % Final Eosinophils Relative 09/09/2024 0.1 % Final Basophils Relative 09/09/2024 0.3 % Final Immature Granulocytes Relative 09/09/2024 0.4 % Final Neutrophils Absolute 09/09/2024 9.01 (H) 1.50 - 7.00 K/mcL Final Lymphocytes Absolute 09/09/2024 1.35 1.00 - 5.00 K/mcL Final Monocytes Absolute 09/09/2024 0.80 0.20 - 1.00 K/mcL Final Eosinophils Absolute 09/09/2024 0.01 0.00 - 0.50 K/mcL Final Basophils Absolute 09/09/2024 0.03 0.00 - 0.20 K/mcL Final Immature Granulocytes Absolute 09/09/2024 0.04 (H) 0.00 - 0.03 K/mcL Final Magnesium 09/09/2024 2.0 1.9 - 2.6 mg/dL Final Lipase 09/09/2024 16 13 - 75 unit/L Final atorvastatin, 20 mg, oral, Nightly diphenhydrAMINE, 12.5 mg, intravenous, Once fluticasone propionate, 2 spray, Each Nostril, Daily gabapentin, 600 mg, oral, BID ketorolac, 30 mg, intravenous, Once lithium, 300 mg, oral, BID magnesium sulfate 1 g IVPB, 1 g, intravenous, Once methadone, 80 mg, oral, Daily And methadone, 30 mg, oral, q24h ZARIA methylPREDNISolone sod suc, 125 mg, intravenous, Once multivitamin, 1 each, oral, Daily nicotine, 1 patch, transdermal, Daily OXcarbazepine, 600 mg, oral, Daily pantoprazole, 40 mg, oral, q AM AC potassium chloride oral extended release, 40 mEq, oral, Once prazosin, 4 mg, oral, Nightly prochlorperazine, 10 mg, oral, Once propranoloL, 20 mg, oral, BID QUEtiapine fumarate ER, 400 mg, oral, Nightly senna, 2 tablet, oral, Nightly sodium chloride, 500 mL, intravenous, Once PRN medications: acetaminophen, albuterol, calcium carbonate, hydrOXYzine HCL, methocarbamoL, nicotine polacrilex MSE General appearance and Manner: Patient is appears to be in stated age, does not appear to be in acute distress, dressed in street clothes has poot hygiene and poorly groomed. Pt maintains fair eye contact. No psychomotor retardation and agitation noticed. Musculoskeletal: no abnormal movements, aims negative and no tics. Beh: calm disengage Speech: normal in rate rhythm and volume Mood & Affect: Mood pt describes as same affect constricted Thought Process: adrienne linear Description of Associations : no loosening of association Description of Abnormal or Psychotic Thoughts: No VH/AH and does not appear to be internally stimulated Suicidal Ideations/Homicidal Ideations/Violent Ideations:No active SI/ HI reports passive SI no overt delusions Orientation: Oriented to Person time and place Attention/Concentration: fair Avg fund of knowledge Cognition : Intact Impulse control: fair Insight: limited to fair Judgment: limited to fair Assessment and Plan No change in meds for today as well monitor progress * Loren John RN - 09/21/2024 11:02 AM EST Problem: Sensory Perceptual Alteration AEB Goal: Participates in unit activities Note: Pt does not participate in milieu or groups, isolates to his room most of the shift. Problem: Potential for Harm to Self or Others Goal: Identifies stressors that lead to harmful behaviors Note: Refuses to engage at this time Goal: Notifies staff when experiencing harmful thoughts toward self/others Note: Denies hi Problem: Ineffective Coping Goal: Identifies ineffective coping skills Note: Working towards utilizng coping skills * Loren John RN - 09/21/2024 9:17 AM EST Pt up to Rn station after breakfast to fill out his menu. Pt compliant with AM medications. Pt asked for an ice cream at 9am and it was explained that snack time would be in 1 hour. Pt became argumentative with TW at that time. States your the only one who has told me that this whole time. Pt then proceeded to complaint to peers on unit that he wasn't allowed to have an ice cream, returned to his room and slammed the door. Pt shortly after came up to RN station with a bag of trash from his room and said here now you don't have to search my room. On the way back to his room pt said , I wont ask you for anything again . Continue to assess and support. * Parris Mancilla RN - 09/21/2024 12:36 AM EST Pt remains safe on unit, maintained on q15 min safety checks. * Neeru Montgomery RN - 09/20/2024 9:10 PM EST Problem: Sensory Perceptual Alteration AEB Goal: Participates in unit activities Outcome: Not Progressing Problem: Anxiety Goal: Attempts to manage anxiety with help Outcome: Progressing Pt is calm and cooperative, med compliant. Rates anxiety and depression 03/15, PRN atarax given withmoderate effect. Pt remains safe with 15min safety checks. * Loren John RN - 09/20/2024 11:16 AM EST Problem: Sensory Perceptual Alteration AEB Goal: Participates in unit activities Note: Refuses to participate in groups Problem: Potential for Harm to Self or Others Goal: Identifies stressors that lead to harmful behaviors Note: Reports chronic SI- denies intent or plan to harm self while inpatient Goal: Notifies staff when experiencing harmful thoughts toward self/others Note: Able to make needs known Continues to isolate to his room. Refuses to attend groups, declined to shower. Continues to be found with multiple sporks in his room and food which have been removed. Teaching in place. Pt sleepingon and off throughout the shift. States ongoing AH of whispers and does not elaborate. Agrees to remain safe on unit * Shawna Escobar MD - 09/20/2024 10:08 AM EST This is a Telehealth visit CC: med management follow up Subjective patient was seen chart reviewed discussed with the team. Patient talked about reason of hospitalization still reporting chronic suicidal ideation medication just at patient was educated her lithium could be helpful. Isolated withdrawn states that he likes to keep to himself. Denies any issues with sleep and appetite. Does go to some of the groups. Reports hallucinations as well. Deniesany other concerns denies any physical concerns not getting any as needed medication for agitation review of systems remains unremarkable unless mentioned abive. Vitals: 09/20/24 0920 BP: 122/84 Pulse: 73 Resp: Temp: 36.5 ??C (97.7 ??F) SpO2: 97% No visits with results within 1 Week(s) from this visit. Latest known visit with results is: Admission on 09/09/2024, Discharged on 09/10/2024 Component Date Value Ref Range Status Sodium 09/09/2024 138 133 - 145 mmol/L Final Potassium 09/09/2024 3.4 (L) 3.5 - 5.5 mmol/L Final Chloride 09/09/2024 104 96 - 110 mmol/L Final CO2 09/09/2024 27 21 - 32 mmol/L Final Anion Gap 09/09/2024 7 3 - 11 Final Glucose 09/09/2024 88 70 - 100 mg/dL Final BUN 09/09/2024 18 5 - 25 mg/dL Final Creatinine 09/09/2024 1.05 0.70 - 1.30 mg/dL Final eGFR 09/09/2024 88 >=60 mL/min/1.73m2 Final Calculation based on the Chronic Kidney Disease Epidemiology Collaboration (CKD- EPI) equation refitwithout adjustment for race. BUN/Creatinine Ratio 09/09/2024 17.1 Final Calcium 09/09/2024 9.1 8.5 - 10.5 mg/dL Final AST (SGOT) 09/09/2024 37 10 - 42 unit/L Final ALT (SGPT) 09/09/2024 25 10 - 60 unit/L Final Alkaline Phosphatase 09/09/2024 156 (H) 42 - 121 unit/L Final Total Protein 09/09/2024 8.1 (H) 6.0 - 8.0 g/dL Final Albumin 09/09/2024 4.1 3.2 - 5.0 g/dL Final Total Bilirubin 09/09/2024 0.6 0.0 - 1.4 mg/dL Final Ethanol Level 09/09/2024 <3 0 - 10 mg/dL Final Acetaminophen Level 09/09/2024 <2.0 (L) 10.0 - 30.0 mcg/mL Final Salicylate Level 09/09/2024 <1.7 (L) 2.0 - 29.0 mg/dL Final Amphetamine Screen, Ur 09/10/2024 Negative Negative Final Certain OTC medications containing ephedrine, phenylephrine, pseudoephedrine and phenylpropanolamine can cause false positive results. Barbiturate Screen, Ur 09/10/2024 Positive (A) Negative Final Benzodiazepine Screen, Ur 09/10/2024 Negative Negative Final Cocaine Screen, Ur 09/10/2024 Positive (A) Negative Final Opiate Screen, Ur 09/10/2024 Positive (A) Negative Final Cannabinoid (THC) Screen, Ur 09/10/2024 Positive (A) Negative Final Specimens from patients taking pantoprazole sodium (Protonix) have been shown to produce false positive results. Oxycodone Screen, Ur 09/10/2024 Negative Negative Final Fentanyl, Ur 09/10/2024 Positive (A) Negative Final Buprenorphine Screen Urine 09/10/2024 Negative Negative Final PCP Scrn, Ur 09/10/2024 Negative Negative Final Assay cutoff 25 ng/mL Semi-quantitative assay for screening purposes only. Unconfirmed screening result should not be used for non-medical purposes. *ALTERNATE METHOD CONFIRMATION DONE UPON REQUEST ONLY* Methadone Screen, Urine 09/10/2024 Positive (A) Negative Final Assay cutoff 300 ng/mL Semi-quantitative assay for screening purposes only. Unconfirmed screening result should not be used for non-medical purposes. *ALTERNATE METHOD CONFIRMATION DONE UPON REQUEST ONLY* WBC 09/09/2024 11.2 (H) 4.8 - 10.8 K/mcL Final RBC 09/09/2024 3.70 (L) 4.50 - 5.50 M/mcL Final Hemoglobin 09/09/2024 11.5 (L) 13.5 - 17.5 g/dL Final Hematocrit 09/09/2024 34.7 (L) 42.0 - 54.0 % Final MCV 09/09/2024 93.0 79.0 - 98.0 FL Final MCH 09/09/2024 30.8 27.0 - 32.0 pcg Final MCHC 09/09/2024 33.1 32.0 - 37.0 g/dL Final RDW 09/09/2024 13.4 11.0 - 15.0 % Final Platelets 09/09/2024 329 130 - 400 K/mcL Final MPV 09/09/2024 9.8 7.0 - 11.0 FL Final NRBC 09/09/2024 0.0 <1.0 % Final NRBC Absolute 09/09/2024 0.00 <0.10 K/mcL Final Neutrophils Relative 09/09/2024 80.1 % Final Lymphocytes Relative 09/09/2024 12.0 % Final Monocytes Relative 09/09/2024 7.1 % Final Eosinophils Relative 09/09/2024 0.1 % Final Basophils Relative 09/09/2024 0.3 % Final Immature Granulocytes Relative 09/09/2024 0.4 % Final Neutrophils Absolute 09/09/2024 9.01 (H) 1.50 - 7.00 K/mcL Final Lymphocytes Absolute 09/09/2024 1.35 1.00 - 5.00 K/mcL Final Monocytes Absolute 09/09/2024 0.80 0.20 - 1.00 K/mcL Final Eosinophils Absolute 09/09/2024 0.01 0.00 - 0.50 K/mcL Final Basophils Absolute 09/09/2024 0.03 0.00 - 0.20 K/mcL Final Immature Granulocytes Absolute 09/09/2024 0.04 (H) 0.00 - 0.03 K/mcL Final Magnesium 09/09/2024 2.0 1.9 - 2.6 mg/dL Final Lipase 09/09/2024 16 13 - 75 unit/L Final atorvastatin, 20 mg, oral, Nightly diphenhydrAMINE, 12.5 mg, intravenous, Once fluticasone propionate, 2 spray, Each Nostril, Daily gabapentin, 600 mg, oral, BID ketorolac, 30 mg, intravenous, Once lithium, 300 mg, oral, BID magnesium sulfate 1 g IVPB, 1 g, intravenous, Once methadone, 80 mg, oral, Daily And methadone, 30 mg, oral, q24h ZARIA methylPREDNISolone sod suc, 125 mg, intravenous, Once multivitamin, 1 each, oral, Daily nicotine, 1 patch, transdermal, Daily OXcarbazepine, 600 mg, oral, Daily pantoprazole, 40 mg, oral, q AM AC potassium chloride oral extended release, 40 mEq, oral, Once prazosin, 4 mg, oral, Nightly prochlorperazine, 10 mg, oral, Once propranoloL, 20 mg, oral, BID QUEtiapine fumarate ER, 400 mg, oral, Nightly senna, 2 tablet, oral, Nightly sodium chloride, 500 mL, intravenous, Once PRN medications: acetaminophen, albuterol, calcium carbonate, hydrOXYzine HCL, methocarbamoL, nicotine polacrilex MSE General appearance and Manner: Patient is appears to be in stated age, does not appear to be in acute distress, dressed in street clothes has poot hygiene and poorly groomed. Pt maintains fair eye contact. No psychomotor retardation and agitation noticed. Musculoskeletal: no abnormal movements, aims negative and no tics. Beh: calm disengage Speech: normal in rate rhythm and volume Mood & Affect: Mood pt describes as okay affect constricted Thought Process: concrete Description of Associations : no loosening of association Description of Abnormal or Psychotic Thoughts: No VH/AH and does not appear to be internally stimulated Suicidal Ideations/Homicidal Ideations/Violent Ideations:No active SI/ HI reports passive SI no overt delusions Orientation: Oriented to Person time and place Attention/Concentration: fair Avg fund of knowledge Cognition : Intact Impulse control: fair Insight: limited to fair Judgment: limited to fair Assessment and Plan No change in meds monitor progress * Callie Thompson OT - 09/20/2024 8:24 AM EST Problem: Occupational therapy Goal: Attend and participate in unit activities, including therapeutic, recreational, and educational groups Outcome: Not Progressing Pt is not attending any OT groups and he is not observed in the milieu. Goal: Demonstrates healthy coping skills Outcome: Not Progressing Pt appears to sleep all day and is not engaging in any leisure activities. He is not attending groups in order to learn healthy coping skills. * Callie Thompson OT - 09/20/2024 8:23 AM EST Behavioral Health OT Weekly Progress Note Date of note: 09/20/24 Ignacio Tovar attended 0% of OT groups this week. Pt is isolative to his room. He will continue wero encouraged to attend groups on the unit. The patient's updated functional assessment is as follows: Attention span: independent ADL: modified independent IADL: independent Interpersonal: minimum assist Coping skills: moderate assist Leisure: maximum assist Time mgmt: moderate assist Self control: independent Problem solving: stand by assist Calile Thompson OT * Rolanda Carlos RN - 09/20/2024 5:10 AM EST Pt slept well all night,remained safe on fifteen minute checks. * Rolanda Carlos RN - 09/19/2024 10:00 PM EST Pt has been cooperative and visible on the unit. Intake and hygiene are good, Pt states he is safe on the unit. Pt declined the IV migraine medication ,as was tired and needed to go to sleep. He stated that he would take the medication tomorrow. made aware. Pt was educated on the medication and offered support. He retired early,will continue to assess status. * MCKAY Rivera - 09/19/2024 4:00 PM EST Problem: Sensory Perceptual Alteration AEB Goal: Discusses signs/symptoms of illness/treatment options Outcome: Progressing Problem: Potential for Harm to Self or Others Goal: Denies harm toward self or others Outcome: Progressing Patient has been less sedated and more visible on the unit. Patient reports not knowing yet what's next and now feel more able to discuss. Clinician will continue to review options and support safe discharge plans * Peewee Sarkar RN - 09/19/2024 2:42 PM EST Pt denies suicidal ideations, denies homicidal ideations. Pt denies auditory hallucinations, deniesvisual hallucinations. Pt rates his anxiety level as 8 out of 10, rates his depression level as 8 out of 10. Pt describes his mood as alright. Pt has been calm and cooperative. Pt takes his prescribed meds as scheduled. 15 minute safety checks maintained. * Peewee Sarkar RN - 09/19/2024 2:39 PM EST Problem: Potential for Harm to Self or Others Goal: Denies harm toward self or others 09/19/2024 1439 by Peewee Partida RN Outcome: Not Progressing Pt states that he is having suicidal ideations and homicidal ideations. * Vernon Weathers DO - 09/19/2024 12:59 PM EST Psychiatry Progress Note LOS: 9 days Chief Complaint/Reason for Encounter: This is a 49-year-old male with history of anxiety and depression presenting to [facility] ED on 09/09/24 for evaluation of suicidal ideation with a plan to overdose or cut himself. HPI: Chart reviewed and patient seen. Patient reports sleeping well. Reports eating well. Adherent with medication regiment and denies any adverse side effects. Voice ongoing active SI without method, intent, or plan. Reports ongoing active HI directed towards aunts and uncles that this press writer could notelicit the name, address, or identifying information regarding an uncle that he states that he knows the address of. He states that his migraines are improving with the IV infusions of recommended byneurology. He does not feel that he is ready for discharge as he states that he would like his suicidal ideation to be addressed. Reports participating in unit activities. Denies having any acute concerns or complaints at this time Review of Systems: Except as stated above all other systems are unremarkable Past, Family, Social History: No Change Psychiatric Speciality Examination: Visit Vitals BP 124/81 (BP Location: Right arm, Patient Position: Sitting) Pulse 61 Temp 36.3 ??C (97.3 ??F) (Temporal) Resp 20 1.727 m (68 ), 103 kg (226 lb), Body mass index is 34.36 kg/m??. No results found for this or any previous visit (from the past 4464 hours). Mental Status Examination & Relevant Physical Exam: General appearance and Manner: Appears stated age, well-groomed, no acute distress, Musculoskeletal: Has mild psychomotor agitation Speech: Increased quantity. Normal rhythm, volume, tone, rate Mood & Affect: Mood reported as depressed. Affect is euthymic, appropriate, incongruent, fullrange, supple Thought Process: Linear, goal directed, logical, coherent Description of Associations: Intact Description of Abnormal or Psychotic Thoughts: No delusions elicited. Reports auditory hallucinations in the form of whispers Suicidal Ideations/Homicidal Ideations/Violent Ideations: Reports active SI without method, intent,or plan. Reports HI directed towards his aunts and uncles. orientation: Alert and oriented x 3 Attention/Concentration: Good Insight and Judgment: Fair Medical Decision Making: Problem List/Diagnosis: Principal Problem: Schizoaffective disorder, bipolar type (CMS/HCC) Active Problems: Psychiatric diagnosis Uncomplicated opioid dependence ([facility]) Stimulant use disorder Data/Medical records reviewed/Labs/Imaging and Other Diagnostic Studies reviewed: No results found for this or any previous visit (from the past 48 hours). PRN Psychotropics Administered Last 24 Hours: None Assessment/Status: Patient tolerating current medication regiment with which they are adherent. Will state lithium 300mg twice a day for mood stabilization and antisuicide properties. Continue with daily IV infusion for migraines as recommended by neurology. We will continue to encourage patient to participate in unit activities. We will continue to monitor patient on safe and therapeutic milieu. Social work team to continue with safe discharge planning. Treatment Plan/Recommendations: Intervention/Psychotherapy: active participant in therapy sessions Initiate lithium 300 mg p.o. twice daily Medications: Scheduled Meds:atorvastatin, 20 mg, oral, Nightly fluticasone propionate, 2 spray, Each Nostril, Daily gabapentin, 600 mg, oral, BID lithium, 300 mg, oral, BID methadone, 80 mg, oral, Daily And methadone, 30 mg, oral, q24h ZARIA multivitamin, 1 each, oral, Daily nicotine, 1 patch, transdermal, Daily OXcarbazepine, 600 mg, oral, Daily pantoprazole, 40 mg, oral, q AM AC potassium chloride oral extended release, 40 mEq, oral, Once prazosin, 4 mg, oral, Nightly QUEtiapine fumarate ER, 400 mg, oral, Nightly senna, 2 tablet, oral, Nightly PRN Meds:.PRN medications: acetaminophen, albuterol, calcium carbonate, hydrOXYzine HCL, methocarbamoL, nicotine polacrilex Lab/Radiology/Tests/Consultation: As already prescribed - No additional warranted at this time. * Candida Lopes RN - 09/19/2024 6:32 AM EST Assumed patient care 2300. Pt slept throughout the night. Patient with no complaints or issues noted. Patient remains on q15 min shift. * Lluvia Guillaume RN - 09/18/2024 10:23 PM EST Problem: Potential for Harm to Self or Others Goal: Denies harm toward self or others Outcome: Progressing Goals: Identify possible barriers to meeting goals/advancing plan of care: Stability of the patient: Moderately Stable - Low risk of patient condition declining or worsening End of Shift Summary: Patient took his schedule medication and also had an IV infusion that is documented in the MAR for more information. Pt was visible in the common room and in the small TV room being social with peers. Pt remains safe on unit and is on Q15 checks. * Clarissa Sumner - 09/18/2024 4:48 PM EST Pt observed tending to hygiene (cutting nails). Pt much more visible in common areas today and eating dinner with peers in dining room. Pt was also observed speaking with nursing staff earlier today. * Vernon Weathers DO - 09/18/2024 3:20 PM EST Psychiatry Progress Note LOS: 8 days Chief Complaint/Reason for Encounter: This is a 49-year-old male with history of anxiety and depression presenting to [facility] ED on 09/09/24 for evaluation of suicidal ideation with a plan to overdose or cut himself. HPI: Chart reviewed and patient seen. Patient was much more awake today when this press writer interviewed him. He was somewhat irritable as he states that the nursing staff went into his room and confiscated anumber of items. This press writer spoke with the nurses who stated that the patient was reporting a lot of items in his room which should have not been kept in his room including plastic homes, sports, and other items which were ultimately confiscated. Patient reports sleeping poorly due to nightmares. Reports eating well. Adherent with medication regiment and denies any adverse side effects. He reports that he has chronic active suicidal thoughts and states that if he was outside the hospital he would kill himself. Ongoing HI toward extended family. Reports that he continues to hear whispering but cannot make out what the words are saying. Reports participating in unit activities. Patient states that migraines have significantly improved after IV infusion ordered yesterday but still has some o ngoing pressure in his head. Patient reports that he has been trying to keep to his room at all costs as he feels that he may pop off on other patients as he feels he has a very short temper and isprone to violence. Review of Systems: Except as stated above all other systems are unremarkable Past, Family, Social History: No Change Psychiatric Speciality Examination: Visit Vitals BP 134/83 (BP Location: Left arm, Patient Position: Sitting) Pulse 83 Temp 36.5 ??C (97.7 ??F) (Oral) Resp 20 1.727 m (68 ), 103 kg (226 lb), Body mass index is 34.36 kg/m??. No results found for this or any previous visit (from the past 4464 hours). Mental Status Examination & Relevant Physical Exam: General appearance and Manner: Appears stated age, well-groomed, no acute distress, Musculoskeletal: Has moderate psychomotor agitation Speech: Increased rate and quantity. Normal rhythm, volume, tone Mood & Affect: Mood reported as depressed. Affect is euthymic, moderately irritable, appropriate, incongruent, full range, supple Thought Process: Linear, goal directed, logical, coherent Description of Associations: Intact Description of Abnormal or Psychotic Thoughts: No delusions elicited. Reports auditory hallucinations in the form of whispers Suicidal Ideations/Homicidal Ideations/Violent Ideations: Reports active SI without method, intent,or plan. Reports HI directed towards his aunts and uncles. orientation: Alert and oriented x 3 Attention/Concentration: Good Insight and Judgment: Fair Medical Decision Making: Problem List/Diagnosis: Principal Problem: Schizoaffective disorder, bipolar type ([facility]) Active Problems: Psychiatric diagnosis Uncomplicated opioid dependence ([facility]) Stimulant use disorder Data/Medical records reviewed/Labs/Imaging and Other Diagnostic Studies reviewed: No results found for this or any previous visit (from the past 48 hours). PRN Psychotropics Administered Last 24 Hours: None Assessment/Status: Patient tolerating current medication regiment with which they are adherent. Patient appears to have some moderate psychomotor agitation, unclear whether this is due to akathisia from addition of Abilify however patient no longer appears sedated. We will discontinue Abilify and go back up to medications Seroquel XR to 400 mg. Neurology continues to follow regarding migraine workup. Per neurology recommendation we will reorder IV infusion medications for patient's migraine we will continue to encourage patient to participate in unit activities. We will continue to monitor patient on safe and therapeutic milieu. Social work team to continue with safe discharge planning. Treatment Plan/Recommendations: Intervention/Psychotherapy: active participant in therapy sessions Increase Seroquel XR to 400 mg Discontinue Abilify Medications: Scheduled Meds:atorvastatin, 20 mg, oral, Nightly diphenhydrAMINE, 12.5 mg, intravenous, Once fluticasone propionate, 2 spray, Each Nostril, Daily gabapentin, 600 mg, oral, BID ketorolac, 30 mg, intravenous, Once magnesium sulfate, 1 g, intravenous, Once methadone, 80 mg, oral, Daily And methadone, 30 mg, oral, q24h ZARIA methylPREDNISolone sod suc, 125 mg, intravenous, Once multivitamin, 1 each, oral, Daily nicotine, 1 patch, transdermal, Daily OXcarbazepine, 600 mg, oral, Daily pantoprazole, 40 mg, oral, q AM AC potassium chloride oral extended release, 40 mEq, oral, Once prazosin, 4 mg, oral, Nightly prochlorperazine, 10 mg, oral, Once QUEtiapine fumarate ER, 400 mg, oral, Nightly senna, 2 tablet, oral, Nightly sodium chloride, 500 mL, intravenous, Once PRN Meds:.PRN medications: acetaminophen, albuterol, calcium carbonate, hydrOXYzine HCL, methocarbamoL, nicotine polacrilex Lab/Radiology/Tests/Consultation: As already prescribed - No additional warranted at this time. * Loren John RN - 09/18/2024 9:31 AM EST Problem: Sensory Perceptual Alteration AEB Goal: Participates in unit activities Note: Participates at times as tolerated Problem: Potential for Harm to Self or Others Goal: Identifies stressors that lead to harmful behaviors Note: Pt reports migraines are triggers for his si and his sciatica pain as well. Goal: Notifies staff when experiencing harmful thoughts toward self/others Note: Agrees to remain safe on unit Goal: Denies harm toward self or others Note: Denies hi Pt oob for meals and meds. Remains med compliant. Reports + improvement in migraines after medications yesterday. States he is still suicidal and wishes he wasn't here . Pt denies active plan or intent or harm self while inpatient but states there are plenty of ways I could . Pt denies HI. Pt states he also has sciatica pain that affects his mood. No overt behavior issues and agrees to remains safe on unit * Candida Lopes RN - 09/18/2024 6:25 AM EST Assumed patient care 2300. Pt slept throughout the night. Patient with no complaints or issues noted. Patient remains on q15 min shift. * Hiram Noriega RN - 09/17/2024 11:12 PM EST Goals: Problem: Sensory Perceptual Alteration AEB Goal: Participates in unit activities Outcome: Progressing Note: Pt is participating in the program as tolerated. Problem: Potential for Harm to Self or Others Goal: Identifies stressors that lead to harmful behaviors Outcome: Progressing Goal: Notifies staff when experiencing harmful thoughts toward self/others Outcome: Progressing Note: Pt is able to make needs known and approaches staff when necessary Goal: Denies harm toward self or others Outcome: Progressing Note: Pt has not harmed self or others, so far in the shift. And has not made any threats of harm Problem: Ineffective Coping Goal: Identifies ineffective coping skills Outcome: Progressing Identify possible barriers to meeting goals/advancing plan of care: Chronic Mental Health Issues Stability of the patient: Moderately Unstable - Medium risk of patient condition declining or worsening End of Shift Summary: Educated patient on hand hygiene. Pt currently denies SI/HI, and A/VH and hasbeen in good behavioral control thus far in the shift. * Clarissa Sumner - 09/17/2024 3:23 PM EST Problem: Alteration in Sleep Goal: STG - Informs staff if unable to sleep Outcome: Progressing SW met with pt in his room while he was receiving IV. Pt reports he is feeling tired today as he did not sleep well last night. Pt was able to hold decent conversation about this press writer's as he asked how far along and when due. Pt then noted his mom was killed November 30 after finding outbakathleen is due November 08. This press writer acknowledged his loss and asked if he needed anything or additional support. Pt declined. * Loren John RN - 09/17/2024 3:02 PM EST Pt IV medications administered by CRC. Pt on 1:1 during infusion. * Loren John RN - 09/17/2024 12:26 PM EST Problem: Sensory Perceptual Alteration AEB Goal: Participates in unit activities Note: Participates as tolerated Problem: Potential for Harm to Self or Others Goal: Identifies stressors that lead to harmful behaviors Note: Denies stresors at this time Pt isolative to his room. Oob for meals. Med compliant. No overt behavior issues. Denies active si intent or plan to harm self and agrees to seek staff if feeling unsafe. * Vernon WeathersDO - 09/17/2024 11:39 AM EST Psychiatry Progress Note LOS: 7 days Chief Complaint/Reason for Encounter: This is a 49-year-old male with history of anxiety and depression presenting to [facility] ED on 09/09/24 for evaluation of suicidal ideation with a plan to overdose or cut himself. HPI: Chart reviewed and patient seen. Per nursing patient appears to be falling asleep in various placeson the unit including while eating meals. When this press writer saw him he was somewhat sedated. Patientreports sleeping poorly due to nightmares. Reports eating well. Adherent with medication regiment and denies any adverse side effects. He reports that he has chronic active suicidal thoughts and states that if he was outside the hospital he would kill himself. However he has only been endorsing SI to this press writer and denying it to all other treatment team members. Ongoing HI toward extended family. Reports that he continues to hear whispering but cannot make out what the words are saying. Reports participating in unit activities. Patient is excited that his migraines will be addressed during this hospitalization as he feels it contributes to his mental status. Review of Systems: Except as stated above all other systems are unremarkable Past, Family, Social History: No Change Psychiatric Speciality Examination: Visit Vitals BP 101/63 (BP Location: Left arm, Patient Position: Lying) Pulse 72 Temp 36.5 ??C (97.7 ??F) (Oral) Resp 20 1.727 m (68 ), 103 kg (226 lb), Body mass index is 34.36 kg/m??. No results found for this or any previous visit (from the past 4464 hours). Mental Status Examination & Relevant Physical Exam: General appearance and Manner: Appears stated age, well-groomed, no acute distress, sedated Musculoskeletal: No significant abnormality noted Speech: Normal rate, rhythm, volume, tone, quantity Mood & Affect: Mood reported as depressed. Affect is euthymic, mildly anxious, appropriate, incongruent, blunted range, non-reactive Thought Process: Linear, goal directed, logical, coherent Description of Associations: Intact Description of Abnormal or Psychotic Thoughts: No delusions elicited. Reports auditory hallucinations in the form of whispers Suicidal Ideations/Homicidal Ideations/Violent Ideations: Reports active SI without method, intent,or plan. Reports HI directed towards his aunts and uncles. orientation: Alert and oriented x 3 Attention/Concentration: Good Insight and Judgment: Fair Medical Decision Making: Problem List/Diagnosis: Principal Problem: Schizoaffective disorder, bipolar type ([facility]) Active Problems: Psychiatric diagnosis Uncomplicated opioid dependence ([facility]) Stimulant use disorder Data/Medical records reviewed/Labs/Imaging and Other Diagnostic Studies reviewed: No results found for this or any previous visit (from the past 48 hours). PRN Psychotropics Administered Last 24 Hours: None Assessment/Status: Patient tolerating current medication regiment with which they are adherent. We will begin cross taper of Seroquel to Abilify as Abilify will be less sedating but still provide adequate antipsychoticand mood stabilization properties. We will decrease gabapentin from 3 times daily to twice daily per neurology recommendations. Neurology continues to follow regarding migraine workup. We will continue to encourage patient to participate in unit activities. We will continue to monitor patient on safe and therapeutic milieu. Social work team to continue with safe discharge planning. Treatment Plan/Recommendations: Intervention/Psychotherapy: active participant in therapy sessions Decrease Seroquel XR to 300 mg Initiate Abilify 2 mg p.o. daily Decrease Gabapentin to 600mg PO BID Medications: Scheduled Meds:[START ON 09/18/2024] ARIPiprazole, 2 mg, oral, Daily atorvastatin, 20 mg, oral, Nightly fluticasone propionate, 2 spray, Each Nostril, Daily gabapentin, 600 mg, oral, BID methadone, 80 mg, oral, Daily And methadone, 30 mg, oral, q24h ZARIA multivitamin, 1 each, oral, Daily nicotine, 1 patch, transdermal, Daily OXcarbazepine, 600 mg, oral, Daily pantoprazole, 40 mg, oral, q AM AC potassium chloride oral extended release, 40 mEq, oral, Once prazosin, 4 mg, oral, Nightly QUEtiapine fumarate ER, 300 mg, oral, Nightly senna, 2 tablet, oral, Nightly PRN Meds:.PRN medications: acetaminophen, albuterol, calcium carbonate, hydrOXYzine HCL, methocarbamoL, nicotine polacrilex Lab/Radiology/Tests/Consultation: As already prescribed - No additional warranted at this time. * Bernadette Alvarenga RN - 09/17/2024 6:06 AM EST Assumed care at 2300. Patient slept through the night with no interruptions/issues. 15 min checks continued throughout shift. * MCKAY Rivera - 09/16/2024 2:24 PM EST Problem: Ineffective Coping Goal: Identifies healthy coping skills Outcome: Progressing Patient reports having difficulty due to his migraines and has been standing in the bathroom to be in the dark. Patient describes having trouble in the summer because it is so bright. Patient also was upset about not receiving what he ordered for lunch. Patient unsure what he would be doing next. Spoke to Xi donaldson [facility] who sent a list of resources for step down from inpatient level of care. * Vernon Weathers DO - 09/16/2024 12:19 PM EST Psychiatry Progress Note LOS: 6 days Chief Complaint/Reason for Encounter: This is a 49-year-old male with history of anxiety and depression presenting to [facility] ED on 09/09/24 for evaluation of suicidal ideation with a plan to overdose or cut himself. HPI: Chart reviewed and patient seen. Patient reports sleeping poorly due to nightmares. Reports eating well. Adherent with medication regiment and denies any adverse side effects. He reports that he has chronic active suicidal thoughts and states that if he was outside the hospital he would kill himself. However he has only been endorsing SI to this press writer and denying it to all other treatment team members. Ongoing HI toward extended family. Reports that he continues to hear whispering but cannot make out what the words are saying. Reports participating in unit activities. Patient had neurology consult yesterday where it was recommended that patient have MRI. Patient was to go to MRI this morning but states he cannot tolerate it due to the noise and claustrophobia. Review of Systems: Except as stated above all other systems are unremarkable Past, Family, Social History: No Change Psychiatric Speciality Examination: Visit Vitals BP 117/71 (BP Location: Right arm, Patient Position: Sitting) Pulse 73 Temp 36.5 ??C (97.7 ??F) (Oral) Resp 20 1.727 m (68 ), 103 kg (226 lb), Body mass index is 34.36 kg/m??. No results found for this or any previous visit (from the past 4464 hours). Mental Status Examination & Relevant Physical Exam: General appearance and Manner: Appears stated age, well-groomed, no acute distress Musculoskeletal: No significant abnormality noted Speech: Normal rate, rhythm, volume, tone, quantity Mood & Affect: Mood reported as depressed. Affect is mildly dysphoric, mildly anxious, appropriate, congruent, blunted range, non-reactive Thought Process: Linear, goal directed, logical, coherent Description of Associations: Intact Description of Abnormal or Psychotic Thoughts: No delusions elicited. Reports auditory hallucinations in the form of whispers Suicidal Ideations/Homicidal Ideations/Violent Ideations: Reports active SI without method, intent,or plan. Reports HI directed towards his aunts and uncles. orientation: Alert and oriented x 3 Attention/Concentration: Good Insight and Judgment: Fair Medical Decision Making: Problem List/Diagnosis: Principal Problem: Schizoaffective disorder, bipolar type (CMS/HCC) Active Problems: Psychiatric diagnosis Uncomplicated opioid dependence ([facility]) Stimulant use disorder Data/Medical records reviewed/Labs/Imaging and Other Diagnostic Studies reviewed: No results found for this or any previous visit (from the past 48 hours). PRN Psychotropics Administered Last 24 Hours: Vistaril Assessment/Status: Patient tolerating current medication regiment with which they are adherent. Will increase prazosinto 4 mg p.o. nightly, discontinue Remeron, change Seroquel to XR form. Patient refused MRI ordered as recommended by neurology. Will follow up with neurology regarding migraines. We will continue to encourage patient to participate in unit activities. We will continue to monitor patient on safe and therapeutic milieu. Social work team to continue with safe discharge planning. Treatment Plan/Recommendations: Intervention/Psychotherapy: active participant in therapy sessions Increase Prazosin to 4mg PO QHS Discontinue Remeron Change Seroquel formulation to XR Medications: Scheduled Meds:atorvastatin, 20 mg, oral, Nightly fluticasone propionate, 2 spray, Each Nostril, Daily gabapentin, 600 mg, oral, TID methadone, 80 mg, oral, Daily And methadone, 30 mg, oral, q24h ZARIA mirtazapine, 7.5 mg, oral, Nightly multivitamin, 1 each, oral, Daily nicotine, 1 patch, transdermal, Daily OXcarbazepine, 600 mg, oral, Daily pantoprazole, 40 mg, oral, q AM AC potassium chloride oral extended release, 40 mEq, oral, Once prazosin, 3 mg, oral, Nightly QUEtiapine, 400 mg, oral, Nightly senna, 2 tablet, oral, Nightly PRN Meds:.PRN medications: acetaminophen, albuterol, calcium carbonate, hydrOXYzine HCL, methocarbamoL, nicotine polacrilex Lab/Radiology/Tests/Consultation: As already prescribed - No additional warranted at this time. * Loren John RN - 09/16/2024 10:47 AM EST Problem: Sensory Perceptual Alteration AEB Goal: Participates in unit activities Note: Agrees to participate as tolerated Problem: Potential for Harm to Self or Others Goal: Identifies stressors that lead to harmful behaviors Note: Able to make needs known Goal: Notifies staff when experiencing harmful thoughts toward self/others Note: Agrees to remain in behavior control and notify staff if feeling unsafe Problem: Alteration in Sleep Goal: STG - Reports nightly sleep, duration, and quality Note: Reports poor sleep and nightmares of rats * Loren John RN - 09/16/2024 10:11 AM EST Pt refused MRI- provider aware * Bernadette Alvarenga RN - 09/16/2024 6:06 AM EST Assumed care at 2300. Patient slept through the night with no interruptions/issues. 15 min checks continued throughout shift. * Rolanda Carlos RN - 09/15/2024 9:45 PM EST Problem: Sensory Perceptual Alteration AEB Goal: Cooperates with admission process Outcome: Completed Goal: Participates in unit activities Outcome: Progressing Problem: Potential for Harm to Self or Others Goal: Denies harm toward self or others Outcome: Progressing Problem: Potential for Substance Withdrawal Goal: Reports signs/symptoms of withdrawal Outcome: Completed Problem: Defensive Coping Goal: Demonstrates healthy coping skills Outcome: Progressing Goals: Identify possible barriers to meeting goals/advancing plan of care: Stability of the patient: Moderately Unstable - Medium risk of patient condition declining or worsening End of Shift Summary: Pt I cooperative and pleasant. She has spent time on the unit with others. Hygiene and intake are good. Pt denies any safety concerns, no behavioral concerns. Pt given support,will continue to assess status. * Jhony Malloy RD - 09/15/2024 3:43 PM EST 09/15/2024 @ 3:43 PM EST Nutrition Follow Up Note Reason for RD Intervention: Assessment Type: Follow-up Reason for Assessment: Decreased Intake Anthropometrics: Height: 172.7 cm (68 ) Weight: 103 kg (226 lb) BMI (Calculated): 34.4 BMI Class: Obesity Class I Current Diet and Supplements: Dietary Orders (From admission, onward) Start Ordered 09/12/24 1519 Dietary nutrition supplements Three times daily (TID); [facility]; Diabetic Supplement Continuous Comments: Glucerna, TID with meals, vanilla Question Answer Comment Frequency Three times daily (TID) Location [facility] Supplements Diabetic Supplement 09/12/24 1518 09/10/24 1632 Adult diet [facility]; General; Regular Diet effective now Question Answer Comment Location [facility] Diet Type (req) General General Diet Regular 09/10/24 1632 History of presenting illness: Patient is a 49 y.o. male with a history of mild intermittent asthma, hyperlipidemia, chronic low back pain/sciatica, opioid use disorder in remission on methadone maintenance, major depressive disorder, generalized anxiety disorder, post-traumatic stress disorder admitted 09/10/2024 with Schizoaffective disorder, bipolar type ([facility]). Past Medical History: Diagnosis Date Addiction to drug ([facility]) Anxiety Chronic pain disorder Depression Food/Nutrition History: Appetite UROLOGY PHYSICIAN ASSISTANT: Poor Intake UROLOGY PHYSICIAN ASSISTANT: Decreased (Very little PO intake for 4-6 months.) Weight History: Wt Readings from Last 10 Encounters: 09/10/24 103 kg (226 lb) 09/09/24 103 kg (226 lb) Subjective Assessment: Spoke with Ignacio. Per interview, pt stated that sometimes he loses his appetite due to certain triggers, though did not elaborate on specific triggers. Ignacio mentioned that he is eating a little at each meal. He mentioned that he is enjoying the Glucerna supplements and that they are helping him to eat during his admission. Spoke with nurse. Per interview, pt seems to be eating fair amount. Also tends to order a lot of food at a time. Nutrition-Related Lab Values: Results from last 7 days Lab Units 09/09/24 2037 SODIUM mmol/L 138 POTASSIUM mmol/L 3.4* MAGNESIUM mg/dL 2.0 CHLORIDE mmol/L 104 CO2 mmol/L 27 BUN mg/dL 18 CREATININE mg/dL 1.05 EGFR mL/min/1.73m2 88 CALCIUM mg/dL 9.1 BILIRUBIN TOTAL mg/dL 0.6 ALK PHOS unit/L 156* ALT unit/L 25 AST unit/L 37 GLUCOSE mg/dL 88 WBC AUTO K/mcL 11.2* Lab Results Component Value Date LIPASE 16 09/09/2024 Medications: atorvastatin, 20 mg, oral, Nightly fluticasone propionate, 2 spray, Each Nostril, Daily gabapentin, 600 mg, oral, TID methadone, 80 mg, oral, Daily And methadone, 30 mg, oral, q24h ZARIA mirtazapine, 7.5 mg, oral, Nightly multivitamin, 1 each, oral, Daily nicotine, 1 patch, transdermal, Daily OXcarbazepine, 600 mg, oral, Daily pantoprazole, 40 mg, oral, q AM AC potassium chloride oral extended release, 40 mEq, oral, Once prazosin, 3 mg, oral, Nightly QUEtiapine, 400 mg, oral, Nightly senna, 2 tablet, oral, Nightly CONTINUOUS: PRN medications: acetaminophen, albuterol, calcium carbonate, hydrOXYzine HCL, methocarbamoL, nicotine polacrilex Energy Needs: 4956-9191 kcal, 144 gm protein, 2050 mL fluid per day. Height: 172.7 cm (68 ) Temp: 36.7 ??C (98 ??F) Calculating Weight (lbs): 226 Calculating Weight (Kg calc): 102.51 Food/Nutrition-Current Status: Intake Type: P.O. Current Diet Status: Appropriate Appetite: Fair Intake Amount (%): 25-50% Intake Assessment: Variable Pain related to Intake: GERD Nutrition Focused Physical Findings: Overall Appearance: Per visual assessment, pt is obese. Nerves and Cognition: Alert, Oriented Nutrition Diagnosis: Code Type: None Identified Status: Improvement Diagnosis: Inadequate Oral Intake Etiology: Psychological causes (GERD) Symptoms: Per interview, pt has been doing his best to eat 3 meals a day and has enjoyed the nutritional supplement provided. Additional Nutrition Diagnosis?: Yes Status: No improvement Diagnosis: Unintentional Weight Loss Etiology: Other (Comment) (inadequate oral intake/GERD) Symptoms: Pt reported weight loss of 12 lb (5% body weight) in 1 week. Nutrition Interventions: Diet Order (Continue regular diet.) Medical Food Supplement(s): Glucerna Glucerna Frequency: TID Goals: Patient will consume greater than or equal to 75% meals., Patient will consume ONS., and Electrolytes within normal range. Coordination of Patient Care: Verbal discussion with RN. and Care plan discussed with patient/family. Monitoring/Evaluation: Fluid/Beverage Intake, Food Intake, Weight, Renal/Electrolyte Profile, Medical Food Supp/Oral Nutrition Supp Follow Up: Nutrition Priority Level: Moderate Follow up Date: 09/22/24 Please consult nutrition if needed sooner. RD remains available and will continue to follow. Signature: Jhony Malloy MS, RD Available through [employer] * Sandra Lester RN - 09/15/2024 12:28 PM EST Problem: Sensory Perceptual Alteration AEB Goal: Participates in unit activities Outcome: Progressing Problem: Potential for Harm to Self or Others Goal: Identifies stressors that lead to harmful behaviors Outcome: Progressing Goal: Denies harm toward self or others Outcome: Progressing * Vernon Weathers DO - 09/15/2024 11:48 AM EST Psychiatry Progress Note LOS: 5 days Chief Complaint/Reason for Encounter: This is a 49-year-old male with history of anxiety and depression presenting to [facility] ED on 09/09/24 for evaluation of suicidal ideation with a plan to overdose or cut himself. HPI: Chart reviewed and patient seen. Patient reports sleeping poorly due to nightmares. Reports eating well. Adherent with medication regiment and denies any adverse side effects. He reports that he has chronic active suicidal thoughts and states that if he was outside the hospital he would kill himself. However he has only been endorsing SI to this press writer and denying it to all other treatment team members. Ongoing HI toward extended family. Reports that he continues to hear whispering but cannot make out what the words are saying. Reports participating in unit activities. Complains about nasal congestion and chronic migraine and feels that part of his SI is that his physical complaints are hampering his quality of life. States he has never seen a neurologist and does not followup with any. Review of Systems: Except as stated above all other systems are unremarkable Past, Family, Social History: No Change Psychiatric Speciality Examination: Visit Vitals BP 133/77 Pulse 69 Temp 36.7 ??C (98 ??F) Resp 18 1.727 m (68 ), 103 kg (226 lb), Body mass index is 34.36 kg/m??. No results found for this or any previous visit (from the past 4464 hours). Mental Status Examination & Relevant Physical Exam: General appearance and Manner: Appears stated age, well-groomed, no acute distress Musculoskeletal: No significant abnormality noted Speech: Normal rate, rhythm, volume, tone, quantity Mood & Affect: Mood reported as depressed. Affect is mildly dysphoric, mildly anxious, appropriate, congruent, blunted range, non-reactive Thought Process: Linear, goal directed, logical, coherent Description of Associations: Intact Description of Abnormal or Psychotic Thoughts: No delusions elicited. Reports auditory hallucinations in the form of whispers Suicidal Ideations/Homicidal Ideations/Violent Ideations: Reports active SI without method, intent,or plan. Reports HI directed towards his aunts and uncles. orientation: Alert and oriented x 3 Attention/Concentration: Good Insight and Judgment: Fair Medical Decision Making: Problem List/Diagnosis: Principal Problem: Schizoaffective disorder, bipolar type ([facility]) Active Problems: Psychiatric diagnosis Uncomplicated opioid dependence ([facility]) Stimulant use disorder Data/Medical records reviewed/Labs/Imaging and Other Diagnostic Studies reviewed: No results found for this or any previous visit (from the past 48 hours). PRN Psychotropics Administered Last 24 Hours: Vistaril Assessment/Status: Patient tolerating current medication regiment with which they are adherent. Will increase prazosinto 4 mg p.o. nightly. Patient is pending consult with neurology regarding chronic migraine. We willcontinue to encourage patient to participate in unit activities. We will continue to monitor patient on safe and therapeutic milieu. Social work team to continue with safe discharge planning. Treatment Plan/Recommendations: Intervention/Psychotherapy: active participant in therapy sessions Increase Prazosin to 4mg PO QHS Medications: Scheduled Meds:atorvastatin, 20 mg, oral, Nightly fluticasone propionate, 2 spray, Each Nostril, Daily gabapentin, 600 mg, oral, TID methadone, 80 mg, oral, Daily And methadone, 30 mg, oral, q24h ZARIA mirtazapine, 7.5 mg, oral, Nightly multivitamin, 1 each, oral, Daily nicotine, 1 patch, transdermal, Daily OXcarbazepine, 600 mg, oral, Daily pantoprazole, 40 mg, oral, q AM AC potassium chloride oral extended release, 40 mEq, oral, Once prazosin, 3 mg, oral, Nightly QUEtiapine, 400 mg, oral, Nightly senna, 2 tablet, oral, Nightly PRN Meds:.PRN medications: acetaminophen, albuterol, calcium carbonate, hydrOXYzine HCL, methocarbamoL, nicotine polacrilex Lab/Radiology/Tests/Consultation: As already prescribed - No additional warranted at this time. * Jh Santos RN - 09/15/2024 2:24 AM EST Problem: Sensory Perceptual Alteration AEB Goal: Participates in unit activities Outcome: Progressing Note: Patient looked asleep at 15 minute checks this shift. * Lluvia Guillaume RN - 09/14/2024 10:33 PM EST Problem: Potential for Harm to Self or Others Goal: Denies harm toward self or others Outcome: Progressing Goals: Identify possible barriers to meeting goals/advancing plan of care: Stability of the patient: Moderately Stable - Low risk of patient condition declining or worsening End of Shift Summary: Pt is social and visible to staff in the common room. He took his schedule medication. Pt vocalized that his pain is high and it seems like he is favoring his left leg. Pt remains safe on unit and is on Q15 checks. * Lluvia Guillaume RN - 09/14/2024 3:29 PM EST Problem: Sensory Perceptual Alteration AEB Goal: Participates in unit activities Outcome: Not Progressing Goals: Identify possible barriers to meeting goals/advancing plan of care: Stability of the patient: Moderately Stable - Low risk of patient condition declining or worsening End of Shift Summary: Patient has been visible to staff and being social with peers. He is pleasantwhen communicate but his anxiety is 10/10 and depression is 5/10, denying SI/HI/AVH, then he said he has passive HI. His mood is I am in pain Took his schedule medication and refused his nicotine patch because he gets palpitations. Pt remains safe on unit and is on Q15 checks. * Vernon Weathers, DO - 09/14/2024 9:12 AM EST Psychiatry Progress Note LOS: 4 days Chief Complaint/Reason for Encounter: This is a 49-year-old male with history of anxiety and depression presenting to [facility] ED on 09/09/24 for evaluation of suicidal ideation with a plan to overdose or cut himself. HPI: Chart reviewed and patient seen. Patient reports sleeping poorly due to nightmares. Reports eating well. Adherent with medication regiment and denies any adverse side effects. He reports that he has chronic active suicidal thoughts and states that if he was outside the hospital he would kill himself. However he has only been endorsing SI to this press writer and denying it to all other treatment team members. Ongoing HI toward extended family. Reports that he continues to hear whispering but cannot make out what the words are saying. Reports participating in unit activities. Complains about nasal congestion and chronic migraine and feels that part of his SI is that his physical complaints are hampering his quality of life. States he has never seen a neurologist and does not followup with any. Review of Systems: Except as stated above all other systems are unremarkable Past, Family, Social History: No Change Psychiatric Speciality Examination: Visit Vitals BP (!) 119/102 (BP Location: Right arm, Patient Position: Sitting) Pulse 72 Temp 36.9 ??C (98.4 ??F) (Temporal) Resp 16 1.727 m (68 ), 103 kg (226 lb), Body mass index is 34.36 kg/m??. No results found for this or any previous visit (from the past 4464 hours). Mental Status Examination & Relevant Physical Exam: General appearance and Manner: Appears stated age, well-groomed, no acute distress Musculoskeletal: No significant abnormality noted Speech: Normal rate, rhythm, volume, tone, quantity Mood & Affect: Mood reported as depressed. Affect is mildly dysphoric, mildly anxious, appropriate, congruent, blunted range, non-reactive Thought Process: Linear, goal directed, logical, coherent Description of Associations: Intact Description of Abnormal or Psychotic Thoughts: No delusions elicited. Reports auditory hallucinations in the form of whispers Suicidal Ideations/Homicidal Ideations/Violent Ideations: Reports active SI without method, intent,or plan. Reports HI directed towards his aunts and uncles. orientation: Alert and oriented x 3 Attention/Concentration: Good Insight and Judgment: Fair Medical Decision Making: Problem List/Diagnosis: Principal Problem: Schizoaffective disorder, bipolar type ([facility]) Active Problems: Psychiatric diagnosis Uncomplicated opioid dependence ([facility]) Stimulant use disorder Data/Medical records reviewed/Labs/Imaging and Other Diagnostic Studies reviewed: No results found for this or any previous visit (from the past 48 hours). PRN Psychotropics Administered Last 24 Hours: Vistaril Assessment/Status: Patient tolerating current medication regiment with which they are adherent. Will continue with current psychopharmacologic regimen without change. Will consult with neurology regarding chronic migraine. We will continue to encourage patient to participate in unit activities. We will continue to monitor patient on safe and therapeutic milieu. Social work team to continue with safe discharge planning. Treatment Plan/Recommendations: Intervention/Psychotherapy: active participant in therapy sessions Continue current pharmacologic regimen Medications: Scheduled Meds:atorvastatin, 20 mg, oral, Nightly fluticasone propionate, 2 spray, Each Nostril, Daily gabapentin, 600 mg, oral, TID methadone, 80 mg, oral, Daily And methadone, 30 mg, oral, q24h ZARIA mirtazapine, 7.5 mg, oral, Nightly multivitamin, 1 each, oral, Daily nicotine, 1 patch, transdermal, Daily OXcarbazepine, 600 mg, oral, Daily pantoprazole, 40 mg, oral, q AM AC potassium chloride oral extended release, 40 mEq, oral, Once prazosin, 3 mg, oral, Nightly QUEtiapine, 400 mg, oral, Nightly senna, 2 tablet, oral, Nightly PRN Meds:.PRN medications: acetaminophen, albuterol, calcium carbonate, hydrOXYzine HCL, methocarbamoL, nicotine polacrilex Lab/Radiology/Tests/Consultation: As already prescribed - No additional warranted at this time. * Jh Santos RN - 09/14/2024 6:57 AM EST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 PM EST 20 mg Given 09/27/2024 9:48 PM EST 20 mg Given 09/26/2024 8:50 PM EST 20 mg buPROPion XL (WELLBUTRIN XL) 24 hr tablet 150 mg 150 mg, oral, Daily, First dose (after last modification) on Sun09/12/24 at 0900, Do not crush, chew, or split., Indications: decrease dose with plan to taperIndications:decrease dose with plan to taper Given 09/13/2024 8:45 AM EST 150 mg Given 09/12/2024 9:01 AM EST 150 mg buPROPion XL (WELLBUTRIN XL) 24 hr tablet 300 mg 300 mg, oral, Daily, First dose on Sun09/10/24 at 1930, Do not crush, chew, or split. Given 09/11/2024 8:59 AM EST 300 mg calcium carbonate (TUMS) chewable tablet 1,000 mg 1,000 mg, oral, 4 times daily PRN, heartburn, indigestion, Starting on Sun09/11/24 at 2020, Ordered as calcium carbonate. 500 mg calcium carbonate = 200 mg elemental calcium. Given 09/21/2024 6:52 PM EST 1,000 mg Given 09/13/2024 3:58 PM EST 1,000 mg Given 09/12/2024 4:14 PM EST 1,000 mg diphenhydrAMINE (BENADRYL) injection 12.5 mg 12.5 mg, intravenous, Once, On Sun09/17/24 at 1330, For 1 dose Given 09/17/2024 2:53 PM EST 12.5 mg diphenhydrAMINE (BENADRYL) injection 12.5 mg 12.5 mg, intravenous, Once, On Sun09/18/24 at 1545, For 1 dose Given 09/18/2024 3:48 PM EST 12.5 mg fluticasone propionate (FLONASE) 50 mcg/actuation nasal spray 2 spray 2 spray, Each Nostril, Daily, First dose on Sun09/13/24 at 0930, Shake gently. Before first use, prime pump (press 6 times until fine spray appears). After use, clean tip and replace cap. Given 09/28/2024 8:53 AM EST 2 sprays Given 09/15/2024 10:20 AM EST 2 sprays Given 09/14/2024 8:50 AM EST 2 sprays gabapentin (NEURONTIN) capsule 300 mg 300 mg, oral, 3 times daily, First dose on Sun09/10/24 at 2100 Given 09/12/2024 9:01 AM EST 300 mg Given 09/11/2024 8:11 PM EST 300 mg Given 09/11/2024 2:05 PM EST 300 mg gabapentin (NEURONTIN) capsule 400 mg 400 mg, oral, 3 times daily, First dose (after last modification) on Sun09/12/24 at 1400 Given 09/13/2024 8:45 AM EST 400 mg Given 09/12/2024 8:10 PM EST 400 mg Given 09/12/2024 1:06 PM EST 400 mg gabapentin (NEURONTIN) capsule 600 mg 600 mg, oral, 3 times daily, First dose (after last modification) on Sun09/13/24 at 1400 Given 09/17/2024 9:55 AM EST 600 mg Given 09/16/2024 8:57 PM EST 600 mg Given 09/16/2024 2:11 PM EST 600 mg gabapentin (NEURONTIN) capsule 600 mg 600 mg, oral, 2 times daily, First dose (after last modification) on Sun09/17/24 at 2100 Given 09/30/2024 9:56 AM EST 600 mg Given 09/29/2024 8:57 PM EST 600 mg Given 09/29/2024 11:33 AM EST 600 mg hydrOXYzine HCL (ATARAX) tablet 50 mg 50 mg, oral, Every 6 hours PRN, anxiety, Starting on Sun09/10/24 at 1631 Given 09/20/2024 5:43 PM EST 50 mg Given 09/13/2024 8:48 AM EST 50 mg Given 09/12/2024 12:40 PM EST 50 mg ketorolac (TORADOL) injection 30 mg 30 mg, intravenous, Once, On Sun09/17/24 at 1330, For 1 dose Given 09/17/2024 2:55 PM EST 30 mg ketorolac (TORADOL) injection 30 mg 30 mg, intravenous, Once, On Chelo 09/18/24 at 1545, For 1 dose Given 09/18/2024 3:49 PM EST 30 mg lactated Ringer's bolus 1,000 mL 1,000 mL, intravenous, at 500 mL/hr, Administer over 2 Hours, Once, On 09/22/24 at 2030, For 1 dose New Bag 09/22/2024 9:03 PM EST 1,000 mL 500 mL/hr lidocaine (XYLOCAINE) 2 % mouth solution 10 mL 10 mL, Mouth/Throat, Daily PRN, mild pain, moderate pain, (mouth/ tooth pain), Starting on 09/28/24 at 1314 lithium (ESKALITH) CR tablet 450 mg 450 mg, oral, 2 times daily, First dose (after last modification) on Sun09/23/24 at 2100, Do not crush, chew, or split. Given 09/25/2024 8:20 PM EST 450 mg Given 09/25/2024 8:38 AM EST 450 mg Given 09/24/2024 9:07 PM EST 450 mg lithium (ESKALITH) CR tablet 900 mg 900 mg, oral, Nightly, First dose (after last modification) on 09/27/24 at 2100, Do not crush, chew, or split. Given 09/29/2024 8:56 PM EST 900 mg Given 09/27/2024 9:48 PM EST 900 mg lithium (LITHOBID) CR tablet 300 mg 300 mg, oral, 2 times daily, First dose on Sun09/19/24 at 1130, Do not crush, chew, or split. Given 09/23/2024 9:53 AM EST 300 mg Given 09/22/2024 9:55 PM EST 300 mg Given 09/22/2024 8:50 AM EST 300 mg LORazepam (ATIVAN) tablet 2 mg 2 mg, oral, Once, On 09/27/24 at 1515, For 1 dose Given 09/27/2024 4:50 PM EST 2 mg magnesium sulfate 1 g in sodium chloride 0.9 % 50 mL IVPB 1 g, intravenous, Once, On Chelo 09/18/24 at 1545, For 1 dose New Bag 09/18/2024 3:53 PM EST 1 g magnesium sulfate 1 g IVPB 1 g, intravenous, at 200 mL/hr, Administer over 30 Minutes, Once, On Sun09/17/24 at 1445, For 1 dose New Bag 09/17/2024 2:55 PM EST 1 g 200 mL/hr methadone (DOLOPHINE) tablet 20 mg 20 mg, oral, Every 24 hours scheduled, First dose (after last modification) on Sun09/26/24 at 0900, Give with 80mg of dispersible oral tablets to total 100 mg / day. Given 09/30/2024 8:57 AM EST 20 mg Given 09/29/2024 9:01 AM EST 20 mg Given 09/28/2024 8:53 AM EST 20 mg methadone (DOLOPHINE) tablet 30 mg 30 mg, oral, Every 24 hours scheduled, First dose (after last modification) on Sun09/11/24 at 0900, Give with 80mg of dispersible oral tablets to total 110 mg / day. Given 09/25/2024 8:38 AM EST 30 mg Given 09/24/2024 8:43 AM EST 30 mg Given 09/23/2024 9:53 AM EST 30 mg methadone (METHADOSE) dispersible tablet 80 mg 80 mg, oral, Daily, First dose (after last modification) on Sun09/11/24 at 0900, Disperse total dose in ~120 mL of water, orange juice, or other acidic fruit beverage prior to administration; if insoluble excipients remain and do not entirely dissolve, add a small amount of liquid to cup and administer remaining mixture. Do not chew or swallow tablet before dispersing in liquid. * Give with 30mg of regular oral tablets to total 110 mg / day. Given 09/25/2024 8:34 AM EST 80 mg Given 09/24/2024 8:43 AM EST 80 mg Given 09/23/2024 9:53 AM EST 80 mg methadone (METHADOSE) dispersible tablet 80 mg 80 mg, oral, Daily, First dose (after last modification) on Sun09/26/24 at 0900, Disperse total dose in ~120 mL of water, orange juice, or other acidic fruit beverage prior to administration; if insoluble excipients remain and do not entirely dissolve, add a small amount of liquid to cup and administer remaining mixture. Do not chew or swallow tablet before dispersing in liquid. * Give with 20mg of regular oral tablets to total 100 mg / day. Given 09/30/2024 8:57 AM EST 80 mg Given 09/29/2024 9:01 AM EST 80 mg Given 09/28/2024 8:52 AM EST 80 mg methocarbamoL (ROBAXIN) tablet 750 mg 750 mg, oral, 3 times daily PRN, muscle spasms, Starting on Sun09/11/24 at 1442 Given 09/29/2024 9:47 AM EST 750 m g Given 09/28/2024 3:03 PM EST 750 mg Given 09/27/2024 11:01 AM EST 750 mg methylPREDNISolone sodium succ (SOLU-Medrol) injection 125 mg 125 mg, intravenous, Once, On Sun09/17/24 at 1330, For 1 dose, Reconstitute each 125 mg vial with 2 mL sterile water for injection to a concentration of 62.5 mg/mL. Given 09/17/2024 2:55 PM EST 125 mg methylPREDNISolone sodium succ (SOLU-Medrol) injection 125 mg 125 mg, intravenous, Once, On Sun09/18/24 at 1545, For 1 dose, Reconstitute each 125 mg vial with 2 mL sterile water for injection to a concentration of 62.5 mg/mL. Given 09/18/2024 3:48 PM EST 125 mg mirtazapine (REMERON) tablet 7.5 mg 7.5 mg, oral, Nightly, First dose on Sun09/10/24 at 2100 Given 09/15/2024 8:09 PM EST 7.5 mg Given 09/14/2024 8:21 PM EST 7.5 mg Given 09/13/2024 8:04 PM EST 7.5 mg multivitamin tablet 1 tablet 1 tablet (1 each), oral, Daily, First dose on Sun09/12/24 at 1545 Given 09/30/2024 9:57 AM EST 1 tablet Given 09/29/2024 11:33 AM EST 1 tablet Given 09/27/2024 1:48 PM EST 1 tablet nicotine (NICODERM CQ) 21 mg/24 hr patch 1 patch 1 patch, transdermal, Administer over 24 Hours, Daily, First dose on Sun09/10/24 at 1700 nicotine polacrilex (NICORETTE) gum 2 mg 2 mg, buccal, Every 1 hour PRN, smoking cessation, Starting on 09/15/24 at 1606 Given 09/18/2024 2:21 PM EST 2 mg Given 09/18/2024 12:25 PM EST 2 mg nicotine polacrilex (NICORETTE) gum 4 mg 4 mg, buccal, Every 1 hour PRN, smoking cessation, nicotine craving, urge to smoke, Starting on Sun09/10/24 at 1632, Instruct patient to chew into gum, then place between the cheek and gum to enhance absorption. To increase chances of quitting, recommended to chew and park at least 9 pieces per day in the first 6 weeks of cessation., Indications: nicotine dependence, smoking cessationIndications:nicotine dependence,smoking cessation Given 09/15/2024 10:20 AM EST 4 mg Given 09/12/2024 4:15 PM EST 4 mg Given 09/12/2024 9:07 AM EST 4 mg nicotine polacrilex (NICORETTE) gum 4 mg 4 mg, buccal, Every 1 hour PRN, smoking cessation, Starting on Chelo 09/18/24 at 1439 Given 09/26/2024 12:59 PM EST 4 mg Given 09/25/2024 5:05 PM EST 4 mg Given 09/25/2024 8:37 AM EST 4 mg OXcarbazepine (TRILEPTAL) tablet 600 mg 600 mg, oral, Daily, First dose on Sun09/10/24 at 1930, HAZARDOUS Drug Precautions - Low Risk (Category A/NIOSH Group 3) Reproductive Risk Only: - Single pair of ASTM standard D6978 certified chemotherapy gloves - Eye protection (goggles or face shield) required only with a potential for facial contact (i.e. concern for spitting or vomiting of the dose during or after administration) - Staff at reproductive risk (actively trying to conceive, or may be become , and ): chemo certified gown and an N95 respirator required when crushing meds (crushing of tabs allowed only in closed pouches) or opening of capsules only for allowable dosage forms Given 09/30/2024 9:56 AM EST 600 mg Given 09/29/2024 11:33 AM EST 600 mg Given 09/27/2024 1:49 PM EST 600 mg pantoprazole (PROTONIX) EC tablet 40 mg 40 mg, oral, Every morning before breakfast, First dose on Chelo 09/11/24 at 0700, Do not crush, chew, or split. Given 09/30/2024 6:49 AM EST 40 mg Given 09/29/2024 7:15 AM EST 40 mg Given 09/28/2024 6:52 AM EST 40 mg prazosin (MINIPRESS) capsule 3 mg 3 mg, oral, Nightly, First dose (after last reorder) on Sun09/10/24 at 2100 Given 09/15/2024 8:09 PM EST 3 mg Given 09/14/2024 8:21 PM EST 3 mg Given 09/13/2024 8:04 PM EST 3 mg prazosin (MINIPRESS) capsule 4 mg 4 mg, oral, Nightly, First dose (after last modification) on Sun09/16/24 at 2100 Given 09/29/2024 8:56 PM EST 4 mg Given 09/28/2024 8:09 PM EST 4 mg Given 09/27/2024 9:48 PM EST 4 mg prochlorperazine (COMPAZINE) tablet 10 mg 10 mg, oral, Once, On Sun09/17/24 at 1330, For 1 dose Given 09/17/2024 2:54 PM EST 10 mg prochlorperazine (COMPAZINE) tablet 10 mg 10 mg, oral, Once, On Chelo 09/18/24 at 1545, For 1 dose Given 09/18/2024 3:49 PM EST 10 mg propranoloL (INDERAL) tablet 20 mg 20 mg, oral, 2 times daily, First dose on Sun09/20/24 at 0900 Given 09/30/2024 9:57 AM EST 20 mg Given 09/29/2024 8:56 PM EST 20 mg Given 09/29/2024 11:33 AM EST 20 mg QUEtiapine (SEROquel) tablet 100 mg 100 mg, oral, Nightly, First dose on Sun09/27/24 at 2100 Given 09/27/2024 9:49 PM EST 100 mg QUEtiapine (SEROquel) tablet 200 mg 200 mg, oral, Nightly, First dose (after last modification) on Sun09/28/24 at 2100 Given 09/28/2024 8:08 PM EST 200 mg QUEtiapine (SEROquel) tablet 300 mg 300 mg, oral, Nightly, First dose (after last modification) on Sun09/29/24 at 2100 Given 09/29/2024 8:56 PM EST 300 mg QUEtiapine (SEROquel) tablet 400 mg 400 mg, oral, Nightly, First dose on Sun09/10/24 at 2100 Given 09/15/2024 8:10 PM EST 400 mg Given 09/14/2024 8:21 PM EST 400 mg Given 09/13/2024 8:04 PM EST 400 mg QUEtiapine fumarate ER (SEROquel XR) 24 hr tablet 100 mg 100 mg, oral, Nightly, First dose (after last modification) on Sun09/24/24 at 2100, Do not crush, chew, or split. Given 09/24/2024 9:06 PM EST 100 mg QUEtiapine fumarate ER (SEROquel XR) 24 hr tablet 200 mg 200 mg, oral, Nightly, First dose (after last modification) on Sun09/23/24 at 2100, Do not crush, chew, or split. Given 09/23/2024 10:00 PM EST 200 mg QUEtiapine fumarate ER (SEROquel XR) 24 hr tablet 400 mg 400 mg, oral, Nightly, First dose on Sun09/16/24 at 2100, Do not crush, chew, or split. Given 09/16/2024 8:58 PM EST 400 mg QUEtiapine fumarate ER (SEROquel XR) 24 hr tablet 400 mg 400 mg, oral, Nightly, First dose (after last modification) on Sun09/18/24 at 2100, Do not crush, chew, or split. Given 09/21/2024 9:06 PM EST 400 mg Given 09/20/2024 8:07 PM EST 400 mg Given 09/19/2024 8:39 PM EST 400 mg QUEtiapine XR (SEROquel XR) 24 hr tablet 300 mg 300 mg, oral, Nightly, First dose (after last modification) on Sun09/17/24 at 2100, Do not crush, chew, or split. Given 09/17/2024 8:11 PM EST 300 mg QUEtiapine XR (SEROquel XR) 24 hr tablet 300 mg 300 mg, oral, Nightly, First dose (after last modification) on Sun09/22/24 at 2100, Do not crush, chew, or split. Given 09/22/2024 9:55 PM EST 300 mg senna (SENOKOT) tablet 17.2 mg 17.2 mg (2 tablet), oral, Nightly, First dose on Sun09/10/24 at 2100, Bowel Regimen - for prevention of constipation Given 09/29/2024 8:56 PM EST 17.2 mg Given 09/28/2024 8:08 PM EST 17.2 mg Given 09/27/2024 9:48 PM EST 17.2 mg sodium chloride 0.9 % bolus 500 mL 500 mL, intravenous, at 500 mL/hr, Administer over 1 Hours, Once, On Sun09/17/24 at 1330, For 1 dose New Bag 09/17/2024 2:55 PM EST 500 mL 500 mL/hr sodium chloride 0.9 % bolus 500 mL 500 mL, intravenous, at 500 mL/hr, Administer over 1 Hours, Once, On Sun09/18/24 at 1545, For 1 dose New Bag 09/18/2024 3:48 PM EST 500 mL 500 mL/hr SUMAtriptan (IMITREX) tablet 50 mg 50 mg, oral, 2 times daily PRN, migraine, Starting on Sun09/12/24 at 1128, For 1 dose, Do not exceed 2 doses in 24 hours and do not exceed 200 mg in 24 hours. Given 09/12/2024 7:06 PM EST 50 mg SUMAtriptan (IMITREX) tablet 50 mg 50 mg, oral, 2 times daily PRN, migraine, Starting on Sun09/13/24 at 1235, For 1 dose, Do not exceed 2 doses in 24 hours and do not exceed 200 mg in 24 hours. Given 09/13/2024 12:44 PM EST 50 mg SUMAtriptan (IMITREX) tablet 50 mg 50 mg, oral, Once, On Sun09/25/24 at 1130, For 1 dose, Do not exceed 2 doses in 24 hours and do not exceed 200 mg in 24 hours. Pump Refill 09/25/2024 11:18 AM EST 50 mg documented in this encounter Discontinued Medications Medication Sig Discontinue Reason Start Date End Da te buPROPion XL (WELLBUTRIN XL) 300 mg 24 hr tabletIndications:anxi ety with depression Take 1 tablet (300 mg total) by mouth 1 (one) time each day. Do not crush, chew, or split. Prescriber Discontinued 09/19/2024 butalbital-acetaminoph en-caffeine (FIORICET, ESGIC) 50-325-40 mg per tabletIndications:migr oliverio Take 1 tablet by mouth 2 (two) times a day if needed for headaches or migraine. Prescriber Discontinued 09/19/2024 mirtazapine (REMERON) 7.5 mg tabletIndications:jostin r depressive disorder Take 1 tablet (7.5 mg total) by mouth at bedtime. Prescriber Discontinued 09/19/2024 methadone (DOLOPHINE) 10 mg/mL concentrated solutionIndications:op ioid use disorder,Verified- N, [facility] [phone] @ 1600, 08/10/2024 Take 11 mL (110 mg total) by mouth 1 (one) time each day. 09/29/2024 atorvastatin (LIPITOR) 20 mg tabletIndications:hype rcholesterolemia Take 1 tablet (20 mg total) by mouth at bedtime. 09/29/2024 QUEtiapine (SEROquel) 400 mg tablet Take 1 tablet (400 mg total) by mouth at bedtime. 09/29/2024 OXcarbazepine (TRILEPTAL) 600 mg tablet Take 1 tablet (600 mg total) by mouth 1 (one) time each day. 09/29/2024 methocarbamoL (ROBAXIN) 750 mg tabletIndications:musc le spasm Take 1 tablet (750 mg total) by mouth 3 (three) times a day if needed for muscle spasms. 09/29/2024 omeprazole (PriLOSEC) [address] capsuleIndications:gas troesophageal reflux disease Take 1 capsule (40 mg total) by mouth 1 (one) time each day. Do not crush or chew. 09/29/2024 gabapentin (NEURONTIN) 300 mg capsuleIndications:gina ropathic pain Take 1 capsule (300 mg total) by mouth 3 (three) times a day. Stop Taking at Discharge 09/30/2024 prazosin (MINIPRESS) 1 mg capsuleIndications:nig htmares Take 3 capsules (3 mg total) by mouth at bedtime. Stop Taking at Discharge 09/30/2024 QUEtiapine (SEROquel) 100 mg tablet Take 1 tablet (100 mg total) by mouth 2 (two) times a day. Stop Taking at Discharge 09/30/2024 senna (SENOKOT) 8.6 mg tablet Take 1 tablet (8.6 mg total) by mouth 1 (one) time each day. Stop Taking at Discharge 09/30/2024 documented as of this encounter Historical Medications * This list may reflect changes made after this encounter. omeprazole (PriLOSEC) [address] capsuleIndications :gastroesophageal reflux disease Take 1 capsule (40 mg total) by mouth 1 (one) time each day. Do not crush or chew. 5 mirtazapine (REMERON) 7.5 mg tabletIndications: major depressive disorder Take 1 tablet (7.5 mg total) by mouth at bedtime. 5 methocarbamoL (ROBAXIN) 750 mg tabletIndications: muscle spasm Take 1 tablet (750 mg total) by mouth 3 (three) times a day if needed for muscle spasms. 5 OXcarbazepine (TRILEPTAL) 600 mg tablet Take 1 tablet (600 mg total) by mouth 1 (one) time each day. 5 butalbital-acetami nophen-caffeine (FIORICET, ESGIC) 50-325-40 mg per tabletIndications: migraine Take 1 tablet by mouth 2 (two) times a day if needed for headaches or migraine. 5 senna (SENOKOT) 8.6 mg tablet Take 1 tablet (8.6 mg total) by mouth 1 (one) time each day. 5 QUEtiapine (SEROquel) 400 mg tablet Take 1 tablet (400 mg total) by mouth at bedtime. 5 QUEtiapine (SEROquel) 100 mg tablet Take 1 tablet (100 mg total) by mouth 2 (two) times a day. 5 buPROPion XL (WELLBUTRIN XL) 300 mg 24 hr tabletIndications: anxiety with depression Take 1 tablet (300 mg total) by mouth 1 (one) time each day. Do not crush, chew, or split. atorvastatin (LIPITOR) 20 mg tabletIndications: hypercholesterolem ia Take 1 tablet (20 mg total) by mouth at bedtime. prazosin (MINIPRESS) 1 mg capsuleIndications :nightmares Take 3 capsules (3 mg total) by mouth at bedtime. gabapentin (NEURONTIN) 300 mg capsuleIndications :neuropathic pain Take 1 capsule (300 mg total) by mouth 3 (three) times a day. methadone (DOLOPHINE) 10 mg/mL concentrated solutionIndication s:opioid use disorder,Verified- N, [facility] [phone] @ 1600, 08/10/2024 Take 11 mL (110 mg total) by mouth 1 (one) time each day. added in this encounter Active and Recently Administered Medications Times are shown in EST. Scheduled Medication Order 09/28/2024 09/29/2024 09/30/2024 atorvastatin (LIPITOR) tablet 20 mg 20 mg, oral, Nightly, First dose on Sun09/10/24 at 2100 2008 (Not Given - Provider: Lluvia Guillaume RN - Reason: Patient/Resident/Agen t refused - education provided ) 2055 (Given - Provider: Rolanda Carlos RN) fluticasone propionate (FLONASE) 50 mcg/actuation nasal spray 2 spray 2 spray, Each Nostril, Daily, First dose on Sun09/13/24 at 0930, Shake gently. Before first use, prime pump (press 6 times until fine spray appears). After use, clean tip and replace cap. 0853 (Given - Provider: Lluvia Guillaume RN) 1134 (Not Given - Provider: Neeru Montgomery RN - Reason: Patient/Resident/Agen t refused - education provided ) 1003 (Not Given - Provider: Loren John RN - Reason: Patient/Resident/Age nt refused - education provided ) gabapentin (NEURONTIN) capsule 600 mg 600 mg, oral, 2 times daily, First dose (after last modification) on Sun09/17/24 at 2100 0853 (Not Given - Provider: Lluvia Guillaume RN - Reason: Patient/Resident/Agen t refused - education provided )2007 (Given - Provider: Lluvia Guillaume RN) 1133 (Given - Provider: Neeru Montgomery RN)2056 (Given - Provider: Rolanda Carlos, KRISTIN) 09 (Given - Provider: Loren John, KRISTIN) lithium (ESKALITH) CR tablet 900 mg 900 mg, oral, Nightly, First dose (after last modification) on Sun09/27/24 at 2100, Do not crush, chew, or split. 2008 (Not Given - Provider: Lluvia Guillaume RN - Reason: Patient/Resident/Agen t refused - education provided ) 2055 (Given - Provider: Rolanda Carlos, KRISTIN) methadone (DOLOPHINE) tablet 20 mg(Linked Group 1) 20 mg, oral, Every 24 hours scheduled, First dose (after last modification) on Sun09/26/24 at 0900, Give with 80mg of dispersible oral tablets to total 100 mg / day. 0853 (Given - Provider: Lluvia Guillaume RN) 0901 (Given - Provider: Peewee Sarkar RN) 0857 (Given - Provider: Loren John, KRISTIN) methadone (METHADOSE) dispersible tablet 80 mg(Linked Group 1) 80 mg, oral, Daily, First dose (after last modification) on Sun09/26/24 at 0900, Disperse total dose in ~120 mL of water, orange juice, or other acidic fruit beverage prior to administration; if insoluble excipients remain and do not entirely dissolve, add a small amount of liquid to cup and administer remaining mixture. Do not chew or swallow tablet before dispersing in liquid. * Give with 20mg of regular oral tablets to total 100 mg / day. 0852 (Given - Provider: Lluvia Guillaume RN) 0901 (Given - Provider: Peewee Sarkar RN) 0857 (Given - Provider: Loern John, KRISTIN) multivitamin tablet 1 tablet 1 tablet (1 each), oral, Daily, First dose on Sun09/12/24 at 1545 0853 (Not Given - Provider: Lluvia Guillaume RN - Reason: Patient/Resident/Agen t refused - education provided ) 1133 (Given - Provider: Neeru Montgomery RN) 0957 (Given - Provider: Loren John, KRISTIN) nicotine (NICODERM CQ) 21 mg/24 hr patch 1 patch 1 patch, transdermal, Administer over 24 Hours, Daily, First dose on Sun09/10/24 at 1700 0857 (Not Given - Provider: Lluvia Guillaume RN - Reason: Patient/Resident/Agen t refused - education provided ) 1134 (Not Given - Provider: Neeru Montgomery RN - Reason: Patient/Resident/Agen t refused - education provided ) 1003 (Not Given - Provider: Loren John RN - Reason: Patient/Resident/Age nt refused - education provided ) OXcarbazepine (TRILEPTAL) tablet 600 mg 600 mg, oral, Daily, First dose on Sun09/10/24 at 1930, HAZARDOUS Drug Precautions - Low Risk (Category A/NIOSH Group 3) Reproductive Risk Only: - Single pair of ASTM standard D6978 certified chemotherapy gloves - Eye protection (goggles or face shield) required only with a potential for facial contact (i.e. concern for spitting or vomiting of the dose during or after administration) - Staff at reproductive risk (actively trying to conceive, or may be become , and ): chemo certified gown and an N95 respirator required when crushing meds (crushing of tabs allowed only in closed pouches) or opening of capsules only for allowable dosage forms 0852 (Not Given - Provider: Lluvia Guillaume RN - Reason: Patient/Resident/Agen t refused - education provided ) 1133 (Given - Provider: Neeru Montgomery RN) 0956 (Given - Provider: Loren John RN) pantoprazole (PROTONIX) EC tablet 40 mg 40 mg, oral, Every morning before breakfast, First dose on Sun09/11/24 at 0700, Do not crush, chew, or split. 0652 (Given - Provider: Jh Santos RN) 0715 (Given - Provider: Jh Santos RN) 0649 (Given - Provider: Yassine Cook RN) prazosin (MINIPRESS) capsule 4 mg 4 mg, oral, Nightly, First dose (after last modification) on Sun09/16/24 at 2100 2008 (Given - Provider: Lluvia Guillaume RN) 2055 (Given - Provider: Rolanda Carlos RN) propranoloL (INDERAL) tablet 20 mg 20 mg, oral, 2 times daily, First dose on Sun09/20/24 at 0900 0853 (Not Given - Provider: Lluvia Guillaume RN - Reason: Patient/Resident/Agen t refused - education provided )2007 (Given - Provider: Lluvia Guillaume RN) 1133 (Given - Provider: Neeru Montgomery RN)2055 (Given - Provider: Rolanda Carlos RN) 0957 (Given - Provider: Loren John, KRISTIN) QUEtiapine (SEROquel) tablet 200 mg (CANCELED) 200 mg, oral, Nightly, First dose (after last modification) on Sun09/28/24 at 2100 2007 (Given - Provider: Lluvia Guillaume RN) QUEtiapine (SEROquel) tablet 300 mg 300 mg, oral, Nightly, First dose (after last modification) on Sun09/29/24 at 2100 2055 (Given - Provider: Rolanda Carlos RN) senna (SENOKOT) tablet 17.2 mg 17.2 mg (2 tablet), oral, Nightly, First dose on Sun09/10/24 at 2100, Bowel Regimen - for prevention of constipation 2007 (Given - Provider: Lluvia Guillaume RN) 2055 (Given - Provider: Rolanda Carlos RN) PRN Medication Order 09/28/2024 09/29/2024 09/30/2024 acetaminophen (TYLENOL) tablet 650 mg 650 mg, oral, Every 6 hours PRN, mild pain, Starting on Sun09/10/24 at 1631 1503 (Given - Provider: Lluvia Guillaume RN) 0947 (Given - Provider: Peewee Sarkar RN)1418 (Given - Provider: Peewee Sarkar RN)2111 (Given - Provider: Rolanda Carlos RN) 0316 (Given - Provider: Yassine Cook RN)1240 (Given - Provider: Loren John RN) albuterol 2.5 mg /3 mL (0.083 %) nebulizer solution 2.5 mg 2.5 mg, nebulization, Every 6 hours PRN, wheezing, Starting on Sun09/11/24 at 1442 calcium carbonate (TUMS) chewable tablet 1,000 mg 1,000 mg, oral, 4 times daily PRN, heartburn, indigestion, Starting on Sun09/11/24 at 2021, Ordered as calcium carbonate. 500 mg calcium carbonate = 200 mg elemental calcium. hydrOXYzine HCL (ATARAX) tablet 50 mg 50 mg, oral, Every 6 hours PRN, anxiety, Starting on Sun09/10/24 at 1631 lidocaine (XYLOCAINE) 2 % mouth solution 10 mL 10 mL, Mouth/Throat, Daily PRN, mild pain, moderate pain, (mouth/ tooth pain), Starting on Sun09/28/24 at 1314 methocarbamoL (ROBAXIN) tablet 750 mg 750 mg, oral, 3 times daily PRN, muscle spasms, Starting on Sun09/11/24 at 1442 1503 (Given - Provider: Lluvia Guillaume RN) 0947 (Given - Provider: Peewee Sarkar RN) nicotine polacrilex (NICORETTE) gum 4 mg 4 mg, buccal, Every 1 hour PRN, smoking cessation, Starting on Sun09/18/24 at 1439 Linked Groups Order Group 1: methadone (METHADOSE) dispersible tablet 80 mgJump to med 80 mg, oral, Daily, First dose (after last modification) on Sun09/26/24 at 0900, Disperse total dose in ~120 mL of water, orange juice, or other acidic fruit beverage prior to administration; if insoluble excipients remain and do not entirely dissolve, add a small amount of liquid to cup and administer remaining mixture. Do not chew or swallow tablet before dispersing in liquid. * Give with 20mg of regular oral tablets to total 100 mg / day. And methadone (DOLOPHINE) tablet 20 mgJump to med 20 mg, oral, Every 24 hours scheduled, First dose (after last modification) on Sun09/26/24 at 0900, Give with 80mg of dispersible oral tablets to total 100 mg / day. documented in this encounter Orders Medications Ordered That Eriberto ht Not Have Been Administered Count Last Ordered Date First Ordered Date lidocaine (XYLOCAINE) 2 % mo uth solution 10 mL 1 09/28/2024 ARIPiprazole (ABILIFY) tablet 15 mg 1 09/25 diphenhydrAMINE (BENADRYL) i njection 12.5 mg 1 09/19/2024 ketorolac (TORADOL) injection 30 mg 1 09/19 magnesium sulfate 1 g in sod ium chloride 0.9 % 50 mL IVPB 2 09/19/2024 09/17/2024 magnesium sulfate 1 g IVPB 1 09/19/2024 methylPREDNISolone sodium parker cc (SOLU-Medrol) injection 125 mg 1 09/19/2024 prochlorperazine (COMPAZINE) tablet 10 mg 1 09/19/2024 sodium chloride 0.9 % bolus 500 mL 1 2024 magnesium sulfate IVPB 1 g 1 09/17/2024 albuterol 2.5 mg /3 mL (0.08 3 %) nebulizer solution 2.5 mg 1 09/11/2024 potassium chloride (KLOR-CON M10) CR tablet 40 mEq 1 09/11/2024 methadone (DOLOPHINE) tablet 30 mg 1 2024 methadone (METHADOSE) disper sible tablet 80 mg 1 09/10/2024 nicotine (NICODERM CQ) 21 mg /24 hr patch 1 patch 1 09/10/2024 prazosin (MINIPRESS) capsule 3 mg 1 025 Consult Count Last Ordered Date First Orde red Date IP CONSULT TO NEUROLOGY 1 09/14/2024 IP CONSULT TO NUTRITION SERVICES 1 09/10/19 25 Admission Count Last Ordered Date First Orde red Date ADMIT TO IP PSYCH 1 09/10/2024 Discharge Count Last Ordered Date First Orde red Date DISCHARGE PATIENT 1 09/30/2024 documented in this encounter Care Teams Construction Tech Relationship Specialty Start Date End Date Physician, No Pcp PCP - General 09/09/24 documented as of this encounter
--- OUTSIDE RECORDS SUMMARY | 2024-10-01 13:23 | XMS_ITS | Clinical Summary ---
Author Organization [facility] Address [address] [place] [address] Phone Care Team Providers Care Hammer Setter Name Role Phone Physician, No Pcp Primary Care Provider Unavaila ble Allergies No known active allergies Medications atorvastatin (LIPITOR) 20 mg tabletIndicatio ns:hypercholest erolemia Take 1 tablet (20 mg total) by mouth at bedtime. 30 each 09/29/19 25 2024 Active gabapentin (NEURONTIN) 600 mg tabletIndicatio ns:neuropathic pain Take 1 tablet (600 mg total) by mouth 2 (two) times a day. 60 each 09/29/19 25 2024 Active methadone (DOLOPHINE) 10 mg/mL concentrated solutionIndicat ions:opioid use disorder,Verifi ed- [facility], [facility] [phone] @ 1600, 08/10/2024 Take 10 mL (100 mg total) by mouth 1 (one) time each day. Max Daily Amount: 100 mg 09/29/19 25 Active methocarbamoL (ROBAXIN) 750 mg tabletIndicatio ns:muscle spasm Take 1 tablet (750 mg total) by mouth 3 (three) times a day if needed for muscle spasms. 60 each 09/29/19 25 2024 Active OXcarbazepine (TRILEPTAL) 600 mg tabletIndicatio ns:focal epilepsy Take 1 tablet (600 mg total) by mouth 1 (one) time each day. 30 each 09/29/19 25 2024 Active prazosin (MINIPRESS) 2 mg capsuleIndicati ons:Chronic PTSD with Trauma Nightmares Take 2 capsules (4 mg total) by mouth at bedtime. 60 each 09/29/19 25 2024 Active QUEtiapine (SEROquel) 400 mg tabletIndicatio ns:bipolar disorder in remission Take 1 tablet (400 mg total) by mouth at bedtime. 30 each 09/29/19 25 2024 Active senna (SENOKOT) 8.6 mg tabletIndicatio ns:constipation Take 2 tablets (17.2 mg total) by mouth at bedtime. 60 each 09/29/19 25 2024 Active fluticasone propionate (FLONASE) 50 mcg/actuation nasal sprayIndication s:allergic rhinitis Administer 2 sprays into each nostril 1 (one) time each day. Shake gently. Before first use, prime pump. After use, clean tip and replace cap. 16 g 09/30/19 25 2024 Active hydrOXYzine HCL (ATARAX) 50 mg tabletIndicatio ns:anxiety Take 1 tablet (50 mg total) by mouth 2 (two) times a day if needed for anxiety. 60 each 09/29/19 25 2024 Active lithium (ESKALITH) 450 mg CR tablet Take 2 tablets (900 mg total) by mouth at bedtime. Do not crush, chew, or split. 60 each 09/29/19 25 2024 Active nicotine (NICODERM CQ) 21 mg/[address] 1 patch on the skin 1 (one) time each day. 30 each 09/30/19 25 2024 Active nicotine polacrilex (NICORETTE) [address] 1 each (4 mg total) into mouth between cheek and gum every 1 (one) hour if needed for smoking cessation. 100 each 09/29/19 25 2024 Active omeprazole (PriLOSEC) [address] capsuleIndicati ons:gastroesoph ageal reflux disease Take 1 capsule (40 mg total) by mouth 1 (one) time each day. Do not crush or chew. 30 each 09/29/19 25 2024 Active propranoloL (INDERAL) 20 mg tabletIndicatio ns:migraine prevention Take 1 tablet (20 mg total) by mouth 2 (two) times a day. 60 each 09/29/192024 Active naloxone (NARCAN) 4 mg/0.1 mL nasal sprayIndication s:opioid overdose Administer 1 each (4 mg total) into affected nostril(s) if needed for opioid reversal. Give 4 mg (1 spray) into one nostril. May repeat every 2-3 minutes if needed, alternating nostrils, until medical assistance becomes available. 2 each 09/29/192024 Active methadone (DOLOPHINE) 10 mg/mL concentrated solutionIndicat ions:opioid use disorder,Verifi ed- N, [facility], [facility] [phone] @ 1600, 08/10/2024 Take 11 mL (110 mg total) by mouth 1 (one) time each day. 2024 Discontinued gabapentin (NEURONTIN) 300 mg capsuleIndicati ons:neuropathic pain Take 1 capsule (300 mg total) by mouth 3 (three) times a day. 2024 Discontinued(S top Taking at Discharge) prazosin (MINIPRESS) 1 mg capsuleIndicati ons:nightmares Take 3 capsules (3 mg total) by mouth at bedtime. 2024 Discontinued(S top Taking at Discharge) atorvastatin (LIPITOR) 20 mg tabletIndicatio ns:hypercholest erolemia Take 1 tablet (20 mg total) by mouth at bedtime. 2024 Discontinued buPROPion XL (WELLBUTRIN XL) 300 mg 24 hr tabletIndicatio ns:anxiety with depression Take 1 tablet (300 mg total) by mouth 1 (one) time each day. Do not crush, chew, or split. 2024 Discontinued(P rescriber Discontinued) QUEtiapine (SEROquel) 100 mg tablet Take 1 tablet (100 mg total) by mouth 2 (two) times a day. 2024 Discontinued(S top Taking at Discharge) QUEtiapine (SEROquel) 400 mg tablet Take 1 tablet (400 mg total) by mouth at bedtime. 2024 Discontinued senna (SENOKOT) 8.6 mg tablet Take 1 tablet (8.6 mg total) by mouth 1 (one) time each day. 2024 Discontinued(S top Taking at Discharge) butalbital-acet aminophen-caffe ine (FIORICET, ESGIC) 50-325-40 mg per tabletIndicatio ns:migraine Take 1 tablet by mouth 2 (two) times a day if needed for headaches or migraine. 2024 Discontinued(P rescriber Discontinued) OXcarbazepine (TRILEPTAL) 600 mg tablet Take 1 tablet (600 mg total) by mouth 1 (one) time each day. 2024 Discontinued methocarbamoL (ROBAXIN) 750 mg tabletIndicatio ns:muscle spasm Take 1 tablet (750 mg total) by mouth 3 (three) times a day if needed for muscle spasms. 2024 Discontinued mirtazapine (REMERON) 7.5 mg tabletIndicatio ns:major depressive disorder Take 1 tablet (7.5 mg total) by mouth at bedtime. 2024 Discontinued(P rescriber Discontinued) omeprazole (PriLOSEC) [address] capsuleIndicati ons:gastroesoph ageal reflux disease Take 1 capsule (40 mg total) by mouth 1 (one) time each day. Do not crush or chew. 2024 Discontinued Active Problems Problem Noted Date Diagnosed Date Schizoaffective disorder, bipolar type Uncomplicated opioid dependence 09/11/2024 Overview (09/11/2024): On MAT Stimulant use disorder 09/11/2024 Overview (09/11/2024): cocaine Encounters Date Type Department Care Team Description 09/10/2024 3:19 PM EST - 09/30/2024 4:40 PM EST Hospital Encounter [facility] [address] [place] [address] Vernon Weathers DO Discharge Disposition: Another Health Care Institution Not Defined 09/09/2024 7:24 PM EST - 09/10/2024 2:12 PM EST Emergency [facility] Emergency [address] [place] [address] Hawk Lopez DO Suicidal ideation (Primary Dx); Emotional crisis; Bipolar I disorder, most recent episode manic, severe without psychotic features ([facility]) Discharge Disposition: Another Health Care Institution Not Defined from Last 3 Months Medical History Medical History Date Comments Depression Anxiety Addiction to drug ([facility]) Chronic pain disorder Social History Tobacco Use Types Packs/Day Years [...] Orientation Straight 09/09/2024 10 :26 PM EST Obstetrics History Last Filed Vital Signs Vital Sign Reading [...] Mass Index 34.55 09/10/2024 3:24 PM EST Plan of Treatment Health Maintenance Due Date Last Done Comments DTaP,Tdap,and Td Vaccines (1 - Tdap) 1996 Hepatitis A Vaccines (1 of 2 - Risk 2-dose series) 1996 Hepatitis B Vaccines (1 of 3 - 19+ 3-dose series) 1996 Pneumococcal Vaccine: Pediat rics (0 to 5 Years) and At-Risk Patients (6 to 64 Years) (1 of 2 - PCV) 1996 Cholesterol Screening (Lipid Panel) 07/05/2022 Colorectal Cancer Screening: Colonoscopy 07/05/2022 Depression Screening 07/05/2022 HIV Screening 07/05/2022 Hepatitis C Screening 07/05/2022 Medicare Annual Wellness Visit 07/05/2022 Social Influencers of Health Screening 07/05/2022 COVID-19 Vaccine (2023-2 5 season) 2024 Influenza Vaccine (#1) 2024 HIB Vaccines Aged Out No longer eligi ble based on patient's age to complete this topic HPV Vaccines Aged Out No longer eligi ble based on patient's age to complete this topic IPV Vaccines Aged Out No longer eligi ble based on patient's age to complete this topic MMR Vaccines Aged Out No longer eligi ble based on patient's age to complete this topic Meningococcal ACWY Vaccine Aged Out N o longer eligible based on patient's age to complete this topic Meningococcal B Vacine Aged Out No lo nger eligible based on patient's age to complete this topic RSV Immunization Patients Un bridger 20 months Aged Out No longer eligible b ased on patient's age to complete this topic Varicella Vaccines Aged Out No longer eligible based on patient's age to complete this topic Procedures Procedure Name Priority Date/Time Associated Diagnosis Comments LITHIUM LEVEL Timed 09/26/2024 8:17 AM EST LITHIUM LEVEL Timed 09/22/2024 12:[address] HEAD WO CONTRAST Routine 09/16/2024 2 :27 PM EST METHADONE SCREEN, URINE STAT 09/10/2024 5:41 AM EST PHENCYCLIDINE, URINE STAT 09/10/2024 5:41 AM EST BUPRENORPHINE SCREEN, URINE STAT 09/10/2024 5:41 AM EST DRUG ABUSE SCREEN 8A PANEL, URINE STAT 09/10/2024 5:41 AM EST LIPASE STAT 09/09/2024 8:37 PM EST MAGNESIUM STAT 09/09/2024 8:37 PM EST CBC WITH AUTO DIFFERENTIAL STAT 09/09/2024 8:37 PM EST SALICYLATE LEVEL STAT 09/09/2024 8:37 PM EST ACETAMINOPHEN LEVEL STAT 09/09/2024 8 :37 PM EST ETHANOL STAT 09/09/2024 8:37 PM EST COMPREHENSIVE METABOLIC PANEL STAT 09/09/2024 8:37 PM EST CBC AND DIFFERENTIAL STAT 09/09/2024 8:37 PM EST from Last 3 Months Results * [place] level (09/26/2024 8:17 AM EST) Only the most recent of2 resultswithin the time period is included. [place] Level 0.7 0.6 - 1.2 mEq/L LAB CHEMISTRY METHOD 09/26/2024 9:24 AM EST [facility] Blood Venous blood specimen / Unknown Venipuncture / Unknown 09/26/2024 8:17 AM EST 09/26/2024 8:39 AM EST Vernon Weathers DO LAB BLOOD ORDERABLES Final Res ult [facility] [address] [place] [address], * CT Head wo Contrast (09/16/2024 2:27 PM EST) Anatomical Region Laterality Modality Head and Neck Computed Tomogra phy 09/16/2024 2:55 PM EST Impressions 09/16/2024 3:[address] evidence of acute intracranial pathology. Report reviewed and signed by : Dr. Parviz Pond on 09/16/2024 3:05 PM. Workstation Name - [id number] -------- FINAL REPORT -------- Dictated By: Parviz Pond Dictated Date: 09/16/2024 14:55 ET Assigned Physician: Parviz Pond Reviewed and Electronically Signed By: Parviz Pond Signed Date: 09/16/2024 15:05 ET Workstation ID: [id number] Transcribed By: Self Edit Transcribed Date: 09/16/2024 [...] Pond on 09/16/2024 3:05 PM.Workstation Name - [id number] -------- FINAL REPORT -------- Dictated By: Parviz Pond Dictated Date: 09/16/2024 14:55 ET Assigned Physician: Parviz Pond Reviewed and Electronically Signed By: Parviz Pond Signed Date: 09/16/2024 15:05 ET Workstation ID: [id number] Transcribed By: Self Edit Transcribed Date: 09/16/2024 14:55 ET Vernon Weathers DO IMG CT PROCEDURES Final Result * (ABNORMAL) Drug abuse screen 8a panel, urine (09/10/2024 5:41 AM EST) Amphetamine Screen, Ur Negative Negative LAB CHEMISTRY METHOD 5 7:13 AM [facility] Comment:Certain OTC medicati ons containing ephedrine, phenylephrine, pseudoephedrine and phenylpropanolamine can cause false positive results. Barbiturate Screen, Ur Positive(A ) Negative LAB CHEMISTRY METHOD 5 7:13 AM [facility] Benzodiazepine Screen, Ur Negative Negative LAB CHEMISTRY METHOD 5 7:13 AM [facility] Cocaine Screen, Ur Positive(A ) Negative LAB CHEMISTRY METHOD 5 7:13 AM [facility] Opiate Screen, Ur Positive(A ) Negative LAB CHEMISTRY METHOD 5 7:13 AM [facility] Cannabinoid (THC) Screen, Ur Positive(A ) Negative LAB CHEMISTRY METHOD 5 7:13 AM [facility] Comment:Specimens from patie nts taking pantoprazole sodium (Protonix) have been shown to produce false positive results. Oxycodone Screen, Ur Negative Negative LAB CHEMISTRY METHOD 5 7:13 AM [facility] Fentanyl, Ur Positive(A ) Negative LAB CHEMISTRY METHOD 7:13 AM EST [facility] Urine Urine specimen obtained by clean catch procedure / Unknown Non-blood Collection / Unknown 09/10/2024 5:41 AM EST 09/10/2024 6:03 AM EST [facility] - 09/10/2024 7:13 AM EST Assay [...] MD LAB URINE ORDERABLES Nadine decker Result [facility] [address] [place] [address], * Buprenorphine screen, urine (09/10/2024 5:41 AM EST) [facility] Buprenorphine Screen Urine Negative Negative LAB CHEMISTRY METHOD 09/10/2024 6:37 AM EST [facility] Urine Urine specimen obtained by clean catch procedure / Unknown Non-blood Collection / Unknown 09/10/2024 5:41 AM EST 09/10/2024 6:03 AM EST Teresa [facility] - 09/10/2024 6:37 AM EST Assay cutoff 5 ng/mL Semi-quantitative assay for screening purposes only. Unconfirmed screening result should not be used for non-medical purposes. *ALTERNATE METHOD CONFIRMATION DONE UPON REQUEST ONLY* Mauricio Coleman MD LAB URINE ORDERABLES Nadine l Result Performing Organization Address [facility] Co de Phone Number [facility] [address] [place] [address], [place] [phone] * (ABNORMAL) Methadone, urine (09/10/2024 5:41 AM EST) Methadone Screen, Urine Positive (A) Negative LAB CHEMISTRY METHOD 09/10/2024 6:37 AM EST [facility] Comment: Assay cutoff 300 ng/mL [...] ORDERABLES Nadine l Result Performing Organization Address [facility] de Phone Number [facility] [address] [place] [address], [place] [phone] * Phencyclidine, urine (09/10/2024 5:41 AM EST) PCP Scrn, Ur Negative Negative LAB CHEMISTRY METHOD 09/10/2024 6:37 AM EST [facility] Comment: Assay cutoff 25 ng/mL [...] ORDERABLES Nadine l Result Performing Organization Address City/[facility]/ZIP Co de Phone Number [facility] [address] [place] [address], * (ABNORMAL) CBC auto differential (09/09/2024 8:37 PM EST) [facility] WBC 11.2(H) 4.8 - 10.8 K/mcL LAB HEMETOLOGY METHOD 09/09/2024 8:48 PM EST [facility] RBC 3.70(L) 4.50 - 5.50 M/mcL LAB HEMETOLOGY METHOD 09/09/2024 8:48 PM [facility] Hemoglobin 11.5(L) 13.5 - 17.5 g/dL LAB HEMETOLOGY METHOD 09/09/2024 8:48 PM [facility] Hematocrit 34.7(L) 42.0 - 54.0 % LAB HEMETOLOGY METHOD 09/09/2024 8:48 PM [facility] MCV 93.0 79.0 - 98.0 FL LAB HEMETOLOGY METHOD 09/09/2024 8:48 PM [facility] MCH 30.8 27.0 - 32.0 pcg LAB HEMETOLOGY METHOD 09/09/2024 8:48 PM [facility] MCHC 33.1 32.0 - 37.0 g/dL LAB HEMETOLOGY METHOD 09/09/2024 8:48 PM [facility] RDW 13.4 11.0 - 15.0 % LAB HEMETOLOGY METHOD 09/09/2024 8:48 PM [facility] Platelets 329 130 - 400 K/mcL LAB HEMETOLOGY METHOD 09/09/2024 8:48 PM [facility] MPV 9.8 7.0 - 11.0 FL LAB HEMETOLOGY METHOD 09/09/2024 8:48 PM [facility] NRBC 0.0 <1.0 % LAB HEMETOLOGY METHOD 09/09/2024 8:48 PM [facility] NRBC Absolute 0.00 <0.10 K/mcL LAB HEMETOLOGY METHOD 09/09/2024 8:48 PM [facility] Neutrophils Relative 80.1 % LAB HEMETOLOGY METHOD 09/09/2024 8:48 PM [facility] Lymphocytes Relative 12.0 % LAB HEMETOLOGY METHOD 09/09/2024 8:48 PM [facility] Monocytes Relative 7.1 % LAB HEMETOLOGY METHOD 09/09/2024 8:48 PM [facility] Eosinophils Relative 0.1 % LAB HEMETOLOGY METHOD 09/09/2024 8:48 PM [facility] Basophils Relative 0.3 % LAB HEMETOLOGY METHOD 09/09/2024 8:48 PM [facility] Immature Granulocytes Relative 0.4 % LAB HEMETOLOGY METHOD 09/09/2024 8:48 PM [facility] Neutrophils Absolute 9.01(H) 1.50 - 7.00 K/mcL LAB HEMETOLOGY METHOD 09/09/2024 8:48 PM [facility] Lymphocytes Absolute 1.35 1.00 - 5.00 K/mcL LAB HEMETOLOGY METHOD 09/09/2024 8:48 PM [facility] Monocytes Absolute 0.80 0.20 - 1.00 K/mcL LAB HEMETOLOGY METHOD 09/09/2024 8:48 PM [facility] Eosinophils Absolute 0.01 0.00 - 0.50 K/mcL LAB HEMETOLOGY METHOD 09/09/2024 8:48 PM [facility] Basophils Absolute 0.03 0.00 - 0.20 K/mcL LAB HEMETOLOGY METHOD 09/09/2024 8:48 PM [facility] Immature Granulocytes Absolute 0.04(H) 0.00 - 0.03 K/mcL LAB HEMETOLOGY METHOD 09/09/2024 8:48 PM EST [facility] Blood Venous blood specimen / Unknown Venipuncture / Unknown 09/09/2024 8:37 PM EST 09/09/2024 8:42 PM EST us Mauricio Coleman MD LAB BLOOD ORDERABLES Nadine l Result Performing Organization Address City/[facility]/ZIP Co de Phone Number [facility] [address] [place] [address], [place] [phone] * Magnesium (09/09/2024 8:37 PM EST) Magnesium 2.0 1.9 - 2.6 mg/dL LAB CHEMISTRY METHOD 09/09/2024 9:30 PM EST [facility] Blood Venous blood specimen / Unknown Venipuncture / Unknown 09/09/2024 8:37 PM EST 09/09/2024 8:42 PM EST us Mauricio Coleman MD LAB BLOOD ORDERABLES Nadine l Result Performing Organization Address [facility]/ZIP Co de Phone Number [facility] [address] [place] [address], [place] [phone] * Lipase (09/09/2024 8:37 PM EST) Lipase 16 13 - 75 unit/L LAB CHEMISTRY METHOD 09/09/2024 9:30 PM EST [facility] Blood Venous blood specimen / Unknown Venipuncture / Unknown 09/09/2024 8:37 PM EST 09/09/2024 8:42 PM EST us Mauricio Coleman MD LAB BLOOD ORDERABLES Nadine l Result Performing Organization Address City/[facility]/ZIP Co de Phone Number [facility] [address] [place] [address], [place] [phone] * Ethanol (09/09/2024 8:37 PM EST) Ethanol Level <3 0 - 10 mg/dL LAB CHEMISTRY METHOD 09/09/2024 9:30 PM EST [facility] Blood Venous blood specimen / Unknown Venipuncture / Unknown 09/09/2024 8:37 PM EST 09/09/2024 8:42 PM EST us Mauricio Coleman MD LAB BLOOD ORDERABLES Nadine l Result Performing Organization Address [facility]/ZIP Co de Phone Number [facility] [address] [place] [address], [place] [phone] * (ABNORMAL) Acetaminophen level (09/09/2024 8:37 PM EST) Acetaminophen Level <2.0(L) 10.0 - 30.0 mcg/mL LAB CHEMISTRY METHOD 09/09/2024 9:30 PM EST [facility] Blood Venous blood specimen / Unknown Venipuncture / Unknown 09/09/2024 8:37 PM EST 09/09/2024 8:42 PM EST us Mauricio Coleman MD LAB BLOOD ORDERABLES Nadine l Result Performing Organization Address [facility] Co de Phone Number [facility] [address] [place] [address], [place] [phone] * (ABNORMAL) Salicylate level (09/09/2024 8:37 PM EST) Salicylate Level <1.7(L) 2.0 - 29.0 mg/dL LAB CHEMISTRY METHOD 09/09/2024 9:30 PM EST [facility] Blood Venous blood specimen / Unknown Venipuncture / Unknown 09/09/2024 8:37 PM EST 09/09/2024 8:42 PM EST us Mauricio Coleman MD LAB BLOOD ORDERABLES Nadine l Result [facility] [address] [place] [address], [place] [phone] * (ABNORMAL) Comprehensive metabolic panel (09/09/2024 8:37 PM EST) Sodium 138 133 - 145 mmol/L LAB CHEMISTRY METHOD 09/09/2024 9:30 PM [facility] Potassium 3.4(L) 3.5 - 5.5 mmol/L LAB CHEMISTRY METHOD 09/09/2024 9:30 PM [facility] Chloride 104 96 - 110 mmol/L LAB CHEMISTRY METHOD 09/09/2024 9:30 PM [facility] CO2 27 21 - 32 mmol/L LAB CHEMISTRY METHOD 09/09/2024 9:30 PM [facility] Anion Gap 7 3 - 11 LAB CHEMISTRY METHOD 09/09/2024 9:30 PM [facility] Glucose 88 70 - 100 mg/dL LAB CHEMISTRY METHOD 09/09/2024 9:30 PM [facility] BUN 18 5 - 25 mg/dL LAB CHEMISTRY METHOD 09/09/2024 9:30 PM [facility] Creatinine 1.05 0.70 - 1.30 mg/dL LAB CHEMISTRY METHOD 09/09/2024 9:30 PM [facility] eGFR 88 >=60 mL/min/1. 73m2 LAB CHEMISTRY METHOD 09/09/2024 9:30 PM [facility] Comment:Calculation based on the??Chronic Kidney Disease Epidemiology Collaboration (CKD-EPI) equation refit??without adjustment for race. BUN/Creatinine Ratio 17.1 LAB CHEMISTRY METHOD 09/09/2024 9:30 PM [facility] Calcium 9.1 8.5 - 10.5 mg/dL LAB CHEMISTRY METHOD 09/09/2024 9:30 PM [facility] AST (SGOT) 37 10 - 42 unit/L LAB CHEMISTRY METHOD 09/09/2024 9:30 PM EST [facility] ALT (SGPT) 25 10 - 60 unit/L LAB CHEMISTRY METHOD 09/09/2024 9:30 PM [facility] Alkaline Phosphatase 156(H) 42 - 121 unit/L LAB CHEMISTRY METHOD 09/09/2024 9:30 PM [facility] Total Protein 8.1(H) 6.0 - 8.0 g/dL LAB CHEMISTRY METHOD 09/09/2024 9:30 PM EST [facility] Albumin 4.1 3.2 - 5.0 g/dL LAB CHEMISTRY METHOD 09/09/2024 9:30 PM [facility] Total Bilirubin 0.6 0.0 - 1.4 mg/dL LAB CHEMISTRY METHOD 09/09/2024 9:30 PM [facility] Blood Venous blood specimen / Unknown Venipuncture / Unknown 09/09/2024 8:37 PM EST 09/09/2024 8:42 PM EST us Mauricio Coleman MD LAB BLOOD ORDERABLES Nadine decker Result [facility] [address] [place] [address], [place] [phone] from Last 3 Months Insurance MEDICAID - MD ATTN CLAIMS [address] MEDICARE Member Subscriber Plan / Payer (Ef fective 2024-Present) Name:Ignacio Tovar Relation to Subscriber:Self Name:Ignacio Tovar Payer ID:[id number] Group ID:[id number] Type:Not on file Address: [place] [address] [address] [address] Advance Directives Documents on File Type Date Recorded Patient Side Framer Expl anation Health Care Decision (hx) 10/17/2023 AD WYLIE DIRECTIVE Health Care Decision (hx) 10/17/2023 AD WYLIE DIRECTIVE Health Care Decision (hx) 10/17/2023 AD WYLIE DIRECTIVE * Full Code - Default (Latest Code Status on File) Date Activated Date Inactivated Comments 09/10/2024 4:32 PM 09/30/2024 7:13 PM This is order is used when code status has not been discussed with the patient, or code status is otherwise unknown/unconfirmed To update the patient's code status, place a code status order. Do not modify or discontinue any currently active code status orders. Care Teams Hammer Setter Relationship Specialty Start Date End Date Physician, No Pcp PCP - General 09/09/24
--- OUTSIDE RECORDS SUMMARY | 2024-10-01 13:23 | XMS_ITS | Patient Health Record ---
Author Organization [facility] Address [address] [place], [place] [id number] Care Team Providers Care Business Education Professor Name Role Phone [facility] Primary Care Provider Symone Vincent Unavailable [phone] Anh Bell Unavailable [phone] [facility] Unavailable [phone] Allergies No Known Allergies Reason For Referral Reason routine dental care to establish Diagnosis 1 Sheltered homelessne ss (Z59.01) Referral Organization [facility] Referring Provider First Name Symone Referring Provider Last Name Ramandeep Referring Provider Speciality Nurse Prac titioner Referred Organization [facility] Referred Address [address] [place], [place],[address], Referred Provider [facility] Referral Priority Routine Medications Medication SIG (Take, Route, Frequency, Duration) Notes Start Date End Date Status hydrOXYzine hydrochloride 50 mg 1 tab(s) orally 4 times a day Active gabapentin 300 mg 1 cap(s) orally 3 ti mes a day Active Wellbutrin XL 300 mg/24 hours 1 tab(s) orally every 24 hours Active sertraline 25 mg 1 tab(s) orally once a day Active mirtazapine 45 mg 1 tab(s) orally once a day (at bedtime) Active prazosin 1 mg 1 cap(s) orally 3 ti mes a day Active sertraline 50 mg 1 tab(s) orally once a day Active pantoprazole 40 mg 1 tab(s) orally once a day Active gabapentin 100 mg 1 cap(s) orally 3 ti mes a day Active OXcarbazepine 300 mg 1 tab(s) orally 2 t imes a day Active QUEtiapine 300 mg 1 tab(s) orally 2 ti mes a day Active Social History Tobacco Use: Social History Observation Description Date Details (start date - stop date) Current Smoker NA - NA Tobacco Use Assessment MU Question Answer Notes What is your current smoking status? current smo ker How often do you smoke? every day How many cigarettes a day do you smoke? 5 or les s How soon after you wake up d o you smoke your first cigarette? 31-60 minutes Are you interested in quitting? thinking about q uitting Patient counseled on the marek howell of tobacco use and advised to quit: 11/14/2023 Problems Problem Type SNOMED Code ICD Code Onset Dates Problem Status W/U Status Risk Notes Problem Sheltered homelessness ([id number] ) Sheltered homelessness (Z59.01) Active confirmed Vital Signs Temperature 97.2 degrees Fahrenheit 11/14/2023 Blood pressure diastolic 73 11/14/2023 Oximetry 96 11/14/2023 Blood pressure systolic 112 11/14/2023 Encounters Encounter Location Date Provider Diagnosis [address] [id number] 11/14/[address] [facility] Sheltered homelessness Z59.01 and Counseling, unspecified Z71.[address] [id number] 11/14/2023 Symone Sabillon Assessments Encounter Date Diagnosis (ICD Code) Assessment Notes Treatment Notes Treatment Clinical Notes 11/14/2023 Sheltered homelessness (ICD-10 - Z59.01) Medical, social, psych history reviewed and documented in ecw. Pt would like to establish mh and dental care here. Pt has no concerns at the current moment. He is aware that he can call us before his scheduled appt if he has any medical concerns. A referral was put in for dental and a message was sent to Anh for mh 11/14/2023 Counseling, unspecified (ICD-10 - Z71.9) Social distancing, hand washing, wearing a mask in public places, and not touching the face were strategies discussed to avoid shar COVID-19. Symptoms of COVID-19 were reviewed and advised to promptly report concerning symtpoms to arrange for assessment and possible testing. 11/14/2023 Other Time spent in v isit: minutes 40 01/03/2024 Other Plesae check A1c and thyroid due to obesity PHQ-9 score less than 6. Appropriate behavior observed in clinic. No indication for referral at this time. OR PHQ-9 score : Positive 6 or greater. No HI or SI noted during this encounter. Not a danger to self or others at this time. Mental health referral discussed. Encouraged to make BH appt with community agency. Given Psych Crisis phone number [[phone]] to call in case of psychiatric decompensation. Agrees to use this number if he is feeling overwhelmed or seek emergency room evaluation. Discussion of pharmacological options for care reviewed. Pharmacolgical intervention: . F/U arranged for Screening for Prostate Cancer discussed. Shared decision making together around BERTIN/PSA. Pros and Cons of screening for prostate cancer discussed. No + family hx of Prostate Cancer. Has decided, after thoughtful discussion, to have of Prostate Cancer Screening. Plan Of Treatment No Information Insurance Providers Payer Name Payer Address Payer Phone Subscriber Number Group Number Insured Name Patient Relationship to Insured Coverage Start Date Coverage End Date [address] [phone] [id number] Ignacio Tovar Self - patient is the insured Medical (General) History Medical History History ICD Code Anxiety disorder depression bipolar Surgical History Surgery Date(Month/Year) hemorrhoidectomy- [facility] Hospitalization History Reason Date(Month/Year) psych
== END 2024-10-01 11:10 | disposition left against medical advice (07) ==
PROVIDERS: Emergency Provider Emergency Medicine
DX: F11.20 Opioid dependence, uncomplicated (principal); Z53.21 Procedure and treatment not carried out due to patient leaving prior to being seen by health care provider

== ENCOUNTER 2024-10-04 00:54 | Inpatient (IN) | payer OTHER, SELFPAY ==
[2024-10-04] VITALS (8 sets, daily range): BP systolic 97–162; BP diastolic 61–108; PULSE 62–97; RESP 13–20; TEMP 36.6–37.3; O2SAT 94–99; BMI 28.4
[2024-10-04 01:36] LABS: MANUAL DIFF FLAG NO
[2024-10-04 01:37] LABS: Basophils Absolute Auto 0.1 X10*3/uL (0.0-0.2); Basophils Percent Auto 0.3 % (0-2); Hematocrit 36.5 % (42.0-52.0); Hemoglobin 12.5 g/dl (14.0-18.0); Imm Gran Abs Auto 0.06 X10*3/uL (0.00-0.03); Imm Gran Pct Auto 0.4 % (0.0-0.4); Lymphocytes Absolute Auto 1.7 X10*3/uL (1.2-4.9); Lymphocytes Percent Auto 10.8 % (20-40); Mean Corpuscular HGB Conc 34.2 g/dl (31.0-36.0); Mean Corpuscular Volume 90.6 fL (80.0-98.0); Mean Platelet Volume 9.5 fL (9.4-12.4); Monocytes Percent Auto 6.4 % (2-11); Neutrophils Percent Auto 82.1 % (45-73); Platelet Count 328 X10*3/uL (160-400); Red Blood Count 4.03 X10*6/uL (4.60-5.80); Red Cell Distribution Width 13.2 % (11.0-16.0); White Blood Count 15.9 X10*3/uL (4.8-10.8)
--- NOTE | 2024-10-04 01:57 | ED_ITS ---
HPI - Psych General Chief Complaint: Psychiatric Symptoms Stated Complaint: SI Time Seen by Provider: 10/04/24 01:55 Source: patient Mode of arrival: EMS Limitations: no limitations History of Present Illness ED Provider: HPI Narrative: Patient's history of substance abuse, homeless, depression comes here as feeling increasingly depressed feels suicidal patient was admitted in psych for 3 weeks discharge supposed to go to outpatient treatment which only for 4 days which lasted yesterday now he does not have any plan for further therapy feels stressed out took cocaine and heroin yesterday comes here with increased depression with suicidal ideation without any plan just feels frustrated Related Data Home Medications ?Medication ?Instructions ?Recorded ?Confirmed albuterol sulfate 90 mcg/actuation 2 puff inhalation Q4H PRN 12/17/23 10/04/24 aerosol inhaler (Ventolin HFA) Shortness Of Breath Or Wheezing gabapentin 300 mg capsule 600 mg PO BID 12/17/23 10/04/24 hydroxyzine HCl 50 mg tablet 50 mg PO BID 12/17/23 10/04/24 methadone 10 mg/5 mL oral solution 110 mg PO DAILY 12/17/23 12/17/23 oxcarbazepine 600 mg tablet 600 mg PO DAILY 12/17/23 10/04/24 prazosin 1 mg capsule 3 mg PO BEDTIME 12/17/23 10/04/24 quetiapine 100 mg tablet 100 mg PO TID 12/17/23 10/04/24 quetiapine 300 mg tablet 300 mg PO BEDTIME 12/17/23 10/04/24 atorvastatin 20 mg tablet 20 mg PO DAILY 10/04/24 10/04/24 mirtazapine 7.5 mg tablet 7.5 mg PO BEDTIME depressive 10/04/24 10/04/24 disorder omeprazole 40 mg capsule,delayed 40 mg PO DAILY 10/04/24 10/04/24 release propranolol 20 mg tablet 20 mg PO BID 10/04/24 10/04/24 Allergies Allergy/AdvReac Type Severity Reaction Status Date / Time No Known Allergies Allergy Verified 10/04/24 01:03 [No Known Allergies*] Review of Systems 2 Review of Systems: Yes all other systems are reviewed and are negative PMFSH Past Medical History Medical History Polysubstance use disorder Depression Anxiety Mental health problem Substance abuse Social History Social History Household Members: None Housing: Homeless Do you presently have visiting nurse or other home services: No Unable to assess alcohol history related to: Refusing to respond Alcohol intake: never Comment: 1:1 Patient Tobacco Use Status: Refuse Tobacco use screen Tobacco use type: Smokeless Tobacco Substance Use Type: Crack/Cocaine and Opiates Advance Directives: No Advance Directives Information Provided: Yes Do you have a plan to hurt others: No Plan service: No Sexual orientation: Straight/Heterosexual Physical Exam 2 Vital Signs: Vital Signs: Last Vital Signs Temp 99.1 F 10/04/24 01:02 Pulse 97 10/04/24 01:02 Resp 16 10/04/24 01:02 BP 127/82 10/04/24 01:02 Pulse Ox 96 10/04/24 01:02 O2 Del Method Room Air 10/04/24 01:02 BMI result Body Mass Index 28.4 Appearance: Alert. Oriented X3. No acute distress. Eyes: PERRLA, No Nystagmus ENT: Pharynx normal. Oral Mucosa moist Neck: Normal inspection. Neck supple. CVS: Normal heart rate and rhythm. Pulses normal. Respiratory: No respiratory distress. Equal air entry bilateral, no wheezing/rales/rhonchi Abdomen: Soft and nontender. Bowel sounds are present, no mass palpable, no CVA tenderness Skin: Skin warm and dry. Normal skin color. Normal skin turgor. Extremities: No lower extremity edema. No calf tenderness psych: Depressed denies any SI at this time no hallucination or delusion Neuro: Oriented X 3. No motor deficit. No sensory deficit.No cerebellar signs , cranial nerves II-XII intact Medications Administered Discontinued Medications Generic Name Dose Route Start Last Admin Trade Name Freq PRN Reason Stop Dose Admin Acetaminophen 650 mg 10/04/24 01:56 10/04/24 02:01 Acetaminophen 325 Mg Tablet PO 10/04/24 01:57 650 mg ONCE ONE Administration Diphenhydramine HCl 50 mg 10/04/24 03:35 10/04/24 03:39 Diphenhydramine Hcl 25 Mg Capsule PO 10/04/24 03:36 50 mg ONCE ONE Administration Medical Decision Making Medical Decision Making [facility] Narrative: Patient's depression with SI pending crisis evaluation Lab Data MDM Lab Attestation statement: I reviewed the patient's lab results. 10/04/24 01:27 10/04/24 01:27 Labs: Lab Results 10/04/24 10/04/24 Range/Units 01:27 Unknown WBC 15.9 H (4.8-10.8) X10*3/uL RBC 4.03 L (4.60-5.80) X10*6/uL Hgb 12.5 L (14.0-18.0) g/dl Hct 36.5 L (42.0-52.0) % MCV 90.6 (80.0-98.0) fL MCH 31.0 (27.0-33.0) pg MCHC 34.2 (31.0-36.0) g/dl RDW 13.2 (11.0-16.0) % Plt Count 328 (160-400) X10*3/uL MPV 9.5 (9.4-12.4) fL Immature Gran % (Auto) 0.4 (0.0-0.4) % Neut % (Auto) 82.1 H (45-73) % Lymph % (Auto) 10.8 L (20-40) % [place] % (Auto) 6.4 (2-11) % Eos % (Auto) 0.0 (0-4) % Baso % (Auto) 0.3 (0-2) % Lymph # (Auto) 1.7 (1.2-4.9) X10*3/uL [place] # (Auto) 1.0 (0.1-1.2) X10*3/uL Eos # (Auto) 0.0 (0.0-0.4) X10*3/uL Baso # (Auto) 0.1 (0.0-0.2) X10*3/uL Abs Immat Gran (auto) 0.06 H (0.00-0.03) X10*3/uL Absolute Neuts (auto) 13.0 H (2.0-8.3) x10*3/uL Absolute Nucleated RBC 0.000 (0.0-0.012) X10*3/uL Nucleated RBC % (auto) 0.0 (0.0-0.2) /100WBC Sodium 141 (135-145) mmol/L Potassium 4.0 D (3.3-5.1) mmol/L Chloride 102 (96-108) mmol/L Carbon Dioxide 25 (22-29) mmol/L Anion Gap 18 (12-20) BUN 23 H (9-16) mg/dL Creatinine 1.04 (0.5-1.4) mg/dL Estim Creat Clear Calc 105.0 Estimated GFR > 60 Random Glucose 92 (60-115) mg/dL Calcium 9.8 (8.4-10.2) mg/dL Total Bilirubin 0.6 (0.0-1.0) mg/dL AST 112 H (5-37) U/L ALT 47 H (0-40) U/L Alkaline Phosphatase 152 H (39-117) U/L Total Protein 9.0 H (6.5-8.0) g/dL Albumin 4.4 (3.5-5.0) g/dL Salicylates < 5.0 L (15-30) mg/dL Acetaminophen < 3 (<30) mcg/mL [place] 0.26 L (0.60-1.20) mmol/L Ethyl Alcohol < 10 mg/dL Discharge Plan Discharge Clinical Impression: Suicidal ideation, MDD (major depressive disorder), recurrent episode, moderate Patient Disposition: Still a Patient Prescriptions: No Action prazosin 1 mg capsule 3 mg PO BEDTIME gabapentin 300 mg capsule 600 mg PO BID oxcarbazepine 600 mg tablet 600 mg PO DAILY quetiapine 300 mg tablet 300 mg PO BEDTIME hydroxyzine HCl 50 mg tablet 50 mg PO BID albuterol sulfate [Ventolin HFA] 90 mcg/actuation HFA aerosol inhaler 2 puff inhalation Q4H PRN (Reason: Shortness Of Breath Or Wheezing) quetiapine 100 mg tablet 100 mg PO TID methadone 10 mg/5 mL Solution 110 mg PO DAILY Rx Instructions: [facility] atorvastatin 20 mg tablet 20 mg PO DAILY omeprazole 40 mg capsule,delayed release(DR/EC) 40 mg PO DAILY propranolol 20 mg tablet 20 mg PO BID mirtazapine 7.5 mg tablet 7.5 mg PO BEDTIME Interventions: [place]-Suicide Risk Severity Scale Last Done: 10/04/24 02:09 Print Language: Italian
[2024-10-04 02:00] LABS: Alanine Aminotransferase 47 U/L (0-40); Albumin Level 4.4 g/dL (3.5-5.0); Anion Gap 18 (12-20); Aspartate Amino Transferase 112 U/L (5-37); Bilirubin Total 0.6 mg/dL (0.0-1.0); Blood Urea Nitrogen 23 mg/dL (9-16); Calcium 9.8 mg/dL (8.4-10.2); Carbon Dioxide 25 mmol/L (22-29); Chloride 102 mmol/L (96-108); Estimated Glomerular Filt Rate > 60; Ethanol < 10 mg/dL; Glucose Random 92 mg/dL (60-115); Sodium 141 mmol/L (135-145)
[2024-10-04] MEDS: Acetaminophen 325 MG TABLET 650 MG PO (02:01)
[2024-10-04 02:02] LABS: Lithium 0.26 mmol/L (0.60-1.20)
[2024-10-04 02:04] LABS: Alkaline Phosphatase 152 U/L (39-117)
[2024-10-04 02:09] LABS: Acetaminophen LAB < 3 mcg/mL (<30); Salicylate < 5.0 mg/dL (15-30)
[2024-10-04] MEDS: diphenhydrAMINE HCL 25 MG CAPSULE 50 MG PO (03:39)
--- NOTE | 2024-10-04 07:25 | PC.NURSE ---
Pt's methadone dosage verified with [facility]; awaiting orders and pharmacy verification
--- NOTE | 2024-10-04 07:37 | HE.PHANOTE ---
METHADONE RECEIVED METHADONE VERIFICATION FORM. PATIENT IS TAKING METHADONE 120 MG AND LAST DOSE WAS GIVEN AT CLINIC ON 10/03/24. VERIFIED WITH SETH [phone]
[2024-10-04] MEDS: methADONE HCl 20 MG/2 ML ORAL.CONC 120 MG PO (08:31)
[2024-10-04 10:38] LABS: Appearance Urine Clear; Color Urine Yellow; Glucose Urine UA Negative (Negative); Leukocyte Esterase Urine Negative (Negative); Nitrite Urine Negative (Negative); Specific Gravity - Urine >= 1.030 (1.005-1.025); Urine Blood Negative (Negative); Urine Ketones Negative (Negative); Urine Protein Negative (Neg-Trace)
[2024-10-04 10:40] LABS: Bacteria Urine None Seen (None Seen); Hyaline Casts Urine 0-2 /LPF (0-2); RBC Urine 0-2 /HPF (0-2); Squamous Epithelial Cell Urine 0-2 /HPF (0-2); WBC Urine 0-5 /HPF (0-5)
[2024-10-04 10:54] LABS: Amphetamine Screen Urine Not Detected (Not Detect); Barbiturates, Urine Not Detected (Not Detect); Benzodiazepines Screen Urine Not Detected (Not Detect); Buprenorphine Scr Not Detected (Not Detect); Cannabinoid Screen Urine POSITIVE (Not Detect); Cocaine Screen Urine POSITIVE (Not Detect); Fentanyl, urine POSITIVE (Not Detect); Methadone Screen, Urine Positive (Not Detect); Opiate Screen Urine POSITIVE (Not Detect); Oxycodone Screen Urine Not Detected (Not Detect); Phencyclidine Screen Urine Not Detected (Not Detect)
--- NOTE | 2024-10-04 13:45 | PC.NURSE ---
Pt reporting an increase in anxiety, I feel almost panic , per pt; MD made aware will treat per orders; emotional support provided
[2024-10-04] MEDS: LORazepam 1 MG TABLET 2 MG PO (13:48)
[2024-10-04] MEDS: Gabapentin 300 MG CAPSULE 600 MG PO (22:43)
[2024-10-04] MEDS: Prazosin HCL 1 MG CAPSULE 3 MG PO (22:44)
[2024-10-04] MEDS: Propranolol HCL 20 MG TABLET PO (22:44)
[2024-10-04] MEDS: QUEtiapine Fumarate 300 MG TABLET PO ×2 (22:44→22:45)
[2024-10-04] MEDS: hydrOXYzine HCL 50 MG TABLET PO (22:44)
[2024-10-04] MEDS: Mirtazapine 7.5 MG TABLET PO (22:46)
[2024-10-05 06:20] VITALS: RESP 16
--- NOTE | 2024-10-05 07:24 | PC.NURSE ---
Assumed care of patient at 0645, patient appears to be sleeping, respirations even and unlabored, no apparent distress noted at this time. Continue plan of care for IPLOC
[2024-10-05] MEDS: Omeprazole 40 MG CAPSULE.DR PO (09:06)
[2024-10-05] MEDS: OXcarbazepine 300 MG TABLET 600 MG PO (09:06)
[2024-10-05] MEDS: Gabapentin 300 MG CAPSULE 600 MG PO ×2 (09:06→20:01)
[2024-10-05] MEDS: QUEtiapine Fumarate 100 MG TABLET PO ×3 (09:06→20:01)
[2024-10-05] MEDS: hydrOXYzine HCL 50 MG TABLET PO ×2 (09:06→20:01)
[2024-10-05] MEDS: Atorvastatin Calcium 20 MG TABLET PO (09:06)
[2024-10-05] MEDS: methADONE HCl 20 MG/2 ML ORAL.CONC 120 MG PO (09:13)
[2024-10-05] MEDS: Propranolol HCL 20 MG TABLET PO ×2 (09:19→20:02)
[2024-10-05 15:51] VITALS: BP 115/77; PULSE 66; RESP 12; TEMP 36.6; O2SAT 95
[2024-10-05] MEDS: QUEtiapine Fumarate 300 MG TABLET PO (20:02)
[2024-10-05] MEDS: Mirtazapine 7.5 MG TABLET PO (20:02)
[2024-10-05] MEDS: Prazosin HCL 1 MG CAPSULE 3 MG PO (20:02)
[2024-10-05 20:04] VITALS: BP 121/69; PULSE 73; RESP 16; TEMP 36.7; O2SAT 96
--- NOTE | 2024-10-05 22:50 | PC.NURSE ---
This nurse assumed care of this patient at this time. Patient currently sitting up and sleeping at this time. No distress noted. RR even and unlabored. Will continue to monitor through the night
[2024-10-06 04:01] VITALS: BP 110/64; PULSE 61; RESP 15; TEMP 36.3; O2SAT 98
--- NOTE | 2024-10-06 08:25 | ECG_ITS ---
Test Reason : check prlong qt Blood Pressure : */* mmHG Vent. Rate : 72 BPM Atrial Rate : 72 BPM P-R Int : 162 ms QRS Dur : 84 ms QT Int : 446 ms P-R-T Axes : 71 49 45 degrees QTcB Int : 488 ms Normal sinus rhythm Prolonged QT Abnormal ECG When compared with ECG of 03-Jun-2023 10:15, No significant change was found Referred By: Generic ED Physician Electronically Signed By: NOEL MORTON MD
[2024-10-06] MEDS: OXcarbazepine 300 MG TABLET 600 MG PO (09:54)
[2024-10-06 09:55] VITALS: BP 104/60; PULSE 88
[2024-10-06] MEDS: Gabapentin 300 MG CAPSULE 600 MG PO ×2 (09:55→20:08)
[2024-10-06] MEDS: Propranolol HCL 20 MG TABLET PO (09:55)
[2024-10-06] MEDS: Atorvastatin Calcium 20 MG TABLET PO (09:55)
[2024-10-06] MEDS: QUEtiapine Fumarate 100 MG TABLET PO (09:55)
[2024-10-06] MEDS: Omeprazole 40 MG CAPSULE.DR PO (09:55)
[2024-10-06] MEDS: hydrOXYzine HCL 50 MG TABLET PO (09:55)
[2024-10-06] MEDS: methADONE HCl 20 MG/2 ML ORAL.CONC 120 MG PO (10:17)
--- NOTE | 2024-10-06 11:00 | PHA.MEDREC ---
Pharmacy Consult ? Medication Reconciliation Pharmacy has completed the medication reconciliation. Used claims and spoke with patient to confirm medications. [facility] pharmacy reports patient gets his medications delivered. They report lithium has not been sent out yet, left off of med rec.
[2024-10-06 13:41] VITALS: BP 113/68; PULSE 84; RESP 16; TEMP 36.3; O2SAT 95
--- NOTE | 2024-10-06 14:22 | PC.NURSE ---
pt appears very drowsy at this time, but easily arousable
--- NOTE | 2024-10-06 15:28 | PC.NURSE ---
report given Christi shipman
[2024-10-06 16:05] VITALS: BP 126/72; PULSE 88; RESP 18; TEMP 37.1; O2SAT 98
[2024-10-06 17:26] VITALS: BMI 29.6
[2024-10-06 17:28] LABS: Alanine Aminotransferase 40 U/L (0-40); Albumin Level 3.8 g/dL (3.5-5.0); Alkaline Phosphatase 133 U/L (39-117); Anion Gap 10 (12-20); Aspartate Amino Transferase 45 U/L (5-37); Bilirubin Total 0.2 mg/dL (0.0-1.0); Blood Urea Nitrogen 12 mg/dL (9-16); Calcium 8.7 mg/dL (8.4-10.2); Carbon Dioxide 32 mmol/L (22-29); Chloride 107 mmol/L (96-108); Creatinine Clr Calc Pharmacy 118.3; Estimated Glomerular Filt Rate > 60; Glucose Random 72 mg/dL (60-115); Potassium 3.9 mmol/L (3.3-5.1); Sodium 145 mmol/L (135-145); Total Protein 7.8 g/dL (6.5-8.0)
--- NOTE | 2024-10-06 17:29 | PC.NURSE ---
Ignacio was admitted to M3 at 1600 from [facility] Pod on CV for treatment of MDD and Polysubstance Use Disorder. Precipitant of admission include increased SI in the context of homelessness, relapse on substances and noncompliance with rxd medications He is alert, fully oriented, pleasant and cooperative with admission process. Pt reports mood is depressed but he presents as hypomanic, expansive, hyperverbal and disinhibited. Pt reports auditory hallucinations that are sometimes command in nature but does not appear internally preoccupied. Thought process is disorganized. He denies current ideation, plan or intent to harm self or others He reports poor appetite but is eating well on arrival to the unit. Sleep is reportedly poor. Focus is poor. Tox screen was positive for cocaine, fentanyl, methadone, opiates and THC. Pt reports using over his methadone and using drugs up until yesterday when he came to ED for SI with a plan to overdose on drugs. Medical Issues?include complaints of sciatica. Pt is connected to [facility] but has no current pcp, psychiatrist or therapist Goal of admission is to receive treatment for anxiety and depression. He is willing to meet with Recovery Team. Safety Checks are q 15 minutes
[2024-10-06 20:00] VITALS: BP 114/58; PULSE 79; TEMP 36.6; O2SAT 95
[2024-10-06 20:08] VITALS: BP 114/58
[2024-10-06] MEDS: Prazosin HCL 1 MG CAPSULE 3 MG PO (20:08)
[2024-10-06] MEDS: QUEtiapine Fumarate 400 MG TABLET PO (20:09)
[2024-10-06] MEDS: Mirtazapine 15 MG TABLET PO (20:09)
[2024-10-06] MEDS: Nicotine Polacrilex 2 MG GUM 4 MG BUCCAL (20:11)
[2024-10-06] MEDS: methocarbamoL 750 MG TABLET PO (20:18)
[2024-10-06] MEDS: Sennosides 8.6 MG TABLET 17.2 MG PO (21:18)
[2024-10-07] VITALS: PULSE 79
[2024-10-07] MEDS: methADONE HCl 20 MG/2 ML ORAL.CONC 120 MG PO (07:59)
[2024-10-07 08:20] VITALS: BP 127/72; PULSE 78; RESP 18; TEMP 36.4; O2SAT 97
[2024-10-07 08:32] VITALS: BP 127/72; PULSE 78
[2024-10-07] MEDS: Omeprazole 40 MG CAPSULE.DR PO (08:32)
[2024-10-07] MEDS: Atorvastatin Calcium 20 MG TABLET PO (08:32)
[2024-10-07] MEDS: Propranolol HCL 20 MG TABLET PO ×2 (08:32→20:07)
[2024-10-07] MEDS: buPROPion HCl XL 150 MG TAB.ER.24H PO (08:32)
[2024-10-07] MEDS: Acetaminophen 325 MG TABLET 650 MG PO ×2 (08:33→15:48)
[2024-10-07] MEDS: Gabapentin 300 MG CAPSULE 600 MG PO ×2 (08:33→20:07)
[2024-10-07] MEDS: OXcarbazepine 300 MG TABLET 600 MG PO (08:33)
[2024-10-07 08:45] LABS: Cholesterol 134 mg/dL (<200); HDL Cholesterol 36 mg/dL (>40); LDL Cholesterol Calculated 56 mg/dL (<100); Triglycerides 210 mg/dL (<150)
[2024-10-07] MEDS: Nicotine Polacrilex 2 MG GUM 4 MG BUCCAL ×3 (08:50→18:47)
--- NOTE | 2024-10-07 09:54 | P.HPPS_ITS ---
[facility] Date of Service: 10/07/24 Chief Complaint: Crisis Sources of Information: patient interviewed, chart reviewed and crisis/core team assessment reviewed HPI Subjective Notes: Blair Warning and Conditional Voluntary Narrative: Patient is a 49-year-old male with history of MDD, PTSD, opiate use disorder and cocaine use disorder who presented to ER via ambulance due to suicidal ideation secondary to increased depression. Per crisis report, patient reports he was recently discharged from a psychiatric facility in [place]. He reports increased life stressors, substance use, depression and suicidal ideation. 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 He reports homicidal ideation on occasion . He also reports auditory and visual hallucinations of whispers and shadows . Pt reports poor sleep and appetite. Pt has outpatient psychiatric providers through [facility]. Hx of multiple inpatient psychiatric hospitalizations. Hx of 2 suicide attempts. During admission assessment, patient presents alert and oriented x3. Calm and cooperative. Patient reports feeling depressed ; patient stated, I'm going through a tough situation. I was having suicidal thoughts because I'm tired of life. I'm homeless. I'm ashamed of myself. I'm trying to find an apartment or just a room but it's so difficult . Patient reports he was sober for 2 years and relapsed a few days ago . denies SI/HI/VH at this time. He reports auditory hallucinations; patient stated, I always hear whispers . pt reports being medication compliant. Utox positive for opiates, fentanyl, methadone, cocaine, and marijuana. Difficulty staying awake during conversation; patient stated, when I sit down for awhile I get sleepy . Patient reports he would like a referral to a treatment program; clinical social work aide aware. Past Psychiatric History: History of multiple inpatient psychiatric admissions Outpatient psychiatric provider: BASIA Leroy History of 2 prior suicide attempts Medical Evaluation Reviewed: Yes [facility] Medical History Polysubstance use disorder Depression Anxiety Mental health problem Substance abuse Family History: Unknown Social History: Homeless. 2 adult children. Single. Unemployed. Substance History: Utox positive for opiates, fentanyl, methadone, cocaine, marijuana. Trauma History: Yes Diagnostics Vital Signs (24Hr): Vital Signs - 24 hr 10/06/24 09:55 10/06/24 13:41 10/06/24 16:05 Temperature 97.3 F 98.8 F Pulse Rate 88 84 88 Respiratory Rate 16 18 Blood Pressure 104/60 113/68 126/72 Pulse Oximetry 95 98 Oxygen Delivery Method Room Air Room Air 10/06/24 20:00 10/06/24 20:08 10/07/24 08:20 Temperature 98 F 97.5 F Pulse Rate 79 78 Respiratory Rate 18 Blood Pressure 114/58 L 114/58 L 127/72 Pulse Oximetry 95 97 Oxygen Delivery Method Room Air Room Air 10/07/24 08:32 Temperature Pulse Rate 78 Respiratory Rate Blood Pressure 127/72 Pulse Oximetry Oxygen Delivery Method BMI result Body Mass Index 29.6 Labs 10/04/24 01:27 10/06/24 16:52 Labs: Laboratory Results - last 48 hr 10/06/24 10/07/24 16:52 08:06 Sodium 145 Potassium 3.9 Chloride 107 Carbon Dioxide 32 H Anion Gap 10 L BUN 12 Creatinine 0.94 Estim Creat Clear Calc 118.3 Estimated GFR > 60 Random Glucose 72 Calcium 8.7 D Total Bilirubin 0.2 AST 45 H ALT 40 Alkaline Phosphatase 133 H Total Protein 7.8 Albumin 3.8 Triglycerides 210 H Cholesterol 134 LDL Cholesterol, Calc 56 HDL Cholesterol 36 L Meds/Allergies Meds Home Medications ?Medication ?Instructions ?Recorded ?Confirmed ?Type albuterol sulfate 90 mcg/actuation 2 puff inhalation Q4H PRN 12/17/23 10/04/24 History aerosol inhaler (Ventolin HFA) Shortness Of Breath Or Wheezing gabapentin 300 mg capsule 600 mg PO BID 12/17/23 10/04/24 History hydroxyzine HCl 50 mg tablet 50 mg PO BID 12/17/23 10/04/24 History oxcarbazepine 600 mg tablet 600 mg PO DAILY 12/17/23 10/04/24 History quetiapine 100 mg tablet 100 mg PO TID PRN Anxiety 12/17/23 10/04/24 History atorvastatin 20 mg tablet 20 mg PO DAILY 10/04/24 10/04/24 History methadone 10 mg/mL injection 120 mg subcut DAILY 10/04/24 10/04/24 History solution omeprazole 40 mg capsule,delayed 40 mg PO DAILY 10/04/24 10/04/24 History release propranolol 20 mg tablet 20 mg PO BID 10/04/24 10/04/24 History acetaminophen 500 mg tablet 1,000 mg PO Q8H PRN pain/headache 10/06/24 10/06/24 History bupropion HCl 150 mg 24 hr tablet, 150 mg PO DAILY 10/06/24 10/06/24 History extended release fluticasone propionate 50 2 spray intranasal DAILY PRN 10/06/24 10/06/24 History mcg/actuation nasal Allergy Symptoms spray,suspension methocarbamol 750 mg tablet 750 mg PO TID PRN Muscle Spasm 10/06/24 10/06/24 History mirtazapine 15 mg tablet 15 mg PO BEDTIME 10/06/24 10/06/24 History prazosin 2 mg capsule 4 mg PO BEDTIME 10/06/24 10/06/24 History quetiapine 400 mg tablet 400 mg PO BEDTIME 10/06/24 10/06/24 History sennosides 8.6 mg tablet (senna) 17.2 mg PO BEDTIME PRN Constipation 10/06/24 10/06/24 History Allergies Allergies Allergy/AdvReac Type Severity Reaction Status Date / Time No Known Allergies Allergy Verified 10/04/24 01:03 [No Known Allergies*] Mental Status Exam Mental Status Exam Patient Appearance: Appropriate Patient Orientation: Person, Place, Time and Situation Level of Consciousness: Drowsy Patient Behavior: Appropriate and Cooperative Mood Description: Calm Affect Description: Blunted Ability to Follow Directions: Good Speech Pattern: Clear Memory Description: Intact Hallucinations: Auditory Delusions: Not Present Thought Process: Intact and Goal Oriented Thought Content: positive for Intact Assessment & Plan Assessment & Plan (1) MDD (major depressive disorder), recurrent episode, moderate: Status: Acute Code(s): F33.1 - Major depressive disorder, recurrent, moderate (2) PTSD (post-traumatic stress disorder): Status: Acute Code(s): F43.10 - Post-traumatic stress disorder, unspecified (3) Cocaine use disorder, moderate, dependence: Status: Acute Code(s): F14.20 - Cocaine dependence, uncomplicated (4) Opioid use disorder, severe, on maintenance therapy, dependence: Status: Acute Code(s): F11.20 - Opioid dependence, uncomplicated (5) Homelessness: Status: Acute Code(s): Z59.00 - Homelessness unspecified Plan Patient is a 49-year-old male with history of MDD, PTSD, opiate use disorder and cocaine use disorder who presented to ER via ambulance due to suicidal ideation secondary to increased depression. Plan: CV 15 minute safety checks Continue home medications Obtain collateral Encourage groups ? Referral to substance abuse program Discharge planning Patient educated on: diagnosis and medication risk/benefits Reason for continued inpatient stay Substantial Risk for: harm to self and med/psych decompensation Statement Statement: I have reviewed the history and physical and performed a pertinent examination on my patient. No changes have occurred unless specified. If the History and Physical was not performed prior to admission, the Hospitalist's service will be consulted for completing the admission physical. Time Spent With Patient Time: Total time managing care of this patient today _60___ minutes.
[2024-10-07 14:02] LABS: Appearance Urine Clear; Color Urine Yellow; Glucose Urine UA Negative (Negative); Leukocyte Esterase Urine Negative (Negative); Nitrite Urine Negative (Negative); PH 5.5 (5.0-9.0); Specific Gravity - Urine 1.025 (1.005-1.025); Urine Blood Negative (Negative); Urine Ketones Negative (Negative); Urine Protein Negative (Neg-Trace)
[2024-10-07 15:39] VITALS: PULSE 82
[2024-10-07] MEDS: methocarbamoL 750 MG TABLET PO ×2 (16:13→20:05)
[2024-10-07] MEDS: hydrOXYzine HCL 50 MG TABLET PO (18:47)
[2024-10-07 20:00] VITALS: BP 109/60; PULSE 73; RESP 16; TEMP 36.4; O2SAT 96
[2024-10-07] MEDS: Prazosin HCL 1 MG CAPSULE 3 MG PO (20:06)
[2024-10-07] MEDS: QUEtiapine Fumarate 400 MG TABLET PO (20:07)
[2024-10-07] MEDS: Mirtazapine 15 MG TABLET PO (20:07)
[2024-10-08 08:00] VITALS: BP 135/73; PULSE 66; RESP 16; TEMP 36.8; O2SAT 99
[2024-10-08] MEDS: methADONE HCl 20 MG/2 ML ORAL.CONC 120 MG PO (08:01)
[2024-10-08] MEDS: Atorvastatin Calcium 20 MG TABLET PO (08:05)
[2024-10-08] MEDS: Omeprazole 40 MG CAPSULE.DR PO (08:05)
[2024-10-08] MEDS: OXcarbazepine 300 MG TABLET 600 MG PO (08:05)
[2024-10-08] MEDS: Gabapentin 300 MG CAPSULE 600 MG PO (08:05)
[2024-10-08] MEDS: Acetaminophen 325 MG TABLET 650 MG PO ×2 (08:05→21:24)
[2024-10-08] MEDS: Propranolol HCL 20 MG TABLET PO ×2 (08:05→21:24)
[2024-10-08] MEDS: methocarbamoL 750 MG TABLET PO ×2 (08:06→16:02)
[2024-10-08] MEDS: buPROPion HCl XL 150 MG TAB.ER.24H PO (08:06)
--- NOTE | 2024-10-08 13:15 | HO.PSYCHPN ---
Subjective Subjective Date of Service: 10/08/24 Reason For Visit: Crisis Interim History: Pt observed sleeping while sitting in chair and also falling asleep while standing. He was observed falling asleep during conversation with T/W and had to be woken up multiple times during assessment. Patient reports feeling calm but depressed ; difficult to engage in conversation d/t sedation; he reports sleeping well last night. denies SI/HI/VH; he reports AH of whispers at baseline. Gabapentin decreased to 400mg PO BID; pt notified. Medication Compliance: Yes Attending Groups: No Mental Status Exam Mental Status Exam Patient Appearance: Appropriate Patient Orientation: Person, Place, Time and Situation Level of Consciousness: Drowsy Patient Behavior: Sedated Mood Description: Calm Affect Description: Blunted Ability to Follow Directions: Good Speech Pattern: Mumbled Hallucinations: Auditory Delusions: Not Present Thought Process: Intact Thought Content: positive for Intact Diagnostics Vital Signs (24Hr): Vital Signs - 24 hr 10/07/24 20:00 10/08/24 08:00 Temperature 97.5 F 98.2 F Pulse Rate 73 66 Respiratory Rate 16 16 Blood Pressure 109/60 135/73 Pulse Oximetry 96 99 Oxygen Delivery Method Room Air Room Air BMI result Body Mass Index 29.6 Labs 10/04/24 01:27 10/06/24 16:52 Labs: Laboratory Results - last 48 hr 10/06/24 10/07/24 10/07/24 16:52 08:06 13:53 Sodium 145 Potassium 3.9 Chloride 107 Carbon Dioxide 32 H Anion Gap 10 L BUN 12 Creatinine 0.94 Estim Creat Clear Calc 118.3 Estimated GFR > 60 Random Glucose 72 Calcium 8.7 D Total Bilirubin 0.2 AST 45 H ALT 40 Alkaline Phosphatase 133 H Total Protein 7.8 Albumin 3.8 Triglycerides 210 H Cholesterol 134 LDL Cholesterol, Calc 56 HDL Cholesterol 36 L Urine Color Yellow Urine Appearance Clear Urine pH 5.5 Ur Specific [employer] [place] 1.025 Urine Protein Negative Urine Glucose (UA) Negative Urine Ketones Negative Urine Blood Negative Urine Nitrite Negative Ur Leukocyte Esterase Negative Medications Medications Current Medications Acetaminophen (Acetaminophen 325 Mg Tablet) 650 mg PO Q6H PRN PRN Reason: Headache/Pain, Scale 1-10 Last Admin: 10/08/24 08:05 Dose: 650 mg Al Hydroxide/Mg Hydroxide (Magnesium Hydrox/Alum Hydrox 30 Ml Oral.Susp) 30 ml PO Q6H PRN PRN Reason: Heartburn/Nausea Albuterol Sulfate (Albuterol Sulfate 90 Mcg 8 Gm Inhaler) 2 puff INHALE Q4H PRN PRN Reason: Shortness Of Breath Or Wheezing Atorvastatin Calcium (Atorvastatin Calcium 20 Mg Tablet) 20 mg PO DAILY [facility] Last Admin: 10/08/24 08:05 Dose: 20 mg Bupropion HCl (Bupropion Hcl Xl 150 Mg Tab.Er.24h) 150 mg PO DAILY [facility] Last Admin: 10/08/24 08:06 Dose: 150 mg Fluticasone Propionate (Fluticasone Propionate Nasal 16 Gm [place]) 2 spray NOSTRIL-B DAILY PRN PRN Reason: Allergy Symptoms Gabapentin (Gabapentin 300 Mg Capsule) 600 mg PO BID [facility] Last Admin: 10/08/24 08:05 Dose: 600 mg Hydroxyzine HCl (Hydroxyzine Hcl 50 Mg Tablet) 50 mg PO BID PRN PRN Reason: Anxiety Last Admin: 10/07/24 18:47 Dose: 50 mg Magnesium Hydroxide (Milk Of Magnesia 30 Ml Oral.Susp) 30 ml PO DAILY PRN PRN Reason: Constipation Methadone HCl (Methadone Hcl 20 Mg/2 Ml Oral.Conc) 120 mg PO DAILY [facility] Last Admin: 10/08/24 08:01 Dose: 120 mg Methocarbamol (Methocarbamol 750 Mg Tablet) 750 mg PO TID PRN PRN Reason: Muscle Spasm Last Admin: 10/08/24 08:06 Dose: 750 mg Mirtazapine (Mirtazapine 15 Mg Tablet) 15 mg PO BEDTIME [facility] Last Admin: 10/07/24 20:07 Dose: 15 mg Nicotine (Nicotine 21 Mg Patch.Td24) 21 mg TRANSDERMA DAILY [facility] Last Admin: 10/08/24 08:10 Dose: Not Given Nicotine Polacrilex (Nicotine Polacrilex 2 Mg Gum) 4 mg BUCCAL Q2H PRN PRN Reason: Nicotine Cravings Last Admin: 10/07/24 18:47 Dose: 4 mg Omeprazole (Omeprazole 40 Mg Capsule.Dr) 40 mg PO DAILY [facility] Last Admin: 10/08/24 08:05 Dose: 40 mg Oxcarbazepine (Oxcarbazepine 300 Mg Tablet) 600 mg PO DAILY [facility] Last Admin: 10/08/24 08:05 Dose: 600 mg Prazosin HCl (Prazosin Hcl 1 Mg Capsule) 3 mg PO BEDTIME [facility]; Protocol Last Admin: 10/07/24 20:06 Dose: 3 mg Propranolol HCl (Propranolol Hcl 20 Mg Tablet) 20 mg PO BID [facility]; Protocol Last Admin: 10/08/24 08:05 Dose: 20 mg Quetiapine Fumarate (Quetiapine Fumarate 400 Mg Tablet) 400 mg PO BEDTIME [facility] Last Admin: 10/07/24 20:07 Dose: 400 mg Senna (Sennosides 8.6 Mg Tablet) 17.2 mg PO BEDTIME PRN PRN Reason: Constipation Last Admin: 10/06/24 21:18 Dose: 17.2 mg Allergies Allergies Allergy/AdvReac Type Severity Reaction Status Date / Time No Known Allergies Allergy Verified 10/04/24 01:03 [No Known Allergies*] Assessment & Plan Assessment & Plan (1) MDD (major depressive disorder), recurrent episode, moderate: Status: Acute Code(s): F33.1 - Major depressive disorder, recurrent, moderate (2) PTSD (post-traumatic stress disorder): Status: Acute Code(s): F43.10 - Post-traumatic stress disorder, unspecified (3) Cocaine use disorder, moderate, dependence: Status: Acute Code(s): F14.20 - Cocaine dependence, uncomplicated (4) Opioid use disorder, severe, on maintenance therapy, dependence: Status: Acute Code(s): F11.20 - Opioid dependence, uncomplicated (5) Homelessness: Status: Acute Code(s): Z59.00 - Homelessness unspecified Plan Patient is a 49-year-old male with history of MDD, PTSD, opiate use disorder and cocaine use disorder who presented to ER via ambulance due to suicidal ideation secondary to increased depression. Plan: CV 15 minute safety checks Continue home medications Obtain collateral Encourage groups ? Referral to substance abuse program Discharge planning 10/08: Pt observed sleeping while sitting in chair and also falling asleep while standing. He was observed falling asleep during conversation with T/W and had to be woken up multiple times during assessment. Patient reports feeling calm but depressed ; difficult to engage in conversation d/t sedation; he reports sleeping well last night. denies SI/HI/VH; he reports AH of whispers at baseline. Gabapentin decreased to 400mg PO BID; pt notified. Patient educated on: medication risk/benefits Reason for continued inpatient stay Substantial Risk for: med/psych decompensation Time Spent With Patient Time: Total time managing care of this patient today _15___ minutes.
[2024-10-08 16:00] VITALS: PULSE 70
[2024-10-08] MEDS: hydrOXYzine HCL 50 MG TABLET PO (16:02)
[2024-10-08 20:00] VITALS: BP 109/60; PULSE 76; TEMP 36.4; O2SAT 94
[2024-10-08] MEDS: Gabapentin 400 MG CAPSULE PO (21:24)
[2024-10-08] MEDS: Mirtazapine 15 MG TABLET PO (21:24)
[2024-10-08] MEDS: QUEtiapine Fumarate 400 MG TABLET PO (21:24)
[2024-10-08] MEDS: Prazosin HCL 1 MG CAPSULE 3 MG PO (21:24)
[2024-10-09] VITALS (7 sets, daily range): BP systolic 105–117; BP diastolic 58–67; PULSE 63–70; RESP 18; TEMP 36.4–36.5; O2SAT 94–98; BMI 30.4
[2024-10-09] MEDS: methocarbamoL 750 MG TABLET PO ×2 (00:40→17:20)
--- NOTE | 2024-10-09 02:08 | PC.NURSE ---
At approximately 0040, this patient was noted to have moved to the kitchen. He was nodding his head and falling asleep whilst sitting up. This account underwriter obtained vital signs (see documentation.) He reported that he has difficulty sleeping in his room due to anxiety when this account underwriter encouraged him to return to his room and bed.
--- NOTE | 2024-10-09 05:05 | PC.NURSE ---
INCONTINENT @ 0500 Pt awoke from sleeping overnight in kitchen with pillow on table. Pt requesting clean pants and use of shower from staff due to urinary incontinence while sleeping.
[2024-10-09] MEDS: methADONE HCl 20 MG/2 ML ORAL.CONC 120 MG PO (07:58)
[2024-10-09] MEDS: OXcarbazepine 300 MG TABLET 600 MG PO (09:03)
[2024-10-09] MEDS: buPROPion HCl XL 150 MG TAB.ER.24H PO (09:03)
[2024-10-09] MEDS: Propranolol HCL 20 MG TABLET PO ×2 (09:03→21:31)
[2024-10-09] MEDS: Omeprazole 40 MG CAPSULE.DR PO (09:03)
[2024-10-09] MEDS: Atorvastatin Calcium 20 MG TABLET PO (09:03)
[2024-10-09] MEDS: Gabapentin 400 MG CAPSULE PO ×2 (09:03→21:32)
[2024-10-09] MEDS: Acetaminophen 325 MG TABLET 650 MG PO (13:07)
--- NOTE | 2024-10-09 13:23 | P.PNPSI_ITS ---
Subjective Subjective Date of Service: 10/09/24 Reason For Visit: Crisis Subjective Notes: Conditional Voluntary Healthcare Proxy: No Guardianship: No Medical Problems Affecting Mental Status: No Interim History: Denies SI, HI, AH, VH Review of medications. Pt asks that Seroquel be decreased from 400 mg to 200 mg as he is feeling overmedicated, sedated, and too sleepy. Pt reports he is hoping for CSS or TSS placement. Medication Compliance: Yes Side effects from medications: No Attending Groups: Intermittent Review of Systems Acute medical concerns: No Review of Systems Review of Systems reports he is feeling overmedicated and asks today for some changes. Mental Status Exam Mental Status Exam Patient Appearance: Fatigued and Appropriate Patient Orientation: Person, Place, Time and Situation Level of Consciousness: Alert Patient Behavior: Talkative and Good Eye Contact Mood Description: Depressed Affect Description: Flat Patient Cognition Impaired: No Ability to Follow Directions: Good Speech Pattern: Spontaneous Speech Memory Description: Episodic Impaired Hallucinations: None Delusions: Not Present Thought Process: Distracted Thought Content: positive for Circumstantial and positive for Perseveration Depressive Symptoms: Sleeping More Than Usual Judgement: Fair Diagnostics Vital Signs (24Hr): Vital Signs - 24 hr 10/08/24 20:00 10/09/24 02:00 10/09/24 09:00 Temperature 97.5 F 97.7 F 97.7 F Pulse Rate 76 64 68 Respiratory Rate 18 Blood Pressure 109/60 114/58 L 117/65 Pulse Oximetry 94 94 98 Oxygen Delivery Method Room Air Room Air Room Air BMI result Body Mass Index 30.4 Labs 10/04/24 01:27 10/06/24 16:52 Labs: Laboratory Results - last 48 hr 10/07/24 13:53 Urine Color Yellow Urine Appearance Clear Urine pH 5.5 Ur Specific [place] 1.025 Urine Protein Negative Urine Glucose (UA) Negative Urine Ketones Negative Urine Blood Negative Urine Nitrite Negative Ur Leukocyte Esterase Negative Medications Medications Current Medications Acetaminophen (Acetaminophen 325 Mg Tablet) 650 mg PO Q6H PRN PRN Reason: Headache/Pain, Scale 1-10 Last Admin: 10/09/24 13:07 Dose: 650 mg Al Hydroxide/Mg Hydroxide (Magnesium Hydrox/Alum Hydrox 30 Ml Oral.Susp) 30 ml PO Q6H PRN PRN Reason: Heartburn/Nausea Albuterol Sulfate (Albuterol Sulfate 90 Mcg 8 Gm Inhaler) 2 puff INHALE Q4H PRN PRN Reason: Shortness Of Breath Or Wheezing Atorvastatin Calcium (Atorvastatin Calcium 20 Mg Tablet) 20 mg PO DAILY [facility] Last Admin: 10/09/24 09:03 Dose: 20 mg Bupropion HCl (Bupropion Hcl Xl 150 Mg Tab.Er.24h) 150 mg PO DAILY [facility] Last Admin: 10/09/24 09:03 Dose: 150 mg Fluticasone Propionate (Fluticasone Propionate Nasal 16 Gm [place]) 2 spray NOSTRIL-B DAILY PRN PRN Reason: Allergy Symptoms Gabapentin (Gabapentin 400 Mg Capsule) 400 mg PO BID [facility] Last Admin: 10/09/24 09:03 Dose: 400 mg Hydroxyzine HCl (Hydroxyzine Hcl 50 Mg Tablet) 50 mg PO BID PRN PRN Reason: Anxiety/ sinuses Magnesium Hydroxide (Milk Of Magnesia 30 Ml Oral.Susp) 30 ml PO DAILY PRN PRN Reason: Constipation Methadone HCl (Methadone Hcl 20 Mg/2 Ml Oral.Conc) 120 mg PO DAILY [facility] Last Admin: 10/09/24 07:58 Dose: 120 mg Methocarbamol (Methocarbamol 750 Mg Tablet) 750 mg PO TID PRN PRN Reason: Muscle Spasm Last Admin: 10/09/24 00:40 Dose: 750 mg Mirtazapine (Mirtazapine 15 Mg Tablet) 15 mg PO BEDTIME [facility] Last Admin: 10/08/24 21:24 Dose: 15 mg Nicotine Polacrilex (Nicotine Polacrilex 2 Mg Gum) 4 mg BUCCAL Q2H PRN PRN Reason: Nicotine Cravings Last Admin: 10/07/24 18:47 Dose: 4 mg Omeprazole (Omeprazole 40 Mg Capsule.Dr) 40 mg PO DAILY [facility] Last Admin: 10/09/24 09:03 Dose: 40 mg Oxcarbazepine (Oxcarbazepine 300 Mg Tablet) 600 mg PO DAILY [facility] Last Admin: 10/09/24 09:03 Dose: 600 mg Prazosin HCl (Prazosin Hcl 1 Mg Capsule) 3 mg PO BEDTIME [facility]; Protocol Last Admin: 10/08/24 21:24 Dose: 3 mg Propranolol HCl (Propranolol Hcl 20 Mg Tablet) 20 mg PO BID [facility]; Protocol Last Admin: 10/09/24 09:03 Dose: 20 mg Quetiapine Fumarate (Quetiapine Fumarate 400 Mg Tablet) 400 mg PO BEDTIME [facility] Last Admin: 10/08/24 21:24 Dose: 400 mg Senna (Sennosides 8.6 Mg Tablet) 17.2 mg PO BEDTIME PRN PRN Reason: Constipation Last Admin: 10/06/24 21:18 Dose: 17.2 mg Allergies Allergies Allergy/AdvReac Type Severity Reaction Status Date / Time No Known Allergies Allergy Verified 10/04/24 01:03 [No Known Allergies*] Assessment & Plan Assessment & Plan (1) MDD (major depressive disorder), recurrent episode, moderate: Status: Acute Code(s): F33.1 - Major depressive disorder, recurrent, moderate (2) PTSD (post-traumatic stress disorder): Status: Acute Code(s): F43.10 - Post-traumatic stress disorder, unspecified (3) Cocaine use disorder, moderate, dependence: Status: Acute Code(s): F14.20 - Cocaine dependence, uncomplicated (4) Opioid use disorder, severe, on maintenance therapy, dependence: Status: Acute Code(s): F11.20 - Opioid dependence, uncomplicated (5) Homelessness: Status: Acute Code(s): Z59.00 - Homelessness unspecified Plan Patient is a 49-year-old male with history of MDD, PTSD, opiate use disorder and cocaine use disorder who presented to ER via ambulance due to suicidal ideation secondary to increased depression. Plan: CV 15 minute safety checks Continue home medications Obtain collateral Encourage groups ? Referral to substance abuse program Discharge planning 10/08: Pt observed sleeping while sitting in chair and also falling asleep while standing. He was observed falling asleep during conversation with T/W and had to be woken up multiple times during assessment. Patient reports feeling calm but depressed ; difficult to engage in conversation d/t sedation; he reports sleeping well last night. denies SI/HI/VH; he reports AH of whispers at baseline. Gabapentin decreased to 400mg PO BID; pt notified. 10/09: Pt reports feeling oversedate, overmedicated. Discussed his request to decrease Seroquel from 400 mg to 200 mg which we will trial this evening. Reason for continued inpatient stay Substantial Risk for: rapid decompensation Time Spent With Patient Time: Total time managing care of this patient today ____ minutes.
[2024-10-09 14:29] LABS: Influenza A PCR NEGATIVE (Negative); Influenza B PCR NEGATIVE (Negative); Resp Syncy Virus RNA Qual PCR NEGATIVE (Negative); SARS COV2 PCR INHOUSE NEGATIVE (Negative)
[2024-10-09] MEDS: QUEtiapine Fumarate 200 MG TABLET PO (21:29)
[2024-10-09] MEDS: Mirtazapine 15 MG TABLET PO (21:29)
[2024-10-09] MEDS: Prazosin HCL 1 MG CAPSULE 3 MG PO (21:30)
[2024-10-09] MEDS: Nicotine Polacrilex 2 MG GUM 4 MG BUCCAL (21:37)
[2024-10-10] MEDS: Acetaminophen 325 MG TABLET 650 MG PO ×2 (05:28→16:39)
[2024-10-10 08:00] VITALS: BP 103/54; PULSE 64; RESP 18; TEMP 36.4; O2SAT 97
[2024-10-10] MEDS: methADONE HCl 20 MG/2 ML ORAL.CONC 120 MG PO (08:08)
[2024-10-10] MEDS: buPROPion HCl XL 150 MG TAB.ER.24H PO (09:32)
[2024-10-10] MEDS: Propranolol HCL 20 MG TABLET PO ×2 (09:32→21:07)
[2024-10-10] MEDS: Atorvastatin Calcium 20 MG TABLET PO (09:32)
[2024-10-10] MEDS: Gabapentin 400 MG CAPSULE PO ×2 (09:32→21:08)
[2024-10-10] MEDS: methocarbamoL 750 MG TABLET PO ×2 (09:32→18:01)
[2024-10-10] MEDS: OXcarbazepine 300 MG TABLET 600 MG PO (09:33)
[2024-10-10] MEDS: Nicotine Polacrilex 2 MG GUM 4 MG BUCCAL ×2 (09:33→18:03)
[2024-10-10] MEDS: Omeprazole 40 MG CAPSULE.DR PO (09:33)
--- NOTE | 2024-10-10 15:46 | P.PNPSI_ITS ---
Subjective Subjective Date of Service: 10/10/24 Reason For Visit: Crisis Subjective Notes: Conditional Voluntary Healthcare Proxy: No Guardianship: No Medical Problems Affecting Mental Status: No Interim History: Pt reports seroquel decrease went well and asks that we further decrease to 150 mg. Referrals for programs team have sent. Given info today for [facility] which he is looking into. At the end of the day, team report pt was restless, uneasy and tells team he hopes he does not lose control (states checks procedure bothers him). Team observed catatonic like episodes as well and pt reported seeing himself hanging Medication Compliance: Yes Side effects from medications: Yes (??) Review of Systems Acute medical concerns: No Review of Systems Review of Systems denies Mental Status Exam Mental Status Exam Patient Appearance: Fatigued and Appropriate Patient Orientation: Person, Place, Time and Situation Level of Consciousness: Alert Patient Behavior: Talkative and Good Eye Contact Mood Description: Depressed Affect Description: Flat Patient Cognition Impaired: No Ability to Follow Directions: Good Speech Pattern: Spontaneous Speech Memory Description: Episodic Impaired Hallucinations: None Delusions: Not Present Thought Process: Distracted Thought Content: positive for Circumstantial and positive for Perseveration Depressive Symptoms: Sleeping More Than Usual Judgement: Fair Diagnostics Vital Signs (24Hr): Vital Signs - 24 hr 10/09/24 20:00 10/09/24 21:30 10/09/24 21:31 Temperature 97.6 F Pulse Rate 63 63 Respiratory Rate Blood Pressure 105/67 105/67 105/67 Pulse Oximetry 95 Oxygen Delivery Method Room Air 10/10/24 08:00 Temperature 97.6 F Pulse Rate 64 Respiratory Rate 18 Blood Pressure 103/54 L Pulse Oximetry 97 Oxygen Delivery Method Room Air BMI result Body Mass Index 30.4 Labs 10/04/24 01:27 10/06/24 16:52 Labs: Laboratory Results - last 48 hr 10/09/24 13:31 Influenza Type A (PCR) NEGATIVE Influenza Type B (PCR) NEGATIVE RSV RNA Qual (PCR) NEGATIVE SARS-CoV-2 RNA (RT-PCR) NEGATIVE Medications Medications Current Medications Acetaminophen (Acetaminophen 325 Mg Tablet) 650 mg PO Q6H PRN PRN Reason: Headache/Pain, Scale 1-10 Last Admin: 10/10/24 05:28 Dose: 650 mg Al Hydroxide/Mg Hydroxide (Magnesium Hydrox/Alum Hydrox 30 Ml Oral.Susp) 30 ml PO Q6H PRN PRN Reason: Heartburn/Nausea Albuterol Sulfate (Albuterol Sulfate 90 Mcg 8 Gm Inhaler) 2 puff INHALE Q4H PRN PRN Reason: Shortness Of Breath Or Wheezing Atorvastatin Calcium (Atorvastatin Calcium 20 Mg Tablet) 20 mg PO DAILY [facility] Last Admin: 10/10/24 09:32 Dose: 20 mg Bupropion HCl (Bupropion Hcl Xl 150 Mg Tab.Er.24h) 150 mg PO DAILY [facility] Last Admin: 10/10/24 09:32 Dose: 150 mg Fluticasone Propionate (Fluticasone Propionate Nasal 16 Gm [place]) 2 spray NOSTRIL-B DAILY PRN PRN Reason: Allergy Symptoms Gabapentin (Gabapentin 400 Mg Capsule) 400 mg PO BID [facility] Last Admin: 10/10/24 09:32 Dose: 400 mg Hydroxyzine HCl (Hydroxyzine Hcl 50 Mg Tablet) 50 mg PO BID PRN PRN Reason: Anxiety/ sinuses Magnesium Hydroxide (Milk Of Magnesia 30 Ml Oral.Susp) 30 ml PO DAILY PRN PRN Reason: Constipation Methadone HCl (Methadone Hcl 20 Mg/2 Ml Oral.Conc) 120 mg PO DAILY [facility] Last Admin: 10/10/24 08:08 Dose: 120 mg Methocarbamol (Methocarbamol 750 Mg Tablet) 750 mg PO TID PRN PRN Reason: Muscle Spasm Last Admin: 10/10/24 09:32 Dose: 750 mg Mirtazapine (Mirtazapine 15 Mg Tablet) 15 mg PO BEDTIME [facility] Last Admin: 10/09/24 21:29 Dose: 15 mg Nicotine Polacrilex (Nicotine Polacrilex 2 Mg Gum) 4 mg BUCCAL Q2H PRN PRN Reason: Nicotine Cravings Last Admin: 10/10/24 09:33 Dose: 4 mg Omeprazole (Omeprazole 40 Mg Capsule.Dr) 40 mg PO DAILY [facility] Last Admin: 10/10/24 09:33 Dose: 40 mg Oxcarbazepine (Oxcarbazepine 300 Mg Tablet) 600 mg PO DAILY [facility] Last Admin: 10/10/24 09:33 Dose: 600 mg Prazosin HCl (Prazosin Hcl 1 Mg Capsule) 3 mg PO BEDTIME [facility]; Protocol Last Admin: 10/09/24 21:30 Dose: 3 mg Propranolol HCl (Propranolol Hcl 20 Mg Tablet) 20 mg PO BID [facility]; Protocol Last Admin: 10/10/24 09:32 Dose: 20 mg Quetiapine Fumarate (Quetiapine Fumarate 50 Mg Tablet) 150 mg PO BEDTIME [facility] Senna (Sennosides 8.6 Mg Tablet) 17.2 mg PO BEDTIME PRN PRN Reason: Constipation Last Admin: 10/06/24 21:18 Dose: 17.2 mg Allergies Allergies Allergy/AdvReac Type Severity Reaction Status Date / Time No Known Allergies Allergy Verified 10/04/24 01:03 [No Known Allergies*] Assessment & Plan Assessment & Plan (1) MDD (major depressive disorder), recurrent episode, moderate: Status: Acute Code(s): F33.1 - Major depressive disorder, recurrent, moderate (2) PTSD (post-traumatic stress disorder): Status: Acute Code(s): F43.10 - Post-traumatic stress disorder, unspecified (3) Cocaine use disorder, moderate, dependence: Status: Acute Code(s): F14.20 - Cocaine dependence, uncomplicated (4) Opioid use disorder, severe, on maintenance therapy, dependence: Status: Acute Code(s): F11.20 - Opioid dependence, uncomplicated (5) Homelessness: Status: Acute Code(s): Z59.00 - Homelessness unspecified Plan Patient is a 49-year-old male with history of MDD, PTSD, opiate use disorder and cocaine use disorder who presented to ER via ambulance due to suicidal ideation secondary to increased depression. Plan: CV 15 minute safety checks Continue home medications Obtain collateral Encourage groups ? Referral to substance abuse program Discharge planning 10/08: Pt observed sleeping while sitting in chair and also falling asleep while standing. He was observed falling asleep during conversation with T/W and had to be woken up multiple times during assessment. Patient reports feeling calm but depressed ; difficult to engage in conversation d/t sedation; he reports sleeping well last night. denies SI/HI/VH; he reports AH of whispers at baseline. Gabapentin decreased to 400mg PO BID; pt notified. 10/09: Pt reports feeling oversedate, overmedicated. Discussed his request to decrease Seroquel from 400 mg to 200 mg which we will trial this evening. 10/10: Psychotic, catatonic like sx reported by the team this evening. Lorazepam 1mg q6hprn sx of catatonia Return Seroquel to 400 mg HS, stabilize and attempt taper again when pt is not symptomatic. Reason for continued inpatient stay Substantial Risk for: rapid decompensation Time Spent With Patient Time: Total time managing care of this patient today ____ minutes.
[2024-10-10] MEDS: hydrOXYzine HCL 50 MG TABLET PO (18:01)
[2024-10-10] MEDS: LORazepam 1 MG TABLET PO (18:49)
[2024-10-10 20:00] VITALS: BP 103/65; PULSE 73; RESP 16; TEMP 36.4; O2SAT 96
[2024-10-10] MEDS: Ibuprofen 800 MG TABLET PO (20:10)
[2024-10-10] MEDS: Prazosin HCL 1 MG CAPSULE 3 MG PO (21:07)
[2024-10-10] MEDS: QUEtiapine Fumarate 400 MG TABLET PO (21:08)
[2024-10-10] MEDS: Mirtazapine 15 MG TABLET PO (21:08)
[2024-10-11] VITALS: PULSE 90
[2024-10-11 08:00] VITALS: PULSE 62
[2024-10-11] MEDS: methADONE HCl 20 MG/2 ML ORAL.CONC 120 MG PO (08:02)
[2024-10-11] MEDS: buPROPion HCl XL 150 MG TAB.ER.24H PO (09:11)
[2024-10-11] MEDS: Gabapentin 400 MG CAPSULE PO ×2 (09:12→20:34)
[2024-10-11] MEDS: Omeprazole 40 MG CAPSULE.DR PO (09:12)
[2024-10-11] MEDS: OXcarbazepine 300 MG TABLET 600 MG PO (09:12)
[2024-10-11] MEDS: Atorvastatin Calcium 20 MG TABLET PO (09:12)
[2024-10-11] MEDS: Propranolol HCL 20 MG TABLET PO ×2 (09:12→20:34)
[2024-10-11 09:13] VITALS: BP 127/76; PULSE 62; RESP 16; TEMP 36.6; O2SAT 99
--- NOTE | 2024-10-11 10:50 | HO.PSYCHPN ---
Subjective Subjective Date of Service: 10/11/24 Reason For Visit: Crisis Subjective Notes: Conditional Voluntary Interim History: patient was seen and discussed in rounds today. Records and plans were reviewed. He continues to endorse some depression and anxiety. He is guarded and some behavior, looking somewhat catatonic. He was started on Ativan. He does have AVH. Slept 3-4 hours. This morning he is pretty drowsy. I will review his medications. I suspect his drowsiness is secondary to his methadone 120 mg/ verified. Ativan will be administered judiciously secondary to his mental status and level of drowsiness Review of Systems Review of Systems Yes Unobtainable due to mental status Mental Status Exam Mental Status Exam Narrative: In today's visit he is drowsy but arousable. Soft-spoken, slurred speech. No eye contact. Affect is constricted. No overt acute signs of psychosis but has AVH. Response to internal stimuli and occasional catatonic posturing reported. Cognitively could not be assessed. Judgment could not be assessed. Diagnostics Vital Signs (24Hr): Vital Signs - 24 hr 10/10/24 20:00 10/11/24 09:13 Temperature 97.6 F 98 F Pulse Rate 73 62 Respiratory Rate 16 16 Blood Pressure 103/65 127/76 Pulse Oximetry 96 99 Oxygen Delivery Method Room Air Room Air BMI result Body Mass Index 30.4 Labs 10/04/24 01:27 10/06/24 16:52 Labs: Laboratory Results - last 48 hr 10/09/24 13:31 Influenza Type A (PCR) NEGATIVE Influenza Type B (PCR) NEGATIVE RSV RNA Qual (PCR) NEGATIVE SARS-CoV-2 RNA (RT-PCR) NEGATIVE Medications Medications Current Medications Acetaminophen (Acetaminophen 325 Mg Tablet) 650 mg PO Q6H PRN PRN Reason: Headache/Pain, Scale 1-10 Last Admin: 10/10/24 16:39 Dose: 650 mg Al Hydroxide/Mg Hydroxide (Magnesium Hydrox/Alum Hydrox 30 Ml Oral.Susp) 30 ml PO Q6H PRN PRN Reason: Heartburn/Nausea Albuterol Sulfate (Albuterol Sulfate 90 Mcg 8 Gm Inhaler) 2 puff INHALE Q4H PRN PRN Reason: Shortness Of Breath Or Wheezing Atorvastatin Calcium (Atorvastatin Calcium 20 Mg Tablet) 20 mg PO DAILY [facility] Last Admin: 10/11/24 09:12 Dose: 20 mg Bupropion HCl (Bupropion Hcl Xl 150 Mg Tab.Er.24h) 150 mg PO DAILY [facility] Last Admin: 10/11/24 09:11 Dose: 150 mg Fluticasone Propionate (Fluticasone Propionate Nasal 16 Gm [place]) 2 spray NOSTRIL-B DAILY PRN PRN Reason: Allergy Symptoms Gabapentin (Gabapentin 400 Mg Capsule) 400 mg PO BID [facility] Last Admin: 10/11/24 09:12 Dose: 400 mg Hydroxyzine HCl (Hydroxyzine Hcl 50 Mg Tablet) 50 mg PO BID PRN PRN Reason: Anxiety/ sinuses Last Admin: 10/10/24 18:01 Dose: 50 mg Ibuprofen (Ibuprofen 800 Mg Tablet) 800 mg PO Q8H PRN PRN Reason: Pain, Moderate(Pain Scale 4-6) Last Admin: 10/10/24 20:10 Dose: 800 mg Lorazepam (Lorazepam 1 Mg Tablet) 1 mg PO Q6H PRN PRN Reason: sx of catatonia Last Admin: 10/10/24 18:49 Dose: 1 mg Magnesium Hydroxide (Milk Of Magnesia 30 Ml Oral.Susp) 30 ml PO DAILY PRN PRN Reason: Constipation Methadone HCl (Methadone Hcl 20 Mg/2 Ml Oral.Conc) 120 mg PO DAILY [facility] Last Admin: 10/11/24 08:02 Dose: 120 mg Methocarbamol (Methocarbamol 750 Mg Tablet) 750 mg PO TID PRN PRN Reason: Muscle Spasm Last Admin: 10/10/24 18:01 Dose: 750 mg Mirtazapine (Mirtazapine 15 Mg Tablet) 15 mg PO BEDTIME [facility] Last Admin: 10/10/24 21:08 Dose: 15 mg Nicotine Polacrilex (Nicotine Polacrilex 2 Mg Gum) 4 mg BUCCAL Q2H PRN PRN Reason: Nicotine Cravings Last Admin: 10/10/24 18:03 Dose: 4 mg Omeprazole (Omeprazole 40 Mg Capsule.Dr) 40 mg PO DAILY [facility] Last Admin: 10/11/24 09:12 Dose: 40 mg Oxcarbazepine (Oxcarbazepine 300 Mg Tablet) 600 mg PO DAILY [facility] Last Admin: 10/11/24 09:12 Dose: 600 mg Prazosin HCl (Prazosin Hcl 1 Mg Capsule) 3 mg PO BEDTIME [facility]; Protocol Last Admin: 10/10/24 21:07 Dose: 3 mg Propranolol HCl (Propranolol Hcl 20 Mg Tablet) 20 mg PO BID [facility]; Protocol Last Admin: 10/11/24 09:12 Dose: 20 mg Quetiapine Fumarate (Quetiapine Fumarate 400 Mg Tablet) 400 mg PO BEDTIME [facility] Last Admin: 10/10/24 21:08 Dose: 200 mg Senna (Sennosides 8.6 Mg Tablet) 17.2 mg PO BEDTIME PRN PRN Reason: Constipation Last Admin: 10/06/24 21:18 Dose: 17.2 mg Allergies Allergies Allergy/AdvReac Type Severity Reaction Status Date / Time No Known Allergies Allergy Verified 10/04/24 01:03 [No Known Allergies*] Assessment & Plan Assessment & Plan (1) MDD (major depressive disorder), recurrent episode, moderate: Status: Acute Code(s): F33.1 - Major depressive disorder, recurrent, moderate (2) PTSD (post-traumatic stress disorder): Status: Acute Code(s): F43.10 - Post-traumatic stress disorder, unspecified (3) Cocaine use disorder, moderate, dependence: Status: Acute Code(s): F14.20 - Cocaine dependence, uncomplicated (4) Opioid use disorder, severe, on maintenance therapy, dependence: Status: Acute Code(s): F11.20 - Opioid dependence, uncomplicated (5) Homelessness: Status: Acute Code(s): Z59.00 - Homelessness unspecified Plan Patient is a 49-year-old male with history of MDD, PTSD, opiate use disorder and cocaine use disorder who presented to ER via ambulance due to suicidal ideation secondary to increased depression. Plan: CV 15 minute safety checks Continue home medications Obtain collateral Encourage groups ? Referral to substance abuse program Discharge planning 10/08: Pt observed sleeping while sitting in chair and also falling asleep while standing. He was observed falling asleep during conversation with T/W and had to be woken up multiple times during assessment. Patient reports feeling calm but depressed ; difficult to engage in conversation d/t sedation; he reports sleeping well last night. denies SI/HI/VH; he reports AH of whispers at baseline. Gabapentin decreased to 400mg PO BID; pt notified. 10/09: Pt reports feeling oversedate, overmedicated. Discussed his request to decrease Seroquel from 400 mg to 200 mg which we will trial this evening. 10/10: Psychotic, catatonic like sx reported by the team this evening. Lorazepam 1mg q6hprn sx of catatonia Return Seroquel to 400 mg HS, stabilize and attempt taper again when pt is not symptomatic. 10/11/24: Continue current plans and regimen Reason for continued inpatient stay Substantial Risk for: med/psych decompensation Time Spent With Patient Time: Total time managing care of this patient today ____ minutes.
[2024-10-11] MEDS: Ibuprofen 800 MG TABLET PO ×2 (12:19→20:34)
[2024-10-11] MEDS: Nicotine Polacrilex 2 MG GUM 4 MG BUCCAL ×3 (12:19→20:38)
[2024-10-11] MEDS: LORazepam 1 MG TABLET PO (14:54)
[2024-10-11 16:00] VITALS: PULSE 62
[2024-10-11 16:02] LABS: Influenza A PCR NEGATIVE (Negative); Influenza B PCR NEGATIVE (Negative); Resp Syncy Virus RNA Qual PCR NEGATIVE (Negative); SARS COV2 PCR INHOUSE NEGATIVE (Negative)
[2024-10-11 19:45] VITALS: BP 110/61; PULSE 65; RESP 16; TEMP 36.7; O2SAT 95
[2024-10-11 19:55] VITALS: PULSE 65
[2024-10-11] MEDS: Mirtazapine 15 MG TABLET PO (20:34)
[2024-10-11] MEDS: Prazosin HCL 1 MG CAPSULE 3 MG PO (20:34)
[2024-10-11] MEDS: QUEtiapine Fumarate 400 MG TABLET PO (20:35)
[2024-10-12] MEDS: methADONE HCl 20 MG/2 ML ORAL.CONC 120 MG PO (07:56)
[2024-10-12 08:00] VITALS: BP 133/75; PULSE 66; TEMP 36.4; O2SAT 96
[2024-10-12] MEDS: Ibuprofen 800 MG TABLET PO ×2 (09:12→17:49)
[2024-10-12] MEDS: methocarbamoL 750 MG TABLET PO ×3 (09:14→20:26)
[2024-10-12] MEDS: LORazepam 1 MG TABLET PO (09:26)
--- NOTE | 2024-10-12 09:52 | HO.PSYCHPN ---
Subjective Subjective Date of Service: 10/11/24 Reason For Visit: Crisis Subjective Notes: Conditional Voluntary Interim History: patient was seen and discussed in rounds today. Records and plans were reviewed. He has been doing better and is little more alert. For the last 2 nights he has been taking only 200 mg of the Seroquel. I did not change the dose for now. No AVH. Some passive SI. No symptoms of catatonia. He is isolative. Medication compliant Review of Systems Review of Systems Headache Yes all other systems are reviewed and are negative Mental Status Exam Mental Status Exam Narrative: In today's visit he is drowsy but arousable. Soft-spoken, slurred speech. No eye contact. Affect is constricted. No overt acute signs of psychosis but has AVH. Response to internal stimuli and occasional catatonic posturing reported. Cognitively could not be assessed. Judgment could not be assessed. Diagnostics Vital Signs (24Hr): Vital Signs - 24 hr 10/11/24 09:13 10/11/24 19:45 Temperature 98 F 98.1 F Pulse Rate 62 65 Respiratory Rate 16 16 Blood Pressure 127/76 110/61 Pulse Oximetry 99 95 Oxygen Delivery Method Room Air Room Air BMI result Body Mass Index 30.4 Labs 10/04/24 01:27 10/06/24 16:52 Labs: Laboratory Results - last 48 hr 10/11/24 15:10 Influenza Type A (PCR) NEGATIVE Influenza Type B (PCR) NEGATIVE RSV RNA Qual (PCR) NEGATIVE SARS-CoV-2 RNA (RT-PCR) NEGATIVE Medications Medications Current Medications Acetaminophen (Acetaminophen 325 Mg Tablet) 650 mg PO Q6H PRN PRN Reason: Headache/Pain, Scale 1-10 Last Admin: 10/10/24 16:39 Dose: 650 mg Al Hydroxide/Mg Hydroxide (Magnesium Hydrox/Alum Hydrox 30 Ml Oral.Susp) 30 ml PO Q6H PRN PRN Reason: Heartburn/Nausea Albuterol Sulfate (Albuterol Sulfate 90 Mcg 8 Gm Inhaler) 2 puff INHALE Q4H PRN PRN Reason: Shortness Of Breath Or Wheezing Atorvastatin Calcium (Atorvastatin Calcium 20 Mg Tablet) 20 mg PO DAILY [facility] Last Admin: 10/11/24 09:12 Dose: 20 mg Bupropion HCl (Bupropion Hcl Xl 150 Mg Tab.Er.24h) 150 mg PO DAILY [facility] Last Admin: 10/11/24 09:11 Dose: 150 mg Fluticasone Propionate (Fluticasone Propionate Nasal 16 Gm [place]) 2 spray NOSTRIL-B DAILY PRN PRN Reason: Allergy Symptoms Gabapentin (Gabapentin 400 Mg Capsule) 400 mg PO BID [facility] Last Admin: 10/11/24 20:34 Dose: 400 mg Hydroxyzine HCl (Hydroxyzine Hcl 50 Mg Tablet) 50 mg PO BID PRN PRN Reason: Anxiety/ sinuses Last Admin: 10/10/24 18:01 Dose: 50 mg Ibuprofen (Ibuprofen 800 Mg Tablet) 800 mg PO Q8H PRN PRN Reason: Pain, Moderate(Pain Scale 4-6) Last Admin: 10/12/24 09:12 Dose: 800 mg Lorazepam (Lorazepam 1 Mg Tablet) 1 mg PO Q6H PRN PRN Reason: sx of catatonia Last Admin: 10/12/24 09:26 Dose: 1 mg Magnesium Hydroxide (Milk Of Magnesia 30 Ml Oral.Susp) 30 ml PO DAILY PRN PRN Reason: Constipation Methadone HCl (Methadone Hcl 20 Mg/2 Ml Oral.Conc) 120 mg PO DAILY [facility] Last Admin: 10/12/24 07:56 Dose: 120 mg Methocarbamol (Methocarbamol 750 Mg Tablet) 750 mg PO TID PRN PRN Reason: Muscle Spasm Last Admin: 10/12/24 09:14 Dose: 750 mg Mirtazapine (Mirtazapine 15 Mg Tablet) 15 mg PO BEDTIME [facility] Last Admin: 10/11/24 20:34 Dose: 15 mg Nicotine Polacrilex (Nicotine Polacrilex 2 Mg Gum) 4 mg BUCCAL Q2H PRN PRN Reason: Nicotine Cravings Last Admin: 10/11/24 20:38 Dose: 4 mg Omeprazole (Omeprazole 40 Mg Capsule.Dr) 40 mg PO DAILY [facility] Last Admin: 10/11/24 09:12 Dose: 40 mg Oxcarbazepine (Oxcarbazepine 300 Mg Tablet) 600 mg PO DAILY [facility] Last Admin: 10/11/24 09:12 Dose: 600 mg Prazosin HCl (Prazosin Hcl 1 Mg Capsule) 3 mg PO BEDTIME [facility]; Protocol Last Admin: 10/11/24 20:34 Dose: 3 mg Propranolol HCl (Propranolol Hcl 20 Mg Tablet) 20 mg PO BID [facility]; Protocol Last Admin: 10/11/24 20:34 Dose: 20 mg Quetiapine Fumarate (Quetiapine Fumarate 400 Mg Tablet) 400 mg PO BEDTIME [facility] Last Admin: 10/11/24 20:35 Dose: 200 mg Senna (Sennosides 8.6 Mg Tablet) 17.2 mg PO BEDTIME PRN PRN Reason: Constipation Last Admin: 10/06/24 21:18 Dose: 17.2 mg Allergies Allergies Allergy/AdvReac Type Severity Reaction Status Date / Time No Known Allergies Allergy Verified 10/04/24 01:03 [No Known Allergies*] Assessment & Plan Assessment & Plan (1) MDD (major depressive disorder), recurrent episode, moderate: Status: Acute Code(s): F33.1 - Major depressive disorder, recurrent, moderate (2) PTSD (post-traumatic stress disorder): Status: Acute Code(s): F43.10 - Post-traumatic stress disorder, unspecified (3) Cocaine use disorder, moderate, dependence: Status: Acute Code(s): F14.20 - Cocaine dependence, uncomplicated (4) Opioid use disorder, severe, on maintenance therapy, dependence: Status: Acute Code(s): F11.20 - Opioid dependence, uncomplicated (5) Homelessness: Status: Acute Code(s): Z59.00 - Homelessness unspecified Plan Patient is a 49-year-old male with history of MDD, PTSD, opiate use disorder and cocaine use disorder who presented to ER via ambulance due to suicidal ideation secondary to increased depression. Plan: CV 15 minute safety checks Continue home medications Obtain collateral Encourage groups ? Referral to substance abuse program Discharge planning 10/08: Pt observed sleeping while sitting in chair and also falling asleep while standing. He was observed falling asleep during conversation with T/W and had to be woken up multiple times during assessment. Patient reports feeling calm but depressed ; difficult to engage in conversation d/t sedation; he reports sleeping well last night. denies SI/HI/VH; he reports AH of whispers at baseline. Gabapentin decreased to 400mg PO BID; pt notified. 10/09: Pt reports feeling oversedate, overmedicated. Discussed his request to decrease Seroquel from 400 mg to 200 mg which we will trial this evening. 10/10: Psychotic, catatonic like sx reported by the team this evening. Lorazepam 1mg q6hprn sx of catatonia Return Seroquel to 400 mg HS, stabilize and attempt taper again when pt is not symptomatic. 10/11/24: Continue current plans and regimen 10/12: Continue current regimen and plans Reason for continued inpatient stay Substantial Risk for: med/psych decompensation Time Spent With Patient Time: Total time managing care of this patient today ____ minutes.
[2024-10-12] MEDS: OXcarbazepine 300 MG TABLET 600 MG PO (10:54)
[2024-10-12] MEDS: Gabapentin 400 MG CAPSULE PO ×2 (10:54→20:25)
[2024-10-12] MEDS: Propranolol HCL 20 MG TABLET PO ×2 (10:55→20:25)
[2024-10-12] MEDS: Nicotine Polacrilex 2 MG GUM 4 MG BUCCAL ×2 (10:55→20:27)
[2024-10-12] MEDS: buPROPion HCl XL 150 MG TAB.ER.24H PO (10:55)
[2024-10-12] MEDS: Omeprazole 40 MG CAPSULE.DR PO (10:55)
[2024-10-12] MEDS: Atorvastatin Calcium 20 MG TABLET PO (10:58)
[2024-10-12] MEDS: Acetaminophen 325 MG TABLET 650 MG PO ×2 (10:58→20:26)
[2024-10-12] MEDS: SUMAtriptan succinate 100 MG TABLET PO (13:07)
[2024-10-12] MEDS: hydrOXYzine HCL 50 MG TABLET PO (15:48)
[2024-10-12 19:39] VITALS: BP 116/63; PULSE 65; RESP 16; TEMP 36.4; O2SAT 98
[2024-10-12 20:09] VITALS: PULSE 76
[2024-10-12] MEDS: QUEtiapine Fumarate 400 MG TABLET PO (20:24)
[2024-10-12] MEDS: Mirtazapine 15 MG TABLET PO (20:25)
[2024-10-12] MEDS: Prazosin HCL 1 MG CAPSULE 3 MG PO (20:26)
[2024-10-13] MEDS: methocarbamoL 750 MG TABLET PO ×2 (01:30→15:35)
[2024-10-13] MEDS: Ibuprofen 800 MG TABLET PO ×3 (01:30→21:06)
[2024-10-13] MEDS: SUMAtriptan succinate 100 MG TABLET PO ×2 (07:05→19:11)
[2024-10-13] MEDS: Acetaminophen 325 MG TABLET 650 MG PO ×2 (07:07→15:35)
[2024-10-13] MEDS: methADONE HCl 20 MG/2 ML ORAL.CONC 120 MG PO (07:28)
[2024-10-13 08:03] VITALS: BP 127/63; PULSE 65
[2024-10-13] MEDS: Propranolol HCL 20 MG TABLET PO ×2 (08:03→21:06)
[2024-10-13 08:10] VITALS: BP 127/63; PULSE 65; RESP 18; TEMP 36.6; O2SAT 96
[2024-10-13] MEDS: Atorvastatin Calcium 20 MG TABLET PO (09:04)
[2024-10-13] MEDS: buPROPion HCl XL 150 MG TAB.ER.24H PO (09:04)
[2024-10-13] MEDS: OXcarbazepine 300 MG TABLET 600 MG PO (09:04)
[2024-10-13] MEDS: Gabapentin 400 MG CAPSULE PO ×2 (09:04→21:07)
[2024-10-13] MEDS: Omeprazole 40 MG CAPSULE.DR PO (09:05)
--- NOTE | 2024-10-13 11:04 | HO.PSYCHPN ---
Subjective Subjective Date of Service: 10/13/24 Reason For Visit: Crisis Subjective Notes: Conditional Voluntary Healthcare Proxy: No Guardianship: No Medical Problems Affecting Mental Status: No Interim History: Reports R foot with edema, bruising. Upon exam, ?cellulitis. Hospitalist consult was requested. Discussed MSE changes and observations from team. Pt discussed hx migraine, long ago hx of seizure. Agrees for diagnostics for clarification. Appears sedate at times Reports no withdrawal sx. Medication Compliance: Yes Side effects from medications: No Attending Groups: Intermittent Review of Systems as noted Review of Systems Review of Systems R foot edema, ?cellulitis Mental Status Exam Mental Status Exam Patient Appearance: Fatigued and Appropriate Patient Orientation: Person, Place, Time and Situation Level of Consciousness: Sedated and Alert Patient Behavior: Talkative and Good Eye Contact Mood Description: Depressed and Anxious Affect Description: Flat Patient Cognition Impaired: No Ability to Follow Directions: Good Speech Pattern: Spontaneous Speech Memory Description: Remote Impaired Hallucinations: None Delusions: Not Present Thought Process: Rumination Thought Content: positive for Circumstantial Depressive Symptoms: Difficulty Sleeping, Increased Fatigue and Loss of Energy Judgement: Fair Diagnostics Vital Signs (24Hr): Vital Signs - 24 hr 10/12/24 19:39 10/13/24 08:03 10/13/24 08:10 Temperature 97.5 F 97.8 F Pulse Rate 65 65 65 Respiratory Rate 16 18 Blood Pressure 116/63 127/63 127/63 Pulse Oximetry 98 96 Oxygen Delivery Method Room Air Room Air BMI result Body Mass Index 30.4 Labs 10/04/24 01:27 10/06/24 16:52 Labs: Laboratory Results - last 48 hr 10/11/24 15:10 Influenza Type A (PCR) NEGATIVE Influenza Type B (PCR) NEGATIVE RSV RNA Qual (PCR) NEGATIVE SARS-CoV-2 RNA (RT-PCR) NEGATIVE Medications Medications Current Medications Acetaminophen (Acetaminophen 325 Mg Tablet) 650 mg PO Q6H PRN PRN Reason: Headache/Pain, Scale 1-10 Last Admin: 10/13/24 07:07 Dose: 650 mg Al Hydroxide/Mg Hydroxide (Magnesium Hydrox/Alum Hydrox 30 Ml Oral.Susp) 30 ml PO Q6H PRN PRN Reason: Heartburn/Nausea Albuterol Sulfate (Albuterol Sulfate 90 Mcg 8 Gm Inhaler) 2 puff INHALE Q4H PRN PRN Reason: Shortness Of Breath Or Wheezing Atorvastatin Calcium (Atorvastatin Calcium 20 Mg Tablet) 20 mg PO DAILY [facility] Last Admin: 10/13/24 09:04 Dose: 20 mg Bupropion HCl (Bupropion Hcl Xl 150 Mg Tab.Er.24h) 150 mg PO DAILY [facility] Last Admin: 10/13/24 09:04 Dose: 150 mg Fluticasone Propionate (Fluticasone Propionate Nasal 16 Gm [place]) 2 spray NOSTRIL-B DAILY PRN PRN Reason: Allergy Symptoms Gabapentin (Gabapentin 400 Mg Capsule) 400 mg PO BID [facility] Last Admin: 10/13/24 09:04 Dose: 400 mg Hydroxyzine HCl (Hydroxyzine Hcl 50 Mg Tablet) 50 mg PO BID PRN PRN Reason: Anxiety/ sinuses Last Admin: 10/12/24 15:48 Dose: 50 mg Ibuprofen (Ibuprofen 800 Mg Tablet) 800 mg PO Q8H PRN PRN Reason: Pain, Moderate(Pain Scale 4-6) Last Admin: 10/13/24 01:30 Dose: 800 mg Lorazepam (Lorazepam 1 Mg Tablet) 1 mg PO Q6H PRN PRN Reason: sx of catatonia Last Admin: 10/12/24 09:26 Dose: 1 mg Magnesium Hydroxide (Milk Of Magnesia 30 Ml Oral.Susp) 30 ml PO DAILY PRN PRN Reason: Constipation Methadone HCl (Methadone Hcl 20 Mg/2 Ml Oral.Conc) 120 mg PO DAILY [facility] Last Admin: 10/13/24 07:28 Dose: 120 mg Methocarbamol (Methocarbamol 750 Mg Tablet) 750 mg PO TID PRN PRN Reason: Muscle Spasm Last Admin: 10/13/24 01:30 Dose: 750 mg Mirtazapine (Mirtazapine 15 Mg Tablet) 15 mg PO BEDTIME [facility] Last Admin: 10/12/24 20:25 Dose: 15 mg Nicotine Polacrilex (Nicotine Polacrilex 2 Mg Gum) 4 mg BUCCAL Q2H PRN PRN Reason: Nicotine Cravings Last Admin: 10/12/24 20:27 Dose: 4 mg Omeprazole (Omeprazole 40 Mg Capsule.Dr) 40 mg PO DAILY [facility] Last Admin: 10/13/24 09:05 Dose: 40 mg Oxcarbazepine (Oxcarbazepine 300 Mg Tablet) 600 mg PO DAILY [facility] Last Admin: 10/13/24 09:04 Dose: 600 mg Prazosin HCl (Prazosin Hcl 1 Mg Capsule) 3 mg PO BEDTIME [facility]; Protocol Last Admin: 10/12/24 20:26 Dose: 3 mg Propranolol HCl (Propranolol Hcl 20 Mg Tablet) 20 mg PO BID [facility]; Protocol Last Admin: 10/13/24 08:03 Dose: 20 mg Quetiapine Fumarate (Quetiapine Fumarate 400 Mg Tablet) 400 mg PO BEDTIME [facility] Last Admin: 10/12/24 20:24 Dose: 200 mg Senna (Sennosides 8.6 Mg Tablet) 17.2 mg PO BEDTIME PRN PRN Reason: Constipation Last Admin: 10/06/24 21:18 Dose: 17.2 mg Sumatriptan Succinate (Sumatriptan Succinate 100 Mg Tablet) 100 mg PO DAILY [facility] PRN PRN Reason: Migraine Headache Last Admin: 10/13/24 07:05 Dose: 100 mg Allergies Allergies Allergy/AdvReac Type Severity Reaction Status Date / Time No Known Allergies Allergy Verified 10/04/24 01:03 [No Known Allergies*] Assessment & Plan Assessment & Plan (1) MDD (major depressive disorder), recurrent episode, moderate: Status: Acute Code(s): F33.1 - Major depressive disorder, recurrent, moderate (2) PTSD (post-traumatic stress disorder): Status: Acute Code(s): F43.10 - Post-traumatic stress disorder, unspecified (3) Cocaine use disorder, moderate, dependence: Status: Acute Code(s): F14.20 - Cocaine dependence, uncomplicated (4) Opioid use disorder, severe, on maintenance therapy, dependence: Status: Acute Code(s): F11.20 - Opioid dependence, uncomplicated (5) Homelessness: Status: Acute Code(s): Z59.00 - Homelessness unspecified Plan Patient is a 49-year-old male with history of MDD, PTSD, opiate use disorder and cocaine use disorder who presented to ER via ambulance due to suicidal ideation secondary to increased depression. Plan: CV 15 minute safety checks Continue home medications Obtain collateral Encourage groups ? Referral to substance abuse program Discharge planning 10/08: Pt observed sleeping while sitting in chair and also falling asleep while standing. He was observed falling asleep during conversation with T/W and had to be woken up multiple times during assessment. Patient reports feeling calm but depressed ; difficult to engage in conversation d/t sedation; he reports sleeping well last night. denies SI/HI/VH; he reports AH of whispers at baseline. Gabapentin decreased to 400mg PO BID; pt notified. 10/09: Pt reports feeling oversedate, overmedicated. Discussed his request to decrease Seroquel from 400 mg to 200 mg which we will trial this evening. 10/10: Psychotic, catatonic like sx reported by the team this evening. Lorazepam 1mg q6hprn sx of catatonia Return Seroquel to 400 mg HS, stabilize and attempt taper again when pt is not symptomatic. 10/11/24: Continue current plans and regimen 10/12: Continue current regimen and plans Hospitalist consult- ?Cellulitis R foot Reason for continued inpatient stay Substantial Risk for: rapid decompensation Time Spent With Patient Time: Total time managing care of this patient today ____ minutes.
[2024-10-13 13:04] VITALS: BP 111/62; PULSE 59; RESP 17; TEMP 36.1; O2SAT 95
[2024-10-13 20:00] VITALS: BP 108/55; PULSE 69; RESP 14; TEMP 2.6; TEMP 36.6; O2SAT 98
--- NOTE | 2024-10-13 20:34 | HO.PM.IMCN ---
History of Present Illness Data of Consult Service Date: 10/13/24 Requesting physician: Nithya Willingham Primary Care Provider: None Physician HPI Reason for consult: ?right foot cellulitis Pt is a 49 yo male with a pmhx significant for substance abuse, homelessness, and depression, admitted to [address] with a consult placed for ?right foot cellulitis. pt reports no injury or tear in the skin. no hx of MRSA or celluliits. some warmth, erythema and edema starting today. mildly painful with walking. no fever, chills, nausea or vomiting. Review of Systems Constitutional: Constitutional: Denies body ache(s), Denies chills, Denies fatigue, Denies fever(s) and Denies headache(s) Eyes: Eyes: Denies change in vision and Denies photophobia ENT: Denies headache(s), Denies nasal congestion, Denies nasal discharge and Denies sore throat Cardiovascular: Cardiovascular: Denies chest pain, Denies rapid heart rate, Denies leg edema and Denies dyspnea Respiratory: Respiratory: Denies chest congestion, Denies cough, Denies dyspnea and Denies wheezing Gastrointestinal: Gastrointestinal: Denies diarrhea, Denies nausea and Denies vomiting Genitourinary: Genitourinary: Denies urinary urgency Musculoskeletal: Musculoskeletal: Reports as per HPI Integumentary/Breasts: Skin/Breast: Reports as per HPI Neurologic: Denies headache(s) Psychiatric: Psychiatric: Reports anxiety Endocrine: Endocrine: Denies fatigue Hematologic/Lymphatic: Hematologic/Lymphatic: Denies easy bleeding and Denies easy bruising Allergic/Immunologic: Allergic/Immunologic: Denies wheezing [facility] Medical History Polysubstance use disorder Depression Anxiety Mental health problem Substance abuse Functional capacity: independent ambulation Social History Household Members: None Housing: Homeless Do you presently have visiting nurse or other home services: No Unable to assess alcohol history related to: Refusing to respond Alcohol intake: unknown Comment: 1:1 Patient Tobacco Use Status: Current everyday Tobacco user Tobacco use type: Cigarette Cigarette Packs Per Day: 0.5 Cigarettes Per Day: 10.0 Smoked in Last 30 Days: Yes Patient Interested in Nicotine Replacement: Yes Patient Given Instructions on How to Stop Smoking: No Second Hand Smoke Exposure: No Use of substances other than those prescribed or required for medical reasons: Yes Substance Use Type: Crack/Cocaine, Marijuana and Opiates Substance Use Frequency: Chronic Longstanding Last Used Substance: Just Prior to Admission Currently Displaying Signs/Symptoms of Drug Intoxication Withdrawal: No Any prior treatment program specific to substance use: Yes (methadone at [facility]) Have you been hit, kicked, punched, or otherwise hurt by someone within the past year? If so, by whom?: No Do you feel safe in your current relationship?: No Current Relationship Is there a partner from a previous relationship who is making you feel unsafe now?: No Are you made to feel afraid or neglected: No Advance Directives: No Advance Directives Information Provided: Yes Do you have thoughts of harming others: None Do you have a plan to hurt others: No Plan Recently lost weight without trying: No Eating poorly because of decreased appetite: No Nutrition Risks: No Nutritional Risk Poor oral hygiene: No service: No Sexual orientation: Straight/Heterosexual Meds Allergies Allergy/AdvReac Type Severity Reaction Status Date / Time No Known Allergies Allergy Verified 10/04/24 01:03 [No Known Allergies*] Active Medications: Current Medications Acetaminophen (Acetaminophen 325 Mg Tablet) 650 mg PO Q6H PRN PRN Reason: Headache/Pain, Scale 1-10 Last Admin: 10/13/24 15:35 Dose: 650 mg Al Hydroxide/Mg Hydroxide (Magnesium Hydrox/Alum Hydrox 30 Ml Oral.Susp) 30 ml PO Q6H PRN PRN Reason: Heartburn/Nausea Albuterol Sulfate (Albuterol Sulfate 90 Mcg 8 Gm Inhaler) 2 puff INHALE Q4H PRN PRN Reason: Shortness Of Breath Or Wheezing Atorvastatin Calcium (Atorvastatin Calcium 20 Mg Tablet) 20 mg PO DAILY [facility] Last Admin: 10/13/24 09:04 Dose: 20 mg Bupropion HCl (Bupropion Hcl Xl 150 Mg Tab.Er.24h) 150 mg PO DAILY [facility] Last Admin: 10/13/24 09:04 Dose: 150 mg Fluticasone Propionate (Fluticasone Propionate Nasal 16 Gm [place]) 2 spray NOSTRIL-B DAILY PRN PRN Reason: Allergy Symptoms Gabapentin (Gabapentin 400 Mg Capsule) 400 mg PO BID [facility] Last Admin: 10/13/24 09:04 Dose: 400 mg Hydroxyzine HCl (Hydroxyzine Hcl 50 Mg Tablet) 50 mg PO BID PRN PRN Reason: Anxiety/ sinuses Last Admin: 10/12/24 15:48 Dose: 50 mg Ibuprofen (Ibuprofen 800 Mg Tablet) 800 mg PO Q8H PRN PRN Reason: Pain, Moderate(Pain Scale 4-6) Last Admin: 10/13/24 12:31 Dose: 800 mg Lorazepam (Lorazepam 1 Mg Tablet) 1 mg PO Q6H PRN PRN Reason: sx of catatonia Last Admin: 10/12/24 09:26 Dose: 1 mg Magnesium Hydroxide (Milk Of Magnesia 30 Ml Oral.Susp) 30 ml PO DAILY PRN PRN Reason: Constipation Methadone HCl (Methadone Hcl 20 Mg/2 Ml Oral.Conc) 120 mg PO DAILY [facility] Last Admin: 10/13/24 07:28 Dose: 120 mg Methocarbamol (Methocarbamol 750 Mg Tablet) 750 mg PO TID PRN PRN Reason: Muscle Spasm Last Admin: 10/13/24 15:35 Dose: 750 mg Mirtazapine (Mirtazapine 15 Mg Tablet) 15 mg PO BEDTIME [facility] Last Admin: 10/12/24 20:25 Dose: 15 mg Nicotine Polacrilex (Nicotine Polacrilex 2 Mg Gum) 4 mg BUCCAL Q2H PRN PRN Reason: Nicotine Cravings Last Admin: 10/12/24 20:27 Dose: 4 mg Omeprazole (Omeprazole 40 Mg Capsule.Dr) 40 mg PO DAILY [facility] Last Admin: 10/13/24 09:05 Dose: 40 mg Oxcarbazepine (Oxcarbazepine 300 Mg Tablet) 600 mg PO DAILY [facility] Last Admin: 10/13/24 09:04 Dose: 600 mg Prazosin HCl (Prazosin Hcl 1 Mg Capsule) 3 mg PO BEDTIME [facility]; Protocol Last Admin: 10/12/24 20:26 Dose: 3 mg Propranolol HCl (Propranolol Hcl 20 Mg Tablet) 20 mg PO BID [facility]; Protocol Last Admin: 10/13/24 08:03 Dose: 20 mg Quetiapine Fumarate (Quetiapine Fumarate 400 Mg Tablet) 400 mg PO BEDTIME [facility] Last Admin: 10/12/24 20:24 Dose: 200 mg Senna (Sennosides 8.6 Mg Tablet) 17.2 mg PO BEDTIME PRN PRN Reason: Constipation Last Admin: 10/06/24 21:18 Dose: 17.2 mg Sumatriptan Succinate (Sumatriptan Succinate 100 Mg Tablet) 100 mg PO DAILY MRX1 PRN PRN Reason: Migraine Headache Last Admin: 10/13/24 19:11 Dose: 100 mg Home Medications ?Medication ?Instructions ?Recorded ?Confirmed ?Last Taken ?Type albuterol sulfate 90 mcg/actuation 2 puff inhalation Q4H PRN 12/17/23 10/04/24 Unknown History aerosol inhaler (Ventolin HFA) Shortness Of Breath Or Wheezing gabapentin 300 mg capsule 600 mg PO BID 12/17/23 10/04/24 10/02/24 08:00 History hydroxyzine HCl 50 mg tablet 50 mg PO BID 12/17/23 10/04/24 10/02/24 08:00 History oxcarbazepine 600 mg tablet 600 mg PO DAILY 12/17/23 10/04/24 10/02/24 08:00 History quetiapine 100 mg tablet 100 mg PO TID PRN Anxiety 12/17/23 10/04/24 10/02/24 08:00 History atorvastatin 20 mg tablet 20 mg PO DAILY 10/04/24 10/04/24 10/02/24 08:00 History methadone 10 mg/mL injection 120 mg subcut DAILY 10/04/24 10/04/24 10/03/24 History solution omeprazole 40 mg capsule,delayed 40 mg PO DAILY 10/04/24 10/04/24 10/02/24 06:30 History release propranolol 20 mg tablet 20 mg PO BID 10/04/24 10/04/24 10/02/24 History acetaminophen 500 mg tablet 1,000 mg PO Q8H PRN pain/headache 10/06/24 10/06/24 Unknown History bupropion HCl 150 mg 24 hr tablet, 150 mg PO DAILY 10/06/24 10/06/24 Unknown History extended release fluticasone propionate 50 2 spray intranasal DAILY PRN 10/06/24 10/06/24 Unknown History mcg/actuation nasal Allergy Symptoms spray,suspension methocarbamol 750 mg tablet 750 mg PO TID PRN Muscle Spasm 10/06/24 10/06/24 Unknown History mirtazapine 15 mg tablet 15 mg PO BEDTIME 10/06/24 10/06/24 Unknown History prazosin 2 mg capsule 4 mg PO BEDTIME 10/06/24 10/06/24 Unknown History quetiapine 400 mg tablet 400 mg PO BEDTIME 10/06/24 10/06/24 Unknown History sennosides 8.6 mg tablet (senna) 17.2 mg PO BEDTIME PRN Constipation 10/06/24 10/06/24 Unknown History Physical Exam Vital Signs and Narrative: Vital Signs: Last Vital Signs Temp 36.6 F L 10/13/24 20:00 Pulse 69 10/13/24 20:00 Resp 14 10/13/24 20:00 BP 108/55 L 10/13/24 20:00 Pulse Ox 98 10/13/24 20:00 O2 Del Method Room Air 10/13/24 20:00 BMI result Body Mass Index 30.4 General: AOx3, no acute distress Skin: Warm, dry. erythamtous region on the dorsal surface right foot, increased warmth. no puruletn drainage. Neuro: Cranial nerves II-XII grossly intact bilaterally. Motor grossly intact bilaterally Extremities: No pitting edema Psych: Appropriate affect Eyes: Direct Ophthalmoscopy: No photophobia Results Labs 10/04/24 01:27 10/06/24 16:52 Assessment and Plan (1) Cellulitis of right foot: Status: Acute Plan Pt is a 49 yo male with a pmhx significant for substance abuse, homelessness, and depression, admitted to adult psych with a consult placed for ?right foot cellulitis. R foot cellulitis - vitals stable, no sepsis, stable for psych floor - doxycycline 100mg BID x7 days - tylenol and ibuprofen prn or pain Thank you for allowing me to participate in the pt's care. signing off for now. Please contact the medical team if any questions or concerns.
[2024-10-13] MEDS: Doxycycline Monohydrate 100 MG CAPSULE PO (21:06)
[2024-10-13] MEDS: Prazosin HCL 1 MG CAPSULE 3 MG PO (21:06)
[2024-10-13] MEDS: Mirtazapine 15 MG TABLET PO (21:07)
[2024-10-13] MEDS: QUEtiapine Fumarate 400 MG TABLET PO (21:07)
[2024-10-14] VITALS: PULSE 69
[2024-10-14] MEDS: Acetaminophen 325 MG TABLET 650 MG PO (04:30)
[2024-10-14] MEDS: methADONE HCl 20 MG/2 ML ORAL.CONC 120 MG PO (07:51)
[2024-10-14 08:00] VITALS: BP 131/76; PULSE 68; RESP 16; TEMP 36.4; O2SAT 97
[2024-10-14 09:19] VITALS: BP 131/76; PULSE 68
[2024-10-14] MEDS: Propranolol HCL 20 MG TABLET PO ×2 (09:19→21:53)
[2024-10-14] MEDS: SUMAtriptan succinate 100 MG TABLET PO (09:20)
[2024-10-14] MEDS: Omeprazole 40 MG CAPSULE.DR PO (09:21)
[2024-10-14] MEDS: buPROPion HCl XL 150 MG TAB.ER.24H PO (09:21)
[2024-10-14] MEDS: Gabapentin 400 MG CAPSULE PO ×2 (09:21→21:54)
[2024-10-14] MEDS: Doxycycline Monohydrate 100 MG CAPSULE PO ×2 (09:21→21:54)
[2024-10-14] MEDS: OXcarbazepine 300 MG TABLET 600 MG PO (09:21)
[2024-10-14] MEDS: Atorvastatin Calcium 20 MG TABLET PO (09:21)
--- NOTE | 2024-10-14 09:52 | HO.PSYCHPN ---
Subjective Subjective Date of Service: 10/14/24 Reason For Visit: Crisis Subjective Notes: Conditional Voluntary Healthcare Proxy: No Guardianship: No Medical Problems Affecting Mental Status: No Interim History: Pt started on antibiotic for cellulitis. Today, it appears L foot is developing a cellulitis as well. Agrees to labs in the a.m. Reports hearing whispers/children talking at times. Medication Compliance: Yes Review of Systems Review of Systems cellulitis Mental Status Exam Mental Status Exam Patient Appearance: Fatigued and Appropriate Patient Orientation: Person, Place, Time and Situation Level of Consciousness: Sedated and Alert Patient Behavior: Talkative and Good Eye Contact Mood Description: Depressed and Anxious Affect Description: Flat Patient Cognition Impaired: No Ability to Follow Directions: Good Speech Pattern: Spontaneous Speech Memory Description: Remote Impaired Hallucinations: None Delusions: Not Present Thought Process: Rumination Thought Content: positive for Circumstantial Depressive Symptoms: Difficulty Sleeping, Increased Fatigue and Loss of Energy Judgement: Fair Diagnostics Vital Signs (24Hr): Vital Signs - 24 hr 10/13/24 13:04 10/13/24 20:00 10/14/24 09:19 Temperature 96.9 F 36.6 F L Pulse Rate 59 69 68 Respiratory Rate 17 14 Blood Pressure 111/62 108/55 L 131/76 Pulse Oximetry 95 98 Oxygen Delivery Method Room Air Room Air BMI result Body Mass Index 30.4 Labs 10/04/24 01:27 10/06/24 16:52 Medications Medications Current Medications Acetaminophen (Acetaminophen 325 Mg Tablet) 650 mg PO Q6H PRN PRN Reason: Headache/Pain, Scale 1-10 Last Admin: 10/14/24 04:30 Dose: 650 mg Al Hydroxide/Mg Hydroxide (Magnesium Hydrox/Alum Hydrox 30 Ml Oral.Susp) 30 ml PO Q6H PRN PRN Reason: Heartburn/Nausea Albuterol Sulfate (Albuterol Sulfate 90 Mcg 8 Gm Inhaler) 2 puff INHALE Q4H PRN PRN Reason: Shortness Of Breath Or Wheezing Atorvastatin Calcium (Atorvastatin Calcium 20 Mg Tablet) 20 mg PO DAILY [facility] Last Admin: 10/14/24 09:21 Dose: 20 mg Bupropion HCl (Bupropion Hcl Xl 150 Mg Tab.Er.24h) 150 mg PO DAILY [facility] Last Admin: 10/14/24 09:21 Dose: 150 mg Doxycycline Monohydrate (Doxycycline Monohydrate 100 Mg Capsule) 100 mg PO BID [facility] Stop: 10/20/24 09:01 Last Admin: 10/14/24 09:21 Dose: 100 mg Fluticasone Propionate (Fluticasone Propionate Nasal 16 Gm [place]) 2 spray NOSTRIL-B DAILY PRN PRN Reason: Allergy Symptoms Gabapentin (Gabapentin 400 Mg Capsule) 400 mg PO BID [facility] Last Admin: 10/14/24 09:21 Dose: 400 mg Hydroxyzine HCl (Hydroxyzine Hcl 50 Mg Tablet) 50 mg PO BID PRN PRN Reason: Anxiety/ sinuses Last Admin: 10/12/24 15:48 Dose: 50 mg Ibuprofen (Ibuprofen 800 Mg Tablet) 800 mg PO Q8H PRN PRN Reason: Pain, Moderate(Pain Scale 4-6) Last Admin: 10/13/24 21:06 Dose: 800 mg Lorazepam (Lorazepam 1 Mg Tablet) 1 mg PO Q6H PRN PRN Reason: sx of catatonia Last Admin: 10/12/24 09:26 Dose: 1 mg Magnesium Hydroxide (Milk Of Magnesia 30 Ml Oral.Susp) 30 ml PO DAILY PRN PRN Reason: Constipation Methadone HCl (Methadone Hcl 20 Mg/2 Ml Oral.Conc) 120 mg PO DAILY [facility] Last Admin: 10/14/24 07:51 Dose: 120 mg Methocarbamol (Methocarbamol 750 Mg Tablet) 750 mg PO TID PRN PRN Reason: Muscle Spasm Last Admin: 10/13/24 15:35 Dose: 750 mg Mirtazapine (Mirtazapine 15 Mg Tablet) 15 mg PO BEDTIME [facility] Last Admin: 10/13/24 21:07 Dose: 15 mg Nicotine Polacrilex (Nicotine Polacrilex 2 Mg Gum) 4 mg BUCCAL Q2H PRN PRN Reason: Nicotine Cravings Last Admin: 10/12/24 20:27 Dose: 4 mg Omeprazole (Omeprazole 40 Mg Capsule.Dr) 40 mg PO DAILY [facility] Last Admin: 10/14/24 09:21 Dose: 40 mg Oxcarbazepine (Oxcarbazepine 300 Mg Tablet) 600 mg PO DAILY [facility] Last Admin: 10/14/24 09:21 Dose: 600 mg Prazosin HCl (Prazosin Hcl 1 Mg Capsule) 3 mg PO BEDTIME [facility]; Protocol Last Admin: 10/13/24 21:06 Dose: 3 mg Propranolol HCl (Propranolol Hcl 20 Mg Tablet) 20 mg PO BID [facility]; Protocol Last Admin: 10/14/24 09:19 Dose: 20 mg Quetiapine Fumarate (Quetiapine Fumarate 400 Mg Tablet) 400 mg PO BEDTIME [facility] Last Admin: 10/13/24 21:07 Dose: 200 mg Senna (Sennosides 8.6 Mg Tablet) 17.2 mg PO BEDTIME PRN PRN Reason: Constipation Last Admin: 10/06/24 21:18 Dose: 17.2 mg Sumatriptan Succinate (Sumatriptan Succinate 100 Mg Tablet) 100 mg PO DAILY MRX1 PRN PRN Reason: Migraine Headache Last Admin: 10/14/24 09:20 Dose: 100 mg Allergies Allergies Allergy/AdvReac Type Severity Reaction Status Date / Time No Known Allergies Allergy Verified 10/04/24 01:03 [No Known Allergies*] Assessment & Plan Assessment & Plan (1) PTSD (post-traumatic stress disorder): Status: Acute Code(s): F43.10 - Post-traumatic stress disorder, unspecified (2) Cocaine use disorder, moderate, dependence: Status: Acute Code(s): F14.20 - Cocaine dependence, uncomplicated (3) Opioid use disorder, severe, on maintenance therapy, dependence: Status: Acute Code(s): F11.20 - Opioid dependence, uncomplicated (4) MDD (major depressive disorder), recurrent episode, moderate: Status: Acute Code(s): F33.1 - Major depressive disorder, recurrent, moderate Plan Pt is a 49 yo male with a pmhx significant for substance abuse, homelessness, and depression, admitted to [address] with a consult placed for ?right foot cellulitis. R foot cellulitis - vitals stable, no sepsis, stable for psych floor - doxycycline 100mg BID x7 days - tylenol and ibuprofen prn or pain Thank you for allowing me to participate in the pt's care. signing off for now. Please contact the medical team if any questions or concerns. 10/14/24: CBCD,CMP,B12,Folate 10/15. Monitor MSE, ?Delirium sx Reason for continued inpatient stay Substantial Risk for: rapid decompensation and med/psych decompensation Time Spent With Patient Time: Total time managing care of this patient today ____ minutes.
[2024-10-14] MEDS: methocarbamoL 750 MG TABLET PO ×3 (11:43→21:54)
[2024-10-14] MEDS: Ibuprofen 800 MG TABLET PO ×2 (11:44→18:48)
[2024-10-14] MEDS: Nicotine Polacrilex 2 MG GUM 4 MG BUCCAL (12:23)
[2024-10-14] MEDS: hydrOXYzine HCL 50 MG TABLET PO (18:47)
[2024-10-14 20:00] VITALS: BP 102/56; PULSE 60; TEMP 36.8; O2SAT 96
[2024-10-14 21:53] VITALS: BP 141/88
[2024-10-14] MEDS: Prazosin HCL 1 MG CAPSULE 3 MG PO (21:54)
[2024-10-14] MEDS: Mirtazapine 15 MG TABLET PO (21:54)
[2024-10-14] MEDS: QUEtiapine Fumarate 400 MG TABLET PO (21:54)
[2024-10-15] VITALS (8 sets, daily range): BP systolic 95–111; BP diastolic 50–61; PULSE 56–66; RESP 16; TEMP 36.4–36.6; O2SAT 96–97
[2024-10-15] MEDS: Ibuprofen 800 MG TABLET PO ×2 (04:53→12:38)
[2024-10-15] MEDS: methADONE HCl 20 MG/2 ML ORAL.CONC 120 MG PO (07:49)
[2024-10-15 08:07] LABS: MANUAL DIFF FLAG NO
[2024-10-15 08:15] LABS: Basophils Percent Auto 0.4 % (0-2); Eosinophils Absolute Auto 0.3 X10*3/uL (0.0-0.4); Eosinophils Percent Auto 4.1 % (0-4); Hematocrit 36.7 % (42.0-52.0); Hemoglobin 11.9 g/dl (14.0-18.0); Imm Gran Abs Auto 0.02 X10*3/uL (0.00-0.03); Imm Gran Pct Auto 0.3 % (0.0-0.4); Lymphocytes Absolute Auto 2.3 X10*3/uL (1.2-4.9); Lymphocytes Percent Auto 29.7 % (20-40); Mean Corpuscular HGB Conc 32.4 g/dl (31.0-36.0); Mean Corpuscular Hemoglobin 30.6 pg (27.0-33.0); Mean Corpuscular Volume 94.3 fL (80.0-98.0); Mean Platelet Volume 9.7 fL (9.4-12.4); Monocytes Absolute Auto 0.6 X10*3/uL (0.1-1.2); Monocytes Percent Auto 8.2 % (2-11); Neutrophils Absolute Auto 4.4 x10*3/uL (2.0-8.3); Neutrophils Percent Auto 57.3 % (45-73); Platelet Count 302 X10*3/uL (160-400); Red Blood Count 3.89 X10*6/uL (4.60-5.80); Red Cell Distribution Width 12.8 % (11.0-16.0); White Blood Count 7.7 X10*3/uL (4.8-10.8)
[2024-10-15] MEDS: Atorvastatin Calcium 20 MG TABLET PO (08:23)
[2024-10-15] MEDS: buPROPion HCl XL 150 MG TAB.ER.24H PO (08:23)
[2024-10-15] MEDS: Omeprazole 40 MG CAPSULE.DR PO (08:23)
[2024-10-15] MEDS: Gabapentin 400 MG CAPSULE PO ×2 (08:23→20:22)
[2024-10-15] MEDS: Doxycycline Monohydrate 100 MG CAPSULE PO ×2 (08:23→20:21)
[2024-10-15] MEDS: methocarbamoL 750 MG TABLET PO ×3 (08:23→20:29)
[2024-10-15] MEDS: OXcarbazepine 300 MG TABLET 600 MG PO (08:23)
[2024-10-15] MEDS: Propranolol HCL 20 MG TABLET PO ×2 (08:23→20:20)
[2024-10-15 08:30] LABS: Alanine Aminotransferase 49 U/L (0-40); Albumin Level 3.8 g/dL (3.5-5.0); Alkaline Phosphatase 147 U/L (39-117); Anion Gap 10 (12-20); Aspartate Amino Transferase 47 U/L (5-37); Bilirubin Total 0.2 mg/dL (0.0-1.0); Blood Urea Nitrogen 16 mg/dL (9-16); Calcium 9.2 mg/dL (8.4-10.2); Carbon Dioxide 33 mmol/L (22-29); Chloride 105 mmol/L (96-108); Creatinine Clr Calc Pharmacy 114.9; Estimated Glomerular Filt Rate > 60; Glucose Random 119 mg/dL (60-115); Potassium 4.2 mmol/L (3.3-5.1); Sodium 144 mmol/L (135-145)
[2024-10-15 09:03] LABS: Vitamin B12 469 pg/mL (200-900)
--- NOTE | 2024-10-15 09:59 | HO.PSYCHPN ---
Subjective Subjective Date of Service: 10/15/24 Reason For Visit: Crisis Subjective Notes: Conditional Voluntary Healthcare Proxy: No Guardianship: No Medical Problems Affecting Mental Status: No Interim History: Pt unable to participate in EEG due to sedation. Reports migraine sx are poorly managed. Encouraged hydration, will begin Topiramate 25 HS and will ask for neuro consult. Sumatriptan at max dosing capacity. Not attending groups Cellulitis appears worse, pt is not elevating legs, we reviewed rationale. Antibiotic in place. Team continues to assist pt in program searches. Pt currently focused on physical issues. Denies SI,HI, AH,VH. I am being taken care of here and I appreciate this. Medication Compliance: Yes Side effects from medications: Yes (???rebound migraine) Attending Groups: No Review of Systems Acute medical concerns: No Medical Review of Systems: unchanged Review of Systems Review of Systems cellulitis pain R foot. Edema in L foot without sx cellulitis. Migraine headache pain is not managed. Mental Status Exam Mental Status Exam Patient Appearance: Fatigued and Appropriate Patient Orientation: Person, Place, Time and Situation Level of Consciousness: Sedated and Alert Patient Behavior: Talkative and Good Eye Contact Mood Description: Depressed and Anxious Affect Description: Flat Patient Cognition Impaired: No Ability to Follow Directions: Good Speech Pattern: Spontaneous Speech Memory Description: Remote Impaired Hallucinations: None Delusions: Not Present Thought Process: Rumination Thought Content: positive for Circumstantial Depressive Symptoms: Difficulty Sleeping, Increased Fatigue and Loss of Energy Judgement: Fair Diagnostics Vital Signs (24Hr): Vital Signs - 24 hr 10/14/24 20:00 10/14/24 21:53 10/15/24 08:00 Temperature 98.3 F 97.5 F Pulse Rate 60 66 Respiratory Rate 16 Blood Pressure 102/56 L 141/88 H 111/61 Pulse Oximetry 96 97 Oxygen Delivery Method Room Air Room Air BMI result Body Mass Index 30.4 Labs 10/15/24 07:29 10/15/24 07:29 Labs: Laboratory Results - last 48 hr 10/15/24 07:29 WBC 7.7 RBC 3.89 L Hgb 11.9 L Hct 36.7 L MCV 94.3 MCH 30.6 MCHC 32.4 RDW 12.8 Plt Count 302 MPV 9.7 Immature Gran % (Auto) 0.3 Neut % (Auto) 57.3 Lymph % (Auto) 29.7 [place] % (Auto) 8.2 Eos % (Auto) 4.1 H Baso % (Auto) 0.4 Lymph # (Auto) 2.3 [place] # (Auto) 0.6 Eos # (Auto) 0.3 Baso # (Auto) 0.0 Abs Immat Gran (auto) 0.02 Absolute Neuts (auto) 4.4 Absolute Nucleated RBC 0.000 Nucleated RBC % (auto) 0.0 Sodium 144 Potassium 4.2 Chloride 105 Carbon Dioxide 33 H Anion Gap 10 L BUN 16 Creatinine 0.98 Estim Creat Clear Calc 114.9 Estimated GFR > 60 Random Glucose 119 H Calcium 9.2 Total Bilirubin 0.2 AST 47 H ALT 49 H Alkaline Phosphatase 147 H Total Protein 8.0 Albumin 3.8 Vitamin B12 469 Folate 7.0 Medications Medications Current Medications Acetaminophen (Acetaminophen 325 Mg Tablet) 650 mg PO Q6H PRN PRN Reason: Headache/Pain, Scale 1-10 Last Admin: 10/14/24 04:30 Dose: 650 mg Al Hydroxide/Mg Hydroxide (Magnesium Hydrox/Alum Hydrox 30 Ml Oral.Susp) 30 ml PO Q6H PRN PRN Reason: Heartburn/Nausea Albuterol Sulfate (Albuterol Sulfate 90 Mcg 8 Gm Inhaler) 2 puff INHALE Q4H PRN PRN Reason: Shortness Of Breath Or Wheezing Atorvastatin Calcium (Atorvastatin Calcium 20 Mg Tablet) 20 mg PO DAILY [facility] Last Admin: 10/15/24 08:23 Dose: 20 mg Bupropion HCl (Bupropion Hcl Xl 150 Mg Tab.Er.24h) 150 mg PO DAILY [facility] Last Admin: 10/15/24 08:23 Dose: 150 mg Doxycycline Monohydrate (Doxycycline Monohydrate 100 Mg Capsule) 100 mg PO BID [facility] Stop: 10/20/24 09:01 Last Admin: 10/15/24 08:23 Dose: 100 mg Fluticasone Propionate (Fluticasone Propionate Nasal 16 Gm [place]) 2 spray NOSTRIL-B DAILY PRN PRN Reason: Allergy Symptoms Gabapentin (Gabapentin 400 Mg Capsule) 400 mg PO BID [facility] Last Admin: 10/15/24 08:23 Dose: 400 mg Hydroxyzine HCl (Hydroxyzine Hcl 50 Mg Tablet) 50 mg PO BID PRN PRN Reason: Anxiety/ sinuses Last Admin: 10/14/24 18:47 Dose: 50 mg Ibuprofen (Ibuprofen 800 Mg Tablet) 800 mg PO Q8H PRN PRN Reason: Pain, Moderate(Pain Scale 4-6) Last Admin: 10/15/24 04:53 Dose: 800 mg Lorazepam (Lorazepam 1 Mg Tablet) 1 mg PO Q6H PRN PRN Reason: sx of catatonia Last Admin: 10/12/24 09:26 Dose: 1 mg Magnesium Hydroxide (Milk Of Magnesia 30 Ml Oral.Susp) 30 ml PO DAILY PRN PRN Reason: Constipation Methadone HCl (Methadone Hcl 20 Mg/2 Ml Oral.Conc) 120 mg PO DAILY [facility] Last Admin: 10/15/24 07:49 Dose: 120 mg Methocarbamol (Methocarbamol 750 Mg Tablet) 750 mg PO TID PRN PRN Reason: Muscle Spasm Last Admin: 10/15/24 08:23 Dose: 750 mg Mirtazapine (Mirtazapine 15 Mg Tablet) 15 mg PO BEDTIME [facility] Last Admin: 10/14/24 21:54 Dose: 15 mg Nicotine Polacrilex (Nicotine Polacrilex 2 Mg Gum) 4 mg BUCCAL Q2H PRN PRN Reason: Nicotine Cravings Last Admin: 10/14/24 12:23 Dose: 4 mg Omeprazole (Omeprazole 40 Mg Capsule.Dr) 40 mg PO DAILY [facility] Last Admin: 10/15/24 08:23 Dose: 40 mg Oxcarbazepine (Oxcarbazepine 300 Mg Tablet) 600 mg PO DAILY [facility] Last Admin: 10/15/24 08:23 Dose: 600 mg Prazosin HCl (Prazosin Hcl 1 Mg Capsule) 3 mg PO BEDTIME [facility]; Protocol Last Admin: 10/14/24 21:54 Dose: 3 mg Propranolol HCl (Propranolol Hcl 20 Mg Tablet) 20 mg PO BID [facility]; Protocol Last Admin: 10/15/24 08:23 Dose: 20 mg Quetiapine Fumarate (Quetiapine Fumarate 400 Mg Tablet) 400 mg PO BEDTIME [facility] Last Admin: 10/14/24 21:54 Dose: 200 mg Senna (Sennosides 8.6 Mg Tablet) 17.2 mg PO BEDTIME PRN PRN Reason: Constipation Last Admin: 10/06/24 21:18 Dose: 17.2 mg Sumatriptan Succinate (Sumatriptan Succinate 100 Mg Tablet) 100 mg PO DAILY MRX1 PRN PRN Reason: Migraine Headache Last Admin: 10/14/24 09:20 Dose: 100 mg Allergies Allergies Allergy/AdvReac Type Severity Reaction Status Date / Time No Known Allergies Allergy Verified 10/04/24 01:03 [No Known Allergies*] Assessment & Plan Assessment & Plan (1) PTSD (post-traumatic stress disorder): Status: Acute Code(s): F43.10 - Post-traumatic stress disorder, unspecified (2) Cocaine use disorder, moderate, dependence: Status: Acute Code(s): F14.20 - Cocaine dependence, uncomplicated (3) Opioid use disorder, severe, on maintenance therapy, dependence: Status: Acute Code(s): F11.20 - Opioid dependence, uncomplicated (4) MDD (major depressive disorder), recurrent episode, moderate: Status: Acute Code(s): F33.1 - Major depressive disorder, recurrent, moderate Plan Pt is a 49 yo male with a pmhx significant for substance abuse, homelessness, and depression, admitted to [address] psych with a consult placed for ?right foot cellulitis. R foot cellulitis - vitals stable, no sepsis, stable for psych floor - doxycycline 100mg BID x7 days - tylenol and ibuprofen prn or pain Thank you for allowing me to participate in the pt's care. signing off for now. Please contact the medical team if any questions or concerns. 10/14/24: CBCD,CMP,B12,Folate 10/15. Monitor MSE, ?Delirium sx 10/15: Encourage hydration Topamax 25 mg HS (migraine) Neuro consult-poor migraine sx mgt. Pt unable to tolerate EEG today. ?Sedation for sumatriptan use at max, will get neuro input regardng dosing. Reason for continued inpatient stay Substantial Risk for: rapid decompensation and med/psych decompensation Time Spent With Patient Time: Total time managing care of this patient today ____ minutes.
[2024-10-15] MEDS: Acetaminophen 325 MG TABLET 650 MG PO ×2 (15:46→22:09)
[2024-10-15] MEDS: Nicotine Polacrilex 2 MG GUM 4 MG BUCCAL ×2 (17:45→20:20)
[2024-10-15] MEDS: QUEtiapine Fumarate 400 MG TABLET PO (20:19)
[2024-10-15] MEDS: Topiramate 25 MG TABLET PO (20:20)
[2024-10-15] MEDS: Mirtazapine 15 MG TABLET PO (20:20)
[2024-10-15] MEDS: Prazosin HCL 1 MG CAPSULE 3 MG PO (20:22)
[2024-10-16] MEDS: Ibuprofen 800 MG TABLET PO ×3 (03:19→23:00)
[2024-10-16] MEDS: hydrOXYzine HCL 50 MG TABLET PO (03:19)
[2024-10-16] MEDS: methADONE HCl 20 MG/2 ML ORAL.CONC 120 MG PO (07:48)
[2024-10-16 08:30] VITALS: BP 133/71; PULSE 66; RESP 18; TEMP 36.4; O2SAT 95
[2024-10-16] MEDS: Acetaminophen 325 MG TABLET 650 MG PO ×3 (08:36→23:00)
[2024-10-16] MEDS: Doxycycline Monohydrate 100 MG CAPSULE PO ×2 (08:37→20:43)
[2024-10-16] MEDS: buPROPion HCl XL 150 MG TAB.ER.24H PO (08:37)
[2024-10-16] MEDS: Propranolol HCL 20 MG TABLET PO ×2 (08:37→20:41)
[2024-10-16] MEDS: Atorvastatin Calcium 20 MG TABLET PO (08:37)
[2024-10-16] MEDS: Omeprazole 40 MG CAPSULE.DR PO (08:37)
[2024-10-16] MEDS: OXcarbazepine 300 MG TABLET 600 MG PO (08:37)
[2024-10-16] MEDS: Gabapentin 400 MG CAPSULE PO ×2 (08:37→20:41)
--- NOTE | 2024-10-16 10:17 | HO.PSYCHPN ---
Subjective Subjective Date of Service: 10/16/24 Reason For Visit: Crisis Subjective Notes: Conditional Voluntary Healthcare Proxy: No Guardianship: No Medical Problems Affecting Mental Status: No Interim History: Neurology consult much appreciated. Topiramate increase to 25 mg bid as recommended. Pt reports feeling better. Labile, Irritable in milieu at times. Team continues to assist pt in a search for CSS. Medication Compliance: Yes Side effects from medications: No Attending Groups: Intermittent Review of Systems Review of Systems chronic headache mgt Mental Status Exam Mental Status Exam Patient Appearance: Appropriate Patient Orientation: Person, Place, Time and Situation Level of Consciousness: Alert Patient Behavior: Talkative and Good Eye Contact Mood Description: Depressed and Anxious Affect Description: Flat Patient Cognition Impaired: No Ability to Follow Directions: Good Speech Pattern: Spontaneous Speech Memory Description: Episodic Impaired Hallucinations: None Delusions: Not Present Thought Process: Rumination Thought Content: positive for Circumstantial Depressive Symptoms: Increased Irritability Judgement: Good Diagnostics Vital Signs (24Hr): Vital Signs - 24 hr 10/15/24 19:46 10/15/24 20:20 10/15/24 20:22 Temperature 97.8 F Pulse Rate 58 60 Respiratory Rate 16 Blood Pressure 95/54 L 95/54 L 95/54 L Pulse Oximetry 96 Oxygen Delivery Method Room Air 10/15/24 22:00 10/16/24 08:30 Temperature 97.6 F 97.5 F Pulse Rate 56 66 Respiratory Rate 18 Blood Pressure 98/50 L 133/71 Pulse Oximetry 95 Oxygen Delivery Method Room Air BMI result Body Mass Index 30.4 Labs 10/15/24 07:29 10/15/24 07:29 Labs: Laboratory Results - last 48 hr 10/15/24 07:29 WBC 7.7 RBC 3.89 L Hgb 11.9 L Hct 36.7 L MCV 94.3 MCH 30.6 MCHC 32.4 RDW 12.8 Plt Count 302 MPV 9.7 Immature Gran % (Auto) 0.3 Neut % (Auto) 57.3 Lymph % (Auto) 29.7 Dillon % (Auto) 8.2 Eos % (Auto) 4.1 H Baso % (Auto) 0.4 Lymph # (Auto) 2.3 Dillon # (Auto) 0.6 Eos # (Auto) 0.3 Baso # (Auto) 0.0 Abs Immat Gran (auto) 0.02 Absolute Neuts (auto) 4.4 Absolute Nucleated RBC 0.000 Nucleated RBC % (auto) 0.0 Sodium 144 Potassium 4.2 Chloride 105 Carbon Dioxide 33 H Anion Gap 10 L BUN 16 Creatinine 0.98 Estim Creat Clear Calc 114.9 Estimated GFR > 60 Random Glucose 119 H Calcium 9.2 Total Bilirubin 0.2 AST 47 H ALT 49 H Alkaline Phosphatase 147 H Total Protein 8.0 Albumin 3.8 Vitamin B12 469 Folate 7.0 Medications Medications Current Medications Acetaminophen (Acetaminophen 325 Mg Tablet) 650 mg PO Q6H PRN PRN Reason: Headache/Pain, Scale 1-10 Last Admin: 10/16/24 08:36 Dose: 650 mg Al Hydroxide/Mg Hydroxide (Magnesium Hydrox/Alum Hydrox 30 Ml Oral.Susp) 30 ml PO Q6H PRN PRN Reason: Heartburn/Nausea Albuterol Sulfate (Albuterol Sulfate 90 Mcg 8 Gm Inhaler) 2 puff INHALE Q4H PRN PRN Reason: Shortness Of Breath Or Wheezing Atorvastatin Calcium (Atorvastatin Calcium 20 Mg Tablet) 20 mg PO DAILY [facility] Last Admin: 10/16/24 08:37 Dose: 20 mg Bupropion HCl (Bupropion Hcl Xl 150 Mg Tab.Er.24h) 150 mg PO DAILY [facility] Last Admin: 10/16/24 08:37 Dose: 150 mg Doxycycline Monohydrate (Doxycycline Monohydrate 100 Mg Capsule) 100 mg PO BID [facility] Stop: 10/20/24 09:01 Last Admin: 10/16/24 08:37 Dose: 100 mg Fluticasone Propionate (Fluticasone Propionate Nasal 16 Gm [place]) 2 spray NOSTRIL-B DAILY PRN PRN Reason: Allergy Symptoms Gabapentin (Gabapentin 400 Mg Capsule) 400 mg PO BID [facility] Last Admin: 10/16/24 08:37 Dose: 400 mg Hydroxyzine HCl (Hydroxyzine Hcl 50 Mg Tablet) 50 mg PO BID PRN PRN Reason: Anxiety/ sinuses Last Admin: 10/16/24 03:19 Dose: 50 mg Ibuprofen (Ibuprofen 800 Mg Tablet) 800 mg PO Q8H PRN PRN Reason: Pain, Moderate(Pain Scale 4-6) Last Admin: 10/16/24 03:19 Dose: 800 mg Lorazepam (Lorazepam 1 Mg Tablet) 1 mg PO Q6H PRN PRN Reason: sx of catatonia Last Admin: 10/12/24 09:26 Dose: 1 mg Magnesium Hydroxide (Milk Of Magnesia 30 Ml Oral.Susp) 30 ml PO DAILY PRN PRN Reason: Constipation Methadone HCl (Methadone Hcl 20 Mg/2 Ml Oral.Conc) 120 mg PO DAILY [facility] Last Admin: 10/16/24 07:48 Dose: 120 mg Methocarbamol (Methocarbamol 750 Mg Tablet) 750 mg PO TID PRN PRN Reason: Muscle Spasm Last Admin: 10/15/24 20:29 Dose: 750 mg Mirtazapine (Mirtazapine 15 Mg Tablet) 15 mg PO BEDTIME [facility] Last Admin: 10/15/24 20:20 Dose: 15 mg Nicotine Polacrilex (Nicotine Polacrilex 2 Mg Gum) 4 mg BUCCAL Q2H PRN PRN Reason: Nicotine Cravings Last Admin: 10/15/24 20:20 Dose: 4 mg Omeprazole (Omeprazole 40 Mg Capsule.Dr) 40 mg PO DAILY [facility] Last Admin: 10/16/24 08:37 Dose: 40 mg Oxcarbazepine (Oxcarbazepine 300 Mg Tablet) 600 mg PO DAILY [facility] Last Admin: 10/16/24 08:37 Dose: 600 mg Prazosin HCl (Prazosin Hcl 1 Mg Capsule) 3 mg PO BEDTIME [facility]; Protocol Last Admin: 10/15/24 20:22 Dose: 3 mg Propranolol HCl (Propranolol Hcl 20 Mg Tablet) 20 mg PO BID [facility]; Protocol Last Admin: 10/16/24 08:37 Dose: 20 mg Quetiapine Fumarate (Quetiapine Fumarate 400 Mg Tablet) 400 mg PO BEDTIME [facility] Last Admin: 10/15/24 20:19 Dose: 200 mg Senna (Sennosides 8.6 Mg Tablet) 17.2 mg PO BEDTIME PRN PRN Reason: Constipation Last Admin: 10/06/24 21:18 Dose: 17.2 mg Sumatriptan Succinate (Sumatriptan Succinate 100 Mg Tablet) 100 mg PO DAILY MRX1 PRN PRN Reason: Migraine Headache Last Admin: 10/14/24 09:20 Dose: 100 mg Topiramate (Topiramate 25 Mg Tablet) 25 mg PO BEDTIME [facility] Last Admin: 10/15/24 20:20 Dose: 25 mg Allergies Allergies Allergy/AdvReac Type Severity Reaction Status Date / Time No Known Allergies Allergy Verified 10/04/24 01:03 [No Known Allergies*] Assessment & Plan Assessment & Plan (1) PTSD (post-traumatic stress disorder): Status: Acute Code(s): F43.10 - Post-traumatic stress disorder, unspecified (2) Cocaine use disorder, moderate, dependence: Status: Acute Code(s): F14.20 - Cocaine dependence, uncomplicated (3) Opioid use disorder, severe, on maintenance therapy, dependence: Status: Acute Code(s): F11.20 - Opioid dependence, uncomplicated (4) MDD (major depressive disorder), recurrent episode, moderate: Status: Acute Code(s): F33.1 - Major depressive disorder, recurrent, moderate Plan Pt is a 49 yo male with a pmhx significant for substance abuse, homelessness, and depression, admitted to adult psych with a consult placed for ?right foot cellulitis. R foot cellulitis - vitals stable, no sepsis, stable for psych floor - doxycycline 100mg BID x7 days - tylenol and ibuprofen prn or pain Thank you for allowing me to participate in the pt's care. signing off for now. Please contact the medical team if any questions or concerns. 10/14/24: CBCD,CMP,B12,Folate 10/15. Monitor MSE, ?Delirium sx 10/15: Encourage hydration Topamax 25 mg HS (migraine) Neuro consult-poor migraine sx mgt. Pt unable to tolerate EEG today. ?Sedation for sumatriptan use at max, will get neuro input regardng dosing. 10/15: Continue tx Reason for continued inpatient stay Substantial Risk for: rapid decompensation Time Spent With Patient Time: Total time managing care of this patient today ____ minutes.
[2024-10-16 10:28] VITALS: BMI 31.0
--- NOTE | 2024-10-16 11:22 | PM.NEUROCN ---
History of Present Illness Data of Consult Service Date: 10/16/24 Primary Care Provider: None Physician HPI Reason for consult: HEADACHE 49 YEARS OLD MAN WITH CHRONIC DEPRESSION AND SUICIDAL IDEATION ADMITTED ON PSYCH FLOOR. HE ALSO HAS HISTORY OF POLYDRUG ABUSE INCLUDING COCAINE. I WAS ASKED TO SEE HIM FOR HEADACHES. HE SAID THAT HE WAS HAVING HEADACHES MORE THAN 20 YEARS. HEADACHE WAS THERE ALL THE TIME 26/02. IT STARTED FRONTAL AREA AND INVOLVED THE WHOLE HAD. HE HAS TRIED MANY [id number] MEDICINE WITHOUT RELIEF. THERE WAS NO OBVIOUS TRIGGER. THERE WAS NO OTHER SIGNIFICANT ASSOCIATED SYMPTOM. HIS HEAD CT WAS OKAY. Review of Systems Review of Systems: DEPRESSION SUICIDAL IDEATION FOR WHICH SHE WAS ADMITTED [facility] Past Medical History Medical History (Updated 10/16/24 @ 11:25 by Brennan Griffiths MD) Polysubstance use disorder Depression Anxiety Mental health problem Substance abuse Social History Social History Household Members: None Housing: Homeless Do you presently have visiting nurse or other home services: No Unable to assess alcohol history related to: Refusing to respond Alcohol intake: unknown Comment: 1:1 Patient Tobacco Use Status: Current everyday Tobacco user Tobacco use type: Cigarette Cigarette Packs Per Day: 0.5 Cigarettes Per Day: 10.0 Smoked in Last 30 Days: Yes Patient Interested in Nicotine Replacement: Yes Patient Given Instructions on How to Stop Smoking: No Second Hand Smoke Exposure: No Use of substances other than those prescribed or required for medical reasons: Yes Substance Use Type: Crack/Cocaine, Marijuana and Opiates Substance Use Frequency: Chronic Longstanding Last Used Substance: Just Prior to Admission Currently Displaying Signs/Symptoms of Drug Intoxication Withdrawal: No Any prior treatment program specific to substance use: Yes (methadone at [facility]) Have you been hit, kicked, punched, or otherwise hurt by someone within the past year? If so, by whom?: No Do you feel safe in your current relationship?: No Current Relationship Is there a partner from a previous relationship who is making you feel unsafe now?: No Are you made to feel afraid or neglected: No Advance Directives: No Advance Directives Information Provided: Yes Do you have thoughts of harming others: None Do you have a plan to hurt others: No Plan Recently lost weight without trying: No Eating poorly because of decreased appetite: No Nutrition Risks: No Nutritional Risk Poor oral hygiene: No service: No Sexual orientation: Straight/Heterosexual Meds Allergies Allergy/AdvReac Type Severity Reaction Status Date / Time No Known Allergies Allergy Verified 10/04/24 01:03 [No Known Allergies*] Active Medications: Current Medications Acetaminophen (Acetaminophen 325 Mg Tablet) 650 mg PO Q6H PRN PRN Reason: Headache/Pain, Scale 1-10 Last Admin: 10/16/24 08:36 Dose: 650 mg Al Hydroxide/Mg Hydroxide (Magnesium Hydrox/Alum Hydrox 30 Ml Oral.Susp) 30 ml PO Q6H PRN PRN Reason: Heartburn/Nausea Albuterol Sulfate (Albuterol Sulfate 90 Mcg 8 Gm Inhaler) 2 puff INHALE Q4H PRN PRN Reason: Shortness Of Breath Or Wheezing Atorvastatin Calcium (Atorvastatin Calcium 20 Mg Tablet) 20 mg PO DAILY [facility] Last Admin: 10/16/24 08:37 Dose: 20 mg Bupropion HCl (Bupropion Hcl Xl 150 Mg Tab.Er.24h) 150 mg PO DAILY [facility] Last Admin: 10/16/24 08:37 Dose: 150 mg Doxycycline Monohydrate (Doxycycline Monohydrate 100 Mg Capsule) 100 mg PO BID [facility] Stop: 10/20/24 09:01 Last Admin: 10/16/24 08:37 Dose: 100 mg Fluticasone Propionate (Fluticasone Propionate Nasal 16 Gm [place]) 2 spray NOSTRIL-B DAILY PRN PRN Reason: Allergy Symptoms Gabapentin (Gabapentin 400 Mg Capsule) 400 mg PO BID [facility] Last Admin: 10/16/24 08:37 Dose: 400 mg Hydroxyzine HCl (Hydroxyzine Hcl 50 Mg Tablet) 50 mg PO BID PRN PRN Reason: Anxiety/ sinuses Last Admin: 10/16/24 03:19 Dose: 50 mg Ibuprofen (Ibuprofen 800 Mg Tablet) 800 mg PO Q8H PRN PRN Reason: Pain, Moderate(Pain Scale 4-6) Last Admin: 10/16/24 03:19 Dose: 800 mg Lorazepam (Lorazepam 1 Mg Tablet) 1 mg PO Q6H PRN PRN Reason: sx of catatonia Last Admin: 10/12/24 09:26 Dose: 1 mg Magnesium Hydroxide (Milk Of Magnesia 30 Ml Oral.Susp) 30 ml PO DAILY PRN PRN Reason: Constipation Methadone HCl (Methadone Hcl 20 Mg/2 Ml Oral.Conc) 120 mg PO DAILY [facility] Last Admin: 10/16/24 07:48 Dose: 120 mg Methocarbamol (Methocarbamol 750 Mg Tablet) 750 mg PO TID PRN PRN Reason: Muscle Spasm Last Admin: 10/15/24 20:29 Dose: 750 mg Mirtazapine (Mirtazapine 15 Mg Tablet) 15 mg PO BEDTIME [facility] Last Admin: 10/15/24 20:20 Dose: 15 mg Nicotine Polacrilex (Nicotine Polacrilex 2 Mg Gum) 4 mg BUCCAL Q2H PRN PRN Reason: Nicotine Cravings Last Admin: 10/15/24 20:20 Dose: 4 mg Omeprazole (Omeprazole 40 Mg Capsule.Dr) 40 mg PO DAILY [facility] Last Admin: 10/16/24 08:37 Dose: 40 mg Oxcarbazepine (Oxcarbazepine 300 Mg Tablet) 600 mg PO DAILY [facility] Last Admin: 10/16/24 08:37 Dose: 600 mg Prazosin HCl (Prazosin Hcl 1 Mg Capsule) 3 mg PO BEDTIME [facility]; Protocol Last Admin: 10/15/24 20:22 Dose: 3 mg Propranolol HCl (Propranolol Hcl 20 Mg Tablet) 20 mg PO BID [facility]; Protocol Last Admin: 10/16/24 08:37 Dose: 20 mg Quetiapine Fumarate (Quetiapine Fumarate 400 Mg Tablet) 400 mg PO BEDTIME [facility] Last Admin: 10/15/24 20:19 Dose: 200 mg Senna (Sennosides 8.6 Mg Tablet) 17.2 mg PO BEDTIME PRN PRN Reason: Constipation Last Admin: 10/06/24 21:18 Dose: 17.2 mg Sumatriptan Succinate (Sumatriptan Succinate 100 Mg Tablet) 100 mg PO DAILY MRX1 PRN PRN Reason: Migraine Headache Last Admin: 10/14/24 09:20 Dose: 100 mg Topiramate (Topiramate 25 Mg Tablet) 25 mg PO BEDTIME [facility] Last Admin: 10/15/24 20:20 Dose: 25 mg Home Medications ?Medication ?Instructions ?Recorded ?Confirmed ?Last Taken ?Type albuterol sulfate 90 mcg/actuation 2 puff inhalation Q4H PRN 12/17/23 10/04/24 Unknown History aerosol inhaler (Ventolin HFA) Shortness Of Breath Or Wheezing gabapentin 300 mg capsule 600 mg PO BID 12/17/23 10/04/24 10/02/24 08:00 History hydroxyzine HCl 50 mg tablet 50 mg PO BID 12/17/23 10/04/24 10/02/24 08:00 History oxcarbazepine 600 mg tablet 600 mg PO DAILY 12/17/23 10/04/24 10/02/24 08:00 History quetiapine 100 mg tablet 100 mg PO TID PRN Anxiety 12/17/23 10/04/24 10/02/24 08:00 History atorvastatin 20 mg tablet 20 mg PO DAILY 10/04/24 10/04/24 10/02/24 08:00 History methadone 10 mg/mL injection 120 mg subcut DAILY 10/04/24 10/04/24 10/03/24 History solution omeprazole 40 mg capsule,delayed 40 mg PO DAILY 10/04/24 10/04/24 10/02/24 06:30 History release propranolol 20 mg tablet 20 mg PO BID 10/04/24 10/04/24 10/02/24 History acetaminophen 500 mg tablet 1,000 mg PO Q8H PRN pain/headache 10/06/24 10/06/24 Unknown History bupropion HCl 150 mg 24 hr tablet, 150 mg PO DAILY 10/06/24 10/06/24 Unknown History extended release fluticasone propionate 50 2 spray intranasal DAILY PRN 10/06/24 10/06/24 Unknown History mcg/actuation nasal Allergy Symptoms spray,suspension methocarbamol 750 mg tablet 750 mg PO TID PRN Muscle Spasm 10/06/24 10/06/24 Unknown History mirtazapine 15 mg tablet 15 mg PO BEDTIME 10/06/24 10/06/24 Unknown History prazosin 2 mg capsule 4 mg PO BEDTIME 10/06/24 10/06/24 Unknown History quetiapine 400 mg tablet 400 mg PO BEDTIME 10/06/24 10/06/24 Unknown History sennosides 8.6 mg tablet (senna) 17.2 mg PO BEDTIME PRN Constipation 10/06/24 10/06/24 Unknown History Physical Exam Vital Signs: Vital Signs: Last Vital Signs Temp 97.5 F 10/16/24 08:30 Pulse 66 10/16/24 08:30 Resp 18 10/16/24 08:30 BP 133/71 10/16/24 08:30 Pulse Ox 95 10/16/24 08:30 O2 Del Method Room Air 10/16/24 08:30 BMI result Body Mass Index 31.0 Neuro: Other: HE IS ALERT AND AWAKE WITH NORMAL SPONTANEITY OF SPEECH FLUENCY COMPREHENSION AND FLAT AFFECT. FACE IS SYMMETRICAL. VISUAL GUERRERO ARE FULL. HE IS WALKING AROUND IN SLOW PACED GAIT WITH SLIGHTLY DECREASED ARM SWING. DEEP TENDON REFLEXES ARE ABSENT. SPEECH IS NORMAL. Results Labs 10/15/24 07:29 10/15/24 07:29 Labs: HEAD CT DID NOT REVEAL ANY SIGNIFICANT ABNORMALITY Assessment and Plan (1) Chronic daily headache: Status: Acute CHRONIC DAILY HEADACHE OF MIGRAINE TYPE WITH CHRONIC DEPRESSION AND POLYDRUG ABUSE. HEADACHE IN THIS TYPE OF SYNDROME IS NOT EASY TO TREAT. MY RECOMMENDATION IS TO TRY TOPIRAMATE 25 MG TWICE A DAY. Procedures Date of Service Date of Service: 10/16/24
[2024-10-16] MEDS: SUMAtriptan succinate 100 MG TABLET PO (14:36)
[2024-10-16] MEDS: methocarbamoL 750 MG TABLET PO (14:37)
[2024-10-16] MEDS: Nicotine Polacrilex 2 MG GUM 4 MG BUCCAL (14:39)
[2024-10-16 20:00] VITALS: BP 123/59; PULSE 57; RESP 16; TEMP 36.4; O2SAT 95
[2024-10-16 20:41] VITALS: BP 110/68; PULSE 56
[2024-10-16] MEDS: Mirtazapine 15 MG TABLET PO (20:41)
[2024-10-16 20:42] VITALS: BP 110/68
[2024-10-16] MEDS: QUEtiapine Fumarate 400 MG TABLET PO (20:42)
[2024-10-16] MEDS: Prazosin HCL 1 MG CAPSULE 3 MG PO (20:42)
[2024-10-16] MEDS: Topiramate 25 MG TABLET PO (20:43)
[2024-10-16 20:45] VITALS: BP 110/68; PULSE 56; RESP 16; TEMP 36.4; O2SAT 97
--- NOTE | 2024-10-16 20:52 | PC.NURSE ---
This investigative writer noted patient's right foot still swollen with warmth noted, skin tight. Patient currently on antibiotics but patient is still c/o pain despite Ibuprofen and Tylenol. Area was marked and Dr. Mendez notified that patient probably needs to be reassessed. Dr. Mendez will put in order for reconsult.
[2024-10-17] MEDS: cefuroxime axetiL 500 MG TABLET PO ×3 (01:04→23:25)
--- NOTE | 2024-10-17 07:16 | PC.NURSE ---
This auto service writer noted patient's right foot has not been reassessed. Nursing [employer] was asked to come up and check patient's right foor. Yissel Vieira, Nursing [employer], came up to the unit to look at patient's foot. She called the on-call hospitalist and Ceftin 500 mg po q 12 hours was ordered. Patient has remained afebrile.
[2024-10-17] MEDS: methADONE HCl 20 MG/2 ML ORAL.CONC 120 MG PO (07:48)
[2024-10-17 07:54] VITALS: BP 101/56; PULSE 57; RESP 16; TEMP 36.4; O2SAT 98
[2024-10-17] MEDS: Topiramate 25 MG TABLET PO ×2 (08:45→20:13)
[2024-10-17] MEDS: buPROPion HCl XL 150 MG TAB.ER.24H PO (08:45)
[2024-10-17] MEDS: Atorvastatin Calcium 20 MG TABLET PO (08:45)
[2024-10-17] MEDS: OXcarbazepine 300 MG TABLET 600 MG PO (08:45)
[2024-10-17] MEDS: Doxycycline Monohydrate 100 MG CAPSULE PO ×2 (08:45→20:12)
[2024-10-17] MEDS: Gabapentin 400 MG CAPSULE PO ×2 (08:45→20:13)
[2024-10-17] MEDS: Omeprazole 40 MG CAPSULE.DR PO (08:45)
[2024-10-17 11:14] VITALS: BP 145/69; PULSE 79
[2024-10-17] MEDS: Nicotine Polacrilex 2 MG GUM 4 MG BUCCAL (11:14)
[2024-10-17] MEDS: Propranolol HCL 20 MG TABLET PO ×2 (11:14→20:15)
[2024-10-17] MEDS: methocarbamoL 750 MG TABLET PO ×3 (11:15→20:14)
[2024-10-17] MEDS: Ibuprofen 800 MG TABLET PO (11:15)
[2024-10-17] MEDS: Acetaminophen 325 MG TABLET 650 MG PO (12:58)
[2024-10-17] MEDS: SUMAtriptan succinate 100 MG TABLET PO ×2 (12:58→20:13)
--- NOTE | 2024-10-17 15:15 | P.PNPSI_ITS ---
Subjective Subjective Date of Service: 10/17/24 Reason For Visit: Crisis Subjective Notes: Conditional Voluntary Healthcare Proxy: No Guardianship: No Medical Problems Affecting Mental Status: No Interim History: Cellulitis has increased. Doxycycline changed to Ceftin last evening. Pt today is clear, non sedate, reports pain from migraine and cellulitis. Hopeful for acceptance to [facility] [place] bed next week. Medication Compliance: Yes Side effects from medications: No Attending Groups: Intermittent Review of Systems Cellulitis Review of Systems Review of Systems Migraine Cellulitis Mental Status Exam Mental Status Exam Patient Appearance: Appropriate Patient Orientation: Person, Place, Time and Situation Level of Consciousness: Alert Patient Behavior: Talkative and Good Eye Contact Mood Description: Depressed and Anxious Affect Description: Flat Patient Cognition Impaired: No Ability to Follow Directions: Good Speech Pattern: Spontaneous Speech Memory Description: Episodic Impaired Hallucinations: None Delusions: Not Present Thought Process: Rumination Thought Content: positive for Circumstantial Depressive Symptoms: Increased Irritability Judgement: Good Diagnostics Vital Signs (24Hr): Vital Signs - 24 hr 10/16/24 20:00 10/16/24 20:41 10/16/24 20:42 Temperature 97.6 F Pulse Rate 57 56 Respiratory Rate 16 Blood Pressure 123/59 L 110/68 110/68 Pulse Oximetry 95 Oxygen Delivery Method Room Air 10/16/24 20:45 10/17/24 07:54 10/17/24 11:14 Temperature 97.6 F 97.6 F Pulse Rate 56 57 79 Respiratory Rate 16 16 Blood Pressure 110/68 101/56 L 145/69 H Pulse Oximetry 97 98 Oxygen Delivery Method Room Air Room Air BMI result Body Mass Index 31.0 Labs 10/15/24 07:29 10/15/24 07:29 Medications Medications Current Medications Acetaminophen (Acetaminophen 325 Mg Tablet) 650 mg PO Q6H PRN PRN Reason: Headache/Pain, Scale 1-10 Last Admin: 10/17/24 12:58 Dose: 650 mg Al Hydroxide/Mg Hydroxide (Magnesium Hydrox/Alum Hydrox 30 Ml Oral.Susp) 30 ml PO Q6H PRN PRN Reason: Heartburn/Nausea Albuterol Sulfate (Albuterol Sulfate 90 Mcg 8 Gm Inhaler) 2 puff INHALE Q4H PRN PRN Reason: Shortness Of Breath Or Wheezing Atorvastatin Calcium (Atorvastatin Calcium 20 Mg Tablet) 20 mg PO DAILY [facility] Last Admin: 10/17/24 08:45 Dose: 20 mg Bupropion HCl (Bupropion Hcl Xl 150 Mg Tab.Er.24h) 150 mg PO DAILY [facility] Last Admin: 10/17/24 08:45 Dose: 150 mg Cefuroxime Axetil (Cefuroxime Axetil 500 Mg Tablet) 500 mg PO Q12H [facility] Last Admin: 10/17/24 11:15 Dose: 500 mg Doxycycline Monohydrate (Doxycycline Monohydrate 100 Mg Capsule) 100 mg PO BID [facility] Stop: 10/20/24 09:01 Last Admin: 10/17/24 08:45 Dose: 100 mg Fluticasone Propionate (Fluticasone Propionate Nasal 16 Gm [place]) 2 spray NOSTRIL-B DAILY PRN PRN Reason: Allergy Symptoms Gabapentin (Gabapentin 400 Mg Capsule) 400 mg PO BID [facility] Last Admin: 10/17/24 08:45 Dose: 400 mg Hydroxyzine HCl (Hydroxyzine Hcl 50 Mg Tablet) 50 mg PO BID PRN PRN Reason: Anxiety/ sinuses Last Admin: 10/16/24 03:19 Dose: 50 mg Ibuprofen (Ibuprofen 800 Mg Tablet) 800 mg PO Q8H PRN PRN Reason: Pain, Moderate(Pain Scale 4-6) Last Admin: 10/17/24 11:15 Dose: 800 mg Lorazepam (Lorazepam 1 Mg Tablet) 1 mg PO Q6H PRN PRN Reason: sx of catatonia Last Admin: 10/12/24 09:26 Dose: 1 mg Magnesium Hydroxide (Milk Of Magnesia 30 Ml Oral.Susp) 30 ml PO DAILY PRN PRN Reason: Constipation Methadone HCl (Methadone Hcl 20 Mg/2 Ml Oral.Conc) 120 mg PO DAILY [facility] Last Admin: 10/17/24 07:48 Dose: 120 mg Methocarbamol (Methocarbamol 750 Mg Tablet) 750 mg PO TID PRN PRN Reason: Muscle Spasm Last Admin: 10/17/24 11:15 Dose: 750 mg Mirtazapine (Mirtazapine 15 Mg Tablet) 15 mg PO BEDTIME [facility] Last Admin: 10/16/24 20:41 Dose: 15 mg Nicotine Polacrilex (Nicotine Polacrilex 2 Mg Gum) 4 mg BUCCAL Q2H PRN PRN Reason: Nicotine Cravings Last Admin: 10/17/24 11:14 Dose: 4 mg Omeprazole (Omeprazole 40 Mg Capsule.Dr) 40 mg PO DAILY [facility] Last Admin: 10/17/24 08:45 Dose: 40 mg Oxcarbazepine (Oxcarbazepine 300 Mg Tablet) 600 mg PO DAILY [facility] Last Admin: 10/17/24 08:45 Dose: 600 mg Prazosin HCl (Prazosin Hcl 1 Mg Capsule) 3 mg PO BEDTIME [facility]; Protocol Last Admin: 10/16/24 20:42 Dose: 3 mg Propranolol HCl (Propranolol Hcl 20 Mg Tablet) 20 mg PO BID [facility]; Protocol Last Admin: 10/17/24 11:14 Dose: 20 mg Quetiapine Fumarate (Quetiapine Fumarate 400 Mg Tablet) 400 mg PO BEDTIME [facility] Last Admin: 10/16/24 20:42 Dose: 400 mg Senna (Sennosides 8.6 Mg Tablet) 17.2 mg PO BEDTIME PRN PRN Reason: Constipation Last Admin: 10/06/24 21:18 Dose: 17.2 mg Sumatriptan Succinate (Sumatriptan Succinate 100 Mg Tablet) 100 mg PO DAILY MRX1 PRN PRN Reason: Migraine Headache Last Admin: 10/17/24 12:58 Dose: 100 mg Topiramate (Topiramate 25 Mg Tablet) 25 mg PO BID [facility] Last Admin: 10/17/24 08:45 Dose: 25 mg Allergies Allergies Allergy/AdvReac Type Severity Reaction Status Date / Time No Known Allergies Allergy Verified 10/04/24 01:03 [No Known Allergies*] Assessment & Plan Assessment & Plan (1) PTSD (post-traumatic stress disorder): Status: Acute Code(s): F43.10 - Post-traumatic stress disorder, unspecified (2) Cocaine use disorder, moderate, dependence: Status: Acute Code(s): F14.20 - Cocaine dependence, uncomplicated (3) Opioid use disorder, severe, on maintenance therapy, dependence: Status: Acute Code(s): F11.20 - Opioid dependence, uncomplicated (4) MDD (major depressive disorder), recurrent episode, moderate: Status: Acute Code(s): F33.1 - Major depressive disorder, recurrent, moderate Plan Pt is a 49 yo male with a pmhx significant for substance abuse, homelessness, and depression, admitted to adult psych with a consult placed for ?right foot cellulitis. R foot cellulitis - vitals stable, no sepsis, stable for psych floor - doxycycline 100mg BID x7 days - tylenol and ibuprofen prn or pain Thank you for allowing me to participate in the pt's care. signing off for now. Please contact the medical team if any questions or concerns. 10/14/24: CBCD,CMP,B12,Folate 10/15. Monitor MSE, ?Delirium sx 10/15: Encourage hydration Topamax 25 mg HS (migraine) Neuro consult-poor migraine sx mgt. Pt unable to tolerate EEG today. ?Sedation for sumatriptan use at max, will get neuro input regardng dosing. 10/16: Continue tx 10/17: Continue tx Reason for continued inpatient stay Substantial Risk for: rapid decompensation and med/psych decompensation Time Spent With Patient Time: Total time managing care of this patient today ____ minutes.
--- NOTE | 2024-10-17 16:08 | HO.PM.IMPN ---
Subjective Subjective Date of Service: 10/17/24 Interval History: Pt seen/examined in f/u for concern of worsening left foot cellulitis. He tells me that he has had redness of over the left foot >3 weeks and thinks it is worsening. He has been on Doxycyline since 10/13 and earlier today Ceftin was added. WBC 2 days earlier was normal, and Cr was normal. Physical Exam Vital Signs: Vital Signs: Last Vital Signs Temp 97.6 F 10/17/24 07:54 Pulse 79 10/17/24 11:14 Resp 16 10/17/24 07:54 BP 145/69 H 10/17/24 11:14 Pulse Ox 98 10/17/24 07:54 O2 Del Method Room Air 10/17/24 07:54 BMI result Body Mass Index 31.0 Const: Other: General: AO X 3, no acute distress Resp: CTA bilateral CVS: S1,S2,RRR GI: +BS, NT, no distention Skin: there is smoe swelling of the foot compared left foot compare to the left, there is noted redness, but appearance is not of that of cellulitis, there is no increased warmth in the area see picture Neuro: motor grossly intact Psych: appropriate affect Objective Data Active Medications Acetaminophen (Acetaminophen 325 Mg Tablet) 650 mg PO Q6H PRN PRN Reason: Headache/Pain, Scale 1-10 Last Admin: 10/17/24 12:58 Dose: 650 mg Documented By: KARIN Al Hydroxide/Mg Hydroxide (Magnesium Hydrox/Alum Hydrox 30 Ml Oral.Susp) 30 ml PO Q6H PRN PRN Reason: Heartburn/Nausea Albuterol Sulfate (Albuterol Sulfate 90 Mcg 8 Gm Inhaler) 2 puff INHALE Q4H PRN PRN Reason: Shortness Of Breath Or Wheezing Atorvastatin Calcium (Atorvastatin Calcium 20 Mg Tablet) 20 mg PO DAILY [facility] Last Admin: 10/17/24 08:45 Dose: 20 mg Documented By: KARIN Bupropion HCl (Bupropion Hcl Xl 150 Mg Tab.Er.24h) 150 mg PO DAILY [facility] Last Admin: 10/17/24 08:45 Dose: 150 mg Documented By: KARIN Cefuroxime Axetil (Cefuroxime Axetil 500 Mg Tablet) 500 mg PO Q12H [facility] Last Admin: 10/17/24 11:15 Dose: 500 mg Documented By: KARIN Doxycycline Monohydrate (Doxycycline Monohydrate 100 Mg Capsule) 100 mg PO BID [facility] Stop: 10/20/24 09:01 Last Admin: 10/17/24 08:45 Dose: 100 mg Documented By: KARIN Fluticasone Propionate (Fluticasone Propionate Nasal 16 Gm [place]) 2 spray NOSTRIL-B DAILY PRN PRN Reason: Allergy Symptoms Gabapentin (Gabapentin 400 Mg Capsule) 400 mg PO BID [facility] Last Admin: 10/17/24 08:45 Dose: 400 mg Documented By: KARIN Hydroxyzine HCl (Hydroxyzine Hcl 50 Mg Tablet) 50 mg PO BID PRN PRN Reason: Anxiety/ sinuses Last Admin: 10/16/24 03:19 Dose: 50 mg Documented By: LILIANE Ibuprofen (Ibuprofen 800 Mg Tablet) 800 mg PO Q8H PRN PRN Reason: Pain, Moderate(Pain Scale 4-6) Last Admin: 10/17/24 11:15 Dose: 800 mg Documented By: KARIN Lorazepam (Lorazepam 1 Mg Tablet) 1 mg PO Q6H PRN PRN Reason: sx of catatonia Last Admin: 10/12/24 09:26 Dose: 1 mg Documented By: JONG Magnesium Hydroxide (Milk Of Magnesia 30 Ml Oral.Susp) 30 ml PO DAILY PRN PRN Reason: Constipation Methadone HCl (Methadone Hcl 20 Mg/2 Ml Oral.Conc) 120 mg PO DAILY [facility] Last Admin: 10/17/24 07:48 Dose: 120 mg Documented By: KARIN Co-signed By: LIANNA Methocarbamol (Methocarbamol 750 Mg Tablet) 750 mg PO TID PRN PRN Reason: Muscle Spasm Last Admin: 10/17/24 11:15 Dose: 750 mg Documented By: KARIN Mirtazapine (Mirtazapine 15 Mg Tablet) 15 mg PO BEDTIME [facility] Last Admin: 10/16/24 20:41 Dose: 15 mg Documented By: LILIANE Nicotine Polacrilex (Nicotine Polacrilex 2 Mg Gum) 4 mg BUCCAL Q2H PRN PRN Reason: Nicotine Cravings Last Admin: 10/17/24 11:14 Dose: 4 mg Documented By: KARIN Omeprazole (Omeprazole 40 Mg Capsule.Dr) 40 mg PO DAILY [facility] Last Admin: 10/17/24 08:45 Dose: 40 mg Documented By: KARIN Oxcarbazepine (Oxcarbazepine 300 Mg Tablet) 600 mg PO DAILY [facility] Last Admin: 10/17/24 08:45 Dose: 600 mg Documented By: KARIN Prazosin HCl (Prazosin Hcl 1 Mg Capsule) 3 mg PO BEDTIME [facility]; Protocol Last Admin: 10/16/24 20:42 Dose: 3 mg Documented By: LILIANE Propranolol HCl (Propranolol Hcl 20 Mg Tablet) 20 mg PO BID [facility]; Protocol Last Admin: 10/17/24 11:14 Dose: 20 mg Documented By: KARIN Quetiapine Fumarate (Quetiapine Fumarate 400 Mg Tablet) 400 mg PO BEDTIME [facility] Last Admin: 10/16/24 20:42 Dose: 400 mg Documented By: LILIANE Senna (Sennosides 8.6 Mg Tablet) 17.2 mg PO BEDTIME PRN PRN Reason: Constipation Last Admin: 10/06/24 21:18 Dose: 17.2 mg Documented By: SETH Sumatriptan Succinate (Sumatriptan Succinate 100 Mg Tablet) 100 mg PO DAILY MRX1 PRN PRN Reason: Migraine Headache Last Admin: 10/17/24 12:58 Dose: 100 mg Documented By: KARIN Topiramate (Topiramate 25 Mg Tablet) 25 mg PO BID [facility] Last Admin: 10/17/24 08:45 Dose: 25 mg Documented By: KARIN Labs 10/15/24 07:29 10/15/24 07:29 Assessment and Plan (1) Cellulitis of right foot: Status: Acute Plan 49-year-old male with polysubstance abuse, opioid dependence, and unspecified mood disorder admitted to Psych with concern for left foot cellulitis. Assessment & Plan: Suspected cellulitis with chronic erythema (compared to 2022 image). Treatment: Doxycycline (started 10/13) + Ceftin (added today). WBC normal (2 days ago). Next steps: Monitor response, check ESR/CRP. If no improvement, consider switching to Zyvox or ID consult. Hold IV antibiotics for now, reassess if condition worsens. Recommend topical steroid for localized inflammation. Will continue to follow. Quality Stroke Does the patient have a stroke diagnosis?: No VTE Prior VTE?: No VTE Risk Level:: Medical - low VTE Device Contraindication: Treatment Not Indicated VTE Drug Contraindication: N/A - Med Ordered
[2024-10-17 20:00] VITALS: BP 127/75; PULSE 78; TEMP 36.4; O2SAT 100
[2024-10-17 20:12] VITALS: BP 127/75
[2024-10-17] MEDS: Prazosin HCL 1 MG CAPSULE 3 MG PO (20:12)
[2024-10-17] MEDS: QUEtiapine Fumarate 400 MG TABLET PO (20:13)
[2024-10-17] MEDS: Mirtazapine 15 MG TABLET PO (20:13)
[2024-10-17 20:15] VITALS: BP 127/75; PULSE 78
[2024-10-17 21:16] LABS: Hematocrit 35.2 % (42.0-52.0); Hemoglobin 11.8 g/dl (14.0-18.0); Mean Corpuscular HGB Conc 33.5 g/dl (31.0-36.0); Mean Corpuscular Hemoglobin 30.8 pg (27.0-33.0); Mean Corpuscular Volume 91.9 fL (80.0-98.0); Mean Platelet Volume 9.8 fL (9.4-12.4); Platelet Count 274 X10*3/uL (160-400); Red Blood Count 3.83 X10*6/uL (4.60-5.80); Red Cell Distribution Width 12.8 % (11.0-16.0); White Blood Count 8.3 X10*3/uL (4.8-10.8)
[2024-10-17 21:37] LABS: Anion Gap 14 (12-20); Blood Urea Nitrogen 15 mg/dL (9-16); C Reactive Protein 1.35 mg/dL (< or = 0.50); Calcium 8.9 mg/dL (8.4-10.2); Carbon Dioxide 29 mmol/L (22-29); Chloride 103 mmol/L (96-108); Creatinine Clr Calc Pharmacy 115.9; Estimated Glomerular Filt Rate > 60; Glucose Random 60 mg/dL (60-115); Potassium 4.1 mmol/L (3.3-5.1); Sodium 142 mmol/L (135-145)
[2024-10-17 21:53] LABS: Erythrocyte Sedimentation Rate 27 MM/HR (0-15)
--- NOTE | 2024-10-18 05:05 | PC.NURSE ---
Late documentation. At approximately 2014 during medication administration, this patient requested 200 mg of his scheduled seroquel, but refused the (total) 400 mg scheduled dose. 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
[2024-10-18] MEDS: SUMAtriptan succinate 100 MG TABLET PO (05:50)
[2024-10-18] MEDS: methADONE HCl 20 MG/2 ML ORAL.CONC 120 MG PO (07:51)
[2024-10-18] MEDS: Omeprazole 40 MG CAPSULE.DR PO (08:40)
[2024-10-18] MEDS: Propranolol HCL 20 MG TABLET PO ×2 (08:40→21:06)
[2024-10-18] MEDS: Doxycycline Monohydrate 100 MG CAPSULE PO ×2 (08:40→21:06)
[2024-10-18] MEDS: Gabapentin 400 MG CAPSULE PO ×2 (08:40→21:06)
[2024-10-18] MEDS: buPROPion HCl XL 150 MG TAB.ER.24H PO (08:40)
[2024-10-18] MEDS: OXcarbazepine 300 MG TABLET 600 MG PO (08:40)
[2024-10-18] MEDS: Atorvastatin Calcium 20 MG TABLET PO (08:40)
[2024-10-18] MEDS: Topiramate 25 MG TABLET PO ×2 (08:40→21:06)
[2024-10-18 08:44] VITALS: BP 106/58; PULSE 59; RESP 16; TEMP 36.9; O2SAT 96
--- NOTE | 2024-10-18 08:48 | P.PNPSI_ITS ---
Subjective Subjective Date of Service: 10/18/24 Reason For Visit: Crisis Subjective Notes: Conditional Voluntary Healthcare Proxy: No Guardianship: No Medical Problems Affecting Mental Status: No (other than migraine which is better on topiramate) Interim History: 49 yo appears restless shifting from foot to foot- co dry mouth and constipation from medication- reporting decresed anxiety - and migraine in better control a bit from topiramate seems less sedated again today- than yesterday by nursing report Medication Compliance: Yes Side effects from medications: Yes (see above will restart senna) Attending Groups: Intermittent Review of Systems Acute medical concerns: Yes ongoing cellulitis started new abiotic last pm Medical Review of Systems: changed (constipation ,headache better, ) Mental Status Exam Mental Status Exam Patient Appearance: Unkempt Patient Orientation: Person, Place, Time and Situation Level of Consciousness: Awake and Restless Patient Behavior: Appropriate, Cooperative and Good Eye Contact Mood Description: Calm Affect Description: Blunted Patient Cognition Impaired: No Ability to Follow Directions: Fair Speech Pattern: Clear Hallucinations: None Delusions: Not Present Thought Content: positive for Intact and positive for Goal Oriented Abnormal Motor Activity Signs and Symptoms: Restlessness (shifting foot to foot) Judgement: Fair Diagnostics Vital Signs (24Hr): Vital Signs - 24 hr 10/17/24 11:14 10/17/24 20:00 10/17/24 20:12 Temperature 97.5 F Pulse Rate 79 78 Respiratory Rate Blood Pressure 145/69 H 127/75 127/75 Pulse Oximetry 100 Oxygen Delivery Method Room Air 10/17/24 20:15 10/18/24 08:44 Temperature 98.4 F Pulse Rate 78 59 Respiratory Rate 16 Blood Pressure 127/75 106/58 L Pulse Oximetry 96 Oxygen Delivery Method Room Air BMI result Body Mass Index 31.0 Labs 10/17/24 20:36 10/17/24 20:36 Labs: Laboratory Results - last 48 hr 10/17/24 20:36 WBC 8.3 RBC 3.83 L Hgb 11.8 L Hct 35.2 L MCV 91.9 MCH 30.8 MCHC 33.5 RDW 12.8 Plt Count 274 MPV 9.8 Absolute Nucleated RBC 0.000 Nucleated RBC % (auto) 0.0 ESR 27 H Sodium 142 Potassium 4.1 Chloride 103 Carbon Dioxide 29 Anion Gap 14 BUN 15 Creatinine 0.98 Estim Creat Clear Calc 115.9 Estimated GFR > 60 Random Glucose 60 Calcium 8.9 C-Reactive Protein 1.35 H Medications Medications Current Medications Acetaminophen (Acetaminophen 325 Mg Tablet) 650 mg PO Q6H PRN PRN Reason: Headache/Pain, Scale 1-10 Last Admin: 10/17/24 12:58 Dose: 650 mg Al Hydroxide/Mg Hydroxide (Magnesium Hydrox/Alum Hydrox 30 Ml Oral.Susp) 30 ml PO Q6H PRN PRN Reason: Heartburn/Nausea Albuterol Sulfate (Albuterol Sulfate 90 Mcg 8 Gm Inhaler) 2 puff INHALE Q4H PRN PRN Reason: Shortness Of Breath Or Wheezing Atorvastatin Calcium (Atorvastatin Calcium 20 Mg Tablet) 20 mg PO DAILY [facility] Last Admin: 10/18/24 08:40 Dose: 20 mg Bupropion HCl (Bupropion Hcl Xl 150 Mg Tab.Er.24h) 150 mg PO DAILY [facility] Last Admin: 10/18/24 08:40 Dose: 150 mg Cefuroxime Axetil (Cefuroxime Axetil 500 Mg Tablet) 500 mg PO Q12H [facility] Last Admin: 10/17/24 23:25 Dose: 500 mg Doxycycline Monohydrate (Doxycycline Monohydrate 100 Mg Capsule) 100 mg PO BID [facility] Stop: 10/20/24 09:01 Last Admin: 10/18/24 08:40 Dose: 100 mg Fluticasone Propionate (Fluticasone Propionate Nasal 16 Gm [place]) 2 spray NOSTRIL-B DAILY PRN PRN Reason: Allergy Symptoms Gabapentin (Gabapentin 400 Mg Capsule) 400 mg PO BID [facility] Last Admin: 10/18/24 08:40 Dose: 400 mg Hydrocortisone (Hydrocortisone 1 % Cream 28.35 Gm Tube) 1 appl TOPICAL DAILY [facility]; Protocol Last Admin: 10/18/24 08:43 Dose: Not Given Hydroxyzine HCl (Hydroxyzine Hcl 50 Mg Tablet) 50 mg PO BID PRN PRN Reason: Anxiety/ sinuses Last Admin: 10/16/24 03:19 Dose: 50 mg Ibuprofen (Ibuprofen 800 Mg Tablet) 800 mg PO Q8H PRN PRN Reason: Pain, Moderate(Pain Scale 4-6) Last Admin: 10/17/24 11:15 Dose: 800 mg Lorazepam (Lorazepam 1 Mg Tablet) 1 mg PO Q6H PRN PRN Reason: sx of catatonia Last Admin: 10/12/24 09:26 Dose: 1 mg Magnesium Hydroxide (Milk Of Magnesia 30 Ml Oral.Susp) 30 ml PO DAILY PRN PRN Reason: Constipation Methadone HCl (Methadone Hcl 20 Mg/2 Ml Oral.Conc) 120 mg PO DAILY [facility] Last Admin: 10/18/24 07:51 Dose: 120 mg Methocarbamol (Methocarbamol 750 Mg Tablet) 750 mg PO TID PRN PRN Reason: Muscle Spasm Last Admin: 10/17/24 20:14 Dose: 750 mg Mirtazapine (Mirtazapine 15 Mg Tablet) 15 mg PO BEDTIME [facility] Last Admin: 10/17/24 20:13 Dose: 15 mg Nicotine Polacrilex (Nicotine Polacrilex 2 Mg Gum) 4 mg BUCCAL Q2H PRN PRN Reason: Nicotine Cravings Last Admin: 10/17/24 11:14 Dose: 4 mg Omeprazole (Omeprazole 40 Mg Capsule.Dr) 40 mg PO DAILY [facility] Last Admin: 10/18/24 08:40 Dose: 40 mg Oxcarbazepine (Oxcarbazepine 300 Mg Tablet) 600 mg PO DAILY [facility] Last Admin: 10/18/24 08:40 Dose: 600 mg Prazosin HCl (Prazosin Hcl 1 Mg Capsule) 3 mg PO BEDTIME [facility]; Protocol Last Admin: 10/17/24 20:12 Dose: 3 mg Propranolol HCl (Propranolol Hcl 20 Mg Tablet) 20 mg PO BID [facility]; Protocol Last Admin: 10/18/24 08:40 Dose: 20 mg Quetiapine Fumarate (Quetiapine Fumarate 400 Mg Tablet) 400 mg PO BEDTIME [facility] Last Admin: 10/17/24 20:13 Dose: 200 mg Senna (Sennosides 8.6 Mg Tablet) 17.2 mg PO BEDTIME PRN PRN Reason: Constipation Last Admin: 10/06/24 21:18 Dose: 17.2 mg Sumatriptan Succinate (Sumatriptan Succinate 100 Mg Tablet) 100 mg PO DAILY MRX1 PRN PRN Reason: Migraine Headache Last Admin: 10/18/24 05:50 Dose: 100 mg Topiramate (Topiramate 25 Mg Tablet) 25 mg PO BID [facility] Last Admin: 10/18/24 08:40 Dose: 25 mg Allergies Allergies Allergy/AdvReac Type Severity Reaction Status Date / Time No Known Allergies Allergy Verified 10/04/24 01:03 [No Known Allergies*] Assessment & Plan Assessment & Plan (1) PTSD (post-traumatic stress disorder): Status: Acute Code(s): F43.10 - Post-traumatic stress disorder, unspecified (2) Cocaine use disorder, moderate, dependence: Status: Acute Code(s): F14.20 - Cocaine dependence, uncomplicated (3) Opioid use disorder, severe, on maintenance therapy, dependence: Status: Acute Code(s): F11.20 - Opioid dependence, uncomplicated (4) MDD (major depressive disorder), recurrent episode, moderate: Status: Acute Code(s): F33.1 - Major depressive disorder, recurrent, moderate Plan Pt is a 49 yo male with a pmhx significant for substance abuse, homelessness, and depression, admitted to adult psych with a consult placed for ?right foot cellulitis. R foot cellulitis - vitals stable, no sepsis, stable for psych floor - doxycycline 100mg BID x7 days - tylenol and ibuprofen prn or pain Thank you for allowing me to participate in the pt's care. signing off for now. Please contact the medical team if any questions or concerns. 10/14/24: CBCD,CMP,B12,Folate 10/15. Monitor MSE, ?Delirium sx 10/15: Encourage hydration Topamax 25 mg HS (migraine) Neuro consult-poor migraine sx mgt. Pt unable to tolerate EEG today. ?Sedation for sumatriptan use at max, will get neuro input regardng dosing. 10/16: Continue tx 10/17: Continue tx 10/18 pt only took seroquel 200mg last pm, says provider and he discussed decrease and that feels better Patient educated on: medication risk/benefits Informed Consent: understands Reason for continued inpatient stay Substantial Risk for: rapid decompensation and med/psych decompensation Time Spent With Patient Time: Total time managing care of this patient today ____ minutes.
--- NOTE | 2024-10-18 10:51 | PM.EVENT ---
Event Note Date of Service: 10/18/24 Time Spent With Patient Time: Total time managing care of this patient today ____ minutes.
--- NOTE | 2024-10-18 11:29 | P.PNIM_ITS ---
Subjective Subjective Date of Service: 10/18/24 Interval History: Pt seen/examined in f/u for concern of worsening left foot cellulitis. He tells me that he has had redness of over the left foot >3 weeks and thinks it is worsening. He has been on Doxycyline since 10/13 and earlier today Ceftin 10/17. WBC continue to be normal, this morning 8.3. No fevers. Patient is complaining is complaining of significant pain in the bilateral feet but has not asked for any pain medications per the nurse. He states the swelling in his feet is longstanding. Physical Exam 2 Vital Signs: Vital Signs: Last Vital Signs Temp 98.4 F 10/18/24 08:44 Pulse 59 10/18/24 08:44 Resp 16 10/18/24 08:44 BP 106/58 L 10/18/24 08:44 Pulse Ox 96 10/18/24 08:44 O2 Del Method Room Air 10/18/24 08:44 BMI result Body Mass Index 31.0 General: A&Ox3, no acute distress Skin: 1+ ble with tenderness on palpation. Erythema of the dorsum of the R foot without any warmth Objective Data Active Medications Acetaminophen (Acetaminophen 325 Mg Tablet) 650 mg PO Q6H PRN PRN Reason: Headache/Pain, Scale 1-10 Last Admin: 10/17/24 12:58 Dose: 650 mg Documented By: KARIN Al Hydroxide/Mg Hydroxide (Magnesium Hydrox/Alum Hydrox 30 Ml Oral.Susp) 30 ml PO Q6H PRN PRN Reason: Heartburn/Nausea Albuterol Sulfate (Albuterol Sulfate 90 Mcg 8 Gm Inhaler) 2 puff INHALE Q4H PRN PRN Reason: Shortness Of Breath Or Wheezing Atorvastatin Calcium (Atorvastatin Calcium 20 Mg Tablet) 20 mg PO DAILY [facility] Last Admin: 10/18/24 08:40 Dose: 20 mg Documented By: VONDA Bupropion HCl (Bupropion Hcl Xl 150 Mg Tab.Er.24h) 150 mg PO DAILY [facility] Last Admin: 10/18/24 08:40 Dose: 150 mg Documented By: VONDA Cefuroxime Axetil (Cefuroxime Axetil 500 Mg Tablet) 500 mg PO Q12H [facility] Last Admin: 10/17/24 23:25 Dose: 500 mg Documented By: NICHOLE Doxycycline Monohydrate (Doxycycline Monohydrate 100 Mg Capsule) 100 mg PO BID [facility] Stop: 10/20/24 09:01 Last Admin: 10/18/24 08:40 Dose: 100 mg Documented By: VONDA Fluticasone Propionate (Fluticasone Propionate Nasal 16 Gm [place]) 2 spray NOSTRIL-B DAILY PRN PRN Reason: Allergy Symptoms Gabapentin (Gabapentin 400 Mg Capsule) 400 mg PO BID [facility] Last Admin: 10/18/24 08:40 Dose: 400 mg Documented By: VONDA Hydrocortisone (Hydrocortisone 1 % Cream 28.35 Gm Tube) 1 appl TOPICAL DAILY [facility]; Protocol Last Admin: 10/18/24 08:43 Dose: Not Given Documented By: VONDA Non-Admin Reason: Patient Refused Hydroxyzine HCl (Hydroxyzine Hcl 50 Mg Tablet) 50 mg PO BID PRN PRN Reason: Anxiety/ sinuses Last Admin: 10/16/24 03:19 Dose: 50 mg Documented By: LLIIANE Ibuprofen (Ibuprofen 800 Mg Tablet) 800 mg PO Q8H PRN PRN Reason: Pain, Moderate(Pain Scale 4-6) Last Admin: 10/17/24 11:15 Dose: 800 mg Documented By: KARIN Lorazepam (Lorazepam 1 Mg Tablet) 1 mg PO Q6H PRN PRN Reason: sx of catatonia Last Admin: 10/12/24 09:26 Dose: 1 mg Documented By: JONG Magnesium Hydroxide (Milk Of Magnesia 30 Ml Oral.Susp) 30 ml PO DAILY PRN PRN Reason: Constipation Methadone HCl (Methadone Hcl 20 Mg/2 Ml Oral.Conc) 120 mg PO DAILY [facility] Last Admin: 10/18/24 07:51 Dose: 120 mg Documented By: JUANITA Co-signed By: KARIN Methocarbamol (Methocarbamol 750 Mg Tablet) 750 mg PO TID PRN PRN Reason: Muscle Spasm Last Admin: 10/17/24 20:14 Dose: 750 mg Documented By: NICHOLE Mirtazapine (Mirtazapine 15 Mg Tablet) 15 mg PO BEDTIME [facility] Last Admin: 10/17/24 20:13 Dose: 15 mg Documented By: NICHOLE Nicotine Polacrilex (Nicotine Polacrilex 2 Mg Gum) 4 mg BUCCAL Q2H PRN PRN Reason: Nicotine Cravings Last Admin: 10/17/24 11:14 Dose: 4 mg Documented By: KARIN Omeprazole (Omeprazole 40 Mg Capsule.) 40 mg PO DAILY [facility] Last Admin: 10/18/24 08:40 Dose: 40 mg Documented By: VONDA Oxcarbazepine (Oxcarbazepine 300 Mg Tablet) 600 mg PO DAILY [facility] Last Admin: 10/18/24 08:40 Dose: 600 mg Documented By: VONDA Prazosin HCl (Prazosin Hcl 1 Mg Capsule) 3 mg PO BEDTIME [facility]; Protocol Last Admin: 10/17/24 20:12 Dose: 3 mg Documented By: NICHOLE Propranolol HCl (Propranolol Hcl 20 Mg Tablet) 20 mg PO BID [facility]; Protocol Last Admin: 10/18/24 08:40 Dose: 20 mg Documented By: VONDA Quetiapine Fumarate (Quetiapine Fumarate 400 Mg Tablet) 400 mg PO BEDTIME [facility] Last Admin: 10/17/24 20:13 Dose: 200 mg Documented By: NICHOLE Comments: Patient requested 200 mg Senna (Sennosides 8.6 Mg Tablet) 17.2 mg PO BEDTIME PRN PRN Reason: Constipation Last Admin: 10/06/24 21:18 Dose: 17.2 mg Documented By: SETH Sumatriptan Succinate (Sumatriptan Succinate 100 Mg Tablet) 100 mg PO DAILY MRX1 PRN PRN Reason: Migraine Headache Last Admin: 10/18/24 05:50 Dose: 100 mg Documented By: NICHOLE Topiramate (Topiramate 25 Mg Tablet) 25 mg PO BID [facility] Last Admin: 10/18/24 08:40 Dose: 25 mg Documented By: VONDA Labs 10/17/24 20:36 10/17/24 20:36 Labs: Laboratory Results - last 24 hr 10/17/24 20:36 MCV 91.9 MCH 30.8 MCHC 33.5 RDW 12.8 Plt Count 274 MPV 9.8 Absolute Nucleated RBC 0.000 Nucleated RBC % (auto) 0.0 ESR 27 H Anion Gap 14 Estim Creat Clear Calc 115.9 Estimated GFR > 60 Random Glucose 60 Calcium 8.9 C-Reactive Protein 1.35 H Assessment and Plan (1) Cellulitis of right foot: Status: Acute Plan Pt seen/examined in f/u for concern of worsening left foot cellulitis #Possible cellulitis with chronic erythema/edema -Continue doxycycline (10/13) and ceftin (10/17) -No leukocytosis or fevers. No warmth. ESR and CRP elevated -continue abx. Add compression stocking. Encourage OOB and ambulation -continue topical steroid Will continue to follow. Low suspicion for worsening cellulitis Quality Stroke Does the patient have a stroke diagnosis?: No VTE Prior VTE?: No VTE Risk Level:: Medical - low VTE Device Contraindication: Treatment Not Indicated VTE Drug Contraindication: N/A - Med Ordered
[2024-10-18] MEDS: cefuroxime axetiL 500 MG TABLET PO ×2 (12:26→23:46)
[2024-10-18] MEDS: Acetaminophen 325 MG TABLET 650 MG PO (14:04)
[2024-10-18] MEDS: Ibuprofen 800 MG TABLET PO (18:00)
[2024-10-18] MEDS: methocarbamoL 750 MG TABLET PO ×2 (18:00→23:46)
[2024-10-18 19:51] VITALS: BP 111/57; PULSE 58; TEMP 36.3; O2SAT 97
[2024-10-18] MEDS: hydrOXYzine HCL 50 MG TABLET PO (21:02)
[2024-10-18] MEDS: Prazosin HCL 1 MG CAPSULE 3 MG PO (21:05)
[2024-10-18] MEDS: QUEtiapine Fumarate 200 MG TABLET PO (21:05)
[2024-10-18] MEDS: Mirtazapine 15 MG TABLET PO (21:06)
[2024-10-19] MEDS: Ibuprofen 800 MG TABLET PO ×3 (02:58→19:34)
[2024-10-19] MEDS: methADONE HCl 20 MG/2 ML ORAL.CONC 120 MG PO (07:34)
[2024-10-19] MEDS: Atorvastatin Calcium 20 MG TABLET PO (08:38)
[2024-10-19] MEDS: buPROPion HCl XL 150 MG TAB.ER.24H PO (08:38)
[2024-10-19] MEDS: Omeprazole 40 MG CAPSULE.DR PO (08:38)
[2024-10-19] MEDS: OXcarbazepine 300 MG TABLET 600 MG PO (08:38)
[2024-10-19] MEDS: Doxycycline Monohydrate 100 MG CAPSULE PO ×2 (08:38→20:07)
[2024-10-19] MEDS: Propranolol HCL 20 MG TABLET PO ×2 (08:38→20:06)
[2024-10-19] MEDS: Topiramate 25 MG TABLET PO (08:38)
[2024-10-19] MEDS: Gabapentin 400 MG CAPSULE PO ×2 (08:39→20:06)
[2024-10-19 08:40] VITALS: BP 108/68; PULSE 96; RESP 16; TEMP 36.2; O2SAT 96
[2024-10-19] MEDS: Acetaminophen 325 MG TABLET 650 MG PO ×3 (09:05→23:52)
[2024-10-19] MEDS: methocarbamoL 750 MG TABLET PO ×3 (09:05→19:34)
[2024-10-19] MEDS: hydrOXYzine HCL 50 MG TABLET PO ×2 (09:06→19:35)
--- NOTE | 2024-10-19 11:47 | HO.PSYCHPN ---
Subjective Subjective Date of Service: 10/19/24 Reason For Visit: Crisis Subjective Notes: Conditional Voluntary Healthcare Proxy: No Guardianship: No Medical Problems Affecting Mental Status: Yes (migraine- screamed last night over it) Interim History: 49 yo with bizarre acting leaning against wall oddly when nurse and student went into check in with him- when this provider went to see pt he had eyes closed in kitchen which was loud with patients and loud tv- and yet co migraine- told him he should go to his room to decrease over stimulation not further expose himself Medication Compliance: Yes Side effects from medications: No Attending Groups: Intermittent Review of Systems Acute medical concerns: Yes co migraine I increased his topamax today- Medical Review of Systems: unchanged Mental Status Exam Mental Status Exam Narrative: sitting in chair in kitchen with eyes shut. Patient Appearance: Bizarre Patient Orientation: Person and Place Level of Consciousness: Awake Patient Behavior: Passive (odd posturing?) Mood Description: Calm Affect Description: Blunted Patient Cognition Impaired: No Ability to Follow Directions: Fair Speech Pattern: Clear Hallucinations: None Delusions: Not Present Thought Process: Intact and Goal Oriented Thought Content: positive for Poverty of Content Abnormal Motor Activity Signs and Symptoms: Muscle Rigidity (odd poses) Judgement: Fair Diagnostics Vital Signs (24Hr): Vital Signs - 24 hr 10/18/24 19:51 10/19/24 08:40 Temperature 97.4 F 97.2 F Pulse Rate 58 96 Respiratory Rate 16 Blood Pressure 111/57 L 108/68 Pulse Oximetry 97 96 Oxygen Delivery Method Room Air Room Air BMI result Body Mass Index 31.0 Labs 10/17/24 20:36 10/17/24 20:36 Labs: Laboratory Results - last 48 hr 10/17/24 20:36 WBC 8.3 RBC 3.83 L Hgb 11.8 L Hct 35.2 L MCV 91.9 MCH 30.8 MCHC 33.5 RDW 12.8 Plt Count 274 MPV 9.8 Absolute Nucleated RBC 0.000 Nucleated RBC % (auto) 0.0 ESR 27 H Sodium 142 Potassium 4.1 Chloride 103 Carbon Dioxide 29 Anion Gap 14 BUN 15 Creatinine 0.98 Estim Creat Clear Calc 115.9 Estimated GFR > 60 Random Glucose 60 Calcium 8.9 C-Reactive Protein 1.35 H Medications Medications Current Medications Acetaminophen (Acetaminophen 325 Mg Tablet) 650 mg PO Q6H PRN PRN Reason: Headache/Pain, Scale 1-10 Last Admin: 10/19/24 09:05 Dose: 650 mg Al Hydroxide/Mg Hydroxide (Magnesium Hydrox/Alum Hydrox 30 Ml Oral.Susp) 30 ml PO Q6H PRN PRN Reason: Heartburn/Nausea Albuterol Sulfate (Albuterol Sulfate 90 Mcg 8 Gm Inhaler) 2 puff INHALE Q4H PRN PRN Reason: Shortness Of Breath Or Wheezing Atorvastatin Calcium (Atorvastatin Calcium 20 Mg Tablet) 20 mg PO DAILY [facility] Last Admin: 10/19/24 08:38 Dose: 20 mg Bupropion HCl (Bupropion Hcl Xl 150 Mg Tab.Er.24h) 150 mg PO DAILY [facility] Last Admin: 10/19/24 08:38 Dose: 150 mg Cefuroxime Axetil (Cefuroxime Axetil 500 Mg Tablet) 500 mg PO Q12H [facility] Last Admin: 10/18/24 23:46 Dose: 500 mg Doxycycline Monohydrate (Doxycycline Monohydrate 100 Mg Capsule) 100 mg PO BID [facility] Stop: 10/20/24 09:01 Last Admin: 10/19/24 08:38 Dose: 100 mg Fluticasone Propionate (Fluticasone Propionate Nasal 16 Gm [place]) 2 spray NOSTRIL-B DAILY PRN PRN Reason: Allergy Symptoms Gabapentin (Gabapentin 400 Mg Capsule) 400 mg PO BID [facility] Last Admin: 10/19/24 08:39 Dose: 400 mg Hydrocortisone (Hydrocortisone 1 % Cream 28.35 Gm Tube) 1 appl TOPICAL DAILY [facility]; Protocol Last Admin: 10/19/24 08:46 Dose: Not Given Hydroxyzine HCl (Hydroxyzine Hcl 50 Mg Tablet) 50 mg PO BID PRN PRN Reason: Anxiety/ sinuses Last Admin: 10/19/24 09:06 Dose: 50 mg Ibuprofen (Ibuprofen 800 Mg Tablet) 800 mg PO Q8H PRN PRN Reason: Pain, Moderate(Pain Scale 4-6) Last Admin: 10/19/24 02:58 Dose: 800 mg Magnesium Hydroxide (Milk Of Magnesia 30 Ml Oral.Susp) 30 ml PO DAILY PRN PRN Reason: Constipation Methadone HCl (Methadone Hcl 20 Mg/2 Ml Oral.Conc) 120 mg PO DAILY [facility] Last Admin: 10/19/24 07:34 Dose: 120 mg Methocarbamol (Methocarbamol 750 Mg Tablet) 750 mg PO TID PRN PRN Reason: Muscle Spasm Last Admin: 10/19/24 09:05 Dose: 750 mg Mirtazapine (Mirtazapine 15 Mg Tablet) 15 mg PO BEDTIME [facility] Last Admin: 10/18/24 21:06 Dose: 15 mg Nicotine Polacrilex (Nicotine Polacrilex 2 Mg Gum) 4 mg BUCCAL Q2H PRN PRN Reason: Nicotine Cravings Last Admin: 10/17/24 11:14 Dose: 4 mg Omeprazole (Omeprazole 40 Mg Capsule.Dr) 40 mg PO DAILY [facility] Last Admin: 10/19/24 08:38 Dose: 40 mg Oxcarbazepine (Oxcarbazepine 300 Mg Tablet) 600 mg PO DAILY [facility] Last Admin: 10/19/24 08:38 Dose: 600 mg Prazosin HCl (Prazosin Hcl 1 Mg Capsule) 3 mg PO BEDTIME [facility]; Protocol Last Admin: 10/18/24 21:05 Dose: 3 mg Propranolol HCl (Propranolol Hcl 20 Mg Tablet) 20 mg PO BID [facility]; Protocol Last Admin: 10/19/24 08:38 Dose: 20 mg Quetiapine Fumarate (Quetiapine Fumarate 200 Mg Tablet) 200 mg PO BEDTIME MRX1 [facility] Last Admin: 10/19/24 02:59 Dose: Not Given Senna (Sennosides 8.6 Mg Tablet) 8.6 mg PO BEDTIME PRN PRN Reason: Constipation Sumatriptan Succinate (Sumatriptan Succinate 100 Mg Tablet) 100 mg PO DAILY MRX1 PRN PRN Reason: Migraine Headache Last Admin: 10/18/24 05:50 Dose: 100 mg Topiramate (Topiramate 25 Mg Tablet) 50 mg PO BID [facility] Allergies Allergies Allergy/AdvReac Type Severity Reaction Status Date / Time No Known Allergies Allergy Verified 10/04/24 01:03 [No Known Allergies*] Assessment & Plan Assessment & Plan (1) PTSD (post-traumatic stress disorder): Status: Acute Code(s): F43.10 - Post-traumatic stress disorder, unspecified (2) Cocaine use disorder, moderate, dependence: Status: Acute Code(s): F14.20 - Cocaine dependence, uncomplicated (3) Opioid use disorder, severe, on maintenance therapy, dependence: Status: Acute Code(s): F11.20 - Opioid dependence, uncomplicated (4) MDD (major depressive disorder), recurrent episode, moderate: Status: Acute Code(s): F33.1 - Major depressive disorder, recurrent, moderate Plan Pt is a 49 yo male with a pmhx significant for substance abuse, homelessness, and depression, admitted to adult psych with a consult placed for ?right foot cellulitis. R foot cellulitis - vitals stable, no sepsis, stable for psych floor - doxycycline 100mg BID x7 days - tylenol and ibuprofen prn or pain Thank you for allowing me to participate in the pt's care. signing off for now. Please contact the medical team if any questions or concerns. 10/14/24: CBCD,CMP,B12,Folate 10/15. Monitor MSE, ?Delirium sx 10/15: Encourage hydration Topamax 25 mg HS (migraine) Neuro consult-poor migraine sx mgt. Pt unable to tolerate EEG today. ?Sedation for sumatriptan use at max, will get neuro input regardng dosing. 10/16: Continue tx 10/17: Continue tx 10/18 pt only took seroquel 200mg last pm, says provider and he discussed decrease and that feels better 10/19 CTP Patient educated on: medication risk/benefits and medical condition Informed Consent: understands and further education needed Reason for continued inpatient stay Substantial Risk for: inability to function and med/psych decompensation Time Spent With Patient Time: Total time managing care of this patient today ____ minutes.
[2024-10-19] MEDS: cefuroxime axetiL 500 MG TABLET PO ×2 (11:50→23:40)
[2024-10-19 20:00] VITALS: BP 127/75; PULSE 51; RESP 16; TEMP 36.6; O2SAT 100
[2024-10-19] MEDS: Prazosin HCL 1 MG CAPSULE 3 MG PO (20:04)
[2024-10-19] MEDS: Topiramate 25 MG TABLET 50 MG PO (20:05)
[2024-10-19] MEDS: QUEtiapine Fumarate 200 MG TABLET PO (20:06)
[2024-10-19] MEDS: Mirtazapine 15 MG TABLET PO (20:07)
[2024-10-20] VITALS (7 sets, daily range): BP systolic 110–178; BP diastolic 55–77; PULSE 54–61; RESP 16; TEMP 36.6–36.8; O2SAT 96–100
[2024-10-20] MEDS: hydrOXYzine HCL 50 MG TABLET PO ×3 (00:03→19:19)
[2024-10-20] MEDS: methocarbamoL 750 MG TABLET PO ×3 (06:06→19:19)
[2024-10-20] MEDS: Ibuprofen 800 MG TABLET PO ×3 (06:07→23:38)
[2024-10-20] MEDS: methADONE HCl 20 MG/2 ML ORAL.CONC 120 MG PO (07:40)
[2024-10-20] MEDS: Gabapentin 400 MG CAPSULE PO ×2 (08:07→22:39)
[2024-10-20] MEDS: Acetaminophen 325 MG TABLET 650 MG PO ×2 (08:07→19:20)
[2024-10-20] MEDS: OXcarbazepine 300 MG TABLET 600 MG PO (08:08)
[2024-10-20] MEDS: Omeprazole 40 MG CAPSULE.DR PO (08:08)
[2024-10-20] MEDS: buPROPion HCl XL 150 MG TAB.ER.24H PO (08:08)
[2024-10-20] MEDS: Atorvastatin Calcium 20 MG TABLET PO (08:08)
[2024-10-20] MEDS: SUMAtriptan succinate 100 MG TABLET PO (08:08)
[2024-10-20] MEDS: Doxycycline Monohydrate 100 MG CAPSULE PO (08:35)
[2024-10-20] MEDS: Topiramate 25 MG TABLET 50 MG PO ×2 (08:36→21:12)
[2024-10-20] MEDS: Hydrocortisone 1 % Cream 28.35 GM TUBE 1 APPL TOPICAL (09:15)
--- NOTE | 2024-10-20 09:49 | P.PNIM_ITS ---
Subjective Subjective Date of Service: 10/20/24 Interval History: Pt seen in follow up for possible cellulitis R foot. He does not feel there is any improvement in the erythema. He is reporting 10/10 pain in the R foot especially with walking however patient is comfortable appearing and ambulating without difficulty while in the room. He completed course of doxycycline this morning. He has received 7 doses of cefuroxime at this time. He started wearing compression stocking this morning. Physical Exam 2 Vital Signs: Vital Signs: Last Vital Signs Temp 98.2 F 10/20/24 08:29 Pulse 55 10/20/24 08:29 Resp 16 10/20/24 08:29 BP 116/64 10/20/24 08:29 Pulse Ox 96 10/20/24 08:29 O2 Del Method Room Air 10/20/24 08:29 BMI result Body Mass Index 31.0 Constitutional - Awake and Alert, No apparent distress Extremities - no calf tenderness bilaterally, 2+ edema ble Skin - Warm/Dry. Erythema of the distal half of the lower legs bilaterally with speckled erythema of the dorsum of the foot, no warmth or skin breaks noted Neurological - Alert & oriented x3, no antalgic gait, sensation in tact Objective Data Active Medications Acetaminophen (Acetaminophen 325 Mg Tablet) 650 mg PO Q6H PRN PRN Reason: Headache/Pain, Scale 1-10 Last Admin: 10/20/24 08:07 Dose: 650 mg Documented By: DONYA Al Hydroxide/Mg Hydroxide (Magnesium Hydrox/Alum Hydrox 30 Ml Oral.Susp) 30 ml PO Q6H PRN PRN Reason: Heartburn/Nausea Albuterol Sulfate (Albuterol Sulfate 90 Mcg 8 Gm Inhaler) 2 puff INHALE Q4H PRN PRN Reason: Shortness Of Breath Or Wheezing Atorvastatin Calcium (Atorvastatin Calcium 20 Mg Tablet) 20 mg PO DAILY [facility] Last Admin: 10/20/24 08:08 Dose: 20 mg Documented By: DONYA Bupropion HCl (Bupropion Hcl Xl 150 Mg Tab.Er.24h) 150 mg PO DAILY [facility] Last Admin: 10/20/24 08:08 Dose: 150 mg Documented By: DONYA Cefuroxime Axetil (Cefuroxime Axetil 500 Mg Tablet) 500 mg PO Q12H [facility] Last Admin: 10/19/24 23:40 Dose: 500 mg Documented By: KAMILA Fluticasone Propionate (Fluticasone Propionate Nasal 16 Gm [place]) 2 spray NOSTRIL-B DAILY PRN PRN Reason: Allergy Symptoms Gabapentin (Gabapentin 400 Mg Capsule) 400 mg PO BID [facility] Last Admin: 10/20/24 08:07 Dose: 400 mg Documented By: DONYA Hydrocortisone (Hydrocortisone 1 % Cream 28.35 Gm Tube) 1 appl TOPICAL DAILY [facility]; Protocol Last Admin: 10/20/24 09:15 Dose: 1 appl Documented By: DONYA Hydroxyzine HCl (Hydroxyzine Hcl 50 Mg Tablet) 50 mg PO BID PRN PRN Reason: Anxiety/ sinuses Last Admin: 10/20/24 00:03 Dose: 50 mg Documented By: KAMILA Ibuprofen (Ibuprofen 800 Mg Tablet) 800 mg PO Q8H PRN PRN Reason: Pain, Moderate(Pain Scale 4-6) Last Admin: 10/20/24 06:07 Dose: 800 mg Documented By: KAMILA Lorazepam (Lorazepam 1 Mg Tablet) 1 mg PO Q6H PRN PRN Reason: agitation Magnesium Hydroxide (Milk Of Magnesia 30 Ml Oral.Susp) 30 ml PO DAILY PRN PRN Reason: Constipation Methadone HCl (Methadone Hcl 20 Mg/2 Ml Oral.Conc) 120 mg PO DAILY [facility] Last Admin: 10/20/24 07:40 Dose: 120 mg Documented By: DONYA Co-signed By: MACIEJ Methocarbamol (Methocarbamol 750 Mg Tablet) 750 mg PO TID PRN PRN Reason: Muscle Spasm Last Admin: 10/20/24 06:06 Dose: 750 mg Documented By: KAMILA Mirtazapine (Mirtazapine 15 Mg Tablet) 15 mg PO BEDTIME [facility] Last Admin: 10/19/24 20:07 Dose: 15 mg Documented By: KAMILA Nicotine Polacrilex (Nicotine Polacrilex 2 Mg Gum) 4 mg BUCCAL Q2H PRN PRN Reason: Nicotine Cravings Last Admin: 10/17/24 11:14 Dose: 4 mg Documented By: KARIN Omeprazole (Omeprazole 40 Mg Capsule.Dr) 40 mg PO DAILY [facility] Last Admin: 10/20/24 08:08 Dose: 40 mg Documented By: DONYA Oxcarbazepine (Oxcarbazepine 300 Mg Tablet) 600 mg PO DAILY [facility] Last Admin: 10/20/24 08:08 Dose: 600 mg Documented By: DONYA Prazosin HCl (Prazosin Hcl 1 Mg Capsule) 3 mg PO BEDTIME [facility]; Protocol Last Admin: 10/19/24 20:04 Dose: 3 mg Documented By: KAMILA Propranolol HCl (Propranolol Hcl 20 Mg Tablet) 20 mg PO BID [facility]; Protocol Last Admin: 10/20/24 08:31 Dose: Not Given Documented By: DONYA Non-Admin Reason: bradycardia 55 Quetiapine Fumarate (Quetiapine Fumarate 200 Mg Tablet) 200 mg PO BEDTIME MRX1 [facility] Last Admin: 10/19/24 20:13 Dose: Not Given Documented By: KAMILA Non-Admin Reason: Patient Refused Senna (Sennosides 8.6 Mg Tablet) 8.6 mg PO BEDTIME PRN PRN Reason: Constipation Sumatriptan Succinate (Sumatriptan Succinate 100 Mg Tablet) 100 mg PO DAILY MRX1 PRN PRN Reason: Migraine Headache Last Admin: 10/20/24 08:08 Dose: 100 mg Documented By: DONYA Topiramate (Topiramate 25 Mg Tablet) 50 mg PO BID [facility] Last Admin: 10/20/24 08:36 Dose: 50 mg Documented By: DONYA Labs 10/17/24 20:36 10/17/24 20:36 Assessment and Plan (1) Cellulitis of right foot: Status: Acute Plan Pt seen/examined in f/u for concern of worsening left foot cellulitis #Possible cellulitis with chronic erythema/edema. At this time there is lower suspicion for cellulitis. There has been no improvement in the erythema of the lower extremities, no fevers, warmth, leukocytosis. Bilateral erythema with associated edema most consistent with chronic venous stasis. Speckled erythema on the dorsum of the foot less likely infectious, more likely attributed to the stasis dermatitis. Discussed with patient. He is educated on chronic venous stasis and questions were answered. It is recommended that he wear compression stockings during the day and elevate his feet above the level of the heart if possible to improve his swelling. He is also agreeable to trialing a low sodium diet. There is moderate edema that is causing him discomfort and if this worsening could potentially result in ulcerations which would put him at risk for infection. Will trial lasix 20mg x 5 days after which we will recheck BMP, both of which are ordered. -Completed 7 days course of doxycyline. Continue ceftin, discontinue after 10 doses (10/21) -No leukocytosis or fevers. No warmth. ESR and CRP mildly elevated -continue compression stocking. Encourage OOB and ambulation -continue topical steroid -add lasix 20mg x 5 days and recheck bmp in 5 days -trial low sodium diet Will continue to follow. Low suspicion for worsening cellulitis Quality Stroke Does the patient have a stroke diagnosis?: No VTE Prior VTE?: No VTE Risk Level:: Medical - low VTE Device Contraindication: Treatment Not Indicated VTE Drug Contraindication: N/A - Med Ordered
[2024-10-20] MEDS: Furosemide 20 MG TABLET PO (10:05)
[2024-10-20] MEDS: cefuroxime axetiL 500 MG TABLET PO ×2 (11:32→23:38)
--- NOTE | 2024-10-20 13:19 | P.PNPSI_ITS ---
Subjective Subjective Date of Service: 10/20/24 Reason For Visit: Crisis Subjective Notes: Conditional Voluntary Healthcare Proxy: No Guardianship: No Medical Problems Affecting Mental Status: No Interim History: Ignacio is tolerating increase in Topamax. Over the weekend he decreased Seroquel to 200 mg He reviewed placement options today with Nik MEIJA He reports he is interested and would like us to proceed with [place] placement option. Sleep is OK . He prefers to sleep on an incline so often prefers to sleep in a chair. Medication Compliance: Yes Side effects from medications: No Attending Groups: Yes Review of Systems Stasis dermatitis. Completing Ceftin Lasix in place Medical Review of Systems: unchanged Review of Systems Review of Systems migraine sx. tolerating Topamax Mental Status Exam Mental Status Exam Patient Appearance: Appropriate Patient Orientation: Person, Place, Time and Situation Level of Consciousness: Alert Patient Behavior: Appropriate, Talkative, Cooperative and Good Eye Contact Mood Description: Appropriate Affect Description: Appropriate Patient Cognition Impaired: No Ability to Follow Directions: Good Speech Pattern: Spontaneous Speech Memory Description: Intact Hallucinations: None Delusions: Not Present Thought Process: Intact and Goal Oriented Thought Content: positive for Intact and positive for Goal Oriented Judgement: Good Diagnostics Vital Signs (24Hr): Vital Signs - 24 hr 10/19/24 20:00 10/20/24 08:29 10/20/24 10:05 Temperature 98 F 98.2 F Pulse Rate 51 55 Respiratory Rate 16 16 Blood Pressure 127/75 116/64 123/70 Pulse Oximetry 100 96 Oxygen Delivery Method Room Air Room Air BMI result Body Mass Index 31.0 Labs 10/17/24 20:36 10/17/24 20:36 Medications Medications Current Medications Acetaminophen (Acetaminophen 325 Mg Tablet) 650 mg PO Q6H PRN PRN Reason: Headache/Pain, Scale 1-10 Last Admin: 10/20/24 08:07 Dose: 650 mg Al Hydroxide/Mg Hydroxide (Magnesium Hydrox/Alum Hydrox 30 Ml Oral.Susp) 30 ml PO Q6H PRN PRN Reason: Heartburn/Nausea Albuterol Sulfate (Albuterol Sulfate 90 Mcg 8 Gm Inhaler) 2 puff INHALE Q4H PRN PRN Reason: Shortness Of Breath Or Wheezing Atorvastatin Calcium (Atorvastatin Calcium 20 Mg Tablet) 20 mg PO DAILY [facility] Last Admin: 10/20/24 08:08 Dose: 20 mg Bupropion HCl (Bupropion Hcl Xl 150 Mg Tab.Er.24h) 150 mg PO DAILY [facility] Last Admin: 10/20/24 08:08 Dose: 150 mg Cefuroxime Axetil (Cefuroxime Axetil 500 Mg Tablet) 500 mg PO Q12H [facility] Stop: 10/21/24 11:46 Last Admin: 10/20/24 11:32 Dose: 500 mg Fluticasone Propionate (Fluticasone Propionate Nasal 16 Gm [place]) 2 spray NOSTRIL-B DAILY PRN PRN Reason: Allergy Symptoms Furosemide (Furosemide 20 Mg Tablet) 20 mg PO DAILY [facility]; Protocol Stop: 10/24/24 09:01 Last Admin: 10/20/24 10:05 Dose: 20 mg Gabapentin (Gabapentin 400 Mg Capsule) 400 mg PO BID [facility] Last Admin: 10/20/24 08:07 Dose: 400 mg Hydroxyzine HCl (Hydroxyzine Hcl 50 Mg Tablet) 50 mg PO BID PRN PRN Reason: Anxiety/ sinuses Last Admin: 10/20/24 11:35 Dose: 50 mg Ibuprofen (Ibuprofen 800 Mg Tablet) 800 mg PO Q8H PRN PRN Reason: Pain, Moderate(Pain Scale 4-6) Last Admin: 10/20/24 06:07 Dose: 800 mg Lorazepam (Lorazepam 1 Mg Tablet) 1 mg PO Q6H PRN PRN Reason: agitation Magnesium Hydroxide (Milk Of Magnesia 30 Ml Oral.Susp) 30 ml PO DAILY PRN PRN Reason: Constipation Methadone HCl (Methadone Hcl 20 Mg/2 Ml Oral.Conc) 120 mg PO DAILY [facility] Last Admin: 10/20/24 07:40 Dose: 120 mg Methocarbamol (Methocarbamol 750 Mg Tablet) 750 mg PO TID PRN PRN Reason: Muscle Spasm Last Admin: 10/20/24 11:35 Dose: 750 mg Mirtazapine (Mirtazapine 15 Mg Tablet) 15 mg PO BEDTIME [facility] Last Admin: 10/19/24 20:07 Dose: 15 mg Nicotine Polacrilex (Nicotine Polacrilex 2 Mg Gum) 4 mg BUCCAL Q2H PRN PRN Reason: Nicotine Cravings Last Admin: 10/17/24 11:14 Dose: 4 mg Omeprazole (Omeprazole 40 Mg Capsule.Dr) 40 mg PO DAILY [facility] Last Admin: 10/20/24 08:08 Dose: 40 mg Oxcarbazepine (Oxcarbazepine 300 Mg Tablet) 600 mg PO DAILY [facility] Last Admin: 10/20/24 08:08 Dose: 600 mg Prazosin HCl (Prazosin Hcl 1 Mg Capsule) 3 mg PO BEDTIME [facility]; Protocol Last Admin: 10/19/24 20:04 Dose: 3 mg Propranolol HCl (Propranolol Hcl 20 Mg Tablet) 20 mg PO BID [facility]; Protocol Last Admin: 10/20/24 08:31 Dose: Not Given Quetiapine Fumarate (Quetiapine Fumarate 200 Mg Tablet) 200 mg PO BEDTIME MRX1 [facility] Last Admin: 10/19/24 20:13 Dose: Not Given Senna (Sennosides 8.6 Mg Tablet) 8.6 mg PO BEDTIME PRN PRN Reason: Constipation Sumatriptan Succinate (Sumatriptan Succinate 100 Mg Tablet) 100 mg PO DAILY MRX1 PRN PRN Reason: Migraine Headache Last Admin: 10/20/24 08:08 Dose: 100 mg Topiramate (Topiramate 25 Mg Tablet) 50 mg PO BID [facility] Last Admin: 10/20/24 08:36 Dose: 50 mg Allergies Allergies Allergy/AdvReac Type Severity Reaction Status Date / Time No Known Allergies Allergy Verified 10/04/24 01:03 [No Known Allergies*] Assessment & Plan Assessment & Plan (1) Homelessness: Status: Acute Code(s): Z59.00 - Homelessness unspecified (2) PTSD (post-traumatic stress disorder): Status: Acute Code(s): F43.10 - Post-traumatic stress disorder, unspecified (3) Cocaine use disorder, moderate, dependence: Status: Acute Code(s): F14.20 - Cocaine dependence, uncomplicated (4) Opioid use disorder, severe, on maintenance therapy, dependence: Status: Acute Code(s): F11.20 - Opioid dependence, uncomplicated (5) MDD (major depressive disorder), recurrent episode, moderate: Status: Acute Code(s): F33.1 - Major depressive disorder, recurrent, moderate Plan 10/20/24: Continue current plan of care and regime. Reason for continued inpatient stay Substantial Risk for: rapid decompensation and med/psych decompensation Time Spent With Patient Time: Total time managing care of this patient today ____ minutes.
[2024-10-20] MEDS: QUEtiapine Fumarate 200 MG TABLET PO (22:40)
[2024-10-20] MEDS: Mirtazapine 15 MG TABLET PO (22:40)
[2024-10-20] MEDS: Propranolol HCL 20 MG TABLET PO (22:41)
[2024-10-20] MEDS: Prazosin HCL 1 MG CAPSULE 3 MG PO (22:42)
[2024-10-21] MEDS: SUMAtriptan succinate 100 MG TABLET PO ×3 (03:06→21:37)
[2024-10-21 08:00] VITALS: BP 110/67; PULSE 66; RESP 18; TEMP 36.4; O2SAT 95
[2024-10-21] MEDS: methADONE HCl 20 MG/2 ML ORAL.CONC 120 MG PO (08:04)
[2024-10-21] MEDS: Propranolol HCL 20 MG TABLET PO ×2 (08:56→21:29)
[2024-10-21] MEDS: Atorvastatin Calcium 20 MG TABLET PO (08:56)
[2024-10-21] MEDS: OXcarbazepine 300 MG TABLET 600 MG PO (08:56)
[2024-10-21] MEDS: methocarbamoL 750 MG TABLET PO ×2 (08:56→15:46)
[2024-10-21] MEDS: Furosemide 20 MG TABLET PO (08:56)
[2024-10-21] MEDS: Omeprazole 40 MG CAPSULE.DR PO (08:56)
[2024-10-21] MEDS: Ibuprofen 800 MG TABLET PO ×2 (08:56→18:16)
[2024-10-21] MEDS: Topiramate 25 MG TABLET 50 MG PO ×2 (08:56→21:29)
[2024-10-21] MEDS: buPROPion HCl XL 150 MG TAB.ER.24H PO (08:57)
[2024-10-21] MEDS: Gabapentin 400 MG CAPSULE PO ×2 (08:57→21:28)
[2024-10-21] MEDS: Acetaminophen 325 MG TABLET 650 MG PO (11:30)
[2024-10-21] MEDS: hydrOXYzine HCL 50 MG TABLET PO ×2 (11:31→15:46)
[2024-10-21] MEDS: cefuroxime axetiL 500 MG TABLET PO (11:31)
--- NOTE | 2024-10-21 16:37 | HO.PSYCHPN ---
Subjective Subjective Date of Service: 10/21/24 Reason For Visit: Crisis Subjective Notes: Conditional Voluntary Healthcare Proxy: No Guardianship: No Medical Problems Affecting Mental Status: No Interim History: Review of medications. Pt requests he return to a regular diet. Discussed risks of stopping low sodium diet and he verbalized understanding and asks that we discontinue this irregardless. Also discussed increasing Mirtazapine to assist with mgt of depression which we will trial. Medication Compliance: Yes Side effects from medications: No Attending Groups: Intermittent Review of Systems Acute medical concerns: No Review of Systems Review of Systems migraine pain LLE edema Mental Status Exam Mental Status Exam Patient Appearance: Appropriate Patient Orientation: Person, Place, Time and Situation Level of Consciousness: Alert Patient Behavior: Appropriate, Talkative, Cooperative and Good Eye Contact Mood Description: Appropriate Affect Description: Appropriate Patient Cognition Impaired: No Ability to Follow Directions: Good Speech Pattern: Spontaneous Speech Memory Description: Intact Hallucinations: None Delusions: Not Present Thought Process: Intact and Goal Oriented Thought Content: positive for Intact and positive for Goal Oriented Judgement: Good Diagnostics Vital Signs (24Hr): Vital Signs - 24 hr 10/20/24 20:00 10/20/24 21:15 10/20/24 22:35 Temperature 98.2 F 97.8 F 97.9 F Pulse Rate 54 59 61 Respiratory Rate 16 Blood Pressure 178/77 H 110/56 L 115/55 L Pulse Oximetry 100 99 97 Oxygen Delivery Method Room Air Room Air Room Air 10/20/24 22:41 10/20/24 22:42 10/21/24 08:00 Temperature 97.5 F Pulse Rate 61 66 Respiratory Rate 18 Blood Pressure 115/55 L 115/55 L 110/67 Pulse Oximetry 95 Oxygen Delivery Method Room Air BMI result Body Mass Index 31.0 Labs 10/17/24 20:36 10/17/24 20:36 Medications Medications Current Medications Acetaminophen (Acetaminophen 325 Mg Tablet) 650 mg PO Q6H PRN PRN Reason: Headache/Pain, Scale 1-10 Last Admin: 10/21/24 11:30 Dose: 650 mg Al Hydroxide/Mg Hydroxide (Magnesium Hydrox/Alum Hydrox 30 Ml Oral.Susp) 30 ml PO Q6H PRN PRN Reason: Heartburn/Nausea Albuterol Sulfate (Albuterol Sulfate 90 Mcg 8 Gm Inhaler) 2 puff INHALE Q4H PRN PRN Reason: Shortness Of Breath Or Wheezing Atorvastatin Calcium (Atorvastatin Calcium 20 Mg Tablet) 20 mg PO DAILY [facility] Last Admin: 10/21/24 08:56 Dose: 20 mg Bupropion HCl (Bupropion Hcl Xl 150 Mg Tab.Er.24h) 150 mg PO DAILY [facility] Last Admin: 10/21/24 08:57 Dose: 150 mg Fluticasone Propionate (Fluticasone Propionate Nasal 16 Gm [place]) 2 spray NOSTRIL-B DAILY PRN PRN Reason: Allergy Symptoms Furosemide (Furosemide 20 Mg Tablet) 20 mg PO DAILY [facility]; Protocol Stop: 10/24/24 09:01 Last Admin: 10/21/24 08:56 Dose: 20 mg Gabapentin (Gabapentin 400 Mg Capsule) 400 mg PO BID [facility] Last Admin: 10/21/24 08:57 Dose: 400 mg Hydroxyzine HCl (Hydroxyzine Hcl 50 Mg Tablet) 50 mg PO BID PRN PRN Reason: Anxiety/ sinuses Last Admin: 10/21/24 15:46 Dose: 50 mg Ibuprofen (Ibuprofen 800 Mg Tablet) 800 mg PO Q8H PRN PRN Reason: Pain, Moderate(Pain Scale 4-6) Last Admin: 10/21/24 08:56 Dose: 800 mg Lorazepam (Lorazepam 1 Mg Tablet) 1 mg PO Q6H PRN PRN Reason: agitation Magnesium Hydroxide (Milk Of Magnesia 30 Ml Oral.Susp) 30 ml PO DAILY PRN PRN Reason: Constipation Methadone HCl (Methadone Hcl 20 Mg/2 Ml Oral.Conc) 120 mg PO DAILY [facility] Last Admin: 10/21/24 08:04 Dose: 120 mg Methocarbamol (Methocarbamol 750 Mg Tablet) 750 mg PO TID PRN PRN Reason: Muscle Spasm Last Admin: 10/21/24 15:46 Dose: 750 mg Mirtazapine (Mirtazapine 15 Mg Tablet) 15 mg PO BEDTIME [facility] Last Admin: 10/20/24 22:40 Dose: 15 mg Nicotine Polacrilex (Nicotine Polacrilex 2 Mg Gum) 4 mg BUCCAL Q2H PRN PRN Reason: Nicotine Cravings Last Admin: 10/17/24 11:14 Dose: 4 mg Omeprazole (Omeprazole 40 Mg Capsule.Dr) 40 mg PO DAILY [facility] Last Admin: 10/21/24 08:56 Dose: 40 mg Oxcarbazepine (Oxcarbazepine 300 Mg Tablet) 600 mg PO DAILY [facility] Last Admin: 10/21/24 08:56 Dose: 600 mg Prazosin HCl (Prazosin Hcl 1 Mg Capsule) 3 mg PO BEDTIME [facility]; Protocol Last Admin: 10/20/24 22:42 Dose: 3 mg Propranolol HCl (Propranolol Hcl 20 Mg Tablet) 20 mg PO BID [facility]; Protocol Last Admin: 10/21/24 08:56 Dose: 20 mg Quetiapine Fumarate (Quetiapine Fumarate 200 Mg Tablet) 200 mg PO BEDTIME MRX1 [facility] Last Admin: 10/21/24 05:55 Dose: Not Given Senna (Sennosides 8.6 Mg Tablet) 8.6 mg PO BEDTIME PRN PRN Reason: Constipation Sumatriptan Succinate (Sumatriptan Succinate 100 Mg Tablet) 100 mg PO DAILY MRX1 PRN PRN Reason: Migraine Headache Last Admin: 10/21/24 11:31 Dose: 100 mg Topiramate (Topiramate 25 Mg Tablet) 50 mg PO BID [facility] Last Admin: 10/21/24 08:56 Dose: 50 mg Allergies Allergies Allergy/AdvReac Type Severity Reaction Status Date / Time No Known Allergies Allergy Verified 10/04/24 01:03 [No Known Allergies*] Assessment & Plan Assessment & Plan (1) Homelessness: Status: Acute Code(s): Z59.00 - Homelessness unspecified (2) PTSD (post-traumatic stress disorder): Status: Acute Code(s): F43.10 - Post-traumatic stress disorder, unspecified (3) Cocaine use disorder, moderate, dependence: Status: Acute Code(s): F14.20 - Cocaine dependence, uncomplicated (4) Opioid use disorder, severe, on maintenance therapy, dependence: Status: Acute Code(s): F11.20 - Opioid dependence, uncomplicated (5) MDD (major depressive disorder), recurrent episode, moderate: Status: Acute Code(s): F33.1 - Major depressive disorder, recurrent, moderate Plan 10/20/24: Continue current plan of care and regime. 10/21/24: Team continues to look for [facility] program for pt. Change diet to regular per pt request Increase Mirtazapine to 30 mg HS Reason for continued inpatient stay Substantial Risk for: rapid decompensation Time Spent With Patient Time: Total time managing care of this patient today ____ minutes.
[2024-10-21] MEDS: LORazepam 1 MG TABLET PO (18:16)
[2024-10-21 20:00] VITALS: BP 115/71; PULSE 88; RESP 16; TEMP 36.7; O2SAT 92
[2024-10-21] MEDS: QUEtiapine Fumarate 200 MG TABLET PO ×2 (21:28→21:47)
[2024-10-21 21:29] VITALS: BP 108/61; PULSE 60
[2024-10-21] MEDS: Mirtazapine 30 MG TABLET PO (21:29)
[2024-10-21 21:30] VITALS: BP 108/61
[2024-10-21] MEDS: Prazosin HCL 1 MG CAPSULE 3 MG PO (21:30)
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
[2024-10-22] MEDS: methADONE HCl 20 MG/2 ML ORAL.CONC 120 MG PO (07:45)
[2024-10-22 08:00] VITALS: BP 119/66; PULSE 72; RESP 16; TEMP 36.3; O2SAT 96
[2024-10-22] MEDS: Topiramate 25 MG TABLET 50 MG PO ×2 (08:04→21:49)
[2024-10-22] MEDS: buPROPion HCl XL 150 MG TAB.ER.24H PO (08:04)
[2024-10-22] MEDS: methocarbamoL 750 MG TABLET PO ×3 (08:04→19:07)
[2024-10-22] MEDS: Atorvastatin Calcium 20 MG TABLET PO (08:04)
[2024-10-22] MEDS: SUMAtriptan succinate 100 MG TABLET PO (08:04)
[2024-10-22] MEDS: Gabapentin 400 MG CAPSULE PO ×2 (08:04→21:51)
[2024-10-22] MEDS: Omeprazole 40 MG CAPSULE.DR PO (08:04)
[2024-10-22] MEDS: Acetaminophen 325 MG TABLET 650 MG PO ×3 (08:04→22:35)
[2024-10-22] MEDS: OXcarbazepine 300 MG TABLET 600 MG PO (08:04)
[2024-10-22] MEDS: Furosemide 20 MG TABLET PO (08:05)
[2024-10-22] MEDS: Propranolol HCL 20 MG TABLET PO ×2 (08:05→21:49)
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
[2024-10-22] MEDS: Ibuprofen 800 MG TABLET PO ×2 (15:01→23:49)
[2024-10-22] MEDS: hydrOXYzine HCL 50 MG TABLET PO ×2 (15:02→23:50)
[2024-10-22 20:00] VITALS: BP 107/56; PULSE 98; TEMP 36.6; O2SAT 99
[2024-10-22 21:49] VITALS: BP 107/56; PULSE 98
[2024-10-22 21:50] VITALS: BP 107/56
[2024-10-22] MEDS: QUEtiapine Fumarate 200 MG TABLET PO (21:50)
[2024-10-22] MEDS: Prazosin HCL 1 MG CAPSULE 3 MG PO (21:50)
[2024-10-22] MEDS: Mirtazapine 30 MG TABLET PO (21:50)
[2024-10-23] MEDS: methocarbamoL 750 MG TABLET PO ×3 (05:02→20:53)
[2024-10-23] MEDS: LORazepam 1 MG TABLET PO ×2 (05:02→20:52)
[2024-10-23 07:00] VITALS: BMI 30.8
[2024-10-23] MEDS: methADONE HCl 20 MG/2 ML ORAL.CONC 120 MG PO (07:44)
[2024-10-23] MEDS: Propranolol HCL 20 MG TABLET PO ×2 (08:09→21:58)
[2024-10-23] MEDS: Omeprazole 40 MG CAPSULE.DR PO (08:09)
[2024-10-23] MEDS: Topiramate 25 MG TABLET 50 MG PO ×2 (08:09→21:58)
[2024-10-23] MEDS: Atorvastatin Calcium 20 MG TABLET PO (08:09)
[2024-10-23] MEDS: Furosemide 20 MG TABLET PO (08:09)
[2024-10-23] MEDS: Ibuprofen 800 MG TABLET PO (08:09)
[2024-10-23] MEDS: buPROPion HCl XL 150 MG TAB.ER.24H PO (08:09)
[2024-10-23] MEDS: Gabapentin 400 MG CAPSULE PO ×2 (08:09→21:57)
[2024-10-23] MEDS: OXcarbazepine 300 MG TABLET 600 MG PO (08:10)
[2024-10-23 08:15] VITALS: BP 107/61; PULSE 59; RESP 16; TEMP 36.8; O2SAT 95
[2024-10-23] MEDS: SUMAtriptan succinate 100 MG TABLET PO ×2 (09:46→20:53)
[2024-10-23] MEDS: hydrOXYzine HCL 50 MG TABLET PO ×2 (09:46→16:14)
--- NOTE | 2024-10-23 12:22 | P.PNPSI_ITS ---
Subjective Subjective Date of Service: 10/23/24 Reason For Visit: Crisis Subjective Notes: Conditional Voluntary Healthcare Proxy: No Guardianship: No Medical Problems Affecting Mental Status: No Interim History: Pt reports he is prepared for discharge on 10/24. He denies SI,HI,AH,VH. There are no acute sx of mayra or psychosis. Visable and social in the milieu. He is pending acceptance at [facility] Discussed use of compression socks for venous stasis. He declined and asks that they not be ordered. Medication Compliance: Yes Side effects from medications: No Attending Groups: Intermittent Review of Systems Acute medical concerns: No Medical Review of Systems: unchanged Review of Systems Review of Systems Chronic migraine headaches Mental Status Exam Mental Status Exam Patient Appearance: Appropriate Patient Orientation: Person, Place, Time and Situation Level of Consciousness: Alert Patient Behavior: Talkative and Good Eye Contact Mood Description: Flat Affect Description: Flat Patient Cognition Impaired: No Ability to Follow Directions: Good Speech Pattern: Spontaneous Speech Memory Description: Intact Hallucinations: None Delusions: Not Present Thought Process: Distracted and Goal Oriented Thought Content: positive for Goal Oriented and positive for Suicidal Ideation (denies) Depressive Symptoms: Thoughts of /Suicide (denies) Judgement: Good Diagnostics Vital Signs (24Hr): Vital Signs - 24 hr 10/22/24 20:00 10/22/24 21:49 10/22/24 21:50 Temperature 97.9 F Pulse Rate 98 98 Respiratory Rate Blood Pressure 107/56 L 107/56 L 107/56 L Pulse Oximetry 99 Oxygen Delivery Method Room Air 10/23/24 08:15 Temperature 98.2 F Pulse Rate 59 Respiratory Rate 16 Blood Pressure 107/61 Pulse Oximetry 95 Oxygen Delivery Method Room Air BMI result Body Mass Index 30.8 Labs 10/17/24 20:36 10/17/24 20:36 Medications Medications Current Medications Acetaminophen (Acetaminophen 325 Mg Tablet) 650 mg PO Q6H PRN PRN Reason: Headache/Pain, Scale 1-10 Last Admin: 10/22/24 22:35 Dose: 650 mg Al Hydroxide/Mg Hydroxide (Magnesium Hydrox/Alum Hydrox 30 Ml Oral.Susp) 30 ml PO Q6H PRN PRN Reason: Heartburn/Nausea Albuterol Sulfate (Albuterol Sulfate 90 Mcg 8 Gm Inhaler) 2 puff INHALE Q4H PRN PRN Reason: Shortness Of Breath Or Wheezing Atorvastatin Calcium (Atorvastatin Calcium 20 Mg Tablet) 20 mg PO DAILY [facility] Last Admin: 10/23/24 08:09 Dose: 20 mg Bupropion HCl (Bupropion Hcl Xl 150 Mg Tab.Er.24h) 150 mg PO DAILY [facility] Last Admin: 10/23/24 08:09 Dose: 150 mg Fluticasone Propionate (Fluticasone Propionate Nasal 16 Gm [place]) 2 spray NOSTRIL-B DAILY PRN PRN Reason: Allergy Symptoms Furosemide (Furosemide 20 Mg Tablet) 20 mg PO DAILY [facility]; Protocol Stop: 10/24/24 09:01 Last Admin: 10/23/24 08:09 Dose: 20 mg Gabapentin (Gabapentin 400 Mg Capsule) 400 mg PO BID [facility] Last Admin: 10/23/24 08:09 Dose: 400 mg Hydroxyzine HCl (Hydroxyzine Hcl 50 Mg Tablet) 50 mg PO BID PRN PRN Reason: Anxiety/ sinuses Last Admin: 10/23/24 09:46 Dose: 50 mg Ibuprofen (Ibuprofen 800 Mg Tablet) 800 mg PO Q8H PRN PRN Reason: Pain, Moderate(Pain Scale 4-6) Last Admin: 10/23/24 08:09 Dose: 800 mg Lorazepam (Lorazepam 1 Mg Tablet) 1 mg PO Q6H PRN PRN Reason: agitation Last Admin: 10/23/24 05:02 Dose: 1 mg Magnesium Hydroxide (Milk Of Magnesia 30 Ml Oral.Susp) 30 ml PO DAILY PRN PRN Reason: Constipation Methadone HCl (Methadone Hcl 20 Mg/2 Ml Oral.Conc) 120 mg PO DAILY [facility] Last Admin: 10/23/24 07:44 Dose: 120 mg Methocarbamol (Methocarbamol 750 Mg Tablet) 750 mg PO TID PRN PRN Reason: Muscle Spasm Last Admin: 10/23/24 05:02 Dose: 750 mg Mirtazapine (Mirtazapine 30 Mg Tablet) 30 mg PO BEDTIME [facility] Last Admin: 10/22/24 21:50 Dose: 30 mg Nicotine Polacrilex (Nicotine Polacrilex 2 Mg Gum) 4 mg BUCCAL Q2H PRN PRN Reason: Nicotine Cravings Last Admin: 10/17/24 11:14 Dose: 4 mg Omeprazole (Omeprazole 40 Mg Capsule.Dr) 40 mg PO DAILY [facility] Last Admin: 10/23/24 08:09 Dose: 40 mg Oxcarbazepine (Oxcarbazepine 300 Mg Tablet) 600 mg PO DAILY [facility] Last Admin: 10/23/24 08:10 Dose: 600 mg Prazosin HCl (Prazosin Hcl 1 Mg Capsule) 3 mg PO BEDTIME [facility]; Protocol Last Admin: 10/22/24 21:50 Dose: 3 mg Propranolol HCl (Propranolol Hcl 20 Mg Tablet) 20 mg PO BID [facility]; Protocol Last Admin: 10/23/24 08:09 Dose: 20 mg Quetiapine Fumarate (Quetiapine Fumarate 200 Mg Tablet) 200 mg PO BEDTIME MRX1 [facility] Last Admin: 10/22/24 23:50 Dose: Not Given Senna (Sennosides 8.6 Mg Tablet) 8.6 mg PO BEDTIME PRN PRN Reason: Constipation Sumatriptan Succinate (Sumatriptan Succinate 100 Mg Tablet) 100 mg PO DAILY MRX1 PRN PRN Reason: Migraine Headache Last Admin: 10/23/24 09:46 Dose: 100 mg Topiramate (Topiramate 25 Mg Tablet) 50 mg PO BID [facility] Last Admin: 10/23/24 08:09 Dose: 50 mg Allergies Allergies Allergy/AdvReac Type Severity Reaction Status Date / Time No Known Allergies Allergy Verified 10/04/24 01:03 [No Known Allergies*] Assessment & Plan Assessment & Plan (1) Homelessness: Status: Acute Code(s): Z59.00 - Homelessness unspecified (2) PTSD (post-traumatic stress disorder): Status: Acute Code(s): F43.10 - Post-traumatic stress disorder, unspecified (3) Cocaine use disorder, moderate, dependence: Status: Acute Code(s): F14.20 - Cocaine dependence, uncomplicated (4) Opioid use disorder, severe, on maintenance therapy, dependence: Status: Acute Code(s): F11.20 - Opioid dependence, uncomplicated (5) MDD (major depressive disorder), recurrent episode, moderate: Status: Acute Code(s): F33.1 - Major depressive disorder, recurrent, moderate Plan 10/20/24: Continue current plan of care and regime. 10/22/24: Discharge planning for 10/24/24. 10/23/24: Discharge 10/23. Reason for continued inpatient stay Substantial Risk for: stable for discharge Time Spent With Patient Time: Total time managing care of this patient today ____ minutes.
[2024-10-23] MEDS: Acetaminophen 325 MG TABLET 650 MG PO (13:57)
[2024-10-23 20:00] VITALS: BP 101/70; PULSE 70; TEMP 36.2; O2SAT 96
[2024-10-23 21:56] VITALS: BP 101/70
[2024-10-23] MEDS: Prazosin HCL 1 MG CAPSULE 3 MG PO (21:56)
[2024-10-23] MEDS: Mirtazapine 30 MG TABLET PO (21:57)
[2024-10-23 21:58] VITALS: BP 122/74; PULSE 87
[2024-10-23] MEDS: QUEtiapine Fumarate 200 MG TABLET PO (21:58)
[2024-10-24] MEDS: methADONE HCl 20 MG/2 ML ORAL.CONC 120 MG PO (07:41)
[2024-10-24 07:52] VITALS: BP 116/69; PULSE 59; TEMP 35.8; O2SAT 98
[2024-10-24] MEDS: buPROPion HCl XL 150 MG TAB.ER.24H PO (09:24)
[2024-10-24] MEDS: Atorvastatin Calcium 20 MG TABLET PO (09:24)
[2024-10-24] MEDS: OXcarbazepine 300 MG TABLET 600 MG PO (09:24)
[2024-10-24] MEDS: Gabapentin 400 MG CAPSULE PO (09:24)
[2024-10-24 09:25] VITALS: BP 120/72
[2024-10-24] MEDS: Furosemide 20 MG TABLET PO (09:25)
[2024-10-24] MEDS: Topiramate 25 MG TABLET 50 MG PO (09:25)
[2024-10-24] MEDS: Omeprazole 40 MG CAPSULE.DR PO (09:26)
[2024-10-24] MEDS: SUMAtriptan succinate 100 MG TABLET PO (09:34)
[2024-10-24] MEDS: methocarbamoL 750 MG TABLET PO ×2 (09:34→14:46)
[2024-10-24] MEDS: hydrOXYzine HCL 50 MG TABLET PO (09:34)
[2024-10-24 10:22] VITALS: BP 120/72
[2024-10-24] MEDS: Propranolol HCL 20 MG TABLET PO (10:22)
[2024-10-24] MEDS: LORazepam 1 MG TABLET PO (14:46)
--- NOTE | 2024-10-24 19:33 | PM.PSYDC ---
DS: Providers Provider Date of Service: 10/24/24 Date of admission: 10/06/24 14:28 Date of discharge: 10/24/24 Primary care physician: Phil Physician Admitting clinician: Brianda Nguyen Attending physician on admission: Angus Downs Consults: 10/13/24 17:30 Consult to Hospitalist Routine Comment: Consulting Provider: [facility] Hospitalists Reason For Exam: Right foot cellulitis 10/15/24 15:40 Consult to Neurology Routine Consulting Provider: [facility] Reason for consultation: ineffective migraine mgt. Has provider been notified: No 10/16/24 21:21 Consult to Hospitalist Routine Comment: Consulting Provider: [facility] Hospitalists Reason For Exam: right foot cellulitis; worsening? Attending physician on discharge: Angus Downs Discharging clinician: Nithya Willnigham DS: Diagnosis Discharge Diagnosis (1) Homelessness: Status: Acute (2) PTSD (post-traumatic stress disorder): Status: Acute (3) Cocaine use disorder, moderate, dependence: Status: Acute (4) Opioid use disorder, severe, on maintenance therapy, dependence: Status: Acute (5) MDD (major depressive disorder), recurrent episode, moderate: Status: Acute DS: Medications Discharge Medications Home Medications: Home Medications ?Medication ?Instructions ?Recorded ?Confirmed methadone 10 mg/mL injection 120 mg subcut DAILY 10/04/24 10/04/24 solution acetaminophen 500 mg tablet 1,000 mg PO Q8H PRN pain/headache 10/06/24 10/06/24 Previous Rx's ?Medication ?Instructions ?Recorded albuterol sulfate 90 mcg/actuation 2 puff inhalation Q4H PRN 10/24/24 aerosol inhaler (Ventolin HFA) Shortness Of Breath Or Wheezing #1 inhaler atorvastatin 20 mg tablet 20 mg PO DAILY #30 tabs 10/24/24 bupropion HCl 150 mg 24 hr tablet, 150 mg PO DAILY #30 tabs 10/24/24 extended release fluticasone propionate 50 2 spray intranasal DAILY PRN 10/24/24 mcg/actuation nasal Allergy Symptoms #1 inhaler spray,suspension gabapentin 400 mg capsule 400 mg PO BID #60 caps 10/24/24 hydroxyzine HCl 50 mg tablet 50 mg PO BID PRN Anxiety/ sinuses 10/24/24 #60 tabs ibuprofen 800 mg tablet 800 mg PO Q8H PRN Pain, 10/24/24 Moderate(Pain Scale 4-6) #0 tabs methocarbamol 750 mg tablet 750 mg PO TID PRN Muscle Spasm #30 10/24/24 tabs mirtazapine 30 mg tablet 30 mg PO BEDTIME #30 tabs 10/24/24 naloxone 4 mg/actuation nasal 4 mg intranasal Q2M PRN opioid 10/24/24 spray (Narcan) overdose #2 ea nicotine (polacrilex) 2 mg gum 4 mg buccal Q2H PRN Nicotine 10/24/24 Cravings #100 ea omeprazole 40 mg capsule,delayed 40 mg PO DAILY #30 caps 10/24/24 release oxcarbazepine 300 mg tablet 600 mg (2 x 300 mg) PO DAILY #60 10/24/24 tabs prazosin 1 mg capsule 3 mg PO BEDTIME #90 caps 10/24/24 propranolol 20 mg tablet 20 mg PO BID #60 tabs 10/24/24 quetiapine 200 mg tablet 200 mg PO BEDTIME MRX1 #60 tabs 10/24/24 sennosides 8.6 mg tablet (Senna 8.6 mg PO BEDTIME PRN Constipation 10/24/24 Lax) #30 tabs sumatriptan succinate 100 mg tablet 100 mg PO DAILY MRX1 PRN Migraine 10/24/24 Headache #30 tabs topiramate 25 mg tablet 50 mg (2 x 25 mg) PO BID #120 tabs 10/24/24 Mental Status Exam Mental Status Exam Patient Appearance: Appropriate Patient Orientation: Person, Place, Time and Situation Level of Consciousness: Alert Patient Behavior: Talkative and Good Eye Contact Mood Description: Flat Affect Description: Flat Patient Cognition Impaired: No Ability to Follow Directions: Good Speech Pattern: Spontaneous Speech Memory Description: Intact Hallucinations: None Delusions: Not Present Thought Process: Distracted and Goal Oriented Thought Content: positive for Goal Oriented and positive for Suicidal Ideation (denies) Depressive Symptoms: Thoughts of /Suicide (denies) Judgement: Good Data Data Completed and Pending Completed studies during hospitalization [Text1]: 10/17/24 20:36 WBC 8.3 RBC 3.83 L Hgb 11.8 L Hct 35.2 L MCV 91.9 MCH 30.8 MCHC 33.5 RDW 12.8 Plt Count 274 MPV 9.8 Absolute Nucleated RBC 0.000 Nucleated RBC % (auto) 0.0 ESR 27 H Sodium 142 Potassium 4.1 Chloride 103 Carbon Dioxide 29 Anion Gap 14 BUN 15 Creatinine 0.98 Estim Creat Clear Calc 115.9 Estimated GFR > 60 Random Glucose 60 Calcium 8.9 C-Reactive Protein 1.35 H DS: Summary Hospital Course Hospital Course: Admission to adult psychiatry for exacerbation of recurrent major depression with SI, opiate and cocaine use disorder, currently on Methadone and chronic migraine. Medications were evaluated and adjusted. Pt was seen by neurology for evaluation of migraine and by hospitalist services for possible cellulitis and venous stasis. Pt was encouraged to participate in the milieu to strengthen coping skills but was a minimal participant. Pt will return to [facility] for out pt care and will reside at [facility]. Status at Discharge Functional status at discharge: independent ambulation Overall status at discharge: patient is back to baseline Time Spent with Patient Time attestation: Total time managing care of this patient today ____ minutes. Time spent: Less than 30 minutes Discharge Plan Discharge Anticipated Discharge Date/Time: 10/24/24 14:00 Patient Disposition: [facility] Discharge Diagnosis: PTSD Recurrent Major Depression Opiate Use Disorder, Methadone maintenance Cocaine Use Disorder Migraine Headaches Homelessness Referrals: [facility] Transportation [Other] - 10/25/24 7:30 am (Scheduled transportation for on year from [facility] to [facility] for Methadone (MAT) Pick-up time 7:30 am Daily Return time: 10: 00 am daily. If you have any issues with transportation call the [facility] services at [phone]) [facility] Transportation: [employer] [facility] [Other] - 10/24/24 2:30 pm (Lyft will be provided to take you to [facility] in [place], [place]. Pick-up time will be 2:30 pm) [facility] [Other] - 1 Week (Accepted to [facility] Patient will need to have money order for $65 dollars to present to [facility] at time of admission and then will make weekly payments every Sunday afterwards. Patient will have to leave jail daily between 8 am and return for admission at 5:00 pm. ) [facility] [Other] - 10/25/24 7:30 am (Hospital discharge appointment with [facility] Patient will be transported from jail to clinic to receive Methadone Patient will see provider at clinic) [facility] [Other] - 1 Week (Patient should follow-up on referral for substance abuse treatment after discharge ) [facility] [Other] - 1 Week (Patient should follow-up on referral for substance abuse treatment after discharge ) [facility] [Other] - 1 Week (patient should follow-up on referral for substance abuse treatment after discharge ) [facility] [Other] - 1 Week (Patient should follow-up on referral after discharge for substance use treatment ) [facility] [Other] - 1 Week (Patient should follow-up on referral after discharge fro substance use treatment ) Physician,None [Primary Care Provider] - 1 Week Discharge Medications: New atorvastatin 20 mg Tablet 20 mg PO DAILY Qty: 30 0RF nicotine (polacrilex) 2 mg Gum 4 mg buccal Q2H PRN (Reason: Nicotine Cravings) Qty: 100 0RF prazosin 1 mg Capsule 3 mg PO BEDTIME Qty: 90 0RF Protocol: Hold for SBP< HOLD for SBP < : 90 propranolol 20 mg Tablet 20 mg PO BID Qty: 60 0RF Protocol: Hold for SBP/HR < HOLD for SBP < : 90 HOLD for HR < : 60 sennosides [Senna Lax] 8.6 mg Tablet 8.6 mg PO BEDTIME PRN (Reason: Constipation) Qty: 30 0RF ibuprofen 800 mg Tablet 800 mg PO Q8H PRN (Reason: Pain, Moderate(Pain Scale 4-6)) Qty: 0 0RF sumatriptan succinate 100 mg Tablet 100 mg PO DAILY MRX1 PRN (Reason: Migraine Headache) Qty: 30 0RF gabapentin 400 mg Capsule 400 mg PO BID Qty: 60 0RF quetiapine 200 mg Tablet 200 mg PO BEDTIME MRX1 Qty: 60 0RF topiramate 25 mg Tablet 50 mg PO BID Qty: 120 0RF hydroxyzine HCl 50 mg Tablet 50 mg PO BID PRN (Reason: Anxiety/ sinuses ) Qty: 60 0RF oxcarbazepine 300 mg Tablet 600 mg PO DAILY Qty: 60 0RF omeprazole 40 mg Capsule,Delayed Release(Dr/Ec) 40 mg PO DAILY Qty: 30 0RF mirtazapine 30 mg Tablet 30 mg PO BEDTIME Qty: 30 0RF fluticasone propionate 50 mcg/actuation [place],Suspension 2 spray intranasal DAILY PRN (Reason: Allergy Symptoms) Qty: 1 0RF bupropion HCl 150 mg Tablet Extended Release 24 Hr 150 mg PO DAILY Qty: 30 0RF Continued methocarbamol 750 mg tablet 750 mg PO TID PRN (Reason: Muscle Spasm) Qty: 30 0RF Discontinued gabapentin 300 mg capsule 600 mg PO BID oxcarbazepine 600 mg tablet 600 mg PO DAILY hydroxyzine HCl 50 mg tablet 50 mg PO BID albuterol sulfate [Ventolin HFA] 90 mcg/actuation HFA aerosol inhaler 2 puff inhalation Q4H PRN (Reason: Shortness Of Breath Or Wheezing) quetiapine 100 mg tablet 100 mg PO TID PRN (Reason: Anxiety) atorvastatin 20 mg tablet 20 mg PO DAILY omeprazole 40 mg capsule,delayed release(DR/EC) 40 mg PO DAILY propranolol 20 mg tablet 20 mg PO BID sennosides [senna] 8.6 mg tablet 17.2 mg PO BEDTIME PRN (Reason: Constipation) mirtazapine 15 mg tablet 15 mg PO BEDTIME fluticasone propionate 50 mcg/actuation spray,suspension 2 spray INTRANASAL DAILY PRN (Reason: Allergy Symptoms) prazosin 2 mg capsule 4 mg PO BEDTIME bupropion HCl 150 mg tablet extended release 24 hr 150 mg PO DAILY quetiapine 400 mg tablet 400 mg PO BEDTIME No Action methadone 10 mg/mL Concentrate 120 mg PO DAILY Discharge Orders: Discharge Order (Routine); Ordered 10/24/24 Ordered By: Nithya Willingham Diet: Advance to usual diet Activity on Discharge: As tolerated Stand Alone Forms: Patient Portal Discharge page, Community Support Print Language: Pashto Care Plan Goals: Abstinence from substances Mood and Behavioral Stabilization Health Concerns: Abstinence from substances Mood and Behavioral Stabilization Plan of Treatment: Attend scheduled appointments Take medications as directed Assessment: Discharge today to [facility] Pt agrees with plan of care Denies SI,HI,AH,VH Discharge Date/Time: 10/24/24 15:35
== END 2024-10-24 15:35 | disposition home or self-care (01) | DRG 885 ==
LOC: HO.ED 07:25 → HO.PADLT16 10-06 14:29 → HO.PM5 10-07 12:24
PROVIDERS: Internal Medicine; Psychiatry & Neurology Psychiatry; Admitting Provider Registered Nurse; Emergency Provider Internal Medicine; Visit Provider Clinical Nurse Specialist Psychiatric/Mental Health, Adult
DX: F33.1 Major depressive disorder, recurrent, moderate (principal); Z59.02 Unsheltered homelessness; F11.20 Opioid dependence, uncomplicated; F14.20 Cocaine dependence, uncomplicated; R45.851 Suicidal ideations; L03.115 Cellulitis of right lower limb; F43.10 Post-traumatic stress disorder, unspecified; R51.9 Headache, unspecified; F19.90 Other psychoactive substance use, unspecified, uncomplicated; F17.210 Nicotine dependence, cigarettes, uncomplicated; Z71.6 Tobacco abuse counseling; Z20.822 Contact with and (suspected) exposure to COVID-19; Z79.899 Other long term (current) drug therapy
CPT/HCPCS: 0241U; 36415; 80048; 80053; 80061; 80143; 80178; 80179; 80307; 81001; 81003; 82607; 82746; 85025; 85027; 85652; 86140; 93005; 99285; S9485

== ENCOUNTER → 2024-10-06 08:25 | Outpatient (BNV) | payer OTHER, SELFPAY | PROVIDERS: Admitting Provider Registered Nurse; Emergency Provider Internal Medicine; Visit Provider Internal Medicine Cardiovascular Disease | DX: R94.31 Abnormal electrocardiogram [ECG] [EKG] (principal) | CPT/HCPCS: 93010 ==

== ENCOUNTER → 2024-10-06 14:28 | Outpatient (BNV) | payer OTHER, SELFPAY | PROVIDERS: Admitting Provider Registered Nurse; Emergency Provider Internal Medicine; Visit Provider Psychiatry & Neurology Psychiatry | DX: F33.1 Major depressive disorder, recurrent, moderate (principal); F14.20 Cocaine dependence, uncomplicated; F11.20 Opioid dependence, uncomplicated; F43.10 Post-traumatic stress disorder, unspecified; Z59.00 Homelessness unspecified | CPT/HCPCS: 99238 ==

== ENCOUNTER → 2024-10-06 14:28 | Outpatient (BNV) | payer OTHER, SELFPAY | PROVIDERS: Admitting Provider Registered Nurse; Emergency Provider Internal Medicine; Visit Provider Psychiatry & Neurology Neurology | DX: R51.9 Headache, unspecified (principal) | CPT/HCPCS: 99222 ==

== ENCOUNTER → 2024-10-06 14:28 | Outpatient (BNV) | payer OTHER, SELFPAY | PROVIDERS: Admitting Provider Registered Nurse; Emergency Provider Internal Medicine; Visit Provider Registered Nurse | DX: F33.1 Major depressive disorder, recurrent, moderate (principal); F43.10 Post-traumatic stress disorder, unspecified; F14.20 Cocaine dependence, uncomplicated; F11.20 Opioid dependence, uncomplicated; Z59.00 Homelessness unspecified | CPT/HCPCS: 90792 ==

== ENCOUNTER → 2024-10-06 14:28 | Outpatient (BNV) | payer OTHER, SELFPAY | PROVIDERS: Admitting Provider Registered Nurse; Emergency Provider Internal Medicine; Visit Provider Physician Assistant | DX: L03.115 Cellulitis of right lower limb (principal) | CPT/HCPCS: 99222 ==

== ENCOUNTER 2024-10-26 16:51 | Emergency (ER) | payer OTHER, SELFPAY ==
[2024-10-26 17:01] VITALS: BP 140/78; BP 151/71; PULSE 82; PULSE 90; RESP 16; TEMP 36.8; O2SAT 95; O2SAT 99; BMI 34.1
[2024-10-26 17:06] VITALS: RESP 16
--- NOTE | 2024-10-26 17:35 | ED_ITS ---
HPI - General Adult General Chief complaint: Psychiatric Symptoms Stated complaint: si no hi, planning over dose Time Seen by Provider: 10/26/24 16:57 Source: patient, RN notes reviewed and old records reviewed Mode of arrival: EMS Limitations: no limitations History of Present Illness ED Provider: Anderson HPI narrative: 49-year-old male past medical history significant for substance abuse, depression, PTSD presents for evaluation of suicidal ideation. Patient reports that he just recently was discharged from this facility 2 days ago He reports that he was still feeling suicidal? there is just too much going on. ? He denies any plan to harm himself. He reports that he has been taking his medications. He also reports using a bundle of heroin about 12 hours ago Plans of a headache and he has had for last 2 days, denies any trauma to the head. He has no other complaints or concerns at this time Related Data Home Medications ?Medication ?Instructions ?Recorded ?Confirmed methadone 10 mg/mL injection 120 mg subcut DAILY 10/04/24 10/04/24 solution acetaminophen 500 mg tablet 1,000 mg PO Q8H PRN pain/headache 10/06/24 10/06/24 Previous Rx's ?Medication ?Instructions ?Recorded albuterol sulfate 90 mcg/actuation 2 puff inhalation Q4H PRN 10/24/24 aerosol inhaler (Ventolin HFA) Shortness Of Breath Or Wheezing #1 inhaler atorvastatin 20 mg tablet 20 mg PO DAILY #30 tabs 10/24/24 bupropion HCl 150 mg 24 hr tablet, 150 mg PO DAILY #30 tabs 10/24/24 extended release fluticasone propionate 50 2 spray intranasal DAILY PRN 10/24/24 mcg/actuation nasal Allergy Symptoms #1 inhaler spray,suspension gabapentin 400 mg capsule 400 mg PO BID #60 caps 10/24/24 hydroxyzine HCl 50 mg tablet 50 mg PO BID PRN Anxiety/ sinuses 10/24/24 #60 tabs ibuprofen 800 mg tablet 800 mg PO Q8H PRN Pain, 10/24/24 Moderate(Pain Scale 4-6) #0 tabs methocarbamol 750 mg tablet 750 mg PO TID PRN Muscle Spasm #30 10/24/24 tabs mirtazapine 30 mg tablet 30 mg PO BEDTIME #30 tabs 10/24/24 naloxone 4 mg/actuation nasal 4 mg intranasal Q2M PRN opioid 10/24/24 spray (Narcan) overdose #2 ea nicotine (polacrilex) 2 mg gum 4 mg buccal Q2H PRN Nicotine 10/24/24 Cravings #100 ea omeprazole 40 mg capsule,delayed 40 mg PO DAILY #30 caps 10/24/24 release oxcarbazepine 300 mg tablet 600 mg (2 x 300 mg) PO DAILY #60 10/24/24 tabs prazosin 1 mg capsule 3 mg PO BEDTIME #90 caps 10/24/24 propranolol 20 mg tablet 20 mg PO BID #60 tabs 10/24/24 quetiapine 200 mg tablet 200 mg PO BEDTIME MRX1 #60 tabs 10/24/24 sennosides 8.6 mg tablet (Senna 8.6 mg PO BEDTIME PRN Constipation 10/24/24 Lax) #30 tabs sumatriptan succinate 100 mg tablet 100 mg PO DAILY MRX1 PRN Migraine 10/24/24 Headache #30 tabs topiramate 25 mg tablet 50 mg (2 x 25 mg) PO BID #120 tabs 10/24/24 Allergies Allergy/AdvReac Type Severity Reaction Status Date / Time No Known Allergies Allergy Verified 10/26/24 17:04 [No Known Allergies*] Review of Systems Constitutional: Constitutional: Denies body ache(s), Denies chills, Denies fever(s), Denies frequent falls and Reports headache(s) Eyes: Eyes: Denies blurry vision and Denies exophthalmos ENT: Denies vertigo, Denies dizziness and Reports headache(s) Cardiovascular: Cardiovascular: Denies chest pain and Denies dyspnea Respiratory: Respiratory: Denies cough and Denies dyspnea Gastrointestinal: Gastrointestinal: Denies abdominal pain, Denies nausea and Denies vomiting Musculoskeletal: Musculoskeletal: Denies back pain Integumentary/Breasts: Skin/Breast: Denies rash Neurologic: Denies vertigo, Denies dizziness, Denies frequent falls and Reports headache(s) Psychiatric: Psychiatric: Reports anxiety, Reports depression, Denies homicidal ideation and Reports suicidal ideation [facility] Past Medical History Medical History (Updated 10/26/24 @ 17:39 by Elliott Barron) Polysubstance use disorder Depression Anxiety Mental health problem Substance abuse Social History Social History Household Members: None Housing: Homeless Do you presently have visiting nurse or other home services: No Unable to assess alcohol history related to: Refusing to respond Alcohol intake: unknown Comment: 1:1 Patient Tobacco Use Status: Current everyday Tobacco user Tobacco use type: Cigarette Cigarette Packs Per Day: 0.5 Cigarettes Per Day: 10.0 Smoked in Last 30 Days: No Second Hand Smoke Exposure: No Use of substances other than those prescribed or required for medical reasons: Yes Substance Use Type: Heroin, IV Drugs and Opiates Substance Use Frequency: Chronic Longstanding Last Used Substance: Hours (ago) service: No Sexual orientation: Straight/Heterosexual Physical Exam ED Vital Signs: Vital Signs - 24 hr 10/26/24 17:01 10/26/24 17:06 Temperature 98.2 F Pulse Rate 82 Respiratory Rate 16 16 Blood Pressure 151/71 H Pulse Oximetry 99 Oxygen Delivery Method Room Air BMI result Body Mass Index 34.1 Const General: healthy appearing, comfortable, no acute distress, alert and awake Nutritional Appearance: well nourished Orientation/consciousness: patient oriented x3 HENMT Head: Yes normocephalic and Yes atraumatic Eyes Eyelids: Yes eyelids normal Conjunctivae: conjunctivae normal Sclerae: sclerae normal Corneas: corneas normal Pupils: Equal, round and reactive pupils present EOM: EOMs intact bilaterally Neck Neck: Yes full ROM Resp Effort & Inspection: normal respiratory effort, able to speak in complete sentences, no audible wheezes and not labored Auscultation: clear to auscultation bilaterally Cardio Rate: regular rate Rhythm: regular rhythm GI Inspection: No distended Palpation (GI): Soft to palpation, not firm, nontender, no guarding and not rigid Skin General skin exam: elasticity normal Neuro General: patient oriented x3 Cranial nerves: Yes CN's II-XII intact bilaterally, Yes Equal, round and reactive pupils present and Yes Bilaterally intact EOM present Cognition (Neuro): normal cognition Extrem Other: Moving all extremities well without any obvious deformities Psych Appearance: grossly normal Mental Status: mental status grossly normal Speech and movement: Normal speech and movement present Affect: normal affect Attitude: cooperative Thought process: Normal thought process present Thought content: Suicidality present Insight: Fair insight present (Psych) Judgement: Fair judgement present (Psych) Medical Decision Making Medical Decision Making MDM Narrative: 49-year-old male presents for evaluation of depression with suicidal ideation. He has no plan to harm himself. He was just discharged from this facility 2 days ago. Plan for medical clearance and care team evaluation. He does complain of a headache but has no neuro focal deficits or trauma to the head or neck. We will treat his headache with Fioricet. Differential Diagnosis Differential Diagnoses: The differential diagnosis associated with the presentation includes Depression Suicidal ideation Substance abuse Homelessness Malingering Acute headache Migraine headache Discharge Plan Discharge Clinical Impression: Suicidal ideation, Headache Patient Disposition: Still a Patient Prescriptions: No Action methadone 10 mg/mL Solution 120 mg SUBCUT DAILY Rx Instructions: [facility] [phone] acetaminophen 500 mg Tablet 1,000 mg PO Q8H PRN (Reason: pain/headache) naloxone [Narcan] 4 mg/actuation spray,non-aerosol 4 mg intranasal Q2M PRN (Reason: opioid overdose) Qty: 2 0RF Rx Instructions: spray 1 dose into ONE nostril; alternate nostrils w each dose until help arrives atorvastatin 20 mg Tablet 20 mg PO DAILY Qty: 30 0RF nicotine (polacrilex) 2 mg Gum 4 mg buccal Q2H PRN (Reason: Nicotine Cravings) Qty: 100 0RF prazosin 1 mg Capsule 3 mg PO BEDTIME Qty: 90 0RF Protocol: Hold for SBP< HOLD for SBP < : 90 propranolol 20 mg Tablet 20 mg PO BID Qty: 60 0RF Protocol: Hold for SBP/HR < HOLD for SBP < : 90 HOLD for HR < : 60 sennosides [Senna Lax] 8.6 mg Tablet 8.6 mg PO BEDTIME PRN (Reason: Constipation) Qty: 30 0RF ibuprofen 800 mg Tablet 800 mg PO Q8H PRN (Reason: Pain, Moderate(Pain Scale 4-6)) Qty: 0 0RF sumatriptan succinate 100 mg Tablet 100 mg PO DAILY MRX1 PRN (Reason: Migraine Headache) Qty: 30 0RF gabapentin 400 mg Capsule 400 mg PO BID Qty: 60 0RF quetiapine 200 mg Tablet 200 mg PO BEDTIME MRX1 Qty: 60 0RF topiramate 25 mg Tablet 50 mg PO BID Qty: 120 0RF hydroxyzine HCl 50 mg Tablet 50 mg PO BID PRN (Reason: Anxiety/ sinuses ) Qty: 60 0RF oxcarbazepine 300 mg Tablet 600 mg PO DAILY Qty: 60 0RF omeprazole 40 mg Capsule,Delayed Release(Dr/Ec) 40 mg PO DAILY Qty: 30 0RF mirtazapine 30 mg Tablet 30 mg PO BEDTIME Qty: 30 0RF fluticasone propionate 50 mcg/actuation [place],Suspension 2 spray intranasal DAILY PRN (Reason: Allergy Symptoms) Qty: 1 0RF bupropion HCl 150 mg Tablet Extended Release 24 Hr 150 mg PO DAILY Qty: 30 0RF methocarbamol 750 mg tablet 750 mg PO TID PRN (Reason: Muscle Spasm) Qty: 30 0RF albuterol sulfate [Ventolin HFA] 90 mcg/actuation HFA aerosol inhaler 2 puff inhalation Q4H PRN (Reason: Shortness Of Breath Or Wheezing) Qty: 1 0RF Interventions: [employer]-Suicide Risk Severity Scale Last Done: 10/26/24 17:06 Print Language: Hungarian
[2024-10-26] MEDS: Butalb/Acetamin/Caff 50/325/40 TABLET 1 TAB PO (17:58)
--- NOTE | 2024-10-26 18:05 | PHA.MEDREC ---
Addendum entered by Andrew Benjamin 10/26/24 18:23: reviewed Original Note: Pharmacy Consult ? Medication Reconciliation Pharmacy has completed the medication reconciliation. Reviewed med rec done by nursing. Pt discharged 10/24. Used discharge packet to confirm.
[2024-10-26 18:19] LABS: MANUAL DIFF FLAG NO
--- NOTE | 2024-10-26 18:26 | HE.PHANOTE ---
Re Methadone Pt was here until 10/24/24, last given 120mg here that morning at 0741.
[2024-10-26 18:36] LABS: Alanine Aminotransferase 45 U/L (0-40); Albumin Level 4.7 g/dL (3.5-5.0); Alkaline Phosphatase 164 U/L (39-117); Anion Gap 14 (12-20); Aspartate Amino Transferase 57 U/L (5-37); Bilirubin Total 0.5 mg/dL (0.0-1.0); Blood Urea Nitrogen 28 mg/dL (9-16); Calcium 9.7 mg/dL (8.4-10.2); Carbon Dioxide 26 mmol/L (22-29); Chloride 105 mmol/L (96-108); Estimated Glomerular Filt Rate > 60; Ethanol < 10 mg/dL; Glucose Random 105 mg/dL (60-115); Potassium 3.4 mmol/L (3.3-5.1); Sodium 142 mmol/L (135-145); Total Protein 9.4 g/dL (6.5-8.0)
[2024-10-26 18:41] LABS: Basophils Percent Auto 0.3 % (0-2); Eosinophils Percent Auto 0.1 % (0-4); Hematocrit 38.2 % (42.0-52.0); Hemoglobin 12.8 g/dl (14.0-18.0); Imm Gran Abs Auto 0.15 X10*3/uL (0.00-0.03); Imm Gran Pct Auto 1.1 % (0.0-0.4); Lymphocytes Absolute Auto 1.6 X10*3/uL (1.2-4.9); Lymphocytes Percent Auto 11.1 % (20-40); Mean Corpuscular HGB Conc 33.5 g/dl (31.0-36.0); Mean Corpuscular Hemoglobin 30.3 pg (27.0-33.0); Mean Corpuscular Volume 90.5 fL (80.0-98.0); Mean Platelet Volume 9.6 fL (9.4-12.4); Monocytes Absolute Auto 1.1 X10*3/uL (0.1-1.2); Neutrophils Absolute Auto 11.1 x10*3/uL (2.0-8.3); Neutrophils Percent Auto 79.4 % (45-73); Platelet Count 328 X10*3/uL (160-400); Red Blood Count 4.22 X10*6/uL (4.60-5.80); Red Cell Distribution Width 12.9 % (11.0-16.0)
[2024-10-26 20:11] LABS: Appearance Urine Clear; Color Urine Yellow; Glucose Urine UA Negative (Negative); Leukocyte Esterase Urine Negative (Negative); Nitrite Urine Negative (Negative); Specific Gravity - Urine >= 1.030 (1.005-1.025); Urine Blood Negative (Negative); Urine Ketones 15 mg/dL (Negative); Urine Protein Trace mg/dL (Neg-Trace)
[2024-10-26 20:21] LABS: Amphetamine Screen Urine Not Detected (Not Detect); Barbiturates, Urine Not Detected (Not Detect); Benzodiazepines Screen Urine Not Detected (Not Detect); Buprenorphine Scr Not Detected (Not Detect); Cannabinoid Screen Urine Not Detected (Not Detect); Cocaine Screen Urine POSITIVE (Not Detect); Fentanyl, urine POSITIVE (Not Detect); Methadone Screen, Urine Positive (Not Detect); Opiate Screen Urine POSITIVE (Not Detect); Oxycodone Screen Urine Not Detected (Not Detect); Phencyclidine Screen Urine Not Detected (Not Detect)
[2024-10-26 20:52] VITALS: BP 109/65
[2024-10-26] MEDS: Topiramate 25 MG TABLET 50 MG PO (20:52)
[2024-10-26] MEDS: Prazosin HCL 1 MG CAPSULE 3 MG PO (20:52)
[2024-10-26] MEDS: QUEtiapine Fumarate 200 MG TABLET PO (20:52)
[2024-10-26] MEDS: Mirtazapine 30 MG TABLET PO (20:52)
[2024-10-26] MEDS: Ibuprofen 800 MG TABLET PO (20:52)
[2024-10-26] MEDS: Gabapentin 400 MG CAPSULE PO (20:52)
[2024-10-26 20:53] VITALS: BP 109/65; PULSE 85
[2024-10-26] MEDS: Propranolol HCL 20 MG TABLET PO (20:53)
[2024-10-26] MEDS: methocarbamoL 750 MG TABLET PO (21:01)
[2024-10-26] MEDS: SUMAtriptan succinate 100 MG TABLET PO (21:47)
[2024-10-27] MEDS: Omeprazole 40 MG CAPSULE.DR PO (05:34)
[2024-10-27 05:36] VITALS: BP 117/67; PULSE 68; RESP 18; TEMP 36.6; O2SAT 98
--- NOTE | 2024-10-27 06:33 | PC.NURSE ---
Patient slept through the night, no distress observed/reported, meds and meals compliant, care team deposition is pending, no behavior and safety concerns, will continue to monitor
[2024-10-27] MEDS: methADONE HCl 20 MG/2 ML ORAL.CONC 120 MG PO (07:34)
[2024-10-27] MEDS: methocarbamoL 750 MG TABLET PO (07:36)
[2024-10-27] MEDS: SUMAtriptan succinate 100 MG TABLET PO (08:33)
[2024-10-27 09:59] VITALS: BP 105/73; PULSE 59; RESP 16; TEMP 36.2; O2SAT 95
[2024-10-27] MEDS: Propranolol HCL 20 MG TABLET PO (10:01)
[2024-10-27] MEDS: Gabapentin 400 MG CAPSULE PO (10:01)
[2024-10-27] MEDS: buPROPion HCl XL 150 MG TAB.ER.24H PO (10:01)
[2024-10-27] MEDS: Atorvastatin Calcium 20 MG TABLET PO (10:01)
[2024-10-27] MEDS: OXcarbazepine 300 MG TABLET 600 MG PO (10:01)
[2024-10-27] MEDS: Topiramate 25 MG TABLET 50 MG PO (10:01)
--- NOTE | 2024-10-27 13:50 | MHC.CARE ---
Patient has been accepted to [facility] @ [address] [place] [address], ETA 4pm. Accepting provider Clarence Odom picking up at 430pm ( next available ) [facility] is aware of late arrival and gave approval for admission today.
[2024-10-27 14:21] VITALS: BP 105/65; PULSE 67; RESP 14; TEMP 36.5; O2SAT 96
[2024-10-27 16:28] VITALS: BP 105/65; PULSE 67; RESP 14; TEMP 36.5; O2SAT 96
== END 2024-10-27 16:29 | disposition still patient (30) ==
PROVIDERS: Physician Assistant; Emergency Provider Emergency Medicine
DX: R45.851 Suicidal ideations (principal); R51.9 Headache, unspecified; F19.90 Other psychoactive substance use, unspecified, uncomplicated; Z79.899 Other long term (current) drug therapy
CPT/HCPCS: 36415; 80053; 80307; 81003; 85025; 99285; S9485